=== PATIENT | male | born 1950 | race Caucasian/White ===

== ENCOUNTER 2017-04-29 16:48 | Emergency (ER) | payer MEDICARE, SELFPAY ==
[2017-04-29 16:50] VITALS: BP 163/64; PULSE 64; RESP 18; TEMP 37.1; O2SAT 99; BMI 44.4
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
[2017-04-29 19:34] VITALS: BP 153/81; PULSE 68; RESP 18; O2SAT 94
--- NOTE | 2017-04-29 19:37 | ED.RN ---
NOTED SWELLING AND WARMTH TO R LOWER EXT UPON DISCHARGE. ADDRESSED CONCERN WITH DR RODRIGES. DR STATED IT WAS INFLAMMATION RESPONSE. ENCOURAGED PT TO FOLLOW UP WITH PCP IF NEEDED AND TO RETURN IF THINGS CHANGED OR PAIN BEGAN.
== END 2017-04-29 19:38 | disposition home or self-care (01) ==
PROVIDERS: Emergency Provider Emergency Medicine
DX: S80.11XA Contusion of right lower leg, initial encounter (principal); S16.1XXA Strain of muscle, fascia and tendon at neck level, initial encounter; E11.9 Type 2 diabetes mellitus without complications; I10 Essential (primary) hypertension; E66.9 Obesity, unspecified; Z79.82 Long term (current) use of aspirin; Z79.84 Long term (current) use of oral hypoglycemic drugs; Z79.899 Other long term (current) drug therapy; W55.19XA Other contact with horse, initial encounter; Y93.I9 Activity, other involving external motion; Y92.89 Other specified places as the place of occurrence of the external cause; Y99.8 Other external cause status
CPT/HCPCS: 73590; 99282

== ENCOUNTER → 2017-05-23 10:51 | Outpatient (CLI) | payer MEDICARE, SELFPAY ==
[2017-05-23 11:55] LABS: Anion Gap 7 (5-15); BUN 17 mg/dL (7-18); BUN/Creat Ratio 19.8 RATIO (10-20); Calcium,Total 8.9 mg/dL (8.5-10.1); Chloride 107 mmol/L (98-107); Creatinine, Serum 0.86 mg/dL (0.70-1.30); EST Glomerular Filtration Rate 95 mL/min (>60); Est Glom Filt Rate - Afr Amer 115 mL/min (>60); Glucose 127 mg/dL (74-106); Magnesium 2.1 mg/dL (1.6-2.6); Potassium 3.7 mmol/L (3.5-5.1); Sodium Level 143 mmol/L (136-145); Thyroid Stim Hormone (TSH) 2.41 uIU/mL (0.358-3.74)
== END ==
PROVIDERS: Visit Provider Internal Medicine Cardiovascular Disease
DX: I10 Essential (primary) hypertension (principal)
CPT/HCPCS: 36415; 80048; 83735; 84443

== ENCOUNTER → 2017-06-27 16:12 | Outpatient (CLI) | payer MEDICARE, SELFPAY ==
[2017-06-27 18:30] LABS: Cholesterol 149 mg/dL (200); High Density Lipoprotein 38 mg/dL; PSA,Total - Annual Screen 3.73 ng/mL (0.00-4.00); Triglycerides 92 mg/dL; Very Low Density Lipoprotein 18 mg/dL (5-40)
[2017-06-28 06:57] LABS: Hemoglobin A1c 6.7 % (4.2-6.3)
== END ==
PROVIDERS: Family Provider Family Medicine; PCP Family Medicine; Visit Provider Family Medicine
DX: I10 Essential (primary) hypertension (principal); N40.0 Benign prostatic hyperplasia without lower urinary tract symptoms; E11.9 Type 2 diabetes mellitus without complications; Z12.5 Encounter for screening for malignant neoplasm of prostate
CPT/HCPCS: 36415; 80061; 83036; 84153; G0103

== ENCOUNTER → 2017-06-28 10:35 | Outpatient (CLI) | payer MEDICARE, SELFPAY | PROVIDERS: Family Provider Family Medicine; PCP Family Medicine; Visit Provider Family Medicine | DX: L03.011 Cellulitis of right finger (principal) | CPT/HCPCS: 87070; 87075; 87077; 87186; 87205 ==

== ENCOUNTER → 2017-10-02 09:29 | Outpatient (CLI) | payer MEDICARE, SELFPAY ==
[2017-10-02 10:55] LABS: Hemoglobin A1c 7.2 % (4.2-6.3)
[2017-10-02 11:11] LABS: Anion Gap 8 (5-15); BUN 14 mg/dL (7-18); BUN/Creat Ratio 17.3 RATIO (10-20); Calcium,Total 8.7 mg/dL (8.5-10.1); Chloride 104 mmol/L (98-107); Creatinine, Serum 0.81 mg/dL (0.70-1.30); EST Glomerular Filtration Rate 102 mL/min (>60); Est Glom Filt Rate - Afr Amer 123 mL/min (>60); Glucose 179 mg/dL (74-106); Potassium 3.5 mmol/L (3.5-5.1); Sodium Level 140 mmol/L (136-145)
== END ==
PROVIDERS: Family Provider Family Medicine; PCP Family Medicine; Visit Provider Family Medicine
DX: E11.9 Type 2 diabetes mellitus without complications (principal); I10 Essential (primary) hypertension
CPT/HCPCS: 36415; 80048; 83036

== ENCOUNTER → 2018-07-21 | Outpatient (CLI) | payer MEDICARE, SELFPAY ==
[2018-05-27 09:47] VITALS: BMI 45.6
[2018-07-21 12:42] LABS: Anion Gap 6 (5-15); BUN 13 mg/dL (7-18); Calcium,Total 8.9 mg/dL (8.5-10.1); Chloride 107 mmol/L (98-107); Cholesterol 148 mg/dL (200); Creatinine, Serum 0.76 mg/dL (0.70-1.30); EST Glomerular Filtration Rate 108 mL/min (>60); Est Glom Filt Rate - Afr Amer 131 mL/min (>60); Glucose 140 mg/dL (74-106); High Density Lipoprotein 39 mg/dL; Potassium 3.7 mmol/L (3.5-5.1); Sodium Level 144 mmol/L (136-145); Triglycerides 123 mg/dL; Very Low Density Lipoprotein 25 mg/dL (5-40)
== END | disposition home or self-care (01) ==
PROVIDERS: Family Provider Family Medicine; Visit Provider Family Medicine
DX: E11.9 Type 2 diabetes mellitus without complications (principal); N40.0 Benign prostatic hyperplasia without lower urinary tract symptoms; Z12.5 Encounter for screening for malignant neoplasm of prostate
CPT/HCPCS: 36415; 80048; 80061; 84153; G0103

== ENCOUNTER → 2019-07-15 | Outpatient (CLI) | payer MEDICARE, SELFPAY ==
[2019-07-15 10:22] VITALS: BMI 45.6
[2019-07-15 13:08] LABS: Anion Gap 5 (5-15); BUN 15 mg/dL (7-18); BUN/Creat Ratio 18.5 RATIO (10-20); Calcium,Total 9.1 mg/dL (8.5-10.1); Chloride 107 mmol/L (98-107); Cholesterol 186 mg/dL (200); Creatinine, Serum 0.81 mg/dL (0.70-1.30); EST Glomerular Filtration Rate 101 mL/min (>60); Est Glom Filt Rate - Afr Amer 122 mL/min (>60); Glucose 148 mg/dL (74-106); High Density Lipoprotein 45 mg/dL; Potassium 3.8 mmol/L (3.5-5.1); Sodium Level 143 mmol/L (136-145); Thyroid Stim Hormone (TSH) 2.02 uIU/mL (0.358-3.74); Triglycerides 139 mg/dL; Very Low Density Lipoprotein 28 mg/dL (5-40)
== END | disposition home or self-care (01) ==
LOC: MFPLAB 10:23
PROVIDERS: Visit Provider Family Medicine
DX: Z00.00 Encounter for general adult medical examination without abnormal findings (principal); E11.9 Type 2 diabetes mellitus without complications
CPT/HCPCS: 36415; 80048; 80061; 84443

== ENCOUNTER → 2019-07-21 15:01 | Outpatient (CLI) | payer MEDICARE, SELFPAY ==
[2019-07-15 10:22] VITALS: BMI 45.6
== END ==
PROVIDERS: Referring Provider Nurse Practitioner Adult Health; Visit Provider Nurse Practitioner Adult Health
DX: N40.1 Benign prostatic hyperplasia with lower urinary tract symptoms (principal)
CPT/HCPCS: 36415; 84153; G0103

== ENCOUNTER → 2019-08-21 | Outpatient (CLI) | payer MEDICARE, SELFPAY ==
[2019-07-15 10:22] VITALS: BMI 45.6
[2019-08-21 13:03] LABS: PSA,Total- Diagnostic 4.31 ng/mL (0.0-4.0)
== END | disposition home or self-care (01) ==
LOC: MFPLAB 10:53
PROVIDERS: Nurse Practitioner Adult Health; PCP Family Medicine; Referring Provider Family Medicine; Visit Provider Internal Medicine Gastroenterology
DX: R97.20 Elevated prostate specific antigen [PSA] (principal)
CPT/HCPCS: 36415; 84153

== ENCOUNTER 2019-12-07 07:52 | Inpatient (IN) | payer MEDICARE, SELFPAY ==
[2019-07-15 10:22] VITALS: BMI 45.6
[2019-12-07] VITALS (38 sets, daily range): BP systolic 93–182; BP diastolic 57–157; PULSE 69–96; RESP 14–40; TEMP 35.9–39.2; O2SAT 71–100; BMI 35.1; BMI 35.4
[2019-12-07] MEDS: Succinylcholine Chloride 200 MG/10 ML Vial 100 MG IV (08:00)
[2019-12-07] MEDS: Etomidate 20 MG/10 ML Vial IV (08:00)
--- NOTE | 2019-12-07 08:01 | ED.RN ---
0800-- etomidate 20 mg iv with flush 0801 succyncholine 100 mg iv with flush 0803- size 8.[address] burr. color change-- 24 at lip-- bilateral lung sounds 162/78 99 18 90 sat o2sat increasing--94 95 at 0807
--- NOTE | 2019-12-07 08:08 | EKG12_ITS ---
Test Reason : Blood Pressure : / mmHG Vent. Rate : 083 BPM Atrial Rate : 083 BPM P-R Int : 180 ms QRS Dur : 090 ms QT Int : 370 ms P-R-T Axes : 012 -01 071 degrees QTc Int : 434 ms Normal sinus rhythm Nonspecific ST abnormality Abnormal ECG Confirmed by CHAVO POLLOCK, DINH ([id number]), offline editor MARCO MONTGOMERY ([id number]) on 12/08/2019 10:39:14 AM Referred By: Enrique Youssef Confirmed By:DINH TONY MD
--- NOTE | 2019-12-07 08:08 | RAD_ITS ---
STUDY: X-RAY CHEST REASON FOR EXAM: Male, 69 years old. UNRESPONSIVE AND INTUBATION TODAY. COUGH YESTERDAY TECHNIQUE: Single AP portable view of the chest. COMPARISON: Comparison is made with prior study dated 09/02/2016. FINDINGS: An endotracheal tube is in situ. The tip is at 3.9 cm proximal to the dilma. An oral gastric tube is seen with the tip below the left hemidiaphragm. EKG electrodes are seen. There is evidence of bilateral diffuse airspace disease worse in the left lung. The differential diagnosis should include either pulmonary edema or diffuse bilateral pneumonia. There is no demonstrated pleural abnormality. Normal size heart. Normal mediastinum and marquise. Normal visualized pulmonary arteries. There is atherosclerotic tortuosity of the aortic arch and descending thoracic aorta. There are diffuse degenerative changes of the visualized thoracic spine. Normal visualized ribs, clavicles, and shoulders. There is no demonstrated abnormality of the visualized soft tissue structures of the upper abdomen. RAD/Chest 1 View (Portable) IMPRESSION: Diffuse bilateral alveolar infiltrates more prominent in the left hemithorax. Differential diagnosis should include either pulmonary edema or diffuse bilateral pneumonia. Electronically Signed: Damion Choi, at 8:46 EDT , Service support ,
[2019-12-07] MEDS: fentaNYL 100 MCG/2 ML Ampul IV ×2 (08:10→09:56)
[2019-12-07] MEDS: Propofol 10MG/Ml 1,000 MG/100 ML Bottle 6.9 MG CONT INF (08:14)
--- NOTE | 2019-12-07 08:22 | ED.RN ---
bilater wrist restraints propofol at 10 mck initiated
--- NOTE | 2019-12-07 08:35 | ED.VISSUMM ---
- ER Visit Summary Date of Service: 12/07/19 Chief Complaint: Unresponsive History of Present Illness: The patient is a 69 M who comes in with EMS due to being unresponsive. states that she tried to wake up the patient this morning but he did not. He started being sick yesterday with cough and shortness of breath. She started giving him some all-natural cough supplements. She tried to wake up this morning and he would not. EMS was called and transported him here. His blood glucose was in the 200s. He does have a history of hypertension and diabetes. He has been exposed with coronavirus at [facility] last week. He is a non-smoker. Physical Examination: Vital signs are reviewed. The patient is hypoxic in the 60s on a nonrebreather. HEENT exam reveals dilated but equal pupils. He has moist mucous membranes. Neck is supple without JVD. His heart is regular rate and rhythm. Lungs have diffuse rhonchorous breath sounds bilaterally. His breath sounds are diminished in the bases. His abdomen is soft and nondistended. Back is nontender. His extremities have no significant peripheral edema. Patient is lethargic and does not answer any questions. He moves all 4 extremities equally. Test Results: EKG was sinus rhythm with a rate of 83. No ischemic changes. Labs show glucose of 184, BUN of 23. AST is 44, lactate 2.7. Chest x-ray shows diffuse infiltrates. Emergency Department Course and Treatment: Due to the patient's persistent hypoxia and tachypnea the patient was intubated. He was given 20 mg of etomidate and 100 mg of succinylcholine. Preoxygenation was used with [id number]. He was intubated on the first pass using the glide scope. An 8?0 endotracheal tube was placed at 24 cm at the lip. There was bilateral breath sounds and good color change on capnography. A PEEP valve was placed on the bag to assist with oxygenation and he came up into the 90s after intubation. Patient had to be placed on propofol and fentanyl for sedation. I gave him Rocephin and azithromycin after reviewing his chest x-ray. His Covid test is positive. The patient was maintained on 100% FiO2 PEEP of 15 to maintain oxygenation. A Duarte catheter was placed and it revealed a lot of blood. His platelet count was 38 but his hemoglobin and INR are normal. He did have some blood clots so it was replaced with a three-way and it was flushed until it cleared. Patient was discussed with Dr. Sheppard and he will see the patient in the ICU. Patient will be admitted to the hospitalist. Treatment Plan: [] Disposition: Admit Impression: Cute respiratory failure with hypoxia Severe sepsis COVID-19 Hematuria This note was generated with [employer] dictation software. It may contain incorrect words, spelling, and punctuation that were not noted in review of the chart prior to signing ED Disposition - Plan for ED Patient: Referrals: Yunior Chaudhry MD [Primary Care Provider] -
[2019-12-07 08:38] LABS: Absolute Lymphocyte Count 1.05 X10^3/uL (0.83-4.51); Absolute Neutrophil Count 2.4 X10^3/uL (2.0-7.7); Basophil# 0.02 X10^3/uL; Basophil% 0.3 % (0-1); Hematocrit 46.9 % (40-54); Hemoglobin 15.9 g/dL (13.0-16.5); Lymphocyte # 1.05 X10^3/ul (4.0); Lymphocyte % 17.3 % (19-41); Mean Corp Hgb Conc 33.9 g/dL (32-36); Mean Corpuscular Hgb 31.5 pg (27.0-32.0); Mean Corpuscular Volume 93.1 fL (80-94); Mean Platelet Vol. 12.5 fl (6.2-12.0); Monocyte% 41.2 % (0-10); NRBC Flagged by Analyzer 0 % (0-5); Neutrophil # 2.41 X10^3/uL (2.7-7.7); Neutrophil % 39.7 % (47-70); POSITIVE COUNT YES; POSITIVE DIFFERENTIAL YES; POSITIVE MORPHOLOGY YES; Platelet Count 89 K/mm3 (150-450); RBC Distribution Width CV 13.4 % (11.6-14.6); RBC Distribution Width SD 45.7 fl (35.1-43.9); Red Blood Count 5.04 M/mm3 (4.6-6.2); White Blood Count 6.1 K/mm3 (4.4-11.0)
[2019-12-07 08:39] LABS: Differential Indicated SCAN CRITERIA MET
[2019-12-07] MEDS: Propofol 200 MG/20 ML Vial 40 MG IV BOLUS (08:40)
[2019-12-07 08:51] LABS: ALB/GLOB Ratio 0.8 RATIO (0.9-2.4); AST(SGOT) 44 U/L (15-37); Alanine Aminotransfer ALT/SGPT 17 U/L (16-61); Albumin, Serum 3.4 g/dL (3.2-5.0); Alkaline Phosphatase 60 U/L (45-117); Anion Gap 11 (5-15); BUN 23 mg/dL (7-18); BUN/Creat Ratio 19.3 RATIO (10-20); Calcium,Total 8.5 mg/dL (8.5-10.1); Chloride 104 mmol/L (98-107); Creatinine, Serum 1.19 mg/dL (0.70-1.30); EST Glomerular Filtration Rate 65 mL/min (>60); Est Glom Filt Rate - Afr Amer 78 mL/min (>60); Estimated Creatinine Clearance 63.28 ml/min; Globulin 4.3 g/dL (2.2-4.2); Glucose 184 mg/dL (74-106); Potassium 3.6 mmol/L (3.5-5.1); Protein, Total 7.7 g/dL (6.4-8.2); Sodium Level 139 mmol/L (136-145)
[2019-12-07 08:55] LABS: International Normalized Ratio 1.1; Prothrombin Time (Protime)PT. 13.9 SECONDS (11.7-14.9)
[2019-12-07 08:56] LABS: Partial Thromboplast Time 35.7 Seconds (24.1-36.2)
[2019-12-07 09:01] LABS: Reactive Lymphocyte RARE
[2019-12-07 09:07] LABS: Lactic Acid 2.7 mmol/L (0.4-1.9)
[2019-12-07 09:43] LABS: Mucous, Urine 0 SEEN /hpf (<or=2+)
--- NOTE | 2019-12-07 09:49 | ED.RN ---
COVID SWAB SWITCHED TO ANTIGEN OK PER DR ARANDA
[2019-12-07 09:53] LABS: Color, Urine Red (Yellow); Glucose, Dipstick Normal (Normal); Ketone-Dipstick 15 mg/dl (Negative); Leukocyte Esterase-Dipstick 25 /ul (Negative); Nitrite-Dipstick Negative (Negative); Occult Blood-Urine 250 /ul (Negative); Protein-Dipstick 500 mg/dl (Negative); Specific Gravity, Urine 1.015 (1.002-1.030); Urine Bilirubin Dipstick Negative (Negative); Urine Clarity Turbid (Clear); Urine Urobilinogen Normal (Normal); Urine pH 6.5 (5.0 - 8.0)
[2019-12-07 09:56] LABS: Base Excess -2 mmol/L (-2 to +2); Bicarbonate 22.7 mmol/L (22-26); Blood Gas Specimen Type ART; FI02 100; Mode AC; O2 Delivery Device Adult Vent; PEEP 15; PO2 112 mmHG (75-100); RR 20; SITE R Brach; SO2 99 % (95-99); Total Carbon Dioxide 24 mmol/L; Vt 500; pCO2 34.8 mmHg (35-45); pH 7.42 (7.35-7.45)
[2019-12-07 10:06] LABS: Bacteria 1+ /hpf (None Seen); Red Blood Cells-Urine > 100 SEEN /hpf (0-5); Renal Epithelial Cells 0-5 SEEN /hpf (0-5); Squamous Epithelial Cells - UA 0-5 SEEN /hpf (0-5); White Blood Cells 0-5 SEEN /hpf (0-5)
[2019-12-07 10:21] LABS: Bedside Glucose 219 mg/dL (70-110)
--- NOTE | 2019-12-07 11:10 | NURSING ---
ICU PAINTSIL ACUTE RESP FAILURE, COPVID, SEVERE SEPSIS
--- NOTE | 2019-12-07 11:19 | PCM.HP.STD ---
Problem List (1) COVID-19 with multiple comorbidities Status: Acute (2) COVID-19 with pulmonary comorbidity Status: Acute (3) Acute respiratory failure with hypoxia Status: Acute (4) Hypertension Status: Chronic Qualifiers: Hypertension type: essential hypertension Qualified Code(s): I10 - Essential (primary) hypertension (5) DM2 (diabetes mellitus, type 2) Status: Chronic Qualifiers: Diabetes mellitus [facility] insulin use: without [facility] use Diabetes mellitus complication status: with kidney complications Diabetes mellitus complication detail: with chronic kidney disease Chronic kidney disease stage: stage 2 (mild) Qualified Code(s): E11.22 - Type 2 diabetes mellitus with diabetic chronic kidney disease; N18.2 - Chronic kidney disease, stage 2 (mild) (6) Encephalopathy Status: Acute History of Present Illness Date of Admission: 12/07/19 Chief Complaint: Altered mental status?1 day The patient is a 69 year old M with past medical history of type II DM, hypertension who was admitted to the hospital with altered mental status. Patient was intubated and on sedation at time of being seen. Family not available at bedside. History was obtained from review of chart. Patient was reported to have been sick with cough and shortness of breath. His whole family reportedly has COVID-19. He was started on some natural cough supplement. This morning his try to wake him up but she was unable to. The EMS were called. His blood sugar was 200. Patient is Anibal. On arrival in the emergency department, patient was hypoxic with his oxygen saturation in the 60s on a nonrebreather. He was breathing more than 40 cycles per minute. He was intubated emergently. A Duarte catheter was placed in the ED and revealed gross hematuria with blood clots. Three-way catheter was then placed and flushed until it clears. Vitals in the ED showed BP of 101.2F, heart rate 79, blood pressure 1 two 2/157, respiratory 14, SPO2 is 91% on nonrebreather. WBC count 6.1, hemoglobin 15.9, platelet count 89. D-dimer is 3.37, fibrinogen 685, INR 1.1. ABG showed pH of 7.42, oxygen was 112, PCO2 was 34.8. BMP was unremarkable. Lactic acid was 2.7, CK was 92, procalcitonin and BMP were pending. UA showed turbid urine, occult blood 250, nitrite negative, WBC count 0-5. Chest x-ray showed diffuse bilateral alveolar infiltrates more prominent in the left hemithorax. Past Medical History Past Medical History (Chronic Problems): Chronic Problems (Last Reviewed 05/27/18 @ 10:[address] Hardeep Jackson MD) Hypertension (Chronic) DM2 (diabetes mellitus, type 2) (Chronic) Medical History: Medical History (Last Reviewed 05/27/18 @ 10:[address] Hardeep Jackson MD) Hypertension (Chronic) I10 DM2 (diabetes mellitus, type 2) (Chronic) E11.9 Hypertensive urgency (Acute) I16.0 Encephalopathy (Acute) G93.40 Allergies No Known Allergies Allergy (Verified 12/07/19 07:59) Home Medications: Ambulatory Orders Medication Instructions Recorded Metoprolol Tartrate [Lopressor 50 mg PO BID 09/02/16 (beta del)] Aspirin [Aspirin, Baby] 81 mg PO DAILY@0800 tab.chew 09/03/16 glimepiride 2 mg tablet 2 mg PO .COMPLEX 05/21/17 lisinopril 40 mg tablet 40 mg PO BID tab 05/21/17 doxazosin 2 mg tablet 2 mg PO QDAY #90 tab 12/10/17 amlodipine 10 mg tablet 10 mg PO QDAY #90 tab 12/11/17 potassium chloride 20 mEq 20 meq PO DAILY #90 tab 07/08/19 tablet,extended release(part/cryst) Surgical History: no surgical history Psychiatric History: No pertinent psych hx Lives: Spouse/ Significant Other, With Family Smoking Status: Unknown if ever smoked Tobacco Use: Non-smoker Alcohol: None Drugs: None - *Family History Maternal Family History: Family History (Last Reviewed 05/27/18 @ 10:[address] Hardeep Jackson MD) Father CAD (coronary artery disease) History Items: Stroke Paternal Family History: Family History (Last Reviewed 05/27/18 @ 10:[address] Hardeep Jackson MD) Father CAD (coronary artery disease) History Items: Heart Disease Review of Systems Unable to obtain accurate/complete ROS d/t: unable to answer due to being intubated. VTE Information - Inpt Only VTE Present on Admission: No VTE Pharm Prophylaxis ordered?: Yes Patient Problems: Active and Suspected Problems (Last Reviewed 05/27/18 @ 10:[address] Hardeep Jackson MD) COVID-19 with multiple comorbidities (Acute) COVID-19 with pulmonary comorbidity (Acute) Acute respiratory failure with hypoxia (Acute) Hypertensive urgency (Acute) Encephalopathy (Acute) - Physical Exam Vitals/I&O's: Vital Signs Temp Pulse Resp BP Pulse Ox 100.5 F H 75 20 H 108/62 97 12/07/19 11:04 12/07/19 11:04 12/07/19 11:04 12/07/19 11:04 12/07/19 11:04 Oxygen Delivery Method Mechanical Ventilator Weight: 114.3 kg Body Mass Index (BMI) 35.1 Finger Stick Blood Glucose 195 Intake and Output for Last 24 Hours 12/05/19 12/06/19 12/07/19 23:59 23:59 23:59 Intake Total 70.34 / 70.34 Balance 70.34 / 70.34 General: - - Intubated, on mechanical intubation, sedated, not pale HEENT: Atraumatic, PERRLA, EOMI, Normocephalic Oral: Moist Mucosa Neck: Supple Lungs: Diminished Cardiovascular: Regular rate, Regular Rhythm, Normal S1, Normal S2, No murmurs Abdomen: Bowel Sounds Present, Soft, Non Tender, Non-Distended, No Hepato-splenomegaly Extremities: Edema - bilateral trace edema Skin: No rashes Musculoskeletal: No Tenderness to Palpation of Joints or Extremities Lymphatic: No Cervical, Supraclavicular, or Inguinal Adenopathy Neurological: Cranial nerves II-XII grossly intact, Neuro grossly intact Psych/Mental Status: Normal Affect, Appropriate Microbiology Past 72 Hours 12/07/19 08:09 Mucosa - Nasopharyngeal - Final SARS-CoV-2 (COVID 19) Laboratory Results 12/07/19 07:55: WBC 6.1, RBC 5.04, Hgb 15.9, Hct 46.9, MCV 93.1, MCH 31.5, MCHC 33.9, RDW Std Deviation 45.7 H, RDW Coeff of Preston 13.4, Plt Count 89 L, MPV 12.5 H, Immature Gran % (Auto) 1.500 H, Neut % (Auto) 39.7 L, Lymph % (Auto) 17.3 L, Starr % (Auto) 41.2 H, Eos % (Auto) 0.0, Baso % (Auto) 0.3, Absolute Neuts (auto) 2.4, Absolute Lymphs (auto) 1.05, Nucleated RBC % 0, Reactive Lymphocytes RARE 12/07/19 07:55: PT 13.9, INR 1.1, APTT 35.7 12/07/19 07:55: Sodium 139, Potassium 3.6, Chloride 104, Carbon Dioxide 24.0, Anion Gap 11, BUN 23 H, Creatinine 1.19, Estim Creat Clear Calc 63.28, Est GFR (MDRD) Af Amer 78, Est GFR (MDRD) Non-Af 65, BUN/Creatinine Ratio 19.3, Glucose 184 H, Calcium 8.5, Total Bilirubin 0.90, AST 44 H, ALT 17, Alkaline Phosphatase 60, Troponin I 0.025, Total Protein 7.7, Albumin 3.4, Globulin 4.3 H, Albumin/Globulin Ratio 0.8 L 12/07/19 07:55: Lactic Acid 2.7 H* 12/07/19 08:25: COVID-19 (MARITZA) Cancelled 12/07/19 09:20: Urine Color Red, Urine Clarity Turbid, Urine pH 6.5, Ur Specific Harwood 1.015, Urine Protein 500 H, Urine Glucose (UA) Normal, Urine Ketones 15 H, Urine Occult Blood 250 H, Urine Nitrite Negative, Urine Bilirubin Negative, Urine Urobilinogen Normal, Ur Leukocyte Esterase 25 H, Urine RBC > 100 SEEN, Urine WBC 0-5 SEEN, Ur Squamous Epith Cells 0-5 SEEN, Ur Renal Epithelial Cell 0-5 SEEN, Urine Bacteria 1+, Urine Mucus 0 SEEN 12/07/19 09:46: Specimen Type ART, Sample Site R Brach, pH 7.42, Bicarbonate Actual 22.7, Total CO2 24, Base Excess -2, O2 Saturation 99, O2 % 100, ABG pCO2 34.8 L, ABG pO2 112 H, Respiration Rate 20, O2 Delivery Device Adult Vent, Vent Mode AC, Tidal Volume 500, POC PEEP 15 12/07/19 10:14: POC Glucose 219 H Current Medications Propofol (Diprivan) 1,000 mg in 100 mls @ 6.858 mls/hr CONT INF .Q12H MARCI; Protocol Last Titration: 12/07/19 10:14 Dose: 25 mcg/kg/min, 17.1 mls/hr Documented by: Fentanyl Citrate 1,000 mcg/ (Sodium Chloride) 100 mls @ 2.5 mls/hr CONT INF .Q40H MARCI; Protocol Last Titration: 12/07/19 09:26 Dose: 50 mcg/hr, 5 mls/hr Documented by: Assessment/Plan All Active Problems (Last Reviewed 05/27/18 @ 10:[address] Hardeep Jackson MD) COVID-19 with multiple comorbidities (Acute) COVID-19 with pulmonary comorbidity (Acute) Acute respiratory failure with hypoxia (Acute) Hypertensive urgency (Acute) Encephalopathy (Acute) 1. Acute hypoxic respiratory failure secondary to acute COVID-19 pneumonia Patient has been intubated, on mechanical ventilator Glazier Artist consulted, will continue on sedatives 2. Acute COVID-19 pneumonia, severe with hypoxia Admitting chest x-ray shows diffuse bilateral alveolar infiltrates more prominent in the left hemithorax Elevated D-dimer 3.37, LDH is 644, fibrinogen is 685 We will start patient on IV dexamethasone, ID and pulmonary consulted 3. Acute metabolic encephalopathy likely secondary to #2, currently intubated 4. Gross hematuria, noted after Duarte catheter was inserted in the ED Review of chart do not show history of BPH. We will hold off on anticoagulation as well as aspirin Urology consulted, would trend H&H, type and screen 5. Lactic acid Brian related to #1, lactic acid is 2.7, repeat is 1.5 6. Hypertensive urgency, blood pressure slightly improved with the start of propofol Will continue on home metoprolol 50 mg p.o. twice daily with holding parameters Lisinopril dose Zosyn on hold 6. Type II DM, on glimepiride, would hold glimepiride and continue on blood glucose check with insulin sliding scale 7. DVT PPx- SCDs on account of hematuria. Inpatient E&M: 89995 Init Hosp L3
--- NOTE | 2019-12-07 11:25 | NURSING ---
ICU 8
[2019-12-07 12:31] LABS: Reflex Lactate? Y
[2019-12-07 13:15] LABS: Fibrinogen 685 mg/dl (203-444)
[2019-12-07] MEDS: Propofol 10MG/Ml 1,000 MG/100 ML Bottle 20.6 MG CONT INF (13:20)
[2019-12-07 13:24] LABS: CPK Total, Creatine Kinase 92 U/L (39-308); LDH 644 U/L (87-241)
[2019-12-07 13:36] LABS: D-Dimer Quantitative (DVT/PE) 3.37 FEU/ug/m (0.27-0.49)
[2019-12-07] MEDS: Insulin Lispro 100 UNIT/ML INSULN.PEN SC ×2 (13:47→18:10)
--- NOTE | 2019-12-07 13:47 | NT.THERAPY_ITS ---
Nutrition Therapy Report - History Nutrition Services has been consulted to:: Manage enteral nutrition Current diet / nutrition support order:: NPO - Anthropometric Measurements Height:: 5 ft 11 in Weight:: 114.3 kg Body Mass Index (BMI):: 35.1 - Relevant Labs Relevant Labs:: RDW Std Deviation 45.7 fl (35.1-43.9) H 12/07/19 07:55 Plt Count 89 K/mm3 (150-450) L 12/07/19 07:55 MPV 12.5 fl (6.2-12.0) H 12/07/19 07:55 Immature Gran % (Auto) 1.500 % (0.0-0.9) H 12/07/19 07:55 Neut % (Auto) 39.7 % (47-70) L 12/07/19 07:55 Lymph % (Auto) 17.3 % (19-41) L 12/07/19 07:55 Childress % (Auto) 41.2 % (0-10) H 12/07/19 07:55 Fibrinogen 685 mg/dl (203-444) H 12/07/19 07:55 D-Dimer Quant (PE/DVT) 3.37 FEU/ug/m (0.27-0.49) H* 12/07/19 07:55 BUN 23 mg/dL (7-18) H 12/07/19 07:55 Glucose 184 mg/dL (74-106) H 12/07/19 07:55 Lactic Acid 2.7 mmol/L (0.4-1.9) H* 12/07/19 07:55 AST 44 U/L (15-37) H 12/07/19 07:55 Lactate Dehydrogenase 644 U/L (87-241) H 12/07/19 07:55 Globulin 4.3 g/dL (2.2-4.2) H 12/07/19 07:55 Albumin/Globulin Ratio 0.8 RATIO (0.9-2.4) L 12/07/19 07:55 - Assessment Food / Nutrition-Related History:: Unable to talk to pt d/t sedated and on vent - in isolation d/t COVID. Pt currently NPO and consulted for tf rec. UBW: 114.305 kg per EMR (09/02/16). Gluc elevated - on steroid - also w/ hx of DM. Nsg adm still being completed. Per Dr. Wayne, not to start tf today, but to make rec for later as needed. [ End ] - Nutrition Diagnosis Problem / Etiology / Signs & Symptoms (PES):: Pt with poor po intake r/t COVID virus AEB NPO status. [ End ] Evidence of Malnutrition Exists:: No - Nutrition Intervention Nutrition Prescription:: 1257 -1600 janene / 114-137 gm pro / day - Food / Nutrient Delivery Interventions Summary of nutrition intervention:: If pt to remain on vent, rec Vital High Protein at goal rate 65 cc/hr with 65 cc free water every 6 hours to provide ~ 1560 janene / 136 gm pro / 1564 cc free water w/ flush. Enteral nutrition support will be administered via gravity feed bag. Total formula to be administered in 24 hrs: 1560 mL. Rec 120 mL for first 4 hours (approx. 10 drops / min, 3 drops per 15 sec); increase to 180 mL for next 4 hours as tolerated (approx 15 drops/min, 4 drops per 15 sec). Goal rate is 260 mL per 4 hours (approx 20 drops/min, 5 drops per 15 sec). When able to resume po diet, rec CHO Control VERNON - consistency per [employer] and ONS as diet ordered and po intake is established. Nutrition education provided?: No - MNT Monitoring Further MNT monitoring and evaluation required?: Yes MNT Follow-up in:: 1-2 days - if questions, please call RD/LD at [phone]
[2019-12-07 14:27] LABS: Lactic Acid 1.5 mmol/L (0.4-1.9)
--- NOTE | 2019-12-07 15:07 | CON.PCM_ITS ---
Problem List (1) COVID-19 with multiple comorbidities Status: Acute (2) COVID-19 with pulmonary comorbidity Status: Acute (3) Acute respiratory failure with hypoxia Status: Acute (4) Hypertension Status: Chronic Qualifiers: Hypertension type: essential hypertension Qualified Code(s): I10 - Essential (primary) hypertension (5) DM2 (diabetes mellitus, type 2) Status: Chronic Qualifiers: Diabetes mellitus detention insulin use: without detention use Diabetes mellitus complication status: with kidney complications Diabetes mellitus complication detail: with chronic kidney disease Chronic kidney disease stage: stage 2 (mild) Qualified Code(s): E11.22 - Type 2 diabetes mellitus with diabetic chronic kidney disease; N18.2 - Chronic kidney disease, stage 2 (mild) (6) Hypertensive urgency Status: Acute (7) Encephalopathy Status: Acute Reason for Consult Date of Consultation: 12/07/19 Reason for Consultation: Respiratory failure History of Present Illness: The patient is a 69 year old M, with past medical history listed below, who presented [facility] on 12/07/2019 after being found unresponsive. Patient reportedly was found by his this morning and was unresponsive. Patient had started to complain of being sick yesterday with cough and shortness of breath. Patient does take herbal supplements at baseline, but this morning was unable to wait. EMS had noted his blood glucose in the 200s, but patient was significantly hypoxic on presentation. Patient reportedly had been exposed to coronavirus at some nondenominational functions last week. Patient reportedly is a non-smoker. In the ER, patient was noted to be hypoxic in the 60s on a nonrebreather. Patient was lethargic and there was some concern for him controlling his airway. Patient was emergently intubated using rapid sequence. No complications were noted. Patient was placed on increased FiO2 and a PEEP of 15 to maintain oxygenation. A Duarte catheter was placed and patient reportedly had a lot of blood clots. Laboratory work-up showed no leukocytosis, but thrombocytopenia at 89, elevated blood sugar at 184 and an elevated creatinine at 1.19 with a baseline of 0.7. ABG following intubation showed adequate oxygenation on ventilation, but is significantly depressed P to F ratio. Initial lactate was elevated and UA was consistent with hematuria. Patient did come back positive with COVID-19. Patient was admitted to the intensive care unit. Patient was difficult to sedate and did have significant vent dyssynchrony with these events. Multiple attempts at obtaining IV access were unsuccessful. Patient was able to be weaned on FiO2. Patient was not unable to provide a review of systems. Past Medical History Past Medical History (Chronic Problems): Chronic Problems (Last Reviewed 05/27/18 @ 10:[address] Hardeep Jackson MD) Hypertension (Chronic) DM2 (diabetes mellitus, type 2) (Chronic) Medical History: Medical History (Last Reviewed 05/27/18 @ 10:[address] Hardeep Jackson MD) Hypertension (Chronic) I10 DM2 (diabetes mellitus, type 2) (Chronic) E11.9 Hypertensive urgency (Acute) I16.0 Encephalopathy (Acute) G93.40 Allergies No Known Allergies Allergy (Verified 12/07/19 07:59) Home Medications: Ambulatory Orders Medication Instructions Recorded Metoprolol Tartrate [Lopressor 50 mg PO BID 09/02/16 (beta del)] Aspirin [Aspirin, Baby] 81 mg PO DAILY@0800 tab.chew 09/03/16 glimepiride 2 mg tablet 2 mg PO .COMPLEX 05/21/17 lisinopril 40 mg tablet 40 mg PO BID tab 05/21/17 doxazosin 2 mg tablet 2 mg PO QDAY #90 tab 12/10/17 amlodipine 10 mg tablet 10 mg PO QDAY #90 tab 12/11/17 potassium chloride 20 mEq 20 meq PO DAILY #90 tab 07/08/19 tablet,extended release(part/cryst) Smoking Status: Unknown if ever smoked - *Family History Maternal Family History: Family History (Last Reviewed 05/27/18 @ 10:[address] Hardeep Jackson MD) Father CAD (coronary artery disease) History Items: Stroke Review of Systems Unable to obtain accurate/complete ROS d/t: Intubated and sedated Patient Problems: Active and Suspected Problems (Last Reviewed 05/27/18 @ 10:[address] Hardeep Jackson MD) COVID-19 with multiple comorbidities (Acute) COVID-19 with pulmonary comorbidity (Acute) Acute respiratory failure with hypoxia (Acute) Encephalopathy (Acute) Objective: Chest x-ray shows bilateral infiltrates. Patient does not have any echocardiogram or pulmonary function test available for review in our system. Patient has been seen by cardiology for hypertension. - Physical Exam Vitals/I&O's: Vital Signs Temp Pulse Resp BP Pulse Ox 38.8 C H 77 24 H 109/62 100 12/07/19 11:35 12/07/19 13:02 12/07/19 13:02 12/07/19 11:35 12/07/19 13:02 Oxygen Delivery Method Mechanical Ventilator Weight: 114.3 kg Body Mass Index (BMI) 35.1 Finger Stick Blood Glucose 195 Intake and Output for Last 24 Hours 12/05/19 12/06/19 12/07/19 23:59 23:59 23:59 Intake Total 420.36 / 420.36 Balance 420.36 / 420.36 General: - - Intubated and sedated. Obese. Fair vent synchrony. HEENT: Atraumatic, PERRLA, EOMI, Normocephalic, - - Scleral injection without icterus Oral: Moist Mucosa, No Gingival or Mucosal Lesions/ Ulcerations Neck: Supple, No JVD, No Nodes, Trachea Midline Lungs: No rhonchi, No wheeze, Diminished, Rales - Right greater than left, - - Symmetric expansion. Cardiovascular: Regular rate, Regular Rhythm, Normal S1, Normal S2, No murmurs, No rub noted, No Gallop Abdomen: Bowel Sounds Present, Soft, Non Tender, Non-Distended, Obese Extremities: No clubbing, No cyanosis, Edema - 1-2+ lower extremity edema Skin: No rashes, No breakdown Musculoskeletal: No Tenderness to Palpation of Joints or Extremities Lymphatic: No Cervical, Supraclavicular, or Inguinal Adenopathy Neurological: Cranial nerves II-XII grossly intact, Neuro grossly intact, Motor Exam 5/5 strength throughout Psych/Mental Status: Flat Affect Microbiology Past 72 Hours 12/07/19 08:09 Mucosa - Nasopharyngeal - Final SARS-CoV-2 (COVID 19) Laboratory Results 12/07/19 07:55: WBC 6.1, RBC 5.04, Hgb 15.9, Hct 46.9, MCV 93.1, MCH 31.5, MCHC 33.9, RDW Std Deviation 45.7 H, RDW Coeff of [place] 13.4, Plt Count 89 L, MPV 12.5 H, Immature Gran % (Auto) 1.500 H, Neut % (Auto) 39.7 L, Lymph % (Auto) 17.3 L, [place] % (Auto) 41.2 H, Eos % (Auto) 0.0, Baso % (Auto) 0.3, Absolute Neuts (auto) 2.4, Absolute Lymphs (auto) 1.05, Nucleated RBC % 0, Reactive Lymphocytes RARE 12/07/19 07:55: PT 13.9, INR 1.1, APTT 35.7 12/07/19 07:55: Sodium 139, Potassium 3.6, Chloride 104, Carbon Dioxide 24.0, Anion Gap 11, BUN 23 H, Creatinine 1.19, Estim Creat Clear Calc 63.28, Est GFR (MDRD) Af Amer 78, Est GFR (MDRD) Non-Af 65, BUN/Creatinine Ratio 19.3, Glucose 184 H, Calcium 8.5, Total Bilirubin 0.90, AST 44 H, ALT 17, Alkaline Phosphatase 60, Troponin I 0.025, Total Protein 7.7, Albumin 3.4, Globulin 4.3 H, Albumin/Globulin Ratio 0.8 L 12/07/19 07:55: Lactic Acid 2.7 H* 12/07/19 07:55: B-Natriuretic Peptide Pending 12/07/19 07:55: Fibrinogen 685 H 12/07/19 07:55: Lactate Dehydrogenase 644 H, Total Creatine Kinase 92 12/07/19 07:55: D-Dimer Quant (PE/DVT) 3.37 H* 12/07/19 08:25: COVID-19 (MARITZA) Cancelled 12/07/19 09:20: Urine Color Red, Urine Clarity Turbid, Urine pH 6.5, Ur Specific [place] 1.015, Urine Protein 500 H, Urine Glucose (UA) Normal, Urine Ketones 15 H, Urine Occult Blood 250 H, Urine Nitrite Negative, Urine Bilirubin Negative, Urine Urobilinogen Normal, Ur Leukocyte Esterase 25 H, Urine RBC > 100 SEEN, Urine WBC 0-5 SEEN, Ur Squamous Epith Cells 0-5 SEEN, Ur Renal Epithelial Cell 0-5 SEEN, Urine Bacteria 1+, Urine Mucus 0 SEEN 12/07/19 09:46: Specimen Type ART, Sample Site R Brach, pH 7.42, Bicarbonate Actual 22.7, Total CO2 24, Base Excess -2, O2 Saturation 99, O2 % 100, ABG pCO2 34.8 L, ABG pO2 112 H, Respiration Rate 20, O2 Delivery Device Adult Vent, Vent Mode AC, Tidal Volume 500, POC PEEP 15 12/07/19 10:14: POC Glucose 219 H 12/07/19 13:40: Procalcitonin Pending 12/07/19 13:41: Lactic Acid 1.5 Current Medications Dexamethasone Sodium Phosphate (Dexamethasone 10 Mg/Ml Vial) 6 mg IV DAILY MARCI Propofol (Diprivan) 1,000 mg in 100 mls @ 6.858 mls/hr CONT INF .Q12H MARCI; Protocol Last Titration: 12/07/19 14:00 Dose: 35 mcg/kg/min, 24 mls/hr Documented by: Fentanyl Citrate 1,000 mcg/ (Sodium Chloride) 100 mls @ 2.5 mls/hr CONT INF .Q40H MARCI; Protocol Last Titration: 12/07/19 14:00 Dose: 75 mcg/hr, 7.5 mls/hr Documented by: Insulin Human Lispro (Insulin Lispro 100 Unit/Ml Insuln.Pen) 0 unit SC Q6 MARCI; Protocol Last Admin: 12/07/19 13:47 Dose: 2 u Documented by: Clinical Impression(s) from Imaging Studies Chest X-Ray 12/07/19 08:08 IMPRESSION: Diffuse bilateral alveolar infiltrates more prominent in the left hemithorax. Differential diagnosis should include either pulmonary edema or diffuse bilateral pneumonia. Electronically Signed: Damion Choi, at 8:46 EDT , Service support , Assessment/Plan Active and Suspected Problems (Last Reviewed 05/27/18 @ 10:[address] Hardeep Jackson MD) COVID-19 with multiple comorbidities (Acute) COVID-19 with pulmonary comorbidity (Acute) Acute respiratory failure with hypoxia (Acute) Encephalopathy (Acute) RECOMMENDATIONS: 1. Wean PEEP and FiO2 as tolerated 2. Consistent bladder irrigation as necessary to avoid obstruction 3. Repeat H&H this evening. Possible platelet transfusion if continues to have hematuria 4. Recheck fibrinogen in a.m. 5. Await BNP, pro calcitonin and CRP 6. Possible convalescent serum and remdesivir per ID 7. Place PICC line for IV access 8. Okay to initiate tube feeds from my perspective 9. PPI for GI prophylaxis IMPRESSIONS: 1. Acute hypoxic respiratory failure secondary to COVID-19 Patient with significant infiltrates bilaterally on chest x-ray. These findings could be suggestive of COVID-19 pneumonitis versus congestive heart failure. Patient does have a history of hypertension, so diastolic dysfunction would be a consideration. Patient does have a BNP currently pending. Patient should be placed on Decadron. Likely hold anticoagulation given thrombocytopenia with active bleeding. Wean oxygen and PEEP as tolerated. Spontaneous breathing and awakening trials per protocol. 2. Possible congestive heart failure Patient does have a long history of hypertension. Unclear if patient has diastolic dysfunction. BNP is currently pending. If elevated, echocardiogram would be appropriate for quantification and clarification of heart function. 3. Thrombocytopenia with hematuria Patient does have a history of BPH and is on doxazosin as an outpatient. Patient does have thrombocytopenia of unclear etiology. Patient would be at risk for DIC, but fibrinogen is currently elevated. Would recheck fibrinogen tomorrow. Recheck H&H this evening with transfusion if necessary. Would hold off on anticoagulation for now. Irrigate bladder as necessary. 4. Acute kidney injury Clinical suspicion for an element of ATN secondary to protracted hypoxia. Patient does have reasonable urine output at this time. This will be difficult to monitor given his need for bladder irrigation. Continue to monitor chemistries on a daily basis. 5. Diabetes mellitus/advanced age/obesity Complicates care, management, recovery and prognosis. Likely okay to initiate tube feeds, but high clinical suspicion.basal insulin will be required. TIME: 35 minutes critical care time spent addressing patient's acute hypoxic respiratory failure, possible CHF, thrombocytopenia, acute kidney injury, diabetes mellitus, review of all data and collaboration with care team (2 PM to 3 PM) [phone]: [id number] Critical care first hour
[2019-12-07 15:16] LABS: Bedside Glucose 233 mg/dL (70-110)
[2019-12-07 15:44] LABS: Hematocrit 41.3 % (40-54); Hemoglobin 13.6 g/dL (13.0-16.5)
[2019-12-07 15:49] LABS: POSITIVE COUNT NO
--- NOTE | 2019-12-07 16:23 | PCM.HP.ID ---
Reason for Consult: covid Consulted by: Dr. Wayne History of Present Illness: The patient is a 69 year old M found unresponsive by this AM in bed, started to get sick 12/05. May have been exposed to covid last week at [employer]. Taken to ED, intubated, admitted to icu on dex after dose of azithro/ceftriaxone. ROS unobtainable due to intubation/sedation - Medical History Past Medical History (Chronic Problems): Chronic Problems (Last Reviewed 05/27/18 @ 10:[address] Hardeep Jackson MD) Hypertension (Chronic) DM2 (diabetes mellitus, type 2) (Chronic) Allergies/Adverse Reactions: Allergies No Known Allergies Allergy (Verified 12/07/19 07:59) Home Medications: Ambulatory Orders Medication Instructions Recorded Metoprolol Tartrate [Lopressor 50 mg PO BID 09/02/16 (beta del)] Aspirin [Aspirin, Baby] 81 mg PO DAILY@0800 tab.chew 09/03/16 glimepiride 2 mg tablet 2 mg PO .COMPLEX 05/21/17 lisinopril 40 mg tablet 40 mg PO BID tab 05/21/17 doxazosin 2 mg tablet 2 mg PO QDAY #90 tab 12/10/17 amlodipine 10 mg tablet 10 mg PO QDAY #90 tab 12/11/17 potassium chloride 20 mEq 20 meq PO DAILY #90 tab 07/08/19 tablet,extended release(part/cryst) - Social History Tobacco Use: cigarettes SMOKING STATUS:: Current every day smoker Vital Signs Temp Pulse Resp BP Pulse Ox 102 F H 77 24 H 109/62 100 12/07/19 11:35 12/07/19 13:02 12/07/19 13:02 12/07/19 11:35 12/07/19 13:02 Oxygen Delivery Method Mechanical Ventilator Weight: 114.3 kg Body Mass Index (BMI) 35.1 Finger Stick Blood Glucose 195 Microbiology Past 72 Hours 12/07/19 08:09 - Final Mucosa - Nasopharyngeal SARS-CoV-2 (COVID 19) Laboratory Tests Past 24 Hrs 12/07/19 12/07/19 12/07/19 07:55 07:55 07:55 WBC 6.1 RBC 5.04 Hgb 15.9 Hct 46.9 MCV 93.1 MCH 31.5 MCHC 33.9 RDW Std Deviation 45.7 H RDW Coeff of [place] 13.4 Plt Count 89 L MPV 12.5 H Immature Gran % (Auto) 1.500 H Neut % (Auto) 39.7 L Lymph % (Auto) 17.3 L [place] % (Auto) 41.2 H Eos % (Auto) 0.0 Baso % (Auto) 0.3 Absolute Neuts (auto) 2.4 Absolute Lymphs (auto) 1.05 Nucleated RBC % 0 Reactive Lymphocytes RARE PT 13.9 INR 1.1 APTT 35.7 Fibrinogen D-Dimer Quant (PE/DVT) Specimen Type Sample Site pH Bicarbonate Actual Total CO2 Base Excess O2 Saturation O2 % ABG pCO2 ABG pO2 Respiration Rate O2 Delivery Device Vent Mode Tidal Volume POC PEEP Sodium 139 Potassium 3.6 Chloride 104 Carbon Dioxide 24.0 Anion Gap 11 BUN 23 H Creatinine 1.19 Estim Creat Clear Calc 63.28 Est GFR (MDRD) Af Amer 78 Est GFR (MDRD) Non-Af 65 BUN/Creatinine Ratio 19.3 Glucose 184 H Lactic Acid Calcium 8.5 Total Bilirubin 0.90 AST 44 H ALT 17 Alkaline Phosphatase 60 Lactate Dehydrogenase Total Creatine Kinase Troponin I 0.025 B-Natriuretic Peptide Total Protein 7.7 Albumin 3.4 Globulin 4.3 H Albumin/Globulin Ratio 0.8 L Procalcitonin Urine Color Urine Clarity Urine pH Ur Specific [place] Urine Protein Urine Glucose (UA) Urine Ketones Urine Occult Blood Urine Nitrite Urine Bilirubin Urine Urobilinogen Ur Leukocyte Esterase Urine RBC Urine WBC Ur Squamous Epith Cells Ur Renal Epithelial Cell Urine Bacteria Urine Mucus COVID-19 (MARITZA) Blood Type Antibody Screen 12/07/19 12/07/19 12/07/19 07:55 07:55 07:55 WBC RBC Hgb Hct MCV MCH MCHC RDW Std Deviation RDW Coeff of [place] Plt Count MPV Immature Gran % (Auto) Neut % (Auto) Lymph % (Auto) [place] % (Auto) Eos % (Auto) Baso % (Auto) Absolute Neuts (auto) Absolute Lymphs (auto) Nucleated RBC % Reactive Lymphocytes PT INR APTT Fibrinogen 685 H D-Dimer Quant (PE/DVT) Specimen Type Sample Site pH Bicarbonate Actual Total CO2 Base Excess O2 Saturation O2 % ABG pCO2 ABG pO2 Respiration Rate O2 Delivery Device Vent Mode Tidal Volume POC PEEP Sodium Potassium Chloride Carbon Dioxide Anion Gap BUN Creatinine Estim Creat Clear Calc Est GFR (MDRD) Af Amer Est GFR (MDRD) Non-Af BUN/Creatinine Ratio Glucose Lactic Acid 2.7 H* Calcium Total Bilirubin AST ALT Alkaline Phosphatase Lactate Dehydrogenase Total Creatine Kinase Troponin I B-Natriuretic Peptide Pending Total Protein Albumin Globulin Albumin/Globulin Ratio Procalcitonin Urine Color Urine Clarity Urine pH Ur Specific [place] Urine Protein Urine Glucose (UA) Urine Ketones Urine Occult Blood Urine Nitrite Urine Bilirubin Urine Urobilinogen Ur Leukocyte Esterase Urine RBC Urine WBC Ur Squamous Epith Cells Ur Renal Epithelial Cell Urine Bacteria Urine Mucus COVID-19 (MARITZA) Blood Type Antibody Screen 12/07/19 12/07/19 12/07/19 07:55 07:55 08:25 WBC RBC Hgb Hct MCV MCH MCHC RDW Std Deviation RDW Coeff of [place] Plt Count MPV Immature Gran % (Auto) Neut % (Auto) Lymph % (Auto) [place] % (Auto) Eos % (Auto) Baso % (Auto) Absolute Neuts (auto) Absolute Lymphs (auto) Nucleated RBC % Reactive Lymphocytes PT INR APTT Fibrinogen D-Dimer Quant (PE/DVT) 3.37 H* Specimen Type Sample Site pH Bicarbonate Actual Total CO2 Base Excess O2 Saturation O2 % ABG pCO2 ABG pO2 Respiration Rate O2 Delivery Device Vent Mode Tidal Volume POC PEEP Sodium Potassium Chloride Carbon Dioxide Anion Gap BUN Creatinine Estim Creat Clear Calc Est GFR (MDRD) Af Amer Est GFR (MDRD) Non-Af BUN/Creatinine Ratio Glucose Lactic Acid Calcium Total Bilirubin AST ALT Alkaline Phosphatase Lactate Dehydrogenase 644 H Total Creatine Kinase 92 Troponin I B-Natriuretic Peptide Total Protein Albumin Globulin Albumin/Globulin Ratio Procalcitonin Urine Color Urine Clarity Urine pH Ur Specific [place] Urine Protein Urine Glucose (UA) Urine Ketones Urine Occult Blood Urine Nitrite Urine Bilirubin Urine Urobilinogen Ur Leukocyte Esterase Urine RBC Urine WBC Ur Squamous Epith Cells Ur Renal Epithelial Cell Urine Bacteria Urine Mucus COVID-19 (MARITZA) Cancelled Blood Type Antibody Screen 12/07/19 12/07/19 12/07/19 09:20 09:46 13:40 WBC RBC Hgb Hct MCV MCH MCHC RDW Std Deviation RDW Coeff of [place] Plt Count MPV Immature Gran % (Auto) Neut % (Auto) Lymph % (Auto) [place] % (Auto) Eos % (Auto) Baso % (Auto) Absolute Neuts (auto) Absolute Lymphs (auto) Nucleated RBC % Reactive Lymphocytes PT INR APTT Fibrinogen D-Dimer Quant (PE/DVT) Specimen Type ART Sample Site R Brach pH 7.42 Bicarbonate Actual 22.7 Total CO2 24 Base Excess -2 O2 Saturation 99 O2 % 100 ABG pCO2 34.8 L ABG pO2 112 H Respiration Rate 20 O2 Delivery Device Adult Vent Vent Mode AC Tidal Volume 500 POC PEEP 15 Sodium Potassium Chloride Carbon Dioxide Anion Gap BUN Creatinine Estim Creat Clear Calc Est GFR (MDRD) Af Amer Est GFR (MDRD) Non-Af BUN/Creatinine Ratio Glucose Lactic Acid Calcium Total Bilirubin AST ALT Alkaline Phosphatase Lactate Dehydrogenase Total Creatine Kinase Troponin I B-Natriuretic Peptide Total Protein Albumin Globulin Albumin/Globulin Ratio Procalcitonin Pending Urine Color Red Urine Clarity Turbid Urine pH 6.5 Ur Specific [place] 1.015 Urine Protein 500 H Urine Glucose (UA) Normal Urine Ketones 15 H Urine Occult Blood 250 H Urine Nitrite Negative Urine Bilirubin Negative Urine Urobilinogen Normal Ur Leukocyte Esterase 25 H Urine RBC > 100 SEEN Urine WBC 0-5 SEEN Ur Squamous Epith Cells 0-5 SEEN Ur Renal Epithelial Cell 0-5 SEEN Urine Bacteria 1+ Urine Mucus 0 SEEN COVID-19 (MARITZA) Blood Type Antibody Screen 12/07/19 12/07/19 12/07/19 13:41 14:55 14:55 WBC RBC Hgb Hct MCV MCH MCHC RDW Std Deviation RDW Coeff of [place] Plt Count MPV Immature Gran % (Auto) Neut % (Auto) Lymph % (Auto) [place] % (Auto) Eos % (Auto) Baso % (Auto) Absolute Neuts (auto) Absolute Lymphs (auto) Nucleated RBC % Reactive Lymphocytes PT INR APTT Fibrinogen D-Dimer Quant (PE/DVT) Specimen Type Sample Site pH Bicarbonate Actual Total CO2 Base Excess O2 Saturation O2 % ABG pCO2 ABG pO2 Respiration Rate O2 Delivery Device Vent Mode Tidal Volume POC PEEP Sodium Potassium Chloride Carbon Dioxide Anion Gap BUN Creatinine Estim Creat Clear Calc Est GFR (MDRD) Af Amer Est GFR (MDRD) Non-Af BUN/Creatinine Ratio Glucose Lactic Acid 1.5 Calcium Total Bilirubin AST ALT Alkaline Phosphatase Lactate Dehydrogenase Total Creatine Kinase Troponin I B-Natriuretic Peptide Total Protein Albumin Globulin Albumin/Globulin Ratio Procalcitonin Urine Color Urine Clarity Urine pH Ur Specific [place] Urine Protein Urine Glucose (UA) Urine Ketones Urine Occult Blood Urine Nitrite Urine Bilirubin Urine Urobilinogen Ur Leukocyte Esterase Urine RBC Urine WBC Ur Squamous Epith Cells Ur Renal Epithelial Cell Urine Bacteria Urine Mucus COVID-19 (MARITZA) Blood Type Cancelled Pending Antibody Screen Pending 12/07/19 14:55 WBC RBC Hgb 13.6 Hct 41.3 MCV MCH MCHC RDW Std Deviation RDW Coeff of [place] Plt Count MPV Immature Gran % (Auto) Neut % (Auto) Lymph % (Auto) [place] % (Auto) Eos % (Auto) Baso % (Auto) Absolute Neuts (auto) Absolute Lymphs (auto) Nucleated RBC % Reactive Lymphocytes PT INR APTT Fibrinogen D-Dimer Quant (PE/DVT) Specimen Type Sample Site pH Bicarbonate Actual Total CO2 Base Excess O2 Saturation O2 % ABG pCO2 ABG pO2 Respiration Rate O2 Delivery Device Vent Mode Tidal Volume POC PEEP Sodium Potassium Chloride Carbon Dioxide Anion Gap BUN Creatinine Estim Creat Clear Calc Est GFR (MDRD) Af Amer Est GFR (MDRD) Non-Af BUN/Creatinine Ratio Glucose Lactic Acid Calcium Total Bilirubin AST ALT Alkaline Phosphatase Lactate Dehydrogenase Total Creatine Kinase Troponin I B-Natriuretic Peptide Total Protein Albumin Globulin Albumin/Globulin Ratio Procalcitonin Urine Color Urine Clarity Urine pH Ur Specific [place] Urine Protein Urine Glucose (UA) Urine Ketones Urine Occult Blood Urine Nitrite Urine Bilirubin Urine Urobilinogen Ur Leukocyte Esterase Urine RBC Urine WBC Ur Squamous Epith Cells Ur Renal Epithelial Cell Urine Bacteria Urine Mucus COVID-19 (MARITZA) Blood Type Antibody Screen - Other Studies Radiology: [] reviewed Other Studies: [] Route of nutrition/ use of supplements: [] Nutritional Intake: [] IV Site: [] Duarte Catheter: [] - Physical Exam General: Non-Cooperative HEENT: Atraumatic, PERRLA, EOMI Neck: Supple, No Nodes Lungs: Diminished Cardiovascular: Regular rate, Regular Rhythm Abdomen: Soft, Non Tender, Non-Distended Extremities: Edema Skin: No rashes IV Site: Peripheral, without redness Musculoskeletal: No Tenderness to Palpation of Joints or Extremities - Assessment/Plan Antibiotics: [] Assessment/Plan: [] Active and Suspected Problems (Last Reviewed 05/27/18 @ 10:[address] Hardeep Jackson MD) COVID-19 with multiple comorbidities (Acute) COVID-19 with pulmonary comorbidity (Acute) Acute respiratory failure with hypoxia (Acute) Hypertensive urgency (Acute) Encephalopathy (Acute) Covid with mech ventilation - on dex. Abx stopped. Fever to 102.2. Will check d-dimer, ABO, sputum cx, and PCT. Lactate high. On therapeutic lovenox. Wbc normal. Fever here up to 102.2. Will start 5 day course of remdesivir, likely would benefit from plasma as well if family is able to consent. Will follow, thank you
[2019-12-07] MEDS: Propofol 10MG/Ml 1,000 MG/100 ML Bottle 24 MG CONT INF ×2 (16:32→19:35)
--- NOTE | 2019-12-07 16:36 | CON.PCM_ITS ---
Problem List (1) Gross hematuria Status: Acute Reason for Consult Date of Consultation: 12/07/19 Reason for Consultation: Gross hematuria History of Present Illness: The patient is a 69 year old male who came into the hospital with shortness of breath and respiratory distress due to COVID-19 infection he had a catheter placed and it was a difficult Duarte catheter and they irrigated it and now they change a different catheter and now the urine is draining it is a darker color drainage has signs of old blood. The catheter appears to be in good position. Past Medical History Past Medical History (Chronic Problems): Chronic Problems (Last Reviewed 05/27/18 @ 10:[address] Hardeep Jackson MD) Hypertension (Chronic) DM2 (diabetes mellitus, type 2) (Chronic) Medical History: Medical History (Last Reviewed 05/27/18 @ 10:[address] Hardeep Jackson MD) Hypertension (Chronic) I10 DM2 (diabetes mellitus, type 2) (Chronic) E11.9 Hypertensive urgency (Acute) I16.0 Encephalopathy (Acute) G93.40 Allergies No Known Allergies Allergy (Verified 12/07/19 07:59) Home Medications: Ambulatory Orders Medication Instructions Recorded Metoprolol Tartrate [Lopressor 50 mg PO BID 09/02/16 (beta del)] Aspirin [Aspirin, Baby] 81 mg PO DAILY@0800 tab.chew 09/03/16 glimepiride 2 mg tablet 2 mg PO .COMPLEX 05/21/17 lisinopril 40 mg tablet 40 mg PO BID tab 05/21/17 doxazosin 2 mg tablet 2 mg PO QDAY #90 tab 12/10/17 amlodipine 10 mg tablet 10 mg PO QDAY #90 tab 12/11/17 potassium chloride 20 mEq 20 meq PO DAILY #90 tab 07/08/19 tablet,extended release(part/cryst) Surgical History: no surgical history Psychiatric History: No pertinent psych hx Lives: Spouse/ Significant Other, With Family Smoking Status: Unknown if ever smoked Tobacco Use: Non-smoker Alcohol: None Drugs: None - *Family History Maternal Family History: Family History (Last Reviewed 05/27/18 @ 10:[address] Hardeep Jackson MD) Father CAD (coronary artery disease) History Items: Stroke Paternal Family History: Family History (Last Reviewed 05/27/18 @ 10:[address] Hardeep Jackson MD) Father CAD (coronary artery disease) History Items: Heart Disease Review of Systems Constitutional: Reports: Chills, Fever. Denies: Weight Change HEENT: Denies: Head Aches, Sinus Congestion, Sinus Drainage Cardiovascular: Denies: Chest Pain, Palpitations Respiratory: Denies: Cough, Shortness of breath at rest, Sputum production Gastrointestinal: Denies: Abdominal Pain, Nausea, Vomiting Genitourinary: Denies: Dysuria Musculoskeletal: Denies: Joint Pain, Joint Tenderness Skin: Denies: Rash, Wounds Neurological: Denies: Numbness, Tingling, Focal weakness Psychiatric: Denies: Anxiety, Depression, Homicidal Ideations, Suicidal Ideations Hematologic/ Lymphatic: Denies: Easy Bruising, Easy Bleeding Unable to obtain accurate/complete ROS d/t: Unable to do review of systems patient intubated Physical Exam - Physical Exam Vital Signs Temp 102 F H 12/07/19 11:35 Pulse 70 12/07/19 15:30 Resp 18 12/07/19 15:30 BP 109/62 12/07/19 11:35 Pulse Ox 99 12/07/19 15:30 Intake & Output 12/05/19 12/06/19 12/07/19 23:59 23:59 23:59 Intake Total 420.36 / 420.36 Balance 420.36 / 420.36 Weight: 114.3 kg Intake: Intake, IV Amount 420.36 / 420.36 Ceftriaxone 2 GM In 0.9% Normal 50 / 50 Saline 50 ML @ 100 mls/hr IV X1 ONE Rx#:[id number] Diprivan 1,000 mg In 100 ml @ 86.74 / 86.74 10 MCG/KG/MIN 6.858 mls/hr CONT INF .Q12H [facility] Rx#:[id number] Fentanyl Drip 1,000 MCG In 0.9% 28.62 / 28.62 Normal Saline 100 ML @ 25 MCG/ HR 2.5 mls/hr CONT INF .Q40H [facility] Rx#:[id number] Zithromax 500 MG In Dextrose 5% 255 / 255 250 ML @ 250 mls/hr IV X1 ONE Rx#:[id number] General: Alert HEENT: Atraumatic Oral: Moist Mucosa Neck: Supple Lungs: Normal air movement Cardiovascular: Regular rate Abdomen: Soft Microbiology Past 72 Hours 12/07/19 08:09 - Final Mucosa - Nasopharyngeal SARS-CoV-2 (COVID 19) Laboratory Tests Past 24 Hrs 12/07/19 12/07/19 12/07/19 07:55 07:55 07:55 WBC 6.1 RBC 5.04 Hgb 15.9 Hct 46.9 MCV 93.1 MCH 31.5 MCHC 33.9 RDW Std Deviation 45.7 H RDW Coeff of [place] 13.4 Plt Count 89 L MPV 12.5 H Immature Gran % (Auto) 1.500 H Neut % (Auto) 39.7 L Lymph % (Auto) 17.3 L [place] % (Auto) 41.2 H Eos % (Auto) 0.0 Baso % (Auto) 0.3 Absolute Neuts (auto) 2.4 Absolute Lymphs (auto) 1.05 Nucleated RBC % 0 Reactive Lymphocytes RARE PT 13.9 INR 1.1 APTT 35.7 Fibrinogen D-Dimer Quant (PE/DVT) Specimen Type Sample Site pH Bicarbonate Actual Total CO2 Base Excess O2 Saturation O2 % ABG pCO2 ABG pO2 Respiration Rate O2 Delivery Device Vent Mode Tidal Volume POC PEEP Sodium 139 Potassium 3.6 Chloride 104 Carbon Dioxide 24.0 Anion Gap 11 BUN 23 H Creatinine 1.19 Estim Creat Clear Calc 63.28 Est GFR (MDRD) Af Amer 78 Est GFR (MDRD) Non-Af 65 BUN/Creatinine Ratio 19.3 Glucose 184 H Lactic Acid Calcium 8.5 Total Bilirubin 0.90 AST 44 H ALT 17 Alkaline Phosphatase 60 Lactate Dehydrogenase Total Creatine Kinase Troponin I 0.025 B-Natriuretic Peptide Total Protein 7.7 Albumin 3.4 Globulin 4.3 H Albumin/Globulin Ratio 0.8 L Procalcitonin Urine Color Urine Clarity Urine pH Ur Specific [place] Urine Protein Urine Glucose (UA) Urine Ketones Urine Occult Blood Urine Nitrite Urine Bilirubin Urine Urobilinogen Ur Leukocyte Esterase Urine RBC Urine WBC Ur Squamous Epith Cells Ur Renal Epithelial Cell Urine Bacteria Urine Mucus COVID-19 (MARITZA) Blood Type Antibody Screen 12/07/19 12/07/19 12/07/19 07:55 07:55 07:55 WBC RBC Hgb Hct MCV MCH MCHC RDW Std Deviation RDW Coeff of [place] Plt Count MPV Immature Gran % (Auto) Neut % (Auto) Lymph % (Auto) [place] % (Auto) Eos % (Auto) Baso % (Auto) Absolute Neuts (auto) Absolute Lymphs (auto) Nucleated RBC % Reactive Lymphocytes PT INR APTT Fibrinogen 685 H D-Dimer Quant (PE/DVT) Specimen Type Sample Site pH Bicarbonate Actual Total CO2 Base Excess O2 Saturation O2 % ABG pCO2 ABG pO2 Respiration Rate O2 Delivery Device Vent Mode Tidal Volume POC PEEP Sodium Potassium Chloride Carbon Dioxide Anion Gap BUN Creatinine Estim Creat Clear Calc Est GFR (MDRD) Af Amer Est GFR (MDRD) Non-Af BUN/Creatinine Ratio Glucose Lactic Acid 2.7 H* Calcium Total Bilirubin AST ALT Alkaline Phosphatase Lactate Dehydrogenase Total Creatine Kinase Troponin I B-Natriuretic Peptide Pending Total Protein Albumin Globulin Albumin/Globulin Ratio Procalcitonin Urine Color Urine Clarity Urine pH Ur Specific [place] Urine Protein Urine Glucose (UA) Urine Ketones Urine Occult Blood Urine Nitrite Urine Bilirubin Urine Urobilinogen Ur Leukocyte Esterase Urine RBC Urine WBC Ur Squamous Epith Cells Ur Renal Epithelial Cell Urine Bacteria Urine Mucus COVID-19 (MARITZA) Blood Type Antibody Screen 12/07/19 12/07/19 12/07/19 07:55 07:55 08:25 WBC RBC Hgb Hct MCV MCH MCHC RDW Std Deviation RDW Coeff of [place] Plt Count MPV Immature Gran % (Auto) Neut % (Auto) Lymph % (Auto) [place] % (Auto) Eos % (Auto) Baso % (Auto) Absolute Neuts (auto) Absolute Lymphs (auto) Nucleated RBC % Reactive Lymphocytes PT INR APTT Fibrinogen D-Dimer Quant (PE/DVT) 3.37 H* Specimen Type Sample Site pH Bicarbonate Actual Total CO2 Base Excess O2 Saturation O2 % ABG pCO2 ABG pO2 Respiration Rate O2 Delivery Device Vent Mode Tidal Volume POC PEEP Sodium Potassium Chloride Carbon Dioxide Anion Gap BUN Creatinine Estim Creat Clear Calc Est GFR (MDRD) Af Amer Est GFR (MDRD) Non-Af BUN/Creatinine Ratio Glucose Lactic Acid Calcium Total Bilirubin AST ALT Alkaline Phosphatase Lactate Dehydrogenase 644 H Total Creatine Kinase 92 Troponin I B-Natriuretic Peptide Total Protein Albumin Globulin Albumin/Globulin Ratio Procalcitonin Urine Color Urine Clarity Urine pH Ur Specific [place] Urine Protein Urine Glucose (UA) Urine Ketones Urine Occult Blood Urine Nitrite Urine Bilirubin Urine Urobilinogen Ur Leukocyte Esterase Urine RBC Urine WBC Ur Squamous Epith Cells Ur Renal Epithelial Cell Urine Bacteria Urine Mucus COVID-19 (MARITZA) Cancelled Blood Type Antibody Screen 12/07/19 12/07/19 12/07/19 09:20 09:46 13:40 WBC RBC Hgb Hct MCV MCH MCHC RDW Std Deviation RDW Coeff of [place] Plt Count MPV Immature Gran % (Auto) Neut % (Auto) Lymph % (Auto) [place] % (Auto) Eos % (Auto) Baso % (Auto) Absolute Neuts (auto) Absolute Lymphs (auto) Nucleated RBC % Reactive Lymphocytes PT INR APTT Fibrinogen D-Dimer Quant (PE/DVT) Specimen Type ART Sample Site R Brach pH 7.42 Bicarbonate Actual 22.7 Total CO2 24 Base Excess -2 O2 Saturation 99 O2 % 100 ABG pCO2 34.8 L ABG pO2 112 H Respiration Rate 20 O2 Delivery Device Adult Vent Vent Mode AC Tidal Volume 500 POC PEEP 15 Sodium Potassium Chloride Carbon Dioxide Anion Gap BUN Creatinine Estim Creat Clear Calc Est GFR (MDRD) Af Amer Est GFR (MDRD) Non-Af BUN/Creatinine Ratio Glucose Lactic Acid Calcium Total Bilirubin AST ALT Alkaline Phosphatase Lactate Dehydrogenase Total Creatine Kinase Troponin I B-Natriuretic Peptide Total Protein Albumin Globulin Albumin/Globulin Ratio Procalcitonin Pending Urine Color Red Urine Clarity Turbid Urine pH 6.5 Ur Specific [place] 1.015 Urine Protein 500 H Urine Glucose (UA) Normal Urine Ketones 15 H Urine Occult Blood 250 H Urine Nitrite Negative Urine Bilirubin Negative Urine Urobilinogen Normal Ur Leukocyte Esterase 25 H Urine RBC > 100 SEEN Urine WBC 0-5 SEEN Ur Squamous Epith Cells 0-5 SEEN Ur Renal Epithelial Cell 0-5 SEEN Urine Bacteria 1+ Urine Mucus 0 SEEN COVID-19 (MARITZA) Blood Type Antibody Screen 12/07/19 12/07/19 12/07/19 13:41 14:55 14:55 WBC RBC Hgb Hct MCV MCH MCHC RDW Std Deviation RDW Coeff of [place] Plt Count MPV Immature Gran % (Auto) Neut % (Auto) Lymph % (Auto) [place] % (Auto) Eos % (Auto) Baso % (Auto) Absolute Neuts (auto) Absolute Lymphs (auto) Nucleated RBC % Reactive Lymphocytes PT INR APTT Fibrinogen D-Dimer Quant (PE/DVT) Specimen Type Sample Site pH Bicarbonate Actual Total CO2 Base Excess O2 Saturation O2 % ABG pCO2 ABG pO2 Respiration Rate O2 Delivery Device Vent Mode Tidal Volume POC PEEP Sodium Potassium Chloride Carbon Dioxide Anion Gap BUN Creatinine Estim Creat Clear Calc Est GFR (MDRD) Af Amer Est GFR (MDRD) Non-Af BUN/Creatinine Ratio Glucose Lactic Acid 1.5 Calcium Total Bilirubin AST ALT Alkaline Phosphatase Lactate Dehydrogenase Total Creatine Kinase Troponin I B-Natriuretic Peptide Total Protein Albumin Globulin Albumin/Globulin Ratio Procalcitonin Urine Color Urine Clarity Urine pH Ur Specific [place] Urine Protein Urine Glucose (UA) Urine Ketones Urine Occult Blood Urine Nitrite Urine Bilirubin Urine Urobilinogen Ur Leukocyte Esterase Urine RBC Urine WBC Ur Squamous Epith Cells Ur Renal Epithelial Cell Urine Bacteria Urine Mucus COVID-19 (MARITZA) Blood Type Cancelled Pending Antibody Screen Pending 12/07/19 14:55 WBC RBC Hgb 13.6 Hct 41.3 MCV MCH MCHC RDW Std Deviation RDW Coeff of [place] Plt Count MPV Immature Gran % (Auto) Neut % (Auto) Lymph % (Auto) [place] % (Auto) Eos % (Auto) Baso % (Auto) Absolute Neuts (auto) Absolute Lymphs (auto) Nucleated RBC % Reactive Lymphocytes PT INR APTT Fibrinogen D-Dimer Quant (PE/DVT) Specimen Type Sample Site pH Bicarbonate Actual Total CO2 Base Excess O2 Saturation O2 % ABG pCO2 ABG pO2 Respiration Rate O2 Delivery Device Vent Mode Tidal Volume POC PEEP Sodium Potassium Chloride Carbon Dioxide Anion Gap BUN Creatinine Estim Creat Clear Calc Est GFR (MDRD) Af Amer Est GFR (MDRD) Non-Af BUN/Creatinine Ratio Glucose Lactic Acid Calcium Total Bilirubin AST ALT Alkaline Phosphatase Lactate Dehydrogenase Total Creatine Kinase Troponin I B-Natriuretic Peptide Total Protein Albumin Globulin Albumin/Globulin Ratio Procalcitonin Urine Color Urine Clarity Urine pH Ur Specific [place] Urine Protein Urine Glucose (UA) Urine Ketones Urine Occult Blood Urine Nitrite Urine Bilirubin Urine Urobilinogen Ur Leukocyte Esterase Urine RBC Urine WBC Ur Squamous Epith Cells Ur Renal Epithelial Cell Urine Bacteria Urine Mucus COVID-19 (MARITZA) Blood Type Antibody Screen Assessment/Plan All Active Problems (Last Reviewed 05/27/18 @ 10:[address] Hardeep Jackson MD) COVID-19 with multiple comorbidities (Acute) COVID-19 with pulmonary comorbidity (Acute) Acute respiratory failure with hypoxia (Acute) Gross hematuria (Acute) Hypertensive urgency (Acute) Encephalopathy (Acute) 69-year-old male presented to the hospital with COVID-19 pneumonia respiratory distress Duarte catheter is in place it is draining urine at this point I would not change the catheter I do not think I would anticoagulate the patient just yet because that could trigger more bleeding from the bladder prostate area bec ause of the hematuria is unknown but probably related to the Duarte catheter may be a large prostate unable to examine the patient completely. He nurses can flush it as necessary. Given his Covid respiratory distress right now would not taken to the operating room for diagnostic cystoscopy then just continue with irrigation as necessary should clear up once it cleared up and he does need to catheter more we can remove the catheter for voiding trial once he hopefully recovers from his infection.
[2019-12-07] MEDS: 0.9% Normal Saline 1,000 ML 50 ML IV (17:03)
[2019-12-07 20:07] LABS: Procalcitonin 0.37 ng/mL (0.00-0.09)
[2019-12-07] MEDS: Metoprolol Tartrate 50 MG Tablet GT (20:30)
[2019-12-07] MEDS: 0.9% Saline Lock 10 ML Syringe IV (20:39)
[2019-12-07 21:14] LABS: BNP,B-Type NATRIURETIC PEPTIDE 130.1 pg/mL (0-100)
[2019-12-07 23:15] LABS: Bedside Glucose 167 mg/dL (70-110)
[2019-12-08] VITALS (37 sets, daily range): BP systolic 94–146; BP diastolic 54–73; PULSE 56–95; RESP 14–23; TEMP 35.8–37.2; O2SAT 86–98; BMI 34.9
[2019-12-08] MEDS: 0.9% Saline Lock 10 ML Syringe IV ×3 (00:20→08:40)
[2019-12-08] MEDS: Insulin Lispro 100 UNIT/ML INSULN.PEN SC ×4 (00:21→17:39)
[2019-12-08 00:36] LABS: Hematocrit 41.1 % (40-54); Hemoglobin 13.4 g/dL (13.0-16.5); POSITIVE COUNT YES
[2019-12-08 00:50] LABS: Bedside Glucose 183 mg/dL (70-110)
[2019-12-08] MEDS: Propofol 10MG/Ml 1,000 MG/100 ML Bottle 20.6 MG CONT INF (02:30)
[2019-12-08 05:11] LABS: Absolute Lymphocyte Count 0.99 X10^3/uL (0.83-4.51); Absolute Neutrophil Count 4.7 X10^3/uL (2.0-7.7); Basophil# 0.02 X10^3/uL; Basophil% 0.2 % (0-1); Hematocrit 41.1 % (40-54); Hemoglobin 13.5 g/dL (13.0-16.5); Lymphocyte # 0.99 X10^3/ul (4.0); Lymphocyte % 11.9 % (19-41); Mean Corp Hgb Conc 32.8 g/dL (32-36); Mean Corpuscular Volume 94.5 fL (80-94); Monocyte# 2.56 X10^3/uL; Monocyte% 30.7 % (0-10); NRBC Flagged by Analyzer 0 % (0-5); Neutrophil # 4.72 X10^3/uL (2.7-7.7); Neutrophil % 56.6 % (47-70); POSITIVE COUNT YES; POSITIVE DIFFERENTIAL YES; POSITIVE MORPHOLOGY YES; Platelet Count 85 K/mm3 (150-450); RBC Distribution Width SD 48.7 fl (35.1-43.9); Red Blood Count 4.35 M/mm3 (4.6-6.2); White Blood Count 8.3 K/mm3 (4.4-11.0)
[2019-12-08 05:29] LABS: Differential Indicated SCAN CRITERIA MET
[2019-12-08] MEDS: Propofol 10MG/Ml 1,000 MG/100 ML Bottle 24 MG CONT INF ×6 (05:44→20:50)
[2019-12-08 05:56] LABS: Differential Comment SCANNED
[2019-12-08 05:57] LABS: Platelet Estimate MOD DEC (ADEQ)
--- NOTE | 2019-12-08 06:25 | NURSING ---
education re chronic illness deferred til acute illness resolving
--- NOTE | 2019-12-08 07:26 | PCM.PN.HOSP ---
Patient Problems: Active and Suspected Problems (Last Reviewed 05/27/18 @ 10:[address] Hardeep Jackson MD) COVID-19 with multiple comorbidities (Acute) COVID-19 with pulmonary comorbidity (Acute) Acute respiratory failure with hypoxia (Acute) Gross hematuria (Acute) Hypertensive urgency (Acute) Encephalopathy (Acute) Reason for Visit: Follow-up on respiratory failure/Acute COVID-19 infection Subjective: Patient was seen and examined. He remains intubated. No gross hematuria in Duarte catheter. He has dark aspirate in OG tube. No acute events overnight. Objective: Physical exam: General: - - Intubated, on mechanical intubation, sedated, not pale HEENT: Atraumatic, PERRLA, EOMI, Normocephalic Oral: Moist Mucosa Neck: Supple Lungs: Diminished Cardiovascular: Regular rate, Regular Rhythm, Normal S1, Normal S2, No murmurs Abdomen: Bowel Sounds Present, Soft, Non Tender, Non-Distended, No Hepato-splenomegaly Extremities: Edema - bilateral trace edema Skin: No rashes Musculoskeletal: No Tenderness to Palpation of Joints or Extremities Lymphatic: No Cervical, Supraclavicular, or Inguinal Adenopathy Neurological: Cranial nerves II-XII grossly intact, Neuro grossly intact Psych/Mental Status: Normal Affect, Appropriate Vitals/I&O's: Vital Signs Temp Pulse Resp BP Pulse Ox 99.1 F 75 19 H 120/65 94 12/08/19 04:00 12/08/19 06:00 12/08/19 06:00 12/08/19 06:00 12/08/19 06:00 Oxygen Delivery Method Mechanical Ventilator Weight: 113.58 kg Body Mass Index (BMI) 35.1 Finger Stick Blood Glucose 195 Intake and Output for Last 24 Hours 12/06/19 12/07/19 12/08/19 23:59 23:59 23:59 Intake Total 1005.77 / 1063.27 603.11 / 603.11 Output Total 495 / 605 485 / 485 Balance 510.77 / 458.27 118.11 / 118.11 Microbiology Past 72 Hours 12/07/19 15:00 Urine Catheter - Duarte Legionella Antigen - Final 12/07/19 15:00 Urine Catheter - Duarte Streptococcus pneumoniae Antigen (M - Final 12/07/19 08:09 Mucosa - Nasopharyngeal - Final SARS-CoV-2 (COVID 19) Laboratory Results 12/07/19 07:55: WBC 6.1, RBC 5.04, Hgb 15.9, Hct 46.9, MCV 93.1, MCH 31.5, MCHC 33.9, RDW Std Deviation 45.7 H, RDW Coeff of Preston 13.4, Plt Count 89 L, MPV 12.5 H, Immature Gran % (Auto) 1.500 H, Neut % (Auto) 39.7 L, Lymph % (Auto) 17.3 L, [place] % (Auto) 41.2 H, Eos % (Auto) 0.0, Baso % (Auto) 0.3, Absolute Neuts (auto) 2.4, Absolute Lymphs (auto) 1.05, Nucleated RBC % 0, Reactive Lymphocytes RARE 12/07/19 07:55: PT 13.9, INR 1.1, APTT 35.7 12/07/19 07:55: Sodium 139, Potassium 3.6, Chloride 104, Carbon Dioxide 24.0, Anion Gap 11, BUN 23 H, Creatinine 1.19, Estim Creat Clear Calc 63.28, Est GFR (MDRD) Af Amer 78, Est GFR (MDRD) Non-Af 65, BUN/Creatinine Ratio 19.3, Glucose 184 H, Calcium 8.5, Total Bilirubin 0.90, AST 44 H, ALT 17, Alkaline Phosphatase 60, Troponin I 0.025, Total Protein 7.7, Albumin 3.4, Globulin 4.3 H, Albumin/Globulin Ratio 0.8 L 12/07/19 07:55: Lactic Acid 2.7 H* 12/07/19 07:55: B-Natriuretic Peptide 130.1 H 12/07/19 07:55: Fibrinogen 685 H 12/07/19 07:55: Lactate Dehydrogenase 644 H, Total Creatine Kinase 92 12/07/19 07:55: D-Dimer Quant (PE/DVT) 3.37 H* 12/07/19 08:25: COVID-19 (MARITZA) Cancelled 12/07/19 09:20: Urine Color Red, Urine Clarity Turbid, Urine pH 6.5, Ur Specific [place] 1.015, Urine Protein 500 H, Urine Glucose (UA) Normal, Urine Ketones 15 H, Urine Occult Blood 250 H, Urine Nitrite Negative, Urine Bilirubin Negative, Urine Urobilinogen Normal, Ur Leukocyte Esterase 25 H, Urine RBC > 100 SEEN, Urine WBC 0-5 SEEN, Ur Squamous Epith Cells 0-5 SEEN, Ur Renal Epithelial Cell 0-5 SEEN, Urine Bacteria 1+, Urine Mucus 0 SEEN 12/07/19 09:46: Specimen Type ART, Sample Site R Brach, pH 7.42, Bicarbonate Actual 22.7, Total CO2 24, Base Excess -2, O2 Saturation 99, O2 % 100, ABG pCO2 34.8 L, ABG pO2 112 H, Respiration Rate 20, O2 Delivery Device Adult Vent, Vent Mode AC, Tidal Volume 500, POC PEEP 15 12/07/19 10:14: POC Glucose 219 H 12/07/19 13:09: POC Glucose 233 H 12/07/19 13:40: Procalcitonin 0.37 H 12/07/19 13:41: Lactic Acid 1.5 12/07/19 14:55: Blood Type Cancelled 12/07/19 14:55: Blood Type B POSITIVE, Antibody Screen NEGATIVE 12/07/19 14:55: Hgb 13.6, Hct 41.3 12/07/19 18:06: POC Glucose 167 H 12/07/19 23:50: Hgb 13.4, Hct 41.1 12/08/19 00:18: POC Glucose 183 H 12/08/19 04:00: WBC 8.3, RBC 4.35 L, Hgb 13.5, Hct 41.1, MCV 94.5 H, MCH 31.0, MCHC 32.8, RDW Std Deviation 48.7 H, RDW Coeff of Preston 14.0, Plt Count 85 L, MPV 12.0, Immature Gran % (Auto) 0.600, Neut % (Auto) 56.6, Lymph % (Auto) 11.9 L, [place] % (Auto) 30.7 H, Eos % (Auto) 0.0, Baso % (Auto) 0.2, Absolute Neuts (auto) 4.7, Absolute Lymphs (auto) 0.99, Nucleated RBC % 0, Differential Comment SCANNED, Platelet Estimate MOD DEC 12/08/19 04:00: Sodium Pending, Potassium Pending, Chloride Pending, Carbon Dioxide Pending, Anion Gap Pending, BUN Pending, Creatinine Pending, Est GFR (MDRD) Af Amer Pending, Est GFR (MDRD) Non-Af Pending, BUN/Creatinine Ratio Pending, Glucose Pending, Calcium Pending, Magnesium Pending, Total Bilirubin Pending, AST Pending, ALT Pending, Alkaline Phosphatase Pending, Total Protein Pending, Albumin Pending Current Medications Dexamethasone Sodium Phosphate (Dexamethasone 10 Mg/Ml Vial) 6 mg IV DAILY [facility] Propofol (Diprivan) 1,000 mg in 100 mls @ 6.858 mls/hr CONT INF .Q12H [facility]; Protocol Last Titration: 12/08/19 06:00 Dose: 35 mcg/kg/min, 24 mls/hr Documented by: Fentanyl Citrate 1,000 mcg/ (Sodium Chloride) 100 mls @ 2.5 mls/hr CONT INF .Q40H [facility]; Protocol Last Titration: 12/08/19 06:00 Dose: 75 mcg/hr, 7.5 mls/hr Documented by: Sodium Chloride () 1,000 mls @ 50 mls/hr IV .Q20H [facility] Last Infusion: 12/08/19 06:00 Dose: 50 mls/hr Documented by: Remdesivir (Investigational) (100 mg/ Sodium Chloride) 250 mls @ 125 mls/hr IV DAILY [facility]; Protocol Stop: 12/11/19 11:59 Sodium Chloride () 250 mls @ 15 mls/hr IV .[id number] PRN PRN Reason: Saline Flush Sodium Chloride () 250 mls @ 15 mls/hr IV .[id number] PRN PRN Reason: Additional IVPB Infusion Insulin Human Lispro (Insulin Lispro 100 Unit/Ml Insuln.Pen) 0 unit SC Q6 [facility]; Protocol Last Admin: 12/08/19 00:21 Dose: 1 u Documented by: Metoprolol Tartrate (Metoprolol Tartrate 50 Mg Tablet) 50 mg GT BID [facility] Last Admin: 12/07/19 20:30 Dose: 50 mg Documented by: Sodium Chloride (0.9% Saline Lock 10 Ml Syringe) 10 - 40 ml IV UD PRN PRN Reason: SALINE FLUSH Last Admin: 12/08/19 04:01 Dose: 20 ml Documented by: STROKE Vital Signs/Narrative: Vital Signs Temp Pulse Resp BP Pulse Ox 12/08/19 06:00 75 19 H 120/65 94 12/08/19 05:00 77 23 H 101/89 H 92 12/08/19 04:47 74 23 H 94 12/08/19 04:30 28 H 85 12/08/19 04:00 99.1 F 72 21 H 99/69 94 Medical Necessity - Tobacco Use Smoking Status: Unknown if ever smoked Tobacco Use: Non-smoker Assessment/Plan All Active Problems (Last Reviewed 05/27/18 @ 10:[address] Hardeep Jackson MD) COVID-19 with multiple comorbidities (Acute) COVID-19 with pulmonary comorbidity (Acute) Acute respiratory failure with hypoxia (Acute) Gross hematuria (Acute) Hypertensive urgency (Acute) Encephalopathy (Acute) 1. 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 Acute COVID-19 pneumonia, severe with hypoxia Admitting chest x-ray shows diffuse bilateral alveolar infiltrates more prominent in the left hemithorax Admitting elevated D-dimer 3.37, LDH is 644, fibrinogen is 616 from 685 On IV dexamethasone and Remdesivir. ID and pulmonary consulted 3. Acute metabolic encephalopathy likely secondary to #2, currently intubated 4. Gross hematuria, unclear etiology for now, noted after Duarte catheter was inserted in the ED No history of BPH, off aspirin an anticoagulation Urology consulted, urine is clearing, Will continue to monitor 5. Suspected acute GI bleed, likely secondary to acute gastritis, pro thrombocytopenia, acute on chronic, last platelet count in 2017 was 138 bably stress-induced Will switch from famotidine to PPI IV BID Will continue to monitor 6. Thrombocytopenia, acute on chronic, unclear etiology Last platelet count in 2017 was 138. Admitted with platelet count of 87, platelet is now 85 INR is normal. Fibrinogen is elevated, D-dimer is elevated Likely cause is COVID-19 related We will continue to monitor 7. Lactic acid likely related to #1, lactic acid is 2.7, repeat is 1.5 8. Hypertensive urgency, blood pressure slightly improved with the start of propofol Will continue on home metoprolol 50 mg p.o. twice daily with holding parameters Lisinopril dose on hold 9. Type II DM, on glimepiride, would hold glimepiride and continue on blood glucose check with insulin sliding scale 10. DVT PPx- SCDs on account of hematuria. Inpatient E&M: 67342 Subs Hosp L3
[2019-12-08 09:23] LABS: Fibrinogen 616 mg/dl (203-444)
--- NOTE | 2019-12-08 10:26 | PCM.PN.INT ---
Subjective: Patient did okay overnight. Hematuria has been improving with irrigation. No obstruction has been noted. Patient was significant fever overnight and continues to have periods of intermittent agitation leading to vent dyssynchrony with hypoxia. General: - - Intubated and sedated. HEENT: Atraumatic, PERRLA, EOMI, Normocephalic, - - No scleral icterus or injection noted Oral: Moist Mucosa, No Gingival or Mucosal Lesions/ Ulcerations Neck: Supple, No JVD, No Nodes, Trachea Midline Lungs: No rhonchi, No wheeze, No rales, Diminished, - - Symmetric expansion. Cardiovascular: Regular rate, Regular Rhythm, Normal S1, Normal S2, No murmurs, No rub noted, No Gallop Abdomen: Bowel Sounds Present, Soft, Non Tender, Non-Distended, Obese Extremities: No clubbing, No cyanosis, No edema, Capillary Refill Less than 3 Seconds Skin: No rashes, No breakdown Musculoskeletal: No Tenderness to Palpation of Joints or Extremities Lymphatic: No Cervical, Supraclavicular, or Inguinal Adenopathy Neurological: Cranial nerves II-XII grossly intact, Neuro grossly intact - Localizes to stimulus. Psych/Mental Status: Flat Affect Vital Signs Temp Pulse Resp BP Pulse Ox 36.6 C 68 22 H 108/72 91 12/08/19 08:00 12/08/19 08:00 12/08/19 08:00 12/08/19 08:00 12/08/19 08:00 Oxygen Delivery Method Mechanical Ventilator Weight: 113.58 kg Body Mass Index (BMI) 35.1 Finger Stick Blood Glucose 195 Intake and Output for Last 24 Hours 12/06/19 12/07/19 12/08/19 23:59 23:59 23:59 Intake Total 1005.77 / 1063.27 696.11 / 696.11 Output Total 495 / 605 820 / 820 Balance 510.77 / 458.27 -123.89 / -123.89 Labs (Last 48 Hours) 12/07/19 12/07/19 12/07/19 07:55 07:55 07:55 WBC 6.1 RBC 5.04 Hgb 15.9 Hct 46.9 MCV 93.1 MCH 31.5 MCHC 33.9 RDW Std Deviation 45.7 H RDW Coeff of Preston 13.4 Plt Count 89 L MPV 12.5 H Immature Gran % (Auto) 1.500 H Neut % (Auto) 39.7 L Lymph % (Auto) 17.3 L Schleicher % (Auto) 41.2 H Eos % (Auto) 0.0 Baso % (Auto) 0.3 Absolute Neuts (auto) 2.4 Absolute Lymphs (auto) 1.05 Nucleated RBC % 0 Differential Comment Reactive Lymphocytes RARE Platelet Estimate PT 13.9 INR 1.1 APTT 35.7 Fibrinogen D-Dimer Quant (PE/DVT) Specimen Type Sample Site pH Bicarbonate Actual Total CO2 Base Excess O2 Saturation O2 % ABG pCO2 ABG pO2 Respiration Rate O2 Delivery Device Vent Mode Tidal Volume POC PEEP Sodium 139 Potassium 3.6 Chloride 104 Carbon Dioxide 24.0 Anion Gap 11 BUN 23 H Creatinine 1.19 Estim Creat Clear Calc 63.28 Est GFR (MDRD) Af Amer 78 Est GFR (MDRD) Non-Af 65 BUN/Creatinine Ratio 19.3 Glucose 184 H Lactic Acid Calcium 8.5 Magnesium Total Bilirubin 0.90 AST 44 H ALT 17 Alkaline Phosphatase 60 Lactate Dehydrogenase Total Creatine Kinase Troponin I 0.025 B-Natriuretic Peptide Total Protein 7.7 Albumin 3.4 Globulin 4.3 H Albumin/Globulin Ratio 0.8 L Procalcitonin Urine Color Urine Clarity Urine pH Ur Specific [place] Urine Protein Urine Glucose (UA) Urine Ketones Urine Occult Blood Urine Nitrite Urine Bilirubin Urine Urobilinogen Ur Leukocyte Esterase Urine RBC Urine WBC Ur Squamous Epith Cells Ur Renal Epithelial Cell Urine Bacteria Urine Mucus COVID-19 (MARITZA) POC Glucose Blood Type Antibody Screen 12/07/19 12/07/19 12/07/19 07:55 07:55 07:55 WBC RBC Hgb Hct MCV MCH MCHC RDW Std Deviation RDW Coeff of [place] Plt Count MPV Immature Gran % (Auto) Neut % (Auto) Lymph % (Auto) Schleicher % (Auto) Eos % (Auto) Baso % (Auto) Absolute Neuts (auto) Absolute Lymphs (auto) Nucleated RBC % Differential Comment Reactive Lymphocytes Platelet Estimate PT INR APTT Fibrinogen 685 H D-Dimer Quant (PE/DVT) Specimen Type Sample Site pH Bicarbonate Actual Total CO2 Base Excess O2 Saturation O2 % ABG pCO2 ABG pO2 Respiration Rate O2 Delivery Device Vent Mode Tidal Volume POC PEEP Sodium Potassium Chloride Carbon Dioxide Anion Gap BUN Creatinine Estim Creat Clear Calc Est GFR (MDRD) Af Amer Est GFR (MDRD) Non-Af BUN/Creatinine Ratio Glucose Lactic Acid 2.7 H* Calcium Magnesium Total Bilirubin AST ALT Alkaline Phosphatase Lactate Dehydrogenase Total Creatine Kinase Troponin I B-Natriuretic Peptide 130.1 H Total Protein Albumin Globulin Albumin/Globulin Ratio Procalcitonin Urine Color Urine Clarity Urine pH Ur Specific [place] Urine Protein Urine Glucose (UA) Urine Ketones Urine Occult Blood Urine Nitrite Urine Bilirubin Urine Urobilinogen Ur Leukocyte Esterase Urine RBC Urine WBC Ur Squamous Epith Cells Ur Renal Epithelial Cell Urine Bacteria Urine Mucus COVID-19 (MARITZA) POC Glucose Blood Type Antibody Screen 12/07/19 12/07/19 12/07/19 07:55 07:55 08:25 WBC RBC Hgb Hct MCV MCH MCHC RDW Std Deviation RDW Coeff of Preston Plt Count MPV Immature Gran % (Auto) Neut % (Auto) Lymph % (Auto) Schleicher % (Auto) Eos % (Auto) Baso % (Auto) Absolute Neuts (auto) Absolute Lymphs (auto) Nucleated RBC % Differential Comment Reactive Lymphocytes Platelet Estimate PT INR APTT Fibrinogen D-Dimer Quant (PE/DVT) 3.37 H* Specimen Type Sample Site pH Bicarbonate Actual Total CO2 Base Excess O2 Saturation O2 % ABG pCO2 ABG pO2 Respiration Rate O2 Delivery Device Vent Mode Tidal Volume POC PEEP Sodium Potassium Chloride Carbon Dioxide Anion Gap BUN Creatinine Estim Creat Clear Calc Est GFR (MDRD) Af Amer Est GFR (MDRD) Non-Af BUN/Creatinine Ratio Glucose Lactic Acid Calcium Magnesium Total Bilirubin AST ALT Alkaline Phosphatase Lactate Dehydrogenase 644 H Total Creatine Kinase 92 Troponin I B-Natriuretic Peptide Total Protein Albumin Globulin Albumin/Globulin Ratio Procalcitonin Urine Color Urine Clarity Urine pH Ur Specific [place] Urine Protein Urine Glucose (UA) Urine Ketones Urine Occult Blood Urine Nitrite Urine Bilirubin Urine Urobilinogen Ur Leukocyte Esterase Urine RBC Urine WBC Ur Squamous Epith Cells Ur Renal Epithelial Cell Urine Bacteria Urine Mucus COVID-19 (MARITZA) Cancelled POC Glucose Blood Type Antibody Screen 12/07/19 12/07/19 12/07/19 09:20 09:46 10:14 WBC RBC Hgb Hct MCV MCH MCHC RDW Std Deviation RDW Coeff of [place] Plt Count MPV Immature Gran % (Auto) Neut % (Auto) Lymph % (Auto) Schleicher % (Auto) Eos % (Auto) Baso % (Auto) Absolute Neuts (auto) Absolute Lymphs (auto) Nucleated RBC % Differential Comment Reactive Lymphocytes Platelet Estimate PT INR APTT Fibrinogen D-Dimer Quant (PE/DVT) Specimen Type ART Sample Site R Brach pH 7.42 Bicarbonate Actual 22.7 Total CO2 24 Base Excess -2 O2 Saturation 99 O2 % 100 ABG pCO2 34.8 L ABG pO2 112 H Respiration Rate 20 O2 Delivery Device Adult Vent Vent Mode AC Tidal Volume 500 POC PEEP 15 Sodium Potassium Chloride Carbon Dioxide Anion Gap BUN Creatinine Estim Creat Clear Calc Est GFR (MDRD) Af Amer Est GFR (MDRD) Non-Af BUN/Creatinine Ratio Glucose Lactic Acid Calcium Magnesium Total Bilirubin AST ALT Alkaline Phosphatase Lactate Dehydrogenase Total Creatine Kinase Troponin I B-Natriuretic Peptide Total Protein Albumin Globulin Albumin/Globulin Ratio Procalcitonin Urine Color Red Urine Clarity Turbid Urine pH 6.5 Ur Specific [place] 1.015 Urine Protein 500 H Urine Glucose (UA) Normal Urine Ketones 15 H Urine Occult Blood 250 H Urine Nitrite Negative Urine Bilirubin Negative Urine Urobilinogen Normal Ur Leukocyte Esterase 25 H Urine RBC > 100 SEEN Urine WBC 0-5 SEEN Ur Squamous Epith Cells 0-5 SEEN Ur Renal Epithelial Cell 0-5 SEEN Urine Bacteria 1+ Urine Mucus 0 SEEN COVID-19 (MARITZA) POC Glucose 219 H Blood Type Antibody Screen 12/07/19 12/07/19 12/07/19 13:09 13:40 13:41 WBC RBC Hgb Hct MCV MCH MCHC RDW Std Deviation RDW Coeff of [place] Plt Count MPV Immature Gran % (Auto) Neut % (Auto) Lymph % (Auto) Schleicher % (Auto) Eos % (Auto) Baso % (Auto) Absolute Neuts (auto) Absolute Lymphs (auto) Nucleated RBC % Differential Comment Reactive Lymphocytes Platelet Estimate PT INR APTT Fibrinogen D-Dimer Quant (PE/DVT) Specimen Type Sample Site pH Bicarbonate Actual Total CO2 Base Excess O2 Saturation O2 % ABG pCO2 ABG pO2 Respiration Rate O2 Delivery Device Vent Mode Tidal Volume POC PEEP Sodium Potassium Chloride Carbon Dioxide Anion Gap BUN Creatinine Estim Creat Clear Calc Est GFR (MDRD) Af Amer Est GFR (MDRD) Non-Af BUN/Creatinine Ratio Glucose Lactic Acid 1.5 Calcium Magnesium Total Bilirubin AST ALT Alkaline Phosphatase Lactate Dehydrogenase Total Creatine Kinase Troponin I B-Natriuretic Peptide Total Protein Albumin Globulin Albumin/Globulin Ratio Procalcitonin 0.37 H Urine Color Urine Clarity Urine pH Ur Specific [place] Urine Protein Urine Glucose (UA) Urine Ketones Urine Occult Blood Urine Nitrite Urine Bilirubin Urine Urobilinogen Ur Leukocyte Esterase Urine RBC Urine WBC Ur Squamous Epith Cells Ur Renal Epithelial Cell Urine Bacteria Urine Mucus COVID-19 (MARITZA) POC Glucose 233 H Blood Type Antibody Screen 12/07/19 12/07/19 12/07/19 14:55 14:55 14:55 WBC RBC Hgb 13.6 Hct 41.3 MCV MCH MCHC RDW Std Deviation RDW Coeff of [place] Plt Count MPV Immature Gran % (Auto) Neut % (Auto) Lymph % (Auto) Schleicher % (Auto) Eos % (Auto) Baso % (Auto) Absolute Neuts (auto) Absolute Lymphs (auto) Nucleated RBC % Differential Comment Reactive Lymphocytes Platelet Estimate PT INR APTT Fibrinogen D-Dimer Quant (PE/DVT) Specimen Type Sample Site pH Bicarbonate Actual Total CO2 Base Excess O2 Saturation O2 % ABG pCO2 ABG pO2 Respiration Rate O2 Delivery Device Vent Mode Tidal Volume POC PEEP Sodium Potassium Chloride Carbon Dioxide Anion Gap BUN Creatinine Estim Creat Clear Calc Est GFR (MDRD) Af Amer Est GFR (MDRD) Non-Af BUN/Creatinine Ratio Glucose Lactic Acid Calcium Magnesium Total Bilirubin AST ALT Alkaline Phosphatase Lactate Dehydrogenase Total Creatine Kinase Troponin I B-Natriuretic Peptide Total Protein Albumin Globulin Albumin/Globulin Ratio Procalcitonin Urine Color Urine Clarity Urine pH Ur Specific [place] Urine Protein Urine Glucose (UA) Urine Ketones Urine Occult Blood Urine Nitrite Urine Bilirubin Urine Urobilinogen Ur Leukocyte Esterase Urine RBC Urine WBC Ur Squamous Epith Cells Ur Renal Epithelial Cell Urine Bacteria Urine Mucus COVID-19 (MARITZA) POC Glucose Blood Type Cancelled B POSITIVE Antibody Screen NEGATIVE 12/07/19 12/07/19 12/08/19 18:06 23:50 00:18 WBC RBC Hgb 13.4 Hct 41.1 MCV MCH MCHC RDW Std Deviation RDW Coeff of [place] Plt Count MPV Immature Gran % (Auto) Neut % (Auto) Lymph % (Auto) Schleicher % (Auto) Eos % (Auto) Baso % (Auto) Absolute Neuts (auto) Absolute Lymphs (auto) Nucleated RBC % Differential Comment Reactive Lymphocytes Platelet Estimate PT INR APTT Fibrinogen D-Dimer Quant (PE/DVT) Specimen Type Sample Site pH Bicarbonate Actual Total CO2 Base Excess O2 Saturation O2 % ABG pCO2 ABG pO2 Respiration Rate O2 Delivery Device Vent Mode Tidal Volume POC PEEP Sodium Potassium Chloride Carbon Dioxide Anion Gap BUN Creatinine Estim Creat Clear Calc Est GFR (MDRD) Af Amer Est GFR (MDRD) Non-Af BUN/Creatinine Ratio Glucose Lactic Acid Calcium Magnesium Total Bilirubin AST ALT Alkaline Phosphatase Lactate Dehydrogenase Total Creatine Kinase Troponin I B-Natriuretic Peptide Total Protein Albumin Globulin Albumin/Globulin Ratio Procalcitonin Urine Color Urine Clarity Urine pH Ur Specific [place] Urine Protein Urine Glucose (UA) Urine Ketones Urine Occult Blood Urine Nitrite Urine Bilirubin Urine Urobilinogen Ur Leukocyte Esterase Urine RBC Urine WBC Ur Squamous Epith Cells Ur Renal Epithelial Cell Urine Bacteria Urine Mucus COVID-19 (MARITZA) POC Glucose 167 H 183 H Blood Type Antibody Screen 12/08/19 12/08/19 12/08/19 04:00 04:00 08:30 WBC 8.3 RBC 4.35 L Hgb 13.5 Hct 41.1 MCV 94.5 H MCH 31.0 MCHC 32.8 RDW Std Deviation 48.7 H RDW Coeff of Preston 14.0 Plt Count 85 L MPV 12.0 Immature Gran % (Auto) 0.600 Neut % (Auto) 56.6 Lymph % (Auto) 11.9 L Schleicher % (Auto) 30.7 H Eos % (Auto) 0.0 Baso % (Auto) 0.2 Absolute Neuts (auto) 4.7 Absolute Lymphs (auto) 0.99 Nucleated RBC % 0 Differential Comment SCANNED Reactive Lymphocytes Platelet Estimate MOD DEC PT INR APTT Fibrinogen 616 H D-Dimer Quant (PE/DVT) Specimen Type Sample Site pH Bicarbonate Actual Total CO2 Base Excess O2 Saturation O2 % ABG pCO2 ABG pO2 Respiration Rate O2 Delivery Device Vent Mode Tidal Volume POC PEEP Sodium Pending Potassium Pending Chloride Pending Carbon Dioxide Pending Anion Gap Pending BUN Pending Creatinine Pending Estim Creat Clear Calc Est GFR (MDRD) Af Amer Pending Est GFR (MDRD) Non-Af Pending BUN/Creatinine Ratio Pending Glucose Pending Lactic Acid Calcium Pending Magnesium Pending Total Bilirubin Pending AST Pending ALT Pending Alkaline Phosphatase Pending Lactate Dehydrogenase Total Creatine Kinase Troponin I B-Natriuretic Peptide Total Protein Pending Albumin Pending Globulin Albumin/Globulin Ratio Procalcitonin Urine Color Urine Clarity Urine pH Ur Specific [place] Urine Protein Urine Glucose (UA) Urine Ketones Urine Occult Blood Urine Nitrite Urine Bilirubin Urine Urobilinogen Ur Leukocyte Esterase Urine RBC Urine WBC Ur Squamous Epith Cells Ur Renal Epithelial Cell Urine Bacteria Urine Mucus COVID-19 (MARITZA) POC Glucose Blood Type Antibody Screen Microbiology 12/07/19 20:45 Sputum, Tracheal Aspirate Gram Stain - Final 12/07/19 15:00 Urine Catheter - [place] Legionella Antigen - Final 12/07/19 15:00 Urine Catheter - [place] Streptococcus pneumoniae Antigen (M - Final 12/07/19 08:09 Mucosa - Nasopharyngeal - Final SARS-CoV-2 (COVID 19) Medical Necessity - Tobacco Use Smoking Status: Unknown if ever smoked Tobacco Use: Non-smoker Assessment/Plan All Active Problems (Last Reviewed 05/27/18 @ 10:[address] Hardeep Jackson MD) COVID-19 with multiple comorbidities (Acute) COVID-19 with pulmonary comorbidity (Acute) Acute respiratory failure with hypoxia (Acute) Gross hematuria (Acute) Hypertensive urgency (Acute) Encephalopathy (Acute) RECOMMENDATIONS: 1. Wean PEEP and FiO2 as tolerated 2. Appreciate urology input 3. Hold on platelet transfusion at this time 4. No need to recheck fibrinogen 5. Okay to hold on empiric antibiotics from my perspective 6. Continue remdesivir per infectious disease 7. Okay to initiate tube feeds IMPRESSIONS: 1. Acute hypoxic respiratory failure secondary to COVID-19 Patient with significant infiltrates bilaterally on chest x-ray. These findings could be suggestive of COVID-19 pneumonitis versus congestive heart failure. BNP was slightly elevated. Patient does have a history of hypertension, so diastolic dysfunction would be a consideration. Patient should be placed on Decadron. Likely hold anticoagulation given thrombocytopenia with active bleeding. Wean oxygen and PEEP as tolerated. Spontaneous breathing and awakening trials per protocol. Patient is requiring significant sedation to facilitate vent synchrony. 2. Possible congestive heart failure Patient does have a long history of hypertension. Echo suspicion for an element of diastolic CHF. We will hold on an echocardiogram for now, but this may be necessary if patient's oxygenation does not improve 3. Thrombocytopenia with hematuria Patient does have a history of BPH and is on doxazosin as an outpatient. Patient does have thrombocytopenia of unclear etiology. Patient would be at risk for DIC, but fibrinogen is currently elevated. Repeat fibrinogen was also elevated, so likely not DIC. Would likely continue to hold on anticoagulation as bleeding complications are significant. 4. Acute kidney injury Morning labs are currently pending. Clinical suspicion for an element of ATN secondary to protracted hypoxia. Patient does have reasonable urine output at this time. This will be difficult to monitor given his need for bladder irrigation. Continue to monitor chemistries on a daily basis. 5. Diabetes mellitus/advanced age/obesity Complicates care, management, recovery and prognosis. Likely okay to initiate tube feeds, but high clinical suspicion.basal insulin will be required. TIME: 32 minutes critical care time spent addressing patient's acute hypoxic respiratory failure, possible CHF, thrombocytopenia, acute kidney injury, diabetes mellitus, review of all data and collaboration with care team (9:15 AM to 10:15 AM) [phone]: [id number] Critical care first hour
[2019-12-08] MEDS: Chlorhexidine 15 ML PO ×2 (11:00→22:28)
[2019-12-08] MEDS: dexAMETHasone 10 MG/ML Vial 6 MG IV (11:00)
[2019-12-08] MEDS: Metoprolol Tartrate 50 MG Tablet GT ×2 (11:01→22:29)
[2019-12-08 11:15] LABS: Bedside Glucose 164 mg/dL (70-110)
[2019-12-08 11:44] LABS: ALB/GLOB Ratio 0.7 RATIO (0.9-2.4); AST(SGOT) 50 U/L (15-37); Alanine Aminotransfer ALT/SGPT 16 U/L (16-61); Albumin, Serum 2.7 g/dL (3.2-5.0); Alkaline Phosphatase 58 U/L (45-117); Anion Gap 8 (5-15); BUN 34 mg/dL (7-18); BUN/Creat Ratio 28.8 RATIO (10-20); Chloride 109 mmol/L (98-107); Creatinine, Serum 1.18 mg/dL (0.70-1.30); EST Glomerular Filtration Rate 65 mL/min (>60); Est Glom Filt Rate - Afr Amer 79 mL/min (>60); Estimated Creatinine Clearance 63.81 ml/min; Globulin 3.8 g/dL (2.2-4.2); Glucose 169 mg/dL (74-106); Magnesium 2.4 mg/dL (1.6-2.6); Potassium 3.3 mmol/L (3.5-5.1); Protein, Total 6.5 g/dL (6.4-8.2); Sodium Level 143 mmol/L (136-145)
--- NOTE | 2019-12-08 11:53 | PCM.NTREPORT ---
Nutrition Therapy Report - History Nutrition Services has been consulted to:: Manage enteral nutrition Current diet / nutrition support order:: NPO - Anthropometric Measurements Height:: 5 ft 11 in Weight:: 113.58 kg Body Mass Index (BMI):: 34.9 - Relevant Labs Relevant Labs:: RBC 4.35 M/mm3 (4.6-6.2) L 12/08/19 04:00 MCV 94.5 fL (80-94) H 12/08/19 04:00 RDW Std Deviation 48.7 fl (35.1-43.9) H 12/08/19 04:00 Plt Count 85 K/mm3 (150-450) L 12/08/19 04:00 MPV 12.5 fl (6.2-12.0) H 12/07/19 07:55 Immature Gran % (Auto) 1.500 % (0.0-0.9) H 12/07/19 07:55 Neut % (Auto) 39.7 % (47-70) L 12/07/19 07:55 Lymph % (Auto) 11.9 % (19-41) L 12/08/19 04:00 [place] % (Auto) 30.7 % (0-10) H 12/08/19 04:00 Fibrinogen 616 mg/dl (203-444) H 12/08/19 08:30 D-Dimer Quant (PE/DVT) 3.37 FEU/ug/m (0.27-0.49) H* 12/07/19 07:55 Potassium 3.3 mmol/L (3.5-5.1) L 12/08/19 04:00 Chloride 109 mmol/L (98-107) H 12/08/19 04:00 BUN 34 mg/dL (7-18) H 12/08/19 04:00 BUN/Creatinine Ratio 28.8 RATIO (10-20) H 12/08/19 04:00 Glucose 169 mg/dL (74-106) H 12/08/19 04:00 Lactic Acid 2.7 mmol/L (0.4-1.9) H* 12/07/19 07:55 Calcium 8.0 mg/dL (8.5-10.1) L 12/08/19 04:00 AST 50 U/L (15-37) H 12/08/19 04:00 Lactate Dehydrogenase 644 U/L (87-241) H 12/07/19 07:55 B-Natriuretic Peptide 130.1 pg/mL (0-100) H 12/07/19 07:55 Albumin 2.7 g/dL (3.2-5.0) L 12/08/19 04:00 Globulin 4.3 g/dL (2.2-4.2) H 12/07/19 07:55 Albumin/Globulin Ratio 0.7 RATIO (0.9-2.4) L 12/08/19 04:00 Procalcitonin 0.37 ng/mL (0.00-0.09) H 12/07/19 13:40 - Assessment Food / Nutrition-Related History:: Discussed in ICU rounds. Pt remain intubated w/ OG in place. TF to start this day. Wt decrease 0.7 kg since previous reveiw. - Nutrition Diagnosis Problem / Etiology / Signs & Symptoms (PES):: Inadequate oral intake r/t respiratory distress resulting in intubation aeb NPO status w/ OG in place. Evidence of Malnutrition Exists:: No - Nutrition Intervention Nutrition Prescription:: Estimated nutrition needs: 7423-2617 calories, 114-137 grams protein. - Food / Nutrient Delivery Interventions Nutrition support ordered as / adjusted to:: If pt to remain on vent, rec Vital High Protein at goal rate 65 ml/hr with 65 ml free water every 6 hours to provide ~ 1560 janene / 136 gm pro / 1564 ml free water w/ flush. Enteral nutrition support will be administered via gravity feed bag. Total formula to be administered in 24 hrs: 1560 mL. Rec 120 mL for first 4 hours (approx. 10 drops / min, 3 drops per 15 sec); increase to 180 mL for next 4 hours as tolerated (approx 15 drops/min, 4 drops per 15 sec). Goal rate is 260 mL per 4 hours (approx 22 drops/min, 5 drops per 15 sec). Nutrition education provided?: No - MNT Monitoring Further MNT monitoring and evaluation required?: Yes MNT Follow-up in:: 3-5 days
[2019-12-08 13:30] LABS: Bedside Glucose 170 mg/dL (70-110)
--- NOTE | 2019-12-08 15:18 | PN.ID_ITS ---
Patient Problems: Active and Suspected Problems (Last Reviewed 05/27/18 @ 10:[address] Hardeep Jackson MD) COVID-19 with multiple comorbidities (Acute) COVID-19 with pulmonary comorbidity (Acute) Acute respiratory failure with hypoxia (Acute) Gross hematuria (Acute) Hypertensive urgency (Acute) Encephalopathy (Acute) Subjective: On vent, no fever overnight, o2 improved. - Physical Exam Vitals/I&O's: Vital Signs Temp Pulse Resp BP Pulse Ox 97.0 F L 70 18 114/64 95 12/08/19 12:00 12/08/19 15:00 12/08/19 15:00 12/08/19 15:00 12/08/19 15:00 Oxygen Delivery Method Mechanical Ventilator Weight: 113.58 kg Body Mass Index (BMI) 34.9 Finger Stick Blood Glucose 195 Intake and Output for Last 24 Hours 12/06/19 12/07/19 12/08/19 23:59 23:59 23:59 Intake Total 1255.77 / 1313.27 1669.12 / 1669.12 Output Total 495 / 605 1245 / 1245 Balance 760.77 / 708.27 424.12 / 424.12 General: No apparent distress Lungs: Diminished Cardiovascular: Regular rate, Regular Rhythm Abdomen: Soft, Non Tender, Non-Distended Skin: No rashes Microbiology Past 72 Hours 12/07/19 20:45 Sputum, Tracheal Aspirate Gram Stain - Final 12/07/19 20:45 Sputum, Tracheal Aspirate Respiratory Culture - Preliminary 12/07/19 09:20 Urine Catheter - Duarte Urine Culture - Preliminary Culture exhibits no growth. 12/07/19 15:00 Urine Catheter - Duarte Legionella Antigen - Final 12/07/19 15:00 Urine Catheter - Duarte Streptococcus pneumoniae Antigen (M - Final 12/07/19 08:09 Mucosa - Nasopharyngeal - Final SARS-CoV-2 (COVID 19) Laboratory Results 12/07/19 07:55: B-Natriuretic Peptide 130.1 H 12/07/19 13:40: Procalcitonin 0.37 H 12/07/19 14:55: Blood Type Cancelled 12/07/19 14:55: Blood Type B POSITIVE, Antibody Screen NEGATIVE 12/07/19 14:55: Hgb 13.6, Hct 41.3 12/07/19 18:06: POC Glucose 167 H 12/07/19 23:50: Hgb 13.4, Hct 41.1 12/08/19 00:18: POC Glucose 183 H 12/08/19 04:00: WBC 8.3, RBC 4.35 L, Hgb 13.5, Hct 41.1, MCV 94.5 H, MCH 31.0, MCHC 32.8, RDW Std Deviation 48.7 H, RDW Coeff of Preston 14.0, Plt Count 85 L, MPV 12.0, Immature Gran % (Auto) 0.600, Neut % (Auto) 56.6, Lymph % (Auto) 11.9 L, Emery % (Auto) 30.7 H, Eos % (Auto) 0.0, Baso % (Auto) 0.2, Absolute Neuts (auto) 4.7, Absolute Lymphs (auto) 0.99, Nucleated RBC % 0, Differential Comment SCANNED, Platelet Estimate MOD 12/08/19 04:00: Sodium 143, Potassium 3.3 L, Chloride 109 H, Carbon Dioxide 26.0, Anion Gap 8, BUN 34 H, Creatinine 1.18, Estim Creat Clear Calc 63.81, Est GFR (MDRD) Af Amer 79, Est GFR (MDRD) Non-Af 65, BUN/Creatinine Ratio 28.8 H, Glucose 169 H, Calcium 8.0 L, Magnesium 2.4, Total Bilirubin 0.60, AST 50 H, ALT 16, Alkaline Phosphatase 58, Total Protein 6.5, Albumin 2.7 L, Globulin 3.8, Albumin/Globulin Ratio 0.7 L 12/08/19 08:22: POC Glucose 164 H 12/08/19 08:30: Fibrinogen 616 H 12/08/19 12:43: POC Glucose 170 H Current Medications Chlorhexidine Gluconate (Chlorhexidine 15 Ml) 15 ml PO BID MARCI Last Admin: 12/08/19 11:00 Dose: 15 ml Documented by: Dexamethasone Sodium Phosphate (Dexamethasone 10 Mg/Ml Vial) 6 mg IV DAILY MARCI Last Admin: 12/08/19 11:00 Dose: 6 mg Documented by: Propofol (Diprivan) 1,000 mg in 100 mls @ 6.858 mls/hr CONT INF .Q12H [facility]; Protocol Last Titration: 12/08/19 15:00 Dose: 35 mcg/kg/min, 24 mls/hr Documented by: Fentanyl Citrate 1,000 mcg/ (Sodium Chloride) 100 mls @ 2.5 mls/hr CONT INF .Q40H [facility]; Protocol Last Titration: 12/08/19 14:54 Dose: 75 mcg/hr, 7.5 mls/hr Documented by: Sodium Chloride () 1,000 mls @ 50 mls/hr IV .Q20H [facility] Last Infusion: 12/08/19 14:50 Dose: 50 mls/hr Documented by: Remdesivir (Investigational) (100 mg/ Sodium Chloride) 250 mls @ 125 mls/hr IV DAILY MARCI; Protocol Stop: 12/11/19 11:59 Last Infusion: 12/08/19 13:01 Dose: Infused Documented by: Sodium Chloride () 250 mls @ 15 mls/hr IV .[id number] PRN PRN Reason: Saline Flush Sodium Chloride () 250 mls @ 15 mls/hr IV .[id number] PRN PRN Reason: Additional IVPB Infusion Pantoprazole Sodium 40 mg/ (Sodium Chloride) 110 mls @ 330 mls/hr IV Q12 [facility] Last Infusion: 12/08/19 14:50 Dose: Infused Documented by: Enteral Nutritional Formula (Vital High Protein) 1,000 mls @ 65 mls/hr GT .[id number] [facility] Insulin Human Lispro (Insulin Lispro 100 Unit/Ml Insuln.Pen) 0 unit SC Q6 [facility]; Protocol Last Admin: 12/08/19 12:44 Dose: 1 u Documented by: Metoprolol Tartrate (Metoprolol Tartrate 50 Mg Tablet) 50 mg GT BID MARCI Last Admin: 12/08/19 11:01 Dose: 50 mg Documented by: Sodium Chloride (0.9% Saline Lock 10 Ml Syringe) 10 - 40 ml IV UD PRN PRN Reason: SALINE FLUSH Last Admin: 12/08/19 08:40 Dose: 40 ml Documented by: Medical Necessity - Tobacco Use Smoking Status: Unknown if ever smoked Tobacco Use: Non-smoker Route of nutrition/ use of supplements: [] Nutritional Intake: [] IV Site: [] Duarte Catheter: [] - Assessment/Plan Antibiotics: [] Assessment/Plan: [] Active and Suspected Problems (Last Reviewed 05/27/18 @ 10:[address] Hardeep Jackson MD) COVID-19 with multiple comorbidities (Acute) COVID-19 with pulmonary comorbidity (Acute) Acute respiratory failure with hypoxia (Acute) Hypertensive urgency (Acute) Encephalopathy (Acute) Covid with mech ventilation - on dex, remdesivir. O2 and fever improved. Not on anticoagulation due to hematuria. Would consider convalescent plasma for him if family is able to consent. Will follow
[2019-12-08] MEDS: Potassium Chloride 10mEq/100mL 10 MEQ/100 ML IV.SOLN. 100 MEQ IV BOLUS ×4 (16:09→19:56)
[2019-12-08 17:30] LABS: Bedside Glucose 224 mg/dL (70-110)
[2019-12-08] MEDS: Vital High Protein 1,000 ML 65 ML GT (17:38)
[2019-12-08] MEDS: 0.9% Normal Saline 1,000 ML 50 ML IV (21:17)
[2019-12-09] VITALS (35 sets, daily range): BP systolic 101–133; BP diastolic 50–65; PULSE 50–101; RESP 13–19; TEMP 36.1–36.6; O2SAT 88–98
[2019-12-09] MEDS: Insulin Lispro 100 UNIT/ML INSULN.PEN SC ×5 (00:07→22:43)
[2019-12-09] MEDS: Propofol 10MG/Ml 1,000 MG/100 ML Bottle 24 MG CONT INF ×2 (01:00→03:02)
[2019-12-09 01:15] LABS: Bedside Glucose 252 mg/dL (70-110)
[2019-12-09] MEDS: Vital High Protein 1,000 ML 65 ML GT ×4 (03:57→18:53)
[2019-12-09] MEDS: 0.9% Saline Lock 10 ML Syringe IV (03:58)
[2019-12-09 04:42] LABS: Hematocrit 41.8 % (40-54); Hemoglobin 13.6 g/dL (13.0-16.5); Mean Corp Hgb Conc 32.5 g/dL (32-36); Mean Corpuscular Volume 95.2 fL (80-94); POSITIVE COUNT YES; Platelet Count 92 K/mm3 (150-450); RBC Distribution Width CV 13.8 % (11.6-14.6); RBC Distribution Width SD 48.7 fl (35.1-43.9); Red Blood Count 4.39 M/mm3 (4.6-6.2); White Blood Count 10.5 K/mm3 (4.4-11.0)
[2019-12-09] MEDS: TITRATION PARAMETER CHANGE 1 EACH IV (04:49)
[2019-12-09 04:54] LABS: Fibrinogen 563 mg/dl (203-444)
[2019-12-09 05:20] LABS: ALB/GLOB Ratio 0.6 RATIO (0.9-2.4); AST(SGOT) 59 U/L (15-37); Alanine Aminotransfer ALT/SGPT 20 U/L (16-61); Albumin, Serum 2.3 g/dL (3.2-5.0); Alkaline Phosphatase 56 U/L (45-117); Anion Gap 7 (5-15); BUN 33 mg/dL (7-18); BUN/Creat Ratio 35.3 RATIO (10-20); Chloride 107 mmol/L (98-107); Creatinine, Serum 0.93 mg/dL (0.70-1.30); EST Glomerular Filtration Rate 85 mL/min (>60); Est Glom Filt Rate - Afr Amer 103 mL/min (>60); Estimated Creatinine Clearance 80.97 ml/min; Globulin 3.7 g/dL (2.2-4.2); Glucose 254 mg/dL (74-106); Potassium 3.9 mmol/L (3.5-5.1); Sodium Level 140 mmol/L (136-145)
[2019-12-09] MEDS: Propofol 10MG/Ml 1,000 MG/100 ML Bottle 27.4 MG CONT INF ×6 (06:25→22:57)
[2019-12-09 07:06] LABS: Bedside Glucose 251 mg/dL (70-110)
--- NOTE | 2019-12-09 07:29 | PN_ITS ---
Subjective: Patient did okay overnight. Patient was able to have PEEP weaned somewhat, but continues to have intermittent periods of dyssynchrony secondary to agitation. Patient has had a little bit of bleeding at the meatus of his penis, but hematuria has resolved. Patient has been tolerating tube feeds. General: - - Intubated and sedated. RASS -3. Obese. HEENT: Atraumatic, PERRLA, EOMI, Normocephalic, - - No scleral icterus or injection noted Oral: Moist Mucosa, No Gingival or Mucosal Lesions/ Ulcerations, - - Crowded posterior pharynx Neck: Supple, No JVD, No Nodes, Trachea Midline Lungs: No rhonchi, No wheeze, No rales, Diminished, - - Symmetric expansion. No dullness to percussion. Cardiovascular: Regular rate, Regular Rhythm, Normal S1, Normal S2, No murmurs, No rub noted, No Gallop Abdomen: Bowel Sounds Present, Soft, Non Tender, Non-Distended, Obese Extremities: No clubbing, No cyanosis, No edema Skin: No rashes, No breakdown Musculoskeletal: No Tenderness to Palpation of Joints or Extremities Lymphatic: No Cervical, Supraclavicular, or Inguinal Adenopathy Neurological: Cranial nerves II-XII grossly intact, Neuro grossly intact, Motor Exam 5/5 strength throughout Psych/Mental Status: Flat Affect Vital Signs Temp Pulse Resp BP Pulse Ox 36.1 C L 61 14 103/50 L 92 12/09/19 04:00 12/09/19 07:00 12/09/19 07:00 12/09/19 07:00 12/09/19 07:00 Oxygen Delivery Method Mechanical Ventilator Weight: 114.078 kg Body Mass Index (BMI) 34.9 Finger Stick Blood Glucose 195 Intake and Output for Last 24 Hours 12/07/19 12/08/19 12/09/19 23:59 23:59 23:59 Intake Total 1255.77 / 1313.27 2938.50 / 3203.33 1330.53 / 1330.53 Output Total 495 / 605 1705 / 1805 375 / 375 Balance 760.77 / 708.27 1233.50 / 1398.33 955.53 / 955.53 Labs (Last 48 Hours) 12/07/19 12/07/19 12/07/19 07:55 07:55 07:55 WBC 6.1 RBC 5.04 Hgb 15.9 Hct 46.9 MCV 93.1 MCH 31.5 MCHC 33.9 RDW Std Deviation 45.7 H RDW Coeff of [place] 13.4 Plt Count 89 L MPV 12.5 H Immature Gran % (Auto) 1.500 H Neut % (Auto) 39.7 L Lymph % (Auto) 17.3 L [place] % (Auto) 41.2 H Eos % (Auto) 0.0 Baso % (Auto) 0.3 Absolute Neuts (auto) 2.4 Absolute Lymphs (auto) 1.05 Nucleated RBC % 0 Differential Comment Reactive Lymphocytes RARE Platelet Estimate PT 13.9 INR 1.1 APTT 35.7 Fibrinogen D-Dimer Quant (PE/DVT) Specimen Type Sample Site pH Bicarbonate Actual Total CO2 Base Excess O2 Saturation O2 % ABG pCO2 ABG pO2 Respiration Rate O2 Delivery Device Vent Mode Tidal Volume POC PEEP Sodium 139 Potassium 3.6 Chloride 104 Carbon Dioxide 24.0 Anion Gap 11 BUN 23 H Creatinine 1.19 Estim Creat Clear Calc 63.28 Est GFR (MDRD) Af Amer 78 Est GFR (MDRD) Non-Af 65 BUN/Creatinine Ratio 19.3 Glucose 184 H Lactic Acid Calcium 8.5 Magnesium Total Bilirubin 0.90 AST 44 H ALT 17 Alkaline Phosphatase 60 Lactate Dehydrogenase Total Creatine Kinase Troponin I 0.025 B-Natriuretic Peptide Total Protein 7.7 Albumin 3.4 Globulin 4.3 H Albumin/Globulin Ratio 0.8 L Procalcitonin Urine Color Urine Clarity Urine pH Ur Specific [place] Urine Protein Urine Glucose (UA) Urine Ketones Urine Occult Blood Urine Nitrite Urine Bilirubin Urine Urobilinogen Ur Leukocyte Esterase Urine RBC Urine WBC Ur Squamous Epith Cells Ur Renal Epithelial Cell Urine Bacteria Urine Mucus COVID-19 (MARITZA) POC Glucose Blood Type Antibody Screen 12/07/19 12/07/19 12/07/19 07:55 07:55 07:55 WBC RBC Hgb Hct MCV MCH MCHC RDW Std Deviation RDW Coeff of [place] Plt Count MPV Immature Gran % (Auto) Neut % (Auto) Lymph % (Auto) [place] % (Auto) Eos % (Auto) Baso % (Auto) Absolute Neuts (auto) Absolute Lymphs (auto) Nucleated RBC % Differential Comment Reactive Lymphocytes Platelet Estimate PT INR APTT Fibrinogen 685 H D-Dimer Quant (PE/DVT) Specimen Type Sample Site pH Bicarbonate Actual Total CO2 Base Excess O2 Saturation O2 % ABG pCO2 ABG pO2 Respiration Rate O2 Delivery Device Vent Mode Tidal Volume POC PEEP Sodium Potassium Chloride Carbon Dioxide Anion Gap BUN Creatinine Estim Creat Clear Calc Est GFR (MDRD) Af Amer Est GFR (MDRD) Non-Af BUN/Creatinine Ratio Glucose Lactic Acid 2.7 H* Calcium Magnesium Total Bilirubin AST ALT Alkaline Phosphatase Lactate Dehydrogenase Total Creatine Kinase Troponin I B-Natriuretic Peptide 130.1 H Total Protein Albumin Globulin Albumin/Globulin Ratio Procalcitonin Urine Color Urine Clarity Urine pH Ur Specific [place] Urine Protein Urine Glucose (UA) Urine Ketones Urine Occult Blood Urine Nitrite Urine Bilirubin Urine Urobilinogen Ur Leukocyte Esterase Urine RBC Urine WBC Ur Squamous Epith Cells Ur Renal Epithelial Cell Urine Bacteria Urine Mucus COVID-19 (MARITZA) POC Glucose Blood Type Antibody Screen 12/07/19 12/07/19 12/07/19 07:55 07:55 08:25 WBC RBC Hgb Hct MCV MCH MCHC RDW Std Deviation RDW Coeff of [place] Plt Count MPV Immature Gran % (Auto) Neut % (Auto) Lymph % (Auto) [place] % (Auto) Eos % (Auto) Baso % (Auto) Absolute Neuts (auto) Absolute Lymphs (auto) Nucleated RBC % Differential Comment Reactive Lymphocytes Platelet Estimate PT INR APTT Fibrinogen D-Dimer Quant (PE/DVT) 3.37 H* Specimen Type Sample Site pH Bicarbonate Actual Total CO2 Base Excess O2 Saturation O2 % ABG pCO2 ABG pO2 Respiration Rate O2 Delivery Device Vent Mode Tidal Volume POC PEEP Sodium Potassium Chloride Carbon Dioxide Anion Gap BUN Creatinine Estim Creat Clear Calc Est GFR (MDRD) Af Amer Est GFR (MDRD) Non-Af BUN/Creatinine Ratio Glucose Lactic Acid Calcium Magnesium Total Bilirubin AST ALT Alkaline Phosphatase Lactate Dehydrogenase 644 H Total Creatine Kinase 92 Troponin I B-Natriuretic Peptide Total Protein Albumin Globulin Albumin/Globulin Ratio Procalcitonin Urine Color Urine Clarity Urine pH Ur Specific [place] Urine Protein Urine Glucose (UA) Urine Ketones Urine Occult Blood Urine Nitrite Urine Bilirubin Urine Urobilinogen Ur Leukocyte Esterase Urine RBC Urine WBC Ur Squamous Epith Cells Ur Renal Epithelial Cell Urine Bacteria Urine Mucus COVID-19 (MARITZA) Cancelled POC Glucose Blood Type Antibody Screen 12/07/19 12/07/19 12/07/19 09:20 09:46 10:14 WBC RBC Hgb Hct MCV MCH MCHC RDW Std Deviation RDW Coeff of [place] Plt Count MPV Immature Gran % (Auto) Neut % (Auto) Lymph % (Auto) [place] % (Auto) Eos % (Auto) Baso % (Auto) Absolute Neuts (auto) Absolute Lymphs (auto) Nucleated RBC % Differential Comment Reactive Lymphocytes Platelet Estimate PT INR APTT Fibrinogen D-Dimer Quant (PE/DVT) Specimen Type ART Sample Site R Brach pH 7.42 Bicarbonate Actual 22.7 Total CO2 24 Base Excess -2 O2 Saturation 99 O2 % 100 ABG pCO2 34.8 L ABG pO2 112 H Respiration Rate 20 O2 Delivery Device Adult Vent Vent Mode AC Tidal Volume 500 POC PEEP 15 Sodium Potassium Chloride Carbon Dioxide Anion Gap BUN Creatinine Estim Creat Clear Calc Est GFR (MDRD) Af Amer Est GFR (MDRD) Non-Af BUN/Creatinine Ratio Glucose Lactic Acid Calcium Magnesium Total Bilirubin AST ALT Alkaline Phosphatase Lactate Dehydrogenase Total Creatine Kinase Troponin I B-Natriuretic Peptide Total Protein Albumin Globulin Albumin/Globulin Ratio Procalcitonin Urine Color Red Urine Clarity Turbid Urine pH 6.5 Ur Specific [place] 1.015 Urine Protein 500 H Urine Glucose (UA) Normal Urine Ketones 15 H Urine Occult Blood 250 H Urine Nitrite Negative Urine Bilirubin Negative Urine Urobilinogen Normal Ur Leukocyte Esterase 25 H Urine RBC > 100 SEEN Urine WBC 0-5 SEEN Ur Squamous Epith Cells 0-5 SEEN Ur Renal Epithelial Cell 0-5 SEEN Urine Bacteria 1+ Urine Mucus 0 SEEN COVID-19 (MARITZA) POC Glucose 219 H Blood Type Antibody Screen 12/07/19 12/07/19 12/07/19 13:09 13:40 13:41 WBC RBC Hgb Hct MCV MCH MCHC RDW Std Deviation RDW Coeff of [place] Plt Count MPV Immature Gran % (Auto) Neut % (Auto) Lymph % (Auto) [place] % (Auto) Eos % (Auto) Baso % (Auto) Absolute Neuts (auto) Absolute Lymphs (auto) Nucleated RBC % Differential Comment Reactive Lymphocytes Platelet Estimate PT INR APTT Fibrinogen D-Dimer Quant (PE/DVT) Specimen Type Sample Site pH Bicarbonate Actual Total CO2 Base Excess O2 Saturation O2 % ABG pCO2 ABG pO2 Respiration Rate O2 Delivery Device Vent Mode Tidal Volume POC PEEP Sodium Potassium Chloride Carbon Dioxide Anion Gap BUN Creatinine Estim Creat Clear Calc Est GFR (MDRD) Af Amer Est GFR (MDRD) Non-Af BUN/Creatinine Ratio Glucose Lactic Acid 1.5 Calcium Magnesium Total Bilirubin AST ALT Alkaline Phosphatase Lactate Dehydrogenase Total Creatine Kinase Troponin I B-Natriuretic Peptide Total Protein Albumin Globulin Albumin/Globulin Ratio Procalcitonin 0.37 H Urine Color Urine Clarity Urine pH Ur Specific [place] Urine Protein Urine Glucose (UA) Urine Ketones Urine Occult Blood Urine Nitrite Urine Bilirubin Urine Urobilinogen Ur Leukocyte Esterase Urine RBC Urine WBC Ur Squamous Epith Cells Ur Renal Epithelial Cell Urine Bacteria Urine Mucus COVID-19 (MARITZA) POC Glucose 233 H Blood Type Antibody Screen 12/07/19 12/07/19 12/07/19 14:55 14:55 14:55 WBC RBC Hgb 13.6 Hct 41.3 MCV MCH MCHC RDW Std Deviation RDW Coeff of [place] Plt Count MPV Immature Gran % (Auto) Neut % (Auto) Lymph % (Auto) [place] % (Auto) Eos % (Auto) Baso % (Auto) Absolute Neuts (auto) Absolute Lymphs (auto) Nucleated RBC % Differential Comment Reactive Lymphocytes Platelet Estimate PT INR APTT Fibrinogen D-Dimer Quant (PE/DVT) Specimen Type Sample Site pH Bicarbonate Actual Total CO2 Base Excess O2 Saturation O2 % ABG pCO2 ABG pO2 Respiration Rate O2 Delivery Device Vent Mode Tidal Volume POC PEEP Sodium Potassium Chloride Carbon Dioxide Anion Gap BUN Creatinine Estim Creat Clear Calc Est GFR (MDRD) Af Amer Est GFR (MDRD) Non-Af BUN/Creatinine Ratio Glucose Lactic Acid Calcium Magnesium Total Bilirubin AST ALT Alkaline Phosphatase Lactate Dehydrogenase Total Creatine Kinase Troponin I B-Natriuretic Peptide Total Protein Albumin Globulin Albumin/Globulin Ratio Procalcitonin Urine Color Urine Clarity Urine pH Ur Specific [place] Urine Protein Urine Glucose (UA) Urine Ketones Urine Occult Blood Urine Nitrite Urine Bilirubin Urine Urobilinogen Ur Leukocyte Esterase Urine RBC Urine WBC Ur Squamous Epith Cells Ur Renal Epithelial Cell Urine Bacteria Urine Mucus COVID-19 (MARITZA) POC Glucose Blood Type Cancelled B POSITIVE Antibody Screen NEGATIVE 12/07/19 12/07/19 12/08/19 18:06 23:50 00:18 WBC RBC Hgb 13.4 Hct 41.1 MCV MCH MCHC RDW Std Deviation RDW Coeff of [place] Plt Count MPV Immature Gran % (Auto) Neut % (Auto) Lymph % (Auto) [place] % (Auto) Eos % (Auto) Baso % (Auto) Absolute Neuts (auto) Absolute Lymphs (auto) Nucleated RBC % Differential Comment Reactive Lymphocytes Platelet Estimate PT INR APTT Fibrinogen D-Dimer Quant (PE/DVT) Specimen Type Sample Site pH Bicarbonate Actual Total CO2 Base Excess O2 Saturation O2 % ABG pCO2 ABG pO2 Respiration Rate O2 Delivery Device Vent Mode Tidal Volume POC PEEP Sodium Potassium Chloride Carbon Dioxide Anion Gap BUN Creatinine Estim Creat Clear Calc Est GFR (MDRD) Af Amer Est GFR (MDRD) Non-Af BUN/Creatinine Ratio Glucose Lactic Acid Calcium Magnesium Total Bilirubin AST ALT Alkaline Phosphatase Lactate Dehydrogenase Total Creatine Kinase Troponin I B-Natriuretic Peptide Total Protein Albumin Globulin Albumin/Globulin Ratio Procalcitonin Urine Color Urine Clarity Urine pH Ur Specific [place] Urine Protein Urine Glucose (UA) Urine Ketones Urine Occult Blood Urine Nitrite Urine Bilirubin Urine Urobilinogen Ur Leukocyte Esterase Urine RBC Urine WBC Ur Squamous Epith Cells Ur Renal Epithelial Cell Urine Bacteria Urine Mucus COVID-19 (MARITZA) POC Glucose 167 H 183 H Blood Type Antibody Screen 12/08/19 12/08/19 12/08/19 04:00 04:00 08:22 WBC 8.3 RBC 4.35 L Hgb 13.5 Hct 41.1 MCV 94.5 H MCH 31.0 MCHC 32.8 RDW Std Deviation 48.7 H RDW Coeff of [place] 14.0 Plt Count 85 L MPV 12.0 Immature Gran % (Auto) 0.600 Neut % (Auto) 56.6 Lymph % (Auto) 11.9 L [place] % (Auto) 30.7 H Eos % (Auto) 0.0 Baso % (Auto) 0.2 Absolute Neuts (auto) 4.7 Absolute Lymphs (auto) 0.99 Nucleated RBC % 0 Differential Comment SCANNED Reactive Lymphocytes Platelet Estimate MOD DEC PT INR APTT Fibrinogen D-Dimer Quant (PE/DVT) Specimen Type Sample Site pH Bicarbonate Actual Total CO2 Base Excess O2 Saturation O2 % ABG pCO2 ABG pO2 Respiration Rate O2 Delivery Device Vent Mode Tidal Volume POC PEEP Sodium 143 Potassium 3.3 L Chloride 109 H Carbon Dioxide 26.0 Anion Gap 8 BUN 34 H Creatinine 1.18 Estim Creat Clear Calc 63.81 Est GFR (MDRD) Af Amer 79 Est GFR (MDRD) Non-Af 65 BUN/Creatinine Ratio 28.8 H Glucose 169 H Lactic Acid Calcium 8.0 L Magnesium 2.4 Total Bilirubin 0.60 AST 50 H ALT 16 Alkaline Phosphatase 58 Lactate Dehydrogenase Total Creatine Kinase Troponin I B-Natriuretic Peptide Total Protein 6.5 Albumin 2.7 L Globulin 3.8 Albumin/Globulin Ratio 0.7 L Procalcitonin Urine Color Urine Clarity Urine pH Ur Specific [place] Urine Protein Urine Glucose (UA) Urine Ketones Urine Occult Blood Urine Nitrite Urine Bilirubin Urine Urobilinogen Ur Leukocyte Esterase Urine RBC Urine WBC Ur Squamous Epith Cells Ur Renal Epithelial Cell Urine Bacteria Urine Mucus COVID-19 (MARITZA) POC Glucose 164 H Blood Type Antibody Screen 12/08/19 12/08/19 12/08/19 08:30 12:43 17:18 WBC RBC Hgb Hct MCV MCH MCHC RDW Std Deviation RDW Coeff of [place] Plt Count MPV Immature Gran % (Auto) Neut % (Auto) Lymph % (Auto) [place] % (Auto) Eos % (Auto) Baso % (Auto) Absolute Neuts (auto) Absolute Lymphs (auto) Nucleated RBC % Differential Comment Reactive Lymphocytes Platelet Estimate PT INR APTT Fibrinogen 616 H D-Dimer Quant (PE/DVT) Specimen Type Sample Site pH Bicarbonate Actual Total CO2 Base Excess O2 Saturation O2 % ABG pCO2 ABG pO2 Respiration Rate O2 Delivery Device Vent Mode Tidal Volume POC PEEP Sodium Potassium Chloride Carbon Dioxide Anion Gap BUN Creatinine Estim Creat Clear Calc Est GFR (MDRD) Af Amer Est GFR (MDRD) Non-Af BUN/Creatinine Ratio Glucose Lactic Acid Calcium Magnesium Total Bilirubin AST ALT Alkaline Phosphatase Lactate Dehydrogenase Total Creatine Kinase Troponin I B-Natriuretic Peptide Total Protein Albumin Globulin Albumin/Globulin Ratio Procalcitonin Urine Color Urine Clarity Urine pH Ur Specific [place] Urine Protein Urine Glucose (UA) Urine Ketones Urine Occult Blood Urine Nitrite Urine Bilirubin Urine Urobilinogen Ur Leukocyte Esterase Urine RBC Urine WBC Ur Squamous Epith Cells Ur Renal Epithelial Cell Urine Bacteria Urine Mucus COVID-19 (MARITZA) POC Glucose 170 H 224 H Blood Type Antibody Screen 12/09/19 12/09/19 12/09/19 00:06 04:00 04:00 WBC 10.5 RBC 4.39 L Hgb 13.6 Hct 41.8 MCV 95.2 H MCH 31.0 MCHC 32.5 RDW Std Deviation 48.7 H RDW Coeff of [place] 13.8 Plt Count 92 L MPV 12.0 Immature Gran % (Auto) Neut % (Auto) Lymph % (Auto) [place] % (Auto) Eos % (Auto) Baso % (Auto) Absolute Neuts (auto) Absolute Lymphs (auto) Nucleated RBC % Differential Comment Reactive Lymphocytes Platelet Estimate PT INR APTT Fibrinogen D-Dimer Quant (PE/DVT) Specimen Type Sample Site pH Bicarbonate Actual Total CO2 Base Excess O2 Saturation O2 % ABG pCO2 ABG pO2 Respiration Rate O2 Delivery Device Vent Mode Tidal Volume POC PEEP Sodium 140 Potassium 3.9 Chloride 107 Carbon Dioxide 26.0 Anion Gap 7 BUN 33 H Creatinine 0.93 Estim Creat Clear Calc 80.97 Est GFR (MDRD) Af Amer 103 Est GFR (MDRD) Non-Af 85 BUN/Creatinine Ratio 35.3 H Glucose 254 H Lactic Acid Calcium 7.0 L Magnesium Total Bilirubin 0.90 AST 59 H ALT 20 Alkaline Phosphatase 56 Lactate Dehydrogenase Total Creatine Kinase Troponin I B-Natriuretic Peptide Total Protein 6.0 L Albumin 2.3 L Globulin 3.7 Albumin/Globulin Ratio 0.6 L Procalcitonin Urine Color Urine Clarity Urine pH Ur Specific [place] Urine Protein Urine Glucose (UA) Urine Ketones Urine Occult Blood Urine Nitrite Urine Bilirubin Urine Urobilinogen Ur Leukocyte Esterase Urine RBC Urine WBC Ur Squamous Epith Cells Ur Renal Epithelial Cell Urine Bacteria Urine Mucus COVID-19 (MARITZA) POC Glucose 252 H Blood Type Antibody Screen 12/09/19 12/09/19 04:00 05:53 WBC RBC Hgb Hct MCV MCH MCHC RDW Std Deviation RDW Coeff of [place] Plt Count MPV Immature Gran % (Auto) Neut % (Auto) Lymph % (Auto) [place] % (Auto) Eos % (Auto) Baso % (Auto) Absolute Neuts (auto) Absolute Lymphs (auto) Nucleated RBC % Differential Comment Reactive Lymphocytes Platelet Estimate PT INR APTT Fibrinogen 563 H D-Dimer Quant (PE/DVT) Specimen Type Sample Site pH Bicarbonate Actual Total CO2 Base Excess O2 Saturation O2 % ABG pCO2 ABG pO2 Respiration Rate O2 Delivery Device Vent Mode Tidal Volume POC PEEP Sodium Potassium Chloride Carbon Dioxide Anion Gap BUN Creatinine Estim Creat Clear Calc Est GFR (MDRD) Af Amer Est GFR (MDRD) Non-Af BUN/Creatinine Ratio Glucose Lactic Acid Calcium Magnesium Total Bilirubin AST ALT Alkaline Phosphatase Lactate Dehydrogenase Total Creatine Kinase Troponin I B-Natriuretic Peptide Total Protein Albumin Globulin Albumin/Globulin Ratio Procalcitonin Urine Color Urine Clarity Urine pH Ur Specific [place] Urine Protein Urine Glucose (UA) Urine Ketones Urine Occult Blood Urine Nitrite Urine Bilirubin Urine Urobilinogen Ur Leukocyte Esterase Urine RBC Urine WBC Ur Squamous Epith Cells Ur Renal Epithelial Cell Urine Bacteria Urine Mucus COVID-19 (MARITZA) POC Glucose 251 H Blood Type Antibody Screen Microbiology 12/07/19 09:15 Blood Culture (Wb) - Right Hand Blood Culture - Preliminary No growth in 48 hours. 12/07/19 07:55 Blood Culture (Wb) - Anticubital Left Blood Culture - Preliminary No growth in 48 hours. 12/07/19 20:45 Sputum, Tracheal Aspirate Gram Stain - Final 12/07/19 20:45 Sputum, Tracheal Aspirate Respiratory Culture - Preliminary 12/07/19 09:20 Urine Catheter - [place] Urine Culture - Preliminary Culture exhibits no growth. 12/07/19 15:00 Urine Catheter - [place] Legionella Antigen - Final 12/07/19 15:00 Urine Catheter - [place] Streptococcus pneumoniae Antigen (M - Final 12/07/19 08:09 Mucosa - Nasopharyngeal - Final SARS-CoV-2 (COVID 19) Medical Necessity - Tobacco Use Smoking Status: Unknown if ever smoked Tobacco Use: Non-smoker Assessment/Plan All Active Problems (Last Reviewed 05/27/18 @ 10:[address] Hardeep Jackson MD) COVID-19 with multiple comorbidities (Acute) COVID-19 with pulmonary comorbidity (Acute) Acute respiratory failure with hypoxia (Acute) Gross hematuria (Acute) Hypertensive urgency (Acute) Encephalopathy (Acute) RECOMMENDATIONS: 1. Wean PEEP and FiO2 as tolerated 2. Continue supportive care for hematuria 3. Hold on platelet transfusion at this time 4. No need to recheck fibrinogen 5. Continue to hold empiric antibiotics 6. Continue remdesivir per infectious disease 7. Continue tube feeds IMPRESSIONS: 1. Acute hypoxic respiratory failure secondary to COVID-19 Patient with significant infiltrates bilaterally on chest x-ray. These findings could be suggestive of COVID-19 pneumonitis versus congestive heart failure. BNP was slightly elevated. Patient does have a history of hypertension, so diastolic dysfunction would be a consideration. Patient is on Decadron and remdesivir. Likely hold anticoagulation given thrombocytopenia with active bleeding. Wean oxygen and PEEP as tolerated. Spontaneous breathing and awakening trials per protocol. Patient is requiring significant sedation to facilitate vent synchrony. 2. Possible congestive heart failure Patient does have a long history of hypertension. Echo suspicion for an element of diastolic CHF. We will hold on an echocardiogram for now, but this may be necessary if patient's oxygenation does not improve 3. Thrombocytopenia with hematuria Patient does have a history of BPH and is on doxazosin as an outpatient. Patient does have thrombocytopenia of unclear etiology. Patient would be at risk for DIC, but fibrinogen is currently elevated. Platelets appear to be stable at this time. Would likely continue to hold on anticoagulation as bleeding complications could be significant. 4. Acute kidney injury Renal function is improving. Clinical suspicion for an element of ATN secondary to protracted hypoxia. Patient does have reasonable urine output at this time. This will be difficult to monitor given his need for bladder irrigation. Continue to monitor chemistries on a daily basis. 5. Diabetes mellitus/advanced age/obesity Complicates care, management, recovery and prognosis. Likely okay to initiate tube feeds, but high clinical suspicion.basal insulin will be required. TIME: 33 minutes critical care time spent addressing patient's acute hypoxic respiratory failure, possible CHF, thrombocytopenia, acute kidney injury, diabetes mellitus, review of all data and collaboration with care team (5:15 AM to 6:15 AM) [id number] Critical care first hour
--- NOTE | 2019-12-09 07:56 | PN_ITS ---
Patient Problems: Active and Suspected Problems (Last Reviewed 05/27/18 @ 10:[address] Hardeep Jackson MD) COVID-19 with multiple comorbidities (Acute) COVID-19 with pulmonary comorbidity (Acute) Acute respiratory failure with hypoxia (Acute) Gross hematuria (Acute) Hypertensive urgency (Acute) Encephalopathy (Acute) Reason for Visit: Follow-up on respiratory failure/Acute COVID-19 infection Subjective: Patient was seen and examined. No acute events overnight. Urine remains clear. Started on tube feeds. Unsure if patient continues to have dark gastric aspirate. No drop in his hemoglobin. On IV PPI. Overnight his oxygen requirement appeared to have improved with patient currently on PEEP of 10 compared to PEEP of 15 on admission. Discussed with patient's , Emi, she consents to convalescent plasma if needed. Objective: Physical exam: General: - - Intubated, on mechanical intubation, sedated, not pale HEENT: Atraumatic, PERRLA, EOMI, Normocephalic Oral: Moist Mucosa Neck: Supple Lungs: Diminished Cardiovascular: Regular rate, Regular Rhythm, Normal S1, Normal S2, No murmurs Abdomen: Bowel Sounds Present, Soft, Non Tender, Non-Distended, No Hepato- splenomegaly Extremities: Edema - bilateral trace edema Skin: No rashes Musculoskeletal: No Tenderness to Palpation of Joints or Extremities Lymphatic: No Cervical, Supraclavicular, or Inguinal Adenopathy Neurological: Cranial nerves II-XII grossly intact, Neuro grossly intact Psych/Mental Status: Normal Affect, Appropriate Vitals/I&O's: Vital Signs Temp Pulse Resp BP Pulse Ox 96.9 F L 61 14 103/50 L 92 12/09/19 04:00 12/09/19 07:00 12/09/19 07:00 12/09/19 07:00 12/09/19 07:00 Oxygen Delivery Method Mechanical Ventilator Weight: 114.078 kg Body Mass Index (BMI) 34.9 Finger Stick Blood Glucose 195 Intake and Output for Last 24 Hours 12/07/19 12/08/19 12/09/19 23:59 23:59 23:59 Intake Total 1255.77 / 1313.27 2938.50 / 3203.33 1330.53 / 1330.53 Output Total 495 / 605 1705 / 1805 375 / 375 Balance 760.77 / 708.27 1233.50 / 1398.33 955.53 / 955.53 Microbiology Past 72 Hours 12/07/19 09:15 Blood Culture (Wb) - Right Hand Blood Culture - Preliminary No growth in 48 hours. 12/07/19 07:55 Blood Culture (Wb) - Anticubital Left Blood Culture - Preliminary No growth in 48 hours. 12/07/19 20:45 Sputum, Tracheal Aspirate Gram Stain - Final 12/07/19 20:45 Sputum, Tracheal Aspirate Respiratory Culture - Preliminary 12/07/19 09:20 Urine Catheter - Duarte Urine Culture - Preliminary Culture exhibits no growth. 12/07/19 15:00 Urine Catheter - Duarte Legionella Antigen - Final 12/07/19 15:00 Urine Catheter - Duarte Streptococcus pneumoniae Antigen (M - Final 12/07/19 08:09 Mucosa - Nasopharyngeal - Final SARS-CoV-2 (COVID 19) Laboratory Results 12/08/19 04:00: Sodium 143, Potassium 3.3 L, Chloride 109 H, Carbon Dioxide 26.0, Anion Gap 8, BUN 34 H, Creatinine 1.18, Estim Creat Clear Calc 63.81, Est GFR (MDRD) Af Amer 79, Est GFR (MDRD) Non-Af 65, BUN/Creatinine Ratio 28.8 H, Glucose 169 H, Calcium 8.0 L, Magnesium 2.4, Total Bilirubin 0.60, AST 50 H, ALT 16, Alkaline Phosphatase 58, Total Protein 6.5, Albumin 2.7 L, Globulin 3.8, Albumin/Globulin Ratio 0.7 L 12/08/19 08:22: POC Glucose 164 H 12/08/19 08:30: Fibrinogen 616 H 12/08/19 12:43: POC Glucose 170 H 12/08/19 17:18: POC Glucose 224 H 12/09/19 00:06: POC Glucose 252 H 12/09/19 04:00: WBC 10.5, RBC 4.39 L, Hgb 13.6, Hct 41.8, MCV 95.2 H, MCH 31.0, MCHC 32.5, RDW Std Deviation 48.7 H, RDW Coeff of Preston 13.8, Plt Count 92 L, MPV 12.0 12/09/19 04:00: Sodium 140, Potassium 3.9, Chloride 107, Carbon Dioxide 26.0, Anion Gap 7, BUN 33 H, Creatinine 0.93, Estim Creat Clear Calc 80.97, Est GFR (MDRD) Af Amer 103, Est GFR (MDRD) Non-Af 85, BUN/Creatinine Ratio 35.3 H, Glucose 254 H, Calcium 7.0 L, Total Bilirubin 0.90, AST 59 H, ALT 20, Alkaline Phosphatase 56, Total Protein 6.0 L, Albumin 2.3 L, Globulin 3.7, Albumin/Globulin Ratio 0.6 L 12/09/19 04:00: Fibrinogen 563 H 12/09/19 05:53: POC Glucose 251 H Current Medications Chlorhexidine Gluconate (Chlorhexidine 15 Ml) 15 ml PO BID [facility] Last Admin: 12/08/19 22:28 Dose: 15 ml Documented by: Dexamethasone Sodium Phosphate (Dexamethasone 10 Mg/Ml Vial) 6 mg IV DAILY [facility] Last Admin: 12/08/19 11:00 Dose: 6 mg Documented by: Propofol (Diprivan) 1,000 mg in 100 mls @ 6.84 mls/hr CONT INF .Q12H [facility]; Protocol Last Titration: 12/09/19 07:00 Dose: 40 mcg/kg/min, 27.4 mls/hr Documented by: Fentanyl Citrate 1,000 mcg/ (Sodium Chloride) 100 mls @ 2.5 mls/hr CONT INF .Q40H [facility]; Protocol Last Titration: 12/09/19 07:00 Dose: 75 mcg/hr, 7.5 mls/hr Documented by: Sodium Chloride () 1,000 mls @ 50 mls/hr IV .Q20H [facility] Last Infusion: 12/09/19 05:56 Dose: 50 mls/hr Documented by: Remdesivir (Investigational) (100 mg/ Sodium Chloride) 250 mls @ 125 mls/hr IV DAILY [facility]; Protocol Stop: 12/11/19 11:59 Last Infusion: 12/08/19 13:01 Dose: Infused Documented by: Sodium Chloride () 250 mls @ 15 mls/hr IV .[id number] PRN PRN Reason: Saline Flush Sodium Chloride () 250 mls @ 15 mls/hr IV .[id number] PRN PRN Reason: Additional IVPB Infusion Pantoprazole Sodium 40 mg/ (Sodium Chloride) 110 mls @ 330 mls/hr IV Q12 [facility] Last Infusion: 12/08/19 22:56 Dose: Infused Documented by: Enteral Nutritional Formula (Vital High Protein) 1,000 mls @ 65 mls/hr GT .[id number] [facility] Last Admin: 12/09/19 03:57 Dose: 65 mls/hr Documented by: Insulin Human Lispro (Insulin Lispro 100 Unit/Ml Insuln.Pen) 0 unit SC Q6 [facility]; Protocol Last Admin: 12/09/19 05:54 Dose: 2 u Documented by: Metoprolol Tartrate (Metoprolol Tartrate 50 Mg Tablet) 50 mg GT BID [facility] Last Admin: 12/08/19 22:29 Dose: 50 mg Documented by: Sodium Chloride (0.9% Saline Lock 10 Ml Syringe) 10 - 40 ml IV UD PRN PRN Reason: SALINE FLUSH Last Admin: 12/09/19 03:58 Dose: 40 ml Documented by: STROKE Vital Signs/Narrative: Vital Signs Temp Pulse Resp BP Pulse Ox 12/09/19 07:00 61 14 103/50 L 92 12/09/19 06:49 60 16 92 12/09/19 06:00 60 14 105/51 L 95 12/09/19 05:00 60 15 103/52 L 94 12/09/19 04:19 64 16 94 12/09/19 04:00 96.9 F L 62 17 109/59 L 92 Medical Necessity - Tobacco Use Smoking Status: Unknown if ever smoked Tobacco Use: Non-smoker Assessment/Plan All Active Problems (Last Reviewed 05/27/18 @ 10:[address] Hardeep Jackson MD) COVID-19 with multiple comorbidities (Acute) COVID-19 with pulmonary comorbidity (Acute) Acute respiratory failure with hypoxia (Acute) Gross hematuria (Acute) Hypertensive urgency (Acute) Encephalopathy (Acute) 1. Acute hypoxic respiratory failure secondary to acute COVID-19 pneumonia Remains intubated, on mechanical ventilator, PEEP improved [employer] Supervisor following 2. Acute COVID-19 pneumonia, severe with hypoxia, appears to be somehow improved Admitting chest x-ray shows diffuse bilateral alveolar infiltrates more prominent in the left hemithorax Admitting elevated D-dimer 3.37, LDH is 644, fibrinogen is improved to 563 On IV dexamethasone and Remdesivir. ID and pulmonary consulted 3. Acute metabolic encephalopathy likely secondary to #2, currently intubated 4. Gross hematuria, unclear etiology for now, noted after Duarte catheter was inserted in the ED No history of BPH, off aspirin an anticoagulation. Urology consulted, urine is clear. Will continue to monitor 5. Suspected acute GI bleed, likely secondary to acute gastritis, stress- induced, On PPI IV BID. Will continue to monitor 6. Thrombocytopenia, acute on chronic, unclear etiology Last platelet count in 2017 was 138. Admitted with platelet count of 87, platelet is now 85 INR is normal. Fibrinogen is elevated, D-dimer is elevated Likely cause is COVID-19 related. Will continue to monitor 7. Hypokalemia, resolved, recheck in am 8. Lactic acid likely related to #1, lactic acid is 2.7, repeat is 1.5 9. Hypertensive urgency, improved, continue on home metoprolol 50 mg p.o. twice daily with holding parameters Lisinopril dose on hold 10. Type II DM, on glimepiride, would hold glimepiride and continue on blood glucose check with insulin sliding scale 11. DVT PPx- SCDs on account of hematuria. 12. GI PPx- PPI IV Inpatient E&M: [id number] [facility] Hosp L3
--- NOTE | 2019-12-09 09:25 | NURSING ---
ASSESSMENT DONE NOW.
--- NOTE | 2019-12-09 10:58 | CASEMGMT ---
JESSE STEEN assessment: Phone interview with patient's , Emi Alberts, for initial transition planning/care coordination assessment as pt is still intubated at this time and is also in COVID precautions. RN ENIO introduced self and role at [facility], voices understanding and consents to assessment at this time. answers all questions appropriately at this time. states she had COVID sx's about 2 weeks ago and since recovered. also states multiple family members have symptomatic as well. Care providers, pharmacy, and demographics verified/updated at this time. Presentation: Pt found unresponsive by this am. states did not feel good yesterday. cough, fever-initial pulse ox via squad 40% Admitting dx: Resp failure, acute COVID infection PCP: [facility] Specialists: Per , pt has seen Manuel in the past but it has been awhile. Preferred Pharmacy: [facility] but states would like to use [facility] for ease at discharge d/t COVID. Pt also uses [employer] mail order and is aware that mail order cannot be used for 30 day scripts from hospitalist at discharge, voices understanding. [facility] Living Will/HPOA: Per , pt has a LW but not HPOA and is aware that it is not on file at [facility] at this time. LNOK: Emi Alberts, ; Della Oliveira, daughter; Kinsey Alberts, daughter Living Arrangements: Pt lives with in 1 story home and states no concerns at home at this time. Per , pt is normally independent with ADL's. Transportation: Pt normally does not have transportation concerns but per , they are unsure whether they can find transportation if pt is still COVID positive at discharge. CM to follow. DME/HHC: Pt has a cane and states no need for any further DME at this time. states they do have a generator at home if pt requires home oxygen at discharge. also states they would like [employer] for DME company, if home oxygen needed. states pt has no hx of HHC or SNF in the past. 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 Pt does not smoke cigarettes or drink ETOH. voices no further concerns/needs at this time. CM to follow for PT/OT evals, home oxygen need, and any further discharge planning/needs. Advised to ask for CM if any further questions/concerns/needs arise, voices understanding. Plan: TBD, pending clinical course, PT/OT evals, oxygen testing. SSttara RN CM
[2019-12-09 11:10] LABS: Allen Test Positive; Base Excess 1 mmol/L (-2 to +2); Blood Gas Specimen Type ART; FI02 45; O2 Delivery Device Adult Vent; PEEP 10; PO2 60 mmHG (75-100); RR 14; SITE R Radial; SO2 90 % (95-99); Total Carbon Dioxide 27 mmol/L; Vt 500; pCO2 43.8 mmHg (35-45); pH 7.38 (7.35-7.45)
[2019-12-09] MEDS: dexAMETHasone 10 MG/ML Vial 6 MG IV (12:11)
[2019-12-09] MEDS: Chlorhexidine 15 ML PO ×2 (12:11→22:51)
[2019-12-09] MEDS: Senna/Docusate Sodium 1 Tablet GT ×2 (12:13→22:43)
[2019-12-09 13:05] LABS: Bedside Glucose 223 mg/dL (70-110)
--- NOTE | 2019-12-09 15:36 | PCM.PN.ID ---
Patient Problems: Active and Suspected Problems (Last Reviewed 05/27/18 @ 10:[address] Hardeep Jackson MD) COVID-19 with multiple comorbidities (Acute) COVID-19 with pulmonary comorbidity (Acute) Acute respiratory failure with hypoxia (Acute) Gross hematuria (Acute) Hypertensive urgency (Acute) Encephalopathy (Acute) Subjective: On vent, O2 stable, no fever - Physical Exam Vitals/I&O's: Vital Signs Temp Pulse Resp BP Pulse Ox 97.3 F L 53 L 14 111/64 98 12/09/19 12:00 12/09/19 15:00 12/09/19 15:00 12/09/19 15:00 12/09/19 15:00 Oxygen Delivery Method Mechanical Ventilator Weight: 114.078 kg Body Mass Index (BMI) 34.9 Finger Stick Blood Glucose 195 Intake and Output for Last 24 Hours 12/07/19 12/08/19 12/09/19 23:59 23:59 23:59 Intake Total 1255.77 / 1313.27 2938.50 / 3203.33 2263.35 / 2263.35 Output Total 495 / 605 1705 / 1805 615 / 615 Balance 760.77 / 708.27 1233.50 / 1398.33 1648.35 / 1648.35 General: No apparent distress Lungs: Diminished Cardiovascular: Regular rate, Regular Rhythm Abdomen: Soft, Non Tender, Non-Distended Skin: No rashes Microbiology Past 72 Hours 12/07/19 20:45 Sputum, Tracheal Aspirate Gram Stain - Final 12/07/19 20:45 Sputum, Tracheal Aspirate Respiratory Culture - Preliminary 12/07/19 09:20 Urine Catheter - Duarte Urine Culture - Final Culture exhibits no growth. 12/07/19 09:15 Blood Culture (Wb) - Right Hand Blood Culture - Preliminary No growth in 48 hours. 12/07/19 07:55 Blood Culture (Wb) - Anticubital Left Blood Culture - Preliminary No growth in 48 hours. 12/07/19 15:00 Urine Catheter - Duarte Legionella Antigen - Final 12/07/19 15:00 Urine Catheter - Duarte Streptococcus pneumoniae Antigen (M - Final 12/07/19 08:09 Mucosa - Nasopharyngeal - Final SARS-CoV-2 (COVID 19) Laboratory Results 12/08/19 17:18: POC Glucose 224 H 12/09/19 00:06: POC Glucose 252 H 12/09/19 04:00: WBC 10.5, RBC 4.39 L, Hgb 13.6, Hct 41.8, MCV 95.2 H, MCH 31.0, MCHC 32.5, RDW Std Deviation 48.7 H, RDW Coeff of Preston 13.8, Plt Count 92 L, MPV 12.0 12/09/19 04:00: Sodium 140, Potassium 3.9, Chloride 107, Carbon Dioxide 26.0, Anion Gap 7, BUN 33 H, Creatinine 0.93, Estim Creat Clear Calc 80.97, Est GFR (MDRD) Af Amer 103, Est GFR (MDRD) Non-Af 85, BUN/Creatinine Ratio 35.3 H, Glucose 254 H, Calcium 7.0 L, Total Bilirubin 0.90, AST 59 H, ALT 20, Alkaline Phosphatase 56, Total Protein 6.0 L, Albumin 2.3 L, Globulin 3.7, Albumin/Globulin Ratio 0.6 L 12/09/19 04:00: Fibrinogen 563 H 12/09/19 05:53: POC Glucose 251 H 12/09/19 11:05: Specimen Type ART, Sample Site R Radial, pH 7.38, Bicarbonate Actual 26.0, Total CO2 27, Base Excess 1, O2 Saturation 90 L, O2 % 45, ABG pCO2 43.8, ABG pO2 60 L, [place] Test Positive, Respiration Rate 14, O2 Delivery Device Adult Vent, Tidal Volume 500, POC PEEP 10 12/09/19 12:10: POC Glucose 223 H Current Medications Chlorhexidine Gluconate (Chlorhexidine 15 Ml) 15 ml PO BID [facility] Last Admin: 12/09/19 12:11 Dose: 15 ml Documented by: Dexamethasone Sodium Phosphate (Dexamethasone 10 Mg/Ml Vial) 6 mg IV DAILY [facility] Last Admin: 12/09/19 12:11 Dose: 6 mg Documented by: Propofol (Diprivan) 1,000 mg in 100 mls @ 6.84 mls/hr CONT INF .Q12H [facility]; Protocol Last Titration: 12/09/19 14:00 Dose: 40 mcg/kg/min, 27.4 mls/hr Documented by: Fentanyl Citrate 1,000 mcg/ (Sodium Chloride) 100 mls @ 2.5 mls/hr CONT INF .Q40H [facility]; Protocol Last Titration: 12/09/19 14:00 Dose: 100 mcg/hr, 10 mls/hr Documented by: Sodium Chloride () 1,000 mls @ 50 mls/hr IV .Q20H [facility] Last Admin: 12/09/19 11:34 Dose: Not Given Documented by: Remdesivir (Investigational) (100 mg/ Sodium Chloride) 250 mls @ 125 mls/hr IV DAILY [facility]; Protocol Stop: 12/11/19 11:59 Last Infusion: 12/09/19 15:05 Dose: Infused Documented by: Sodium Chloride () 250 mls @ 15 mls/hr IV .[id number] PRN PRN Reason: Saline Flush Sodium Chloride () 250 mls @ 15 mls/hr IV .[id number] PRN PRN Reason: Additional IVPB Infusion Pantoprazole Sodium 40 mg/ (Sodium Chloride) 110 mls @ 330 mls/hr IV Q12 [facility] Last Infusion: 12/09/19 12:17 Dose: Infused Documented by: Enteral Nutritional Formula (Vital High Protein) 1,000 mls @ 65 mls/hr GT .[id number] [facility] Last Admin: 12/09/19 03:57 Dose: 65 mls/hr Documented by: Insulin Glargine (Insulin Glargine 100 Units/Ml Pen) 10 units SC DAILY [facility] Last Admin: 12/09/19 13:02 Dose: 10 u Documented by: Insulin Human Lispro (Insulin Lispro 100 Unit/Ml Insuln.Pen) 0 unit SC Q6 [facility]; Protocol Last Admin: 12/09/19 12:14 Dose: 2 u Documented by: Metoprolol Tartrate (Metoprolol Tartrate 50 Mg Tablet) 50 mg GT BID [facility] Last Admin: 12/09/19 12:13 Dose: Not Given Documented by: Senna/Docusate Sodium (Senna/Docusate Sodium 1 Tablet) 1 tablet GT BID [facility] Last Admin: 12/09/19 12:13 Dose: 1 tablet Documented by: Sodium Chloride (0.9% Saline Lock 10 Ml Syringe) 10 - 40 ml IV UD PRN PRN Reason: SALINE FLUSH Last Admin: 12/09/19 03:58 Dose: 40 ml Documented by: Medical Necessity - Tobacco Use Smoking Status: Unknown if ever smoked Tobacco Use: Non-smoker Route of nutrition/ use of supplements: [] Nutritional Intake: [] IV Site: [] Duarte Catheter: [] - Assessment/Plan Antibiotics: [] Assessment/Plan: [] Active and Suspected Problems (Last Reviewed 05/27/18 @ 10:[address] Hardeep Jackson MD) COVID-19 with multiple comorbidities (Acute) COVID-19 with pulmonary comorbidity (Acute) Acute respiratory failure with hypoxia (Acute) Hypertensive urgency (Acute) Encephalopathy (Acute) Covid with mech ventilation - on dex, remdesivir. O2 and fever improved, afebrile overnight. Not on anticoagulation due to hematuria. D/w hospitalist, plasma being ordered. Will follow
[2019-12-09 17:06] LABS: Bedside Glucose 231 mg/dL (70-110)
[2019-12-09] MEDS: 0.9% Normal Saline 1,000 ML 50 ML IV (19:20)
--- NOTE | 2019-12-09 22:59 | NURSING ---
tiera bottle verified with sarita pollock
[2019-12-10] VITALS (38 sets, daily range): BP systolic 114–194; BP diastolic 55–94; PULSE 54–67; RESP 11–20; TEMP 36.2–36.8; O2SAT 87–96
[2019-12-10 00:21] LABS: Bedside Glucose 343 mg/dL (70-110)
[2019-12-10] MEDS: Propofol 10MG/Ml 1,000 MG/100 ML Bottle 20.5 MG CONT INF (02:00)
[2019-12-10] MEDS: Propofol 10MG/Ml 1,000 MG/100 ML Bottle 24.3 MG CONT INF (04:45)
[2019-12-10] MEDS: TITRATION PARAMETER CHANGE 1 EACH IV (04:51)
[2019-12-10 05:18] LABS: Hematocrit 39.3 % (40-54); Hemoglobin 12.9 g/dL (13.0-16.5); Mean Corp Hgb Conc 32.8 g/dL (32-36); Mean Corpuscular Hgb 31.4 pg (27.0-32.0); Mean Corpuscular Volume 95.6 fL (80-94); Mean Platelet Vol. 11.8 fl (6.2-12.0); POSITIVE COUNT YES; Platelet Count 96 K/mm3 (150-450); RBC Distribution Width CV 13.8 % (11.6-14.6); RBC Distribution Width SD 49.1 fl (35.1-43.9); Red Blood Count 4.11 M/mm3 (4.6-6.2); White Blood Count 10.7 K/mm3 (4.4-11.0)
[2019-12-10 05:37] LABS: ALB/GLOB Ratio 0.6 RATIO (0.9-2.4); AST(SGOT) 40 U/L (15-37); Albumin, Serum 2.3 g/dL (3.2-5.0); Alkaline Phosphatase 54 U/L (45-117); Anion Gap 5 (5-15); BUN 36 mg/dL (7-18); BUN/Creat Ratio 43.4 RATIO (10-20); Calcium,Total 6.9 mg/dL (8.5-10.1); Chloride 109 mmol/L (98-107); Creatinine, Serum 0.83 mg/dL (0.70-1.30); EST Glomerular Filtration Rate 98 mL/min (>60); Est Glom Filt Rate - Afr Amer 119 mL/min (>60); Estimated Creatinine Clearance 90.72 ml/min; Globulin 3.7 g/dL (2.2-4.2); Glucose 327 mg/dL (74-106); Potassium 3.8 mmol/L (3.5-5.1); Sodium Level 141 mmol/L (136-145)
[2019-12-10 05:38] LABS: Ferritin 605 ng/mL (26-388); Procalcitonin 0.23 ng/mL (0.00-0.09)
[2019-12-10] MEDS: Insulin Lispro 100 UNIT/ML INSULN.PEN SC ×3 (05:39→17:41)
[2019-12-10 05:48] LABS: D-Dimer Quantitative (DVT/PE) > 20.00 FEU/ug/m (0.27-0.49)
[2019-12-10 05:50] LABS: Alanine Aminotransfer ALT/SGPT 11 U/L (16-61)
[2019-12-10 06:11] LABS: Bedside Glucose 272 mg/dL (70-110)
--- NOTE | 2019-12-10 07:28 | PN_ITS ---
Patient Problems: Active and Suspected Problems (Last Reviewed 05/27/18 @ 10:[address] Hardeep Jackson MD) COVID-19 with multiple comorbidities (Acute) COVID-19 with pulmonary comorbidity (Acute) Acute respiratory failure with hypoxia (Acute) Gross hematuria (Acute) Hypertensive urgency (Acute) Encephalopathy (Acute) Reason for Visit: Follow-up on respiratory failure/Acute COVID-19 infection Subjective: Patient seen and examined. Patient received convalescent plasma last night. He is on decreased oxygen requirement. Denies fever or chills. Objective: Physical exam: General: - - Intubated, on mechanical intubation, sedated, not pale HEENT: Atraumatic, PERRLA, EOMI, Normocephalic Oral: Moist Mucosa Neck: Supple Lungs: Diminished Cardiovascular: Regular rate, Regular Rhythm, Normal S1, Normal S2, No murmurs Abdomen: Bowel Sounds Present, Soft, Non Tender, Non-Distended, No Hepato- splenomegaly Extremities: Edema - bilateral trace edema Skin: No rashes Musculoskeletal: No Tenderness to Palpation of Joints or Extremities Lymphatic: No Cervical, Supraclavicular, or Inguinal Adenopathy Neurological: Cranial nerves II-XII grossly intact, Neuro grossly intact Psych/Mental Status: Normal Affect, Appropriate Vitals/I&O's: Vital Signs Temp Pulse Resp BP Pulse Ox 97.5 F L 56 L 12 140/64 H 93 12/10/19 05:00 12/10/19 07:00 12/10/19 07:00 12/10/19 07:00 12/10/19 07:00 Oxygen Delivery Method Mechanical Ventilator Weight: 115.621 kg Body Mass Index (BMI) 34.9 Finger Stick Blood Glucose 195 Intake and Output for Last 24 Hours 12/08/19 12/09/19 12/10/19 23:59 23:59 23:59 Intake Total 2938.50 / 3203.33 3075.04 / 3345.77 983.00 / 983.00 Output Total 1705 / 1805 1135 / 1260 600 / 600 Balance 1233.50 / 1398.33 1940.04 / 2085.77 383.00 / 383.00 Microbiology Past 72 Hours 12/07/19 20:45 Sputum, Tracheal Aspirate Gram Stain - Final 12/07/19 20:45 Sputum, Tracheal Aspirate Respiratory Culture - Preliminary 12/07/19 09:20 Urine Catheter - Duarte Urine Culture - Final Culture exhibits no growth. 12/07/19 09:15 Blood Culture (Wb) - Right Hand Blood Culture - Preliminary No growth in 48 hours. 12/07/19 07:55 Blood Culture (Wb) - Anticubital Left Blood Culture - Preliminary No growth in 48 hours. 12/07/19 15:00 Urine Catheter - Duarte Legionella Antigen - Final 12/07/19 15:00 Urine Catheter - Duarte Streptococcus pneumoniae Antigen (M - Final 12/07/19 08:09 Mucosa - Nasopharyngeal - Final SARS-CoV-2 (COVID 19) Laboratory Results 12/09/19 11:05: Specimen Type ART, Sample Site R Radial, pH 7.38, Bicarbonate Actual 26.0, Total CO2 27, Base Excess 1, O2 Saturation 90 L, O2 % 45, ABG pCO2 43.8, ABG pO2 60 L, [place] Test Positive, Respiration Rate 14, O2 Delivery Device Adult Vent, Tidal Volume 500, POC PEEP 10 12/09/19 12:10: POC Glucose 223 H 12/09/19 16:58: POC Glucose 231 H 12/09/19 22:42: POC Glucose 343 H 12/10/19 05:00: WBC 10.7, RBC 4.11 L, Hgb 12.9 L, Hct 39.3 L, MCV 95.6 H, MCH 31.4, MCHC 32.8, RDW Std Deviation 49.1 H, RDW Coeff of Preston 13.8, Plt Count 96 L , MPV 11.8 12/10/19 05:00: Sodium 141, Potassium 3.8, Chloride 109 H, Carbon Dioxide 27.0, Anion Gap 5, BUN 36 H, Creatinine 0.83, Estim Creat Clear Calc 90.72, Est GFR (MDRD) Af Amer 119, Est GFR (MDRD) Non-Af 98, BUN/Creatinine Ratio 43.4 H, Glucose 327 H, Calcium 6.9 L, Ferritin 605 H, Total Bilirubin 0.90, AST 40 H, ALT 11 L, Alkaline Phosphatase 54, C-React Prot Ext Range 98.00 H, Total Protein 6.0 L, Albumin 2.3 L, Globulin 3.7, Albumin/Globulin Ratio 0.6 L 12/10/19 05:00: D-Dimer Quant (PE/DVT) > 20.00 H* 12/10/19 05:00: Procalcitonin 0.23 H 12/10/19 05:36: POC Glucose 272 H Current Medications Chlorhexidine Gluconate (Chlorhexidine 15 Ml) 15 ml PO BID [facility] Last Admin: 12/09/19 22:51 Dose: 15 ml Documented by: Dexamethasone Sodium Phosphate (Dexamethasone 10 Mg/Ml Vial) 6 mg IV DAILY [facility] Last Admin: 12/09/19 12:11 Dose: 6 mg Documented by: Propofol (Diprivan) 1,000 mg in 100 mls @ 6.937 mls/hr CONT INF .Q12H [facility]; Protocol Last Titration: 12/10/19 07:00 Dose: 40 mcg/kg/min, 27.7 mls/hr Documented by: Fentanyl Citrate 1,000 mcg/ (Sodium Chloride) 100 mls @ 2.5 mls/hr CONT INF .Q40H [facility]; Protocol Last Titration: 12/10/19 07:00 Dose: 100 mcg/hr, 10 mls/hr Documented by: Sodium Chloride () 1,000 mls @ 50 mls/hr IV .Q20H [facility] Last Admin: 12/10/19 05:39 Dose: Not Given Documented by: Remdesivir (Investigational) (100 mg/ Sodium Chloride) 250 mls @ 125 mls/hr IV DAILY [facility]; Protocol Stop: 12/11/19 11:59 Last Infusion: 12/09/19 15:05 Dose: Infused Documented by: Sodium Chloride () 250 mls @ 15 mls/hr IV .[id number] PRN PRN Reason: Saline Flush Sodium Chloride () 250 mls @ 15 mls/hr IV .[id number] PRN PRN Reason: Additional IVPB Infusion Pantoprazole Sodium 40 mg/ (Sodium Chloride) 110 mls @ 330 mls/hr IV Q12 [facility] Last Infusion: 12/09/19 23:11 Dose: Infused Documented by: Enteral Nutritional Formula (Vital High Protein) 1,000 mls @ 65 mls/hr GT .[id number] [facility] Last Admin: 12/09/19 18:53 Dose: 65 mls/hr Documented by: Insulin Glargine (Insulin Glargine 100 Units/Ml Pen) 20 units SC BID [facility] Insulin Human Lispro (Insulin Lispro 100 Unit/Ml Insuln.Pen) 0 unit SC Q6 [facility]; Protocol Last Admin: 12/10/19 05:39 Dose: 3 u Documented by: Metoprolol Tartrate (Metoprolol Tartrate 50 Mg Tablet) 50 mg GT BID [facility] Last Admin: 12/09/19 22:44 Dose: Not Given Documented by: Senna/Docusate Sodium (Senna/Docusate Sodium 1 Tablet) 1 tablet GT BID [facility] Last Admin: 12/09/19 22:43 Dose: 1 tablet Documented by: Sodium Chloride (0.9% Saline Lock 10 Ml Syringe) 10 - 40 ml IV UD PRN PRN Reason: SALINE FLUSH Last Admin: 12/09/19 03:58 Dose: 40 ml Documented by: STROKE Vital Signs/Narrative: Vital Signs Temp Pulse Resp BP BP Pulse Ox 12/10/19 07:00 56 L 12 140/64 H 93 12/10/19 06:00 59 L 13 155/69 H 92 12/10/19 05:00 97.5 F L 56 L 13 153/71 H 153/71 H 91 12/10/19 04:55 60 16 91 12/10/19 04:45 97.5 F L 56 L 11 L 157/72 H 93 12/10/19 04:00 97.9 F 61 12 153/73 H 92 12/10/19 03:45 97.9 F 64 13 151/71 H 90 Medical Necessity - Tobacco Use Smoking Status: Unknown if ever smoked Tobacco Use: Non-smoker Assessment/Plan All Active Problems (Last Reviewed 05/27/18 @ 10:[address] Hardeep Jackson MD) COVID-19 with multiple comorbidities (Acute) COVID-19 with pulmonary comorbidity (Acute) Acute respiratory failure with hypoxia (Acute) Gross hematuria (Acute) Hypertensive urgency (Acute) Encephalopathy (Acute) 1. Acute hypoxic respiratory failure secondary to acute COVID-19 pneumonia Remains intubated, on mechanical ventilator, PEEP improved Oxyacetylene Torch Operator following 2. Acute COVID-19 pneumonia, severe with hypoxia, appears to be somehow improved Admitting chest x-ray shows diffuse bilateral alveolar infiltrates more prominent in the left hemithorax Admitting elevated D-dimer, LDH, fibrinogen On IV dexamethasone and Remdesivir. ID and pulmonary consulted 3. Acute metabolic encephalopathy likely secondary to #2, currently intubated 4. Gross hematuria, unclear etiology for now, noted after Duarte catheter was inserted in the ED No history of BPH, off aspirin an anticoagulation. Urology consulted, urine is clear. Will continue to monitor 5. Suspected acute GI bleed, likely secondary to acute gastritis, stress- induced, On PPI IV BID. Will continue to monitor 6. Thrombocytopenia, acute on chronic, unclear etiology Last platelet count in 2017 was 138. Admitted with platelet count of 87, platelet is now 96 INR is normal. Fibrinogen is elevated, D-dimer is elevated Likely cause is COVID-19 related. Will continue to monitor 7. Hypokalemia, resolved, recheck in am 8. Lactic acid likely related to #1, lactic acid is 2.7, repeat is 1.5 9. Hypertensive urgency, improved, continue on home metoprolol 50 mg p.o. twice daily with holding parameters Lisinopril dose on hold 10. Type II DM, blood sugars are uncontrolled, started on Lantus 20 units twice daily Continue on blood glucose check with insulin sliding scale 11. DVT PPx- Lovenox SC BID 12. GI PPx- PPI IV Inpatient E&M: [id number] [facility] Hosp L2
[2019-12-10] MEDS: Chlorhexidine 15 ML PO ×2 (08:08→21:24)
[2019-12-10] MEDS: 0.9% Saline Lock 10 ML Syringe IV ×2 (08:08→21:13)
[2019-12-10] MEDS: dexAMETHasone 10 MG/ML Vial 6 MG IV (08:08)
[2019-12-10] MEDS: Senna/Docusate Sodium 1 Tablet GT ×2 (08:16→21:29)
[2019-12-10] MEDS: Vital High Protein 1,000 ML 65 ML GT ×2 (08:19→12:27)
[2019-12-10] MEDS: Propofol 10MG/Ml 1,000 MG/100 ML Bottle 27.7 MG CONT INF ×2 (08:29→12:05)
--- NOTE | 2019-12-10 11:21 | PN.ID_ITS ---
Patient Problems: Active and Suspected Problems (Last Reviewed 05/27/18 @ 10:[address] Hardeep Jackson MD) COVID-19 with multiple comorbidities (Acute) COVID-19 with pulmonary comorbidity (Acute) Acute respiratory failure with hypoxia (Acute) Gross hematuria (Acute) Hypertensive urgency (Acute) Encephalopathy (Acute) Subjective: On vent, no fver - Physical Exam Vitals/I&O's: Vital Signs Temp Pulse Resp BP Pulse Ox 98.3 F 57 L 14 142/65 H 95 12/10/19 08:00 12/10/19 09:00 12/10/19 09:00 12/10/19 09:00 12/10/19 09:00 Oxygen Delivery Method Mechanical Ventilator Weight: 115.621 kg Body Mass Index (BMI) 34.9 Finger Stick Blood Glucose 195 Intake and Output for Last 24 Hours 12/08/19 12/09/19 12/10/19 23:59 23:59 23:59 Intake Total 2938.50 / 3203.33 3075.04 / 3345.77 1764.09 / 1764.09 Output Total 1705 / 1805 1135 / 1260 775 / 775 Balance 1233.50 / 1398.33 1940.04 / 2085.77 989.09 / 989.09 General: No apparent distress Lungs: Diminished Cardiovascular: Regular rate, Regular Rhythm Abdomen: Soft, Non Tender, Non-Distended Skin: No rashes Microbiology Past 72 Hours 12/07/19 20:45 Sputum, Tracheal Aspirate Gram Stain - Final 12/07/19 20:45 Sputum, Tracheal Aspirate Respiratory Culture - Final 12/07/19 09:20 Urine Catheter - Duarte Urine Culture - Final Culture exhibits no growth. 12/07/19 09:15 Blood Culture (Wb) - Right Hand Blood Culture - Preliminary No growth in 48 hours. 12/07/19 07:55 Blood Culture (Wb) - Anticubital Left Blood Culture - Preliminary No growth in 48 hours. 12/07/19 15:00 Urine Catheter - Duarte Legionella Antigen - Final 12/07/19 15:00 Urine Catheter - Duarte Streptococcus pneumoniae Antigen (M - Final 12/07/19 08:09 Mucosa - Nasopharyngeal - Final SARS-CoV-2 (COVID 19) Laboratory Results 12/09/19 12:10: POC Glucose 223 H 12/09/19 16:58: POC Glucose 231 H 12/09/19 22:42: POC Glucose 343 H 12/10/19 05:00: WBC 10.7, RBC 4.11 L, Hgb 12.9 L, Hct 39.3 L, MCV 95.6 H, MCH 31.4, MCHC 32.8, RDW Std Deviation 49.1 H, RDW Coeff of Preston 13.8, Plt Count 96 L , MPV 11.8 12/10/19 05:00: Sodium 141, Potassium 3.8, Chloride 109 H, Carbon Dioxide 27.0, Anion Gap 5, BUN 36 H, Creatinine 0.83, Estim Creat Clear Calc 90.72, Est GFR (MDRD) Af Amer 119, Est GFR (MDRD) Non-Af 98, BUN/Creatinine Ratio 43.4 H, Glucose 327 H, Calcium 6.9 L, Ferritin 605 H, Total Bilirubin 0.90, AST 40 H, ALT 11 L, Alkaline Phosphatase 54, C-React Prot Ext Range 98.00 H, Total Protein 6.0 L, Albumin 2.3 L, Globulin 3.7, Albumin/Globulin Ratio 0.6 L 12/10/19 05:00: D-Dimer Quant (PE/DVT) > 20.00 H* 12/10/19 05:00: Procalcitonin 0.23 H 12/10/19 05:36: POC Glucose 272 H Current Medications Chlorhexidine Gluconate (Chlorhexidine 15 Ml) 15 ml PO BID [facility] Last Admin: 12/10/19 08:08 Dose: 15 ml Documented by: Dexamethasone Sodium Phosphate (Dexamethasone 10 Mg/Ml Vial) 6 mg IV DAILY [facility] Stop: 12/17/19 10:01 Last Admin: 12/10/19 08:08 Dose: 6 mg Documented by: Propofol (Diprivan) 1,000 mg in 100 mls @ 6.937 mls/hr CONT INF .Q12H [facility]; Protocol Last Admin: 12/10/19 08:29 Dose: 40 mcg/kg/min, 27.7 mls/hr Documented by: Fentanyl Citrate 1,000 mcg/ (Sodium Chloride) 100 mls @ 2.5 mls/hr CONT INF .Q40H [facility]; Protocol Last Titration: 12/10/19 08:00 Dose: 100 mcg/hr, 10 mls/hr Documented by: Sodium Chloride () 1,000 mls @ 50 mls/hr IV .Q20H [facility] Last Infusion: 12/10/19 08:00 Dose: 50 mls/hr Documented by: Remdesivir (Investigational) (100 mg/ Sodium Chloride) 250 mls @ 125 mls/hr IV DAILY [facility]; Protocol Stop: 12/11/19 11:59 Last Infusion: 12/09/19 15:05 Dose: Infused Documented by: Sodium Chloride () 250 mls @ 15 mls/hr IV .[id number] PRN PRN Reason: Saline Flush Sodium Chloride () 250 mls @ 15 mls/hr IV .[id number] PRN PRN Reason: Additional IVPB Infusion Pantoprazole Sodium 40 mg/ (Sodium Chloride) 110 mls @ 330 mls/hr IV Q12 [facility] Last Infusion: 12/09/19 23:11 Dose: Infused Documented by: Enteral Nutritional Formula (Vital High Protein) 1,000 mls @ 65 mls/hr GT .[id number] [facility] Last Admin: 12/10/19 08:19 Dose: 65 mls/hr Documented by: Dexmedetomidine HCl 400 mcg/ (Sodium Chloride) 100 mls @ 14.453 mls/hr CONT INF .Q6H56M [facility]; Protocol Insulin Glargine (Insulin Glargine 100 Units/Ml Pen) 20 units SC BID [facility] Last Admin: 12/10/19 08:18 Dose: 20 u Documented by: Insulin Human Lispro (Insulin Lispro 100 Unit/Ml Insuln.Pen) 0 unit SC Q6 [facility]; Protocol Last Admin: 12/10/19 05:39 Dose: 3 u Documented by: Metoprolol Tartrate (Metoprolol Tartrate 50 Mg Tablet) 50 mg GT BID [facility] Last Admin: 12/10/19 08:09 Dose: Not Given Documented by: Senna/Docusate Sodium (Senna/Docusate Sodium 1 Tablet) 1 tablet GT BID [facility] Last Admin: 12/10/19 08:16 Dose: 1 tablet Documented by: Sodium Chloride (0.9% Saline Lock 10 Ml Syringe) 10 - 40 ml IV UD PRN PRN Reason: SALINE FLUSH Last Admin: 12/10/19 08:08 Dose: 20 ml Documented by: Medical Necessity - Tobacco Use Smoking Status: Unknown if ever smoked Tobacco Use: Non-smoker Route of nutrition/ use of supplements: [] Nutritional Intake: [] IV Site: [] Duarte Catheter: [] - Assessment/Plan Antibiotics: [] Assessment/Plan: [] Active and Suspected Problems (Last Reviewed 05/27/18 @ 10:[address] Hardeep Jackson MD) COVID-19 with multiple comorbidities (Acute) COVID-19 with pulmonary comorbidity (Acute) Acute respiratory failure with hypoxia (Acute) Hypertensive urgency (Acute) Encephalopathy (Acute) [facility], remdesivir. O2 and fever improved, afebrile overnight. Not on anticoagulation due to hematuria. Plasma ordered 1028. Will follow
--- NOTE | 2019-12-10 12:27 | PCM.PN.INT ---
Subjective: Patient did okay overnight. Patient did receive convalescent serum overnight (confirmed with nursing). Patient's oxygenation is slowly improving. Patient is not following commands and continues to have significant dyssynchrony when waking up. General: - - Intubated and sedated. RASS -3. Good vent synchrony. HEENT: Atraumatic, PERRLA, EOMI, Normocephalic, - - No scleral icterus or injection noted Oral: Moist Mucosa, No Gingival or Mucosal Lesions/ Ulcerations Neck: Supple, No JVD, No Nodes, Trachea Midline Lungs: No rhonchi, No wheeze, No rales, Diminished, - - Symmetric expansion. No dullness to percussion Cardiovascular: Normal S1, Normal S2, No murmurs, Bradycardic, No rub noted, No Gallop Abdomen: Bowel Sounds Present, Soft, Non Tender, Non-Distended, Obese Extremities: No clubbing, No cyanosis, No edema, Capillary Refill Less than 3 Seconds Skin: No rashes, No breakdown Musculoskeletal: No Tenderness to Palpation of Joints or Extremities Lymphatic: No Cervical, Supraclavicular, or Inguinal Adenopathy Neurological: Cranial nerves II-XII grossly intact, Neuro grossly intact, Motor Exam 5/5 strength throughout Psych/Mental Status: Flat Affect Vital Signs Temp Pulse Resp BP Pulse Ox 36.8 C 57 L 12 142/65 H 93 12/10/19 08:00 12/10/19 11:39 12/10/19 11:39 12/10/19 09:00 12/10/19 11:39 Oxygen Delivery Method Mechanical Ventilator Weight: 115.621 kg Body Mass Index (BMI) 34.9 Finger Stick Blood Glucose 195 Intake and Output for Last 24 Hours 12/08/19 12/09/19 12/10/19 23:59 23:59 23:59 Intake Total 2938.50 / 3203.33 3075.04 / 3345.77 1764.09 / 1764.09 Output Total 1705 / 1805 1135 / 1260 775 / 775 Balance 1233.50 / 1398.33 1940.04 / 2085.77 989.09 / 989.09 Labs (Last 48 Hours) 12/08/19 12/08/19 12/09/19 12:43 17:18 00:06 WBC RBC Hgb Hct MCV MCH MCHC RDW Std Deviation RDW Coeff of [place] Plt Count MPV Fibrinogen D-Dimer Quant (PE/DVT) Specimen Type Sample Site pH Bicarbonate Actual Total CO2 Base Excess O2 Saturation O2 % ABG pCO2 ABG pO2 [place] Test Respiration Rate O2 Delivery Device Tidal Volume POC PEEP Sodium Potassium Chloride Carbon Dioxide Anion Gap BUN Creatinine Estim Creat Clear Calc Est GFR (MDRD) Af Amer Est GFR (MDRD) Non-Af BUN/Creatinine Ratio Glucose Calcium Ferritin Total Bilirubin AST ALT Alkaline Phosphatase C-React Prot Ext Range Total Protein Albumin Globulin Albumin/Globulin Ratio Procalcitonin POC Glucose 170 H 224 H 252 H 12/09/19 12/09/19 12/09/19 04:00 04:00 04:00 WBC 10.5 RBC 4.39 L Hgb 13.6 Hct 41.8 MCV 95.2 H MCH 31.0 MCHC 32.5 RDW Std Deviation 48.7 H RDW Coeff of [place] 13.8 Plt Count 92 L MPV 12.0 Fibrinogen 563 H D-Dimer Quant (PE/DVT) Specimen Type Sample Site pH Bicarbonate Actual Total CO2 Base Excess O2 Saturation O2 % ABG pCO2 ABG pO2 [place] Test Respiration Rate O2 Delivery Device Tidal Volume POC PEEP Sodium 140 Potassium 3.9 Chloride 107 Carbon Dioxide 26.0 Anion Gap 7 BUN 33 H Creatinine 0.93 Estim Creat Clear Calc 80.97 Est GFR (MDRD) Af Amer 103 Est GFR (MDRD) Non-Af 85 BUN/Creatinine Ratio 35.3 H Glucose 254 H Calcium 7.0 L Ferritin Total Bilirubin 0.90 AST 59 H ALT 20 Alkaline Phosphatase 56 C-React Prot Ext Range Total Protein 6.0 L Albumin 2.3 L Globulin 3.7 Albumin/Globulin Ratio 0.6 L Procalcitonin POC Glucose 12/09/19 12/09/19 12/09/19 05:53 11:05 12:10 WBC RBC Hgb Hct MCV MCH MCHC RDW Std Deviation RDW Coeff of [place] Plt Count MPV Fibrinogen D-Dimer Quant (PE/DVT) Specimen Type ART Sample Site R Radial pH 7.38 Bicarbonate Actual 26.0 Total CO2 27 Base Excess 1 O2 Saturation 90 L O2 % 45 ABG pCO2 43.8 ABG pO2 60 L [place] Test Positive Respiration Rate 14 O2 Delivery Device Adult Vent Tidal Volume 500 POC PEEP 10 Sodium Potassium Chloride Carbon Dioxide Anion Gap BUN Creatinine Estim Creat Clear Calc Est GFR (MDRD) Af Amer Est GFR (MDRD) Non-Af BUN/Creatinine Ratio Glucose Calcium Ferritin Total Bilirubin AST ALT Alkaline Phosphatase C-React Prot Ext Range Total Protein Albumin Globulin Albumin/Globulin Ratio Procalcitonin POC Glucose 251 H 223 H 12/09/19 12/09/19 12/10/19 16:58 22:42 05:00 WBC 10.7 RBC 4.11 L Hgb 12.9 L Hct 39.3 L MCV 95.6 H MCH 31.4 MCHC 32.8 RDW Std Deviation 49.1 H RDW Coeff of Preston 13.8 Plt Count 96 L MPV 11.8 Fibrinogen D-Dimer Quant (PE/DVT) Specimen Type Sample Site pH Bicarbonate Actual Total CO2 Base Excess O2 Saturation O2 % ABG pCO2 ABG pO2 [place] Test Respiration Rate O2 Delivery Device Tidal Volume POC PEEP Sodium Potassium Chloride Carbon Dioxide Anion Gap BUN Creatinine Estim Creat Clear Calc Est GFR (MDRD) Af Amer Est GFR (MDRD) Non-Af BUN/Creatinine Ratio Glucose Calcium Ferritin Total Bilirubin AST ALT Alkaline Phosphatase C-React Prot Ext Range Total Protein Albumin Globulin Albumin/Globulin Ratio Procalcitonin POC Glucose 231 H 343 H 12/10/19 12/10/19 12/10/19 05:00 05:00 05:00 WBC RBC Hgb Hct MCV MCH MCHC RDW Std Deviation RDW Coeff of [place] Plt Count MPV Fibrinogen D-Dimer Quant (PE/DVT) > 20.00 H* Specimen Type Sample Site pH Bicarbonate Actual Total CO2 Base Excess O2 Saturation O2 % ABG pCO2 ABG pO2 [place] Test Respiration Rate O2 Delivery Device Tidal Volume POC PEEP Sodium 141 Potassium 3.8 Chloride 109 H Carbon Dioxide 27.0 Anion Gap 5 BUN 36 H Creatinine 0.83 Estim Creat Clear Calc 90.72 Est GFR (MDRD) Af Amer 119 Est GFR (MDRD) Non-Af 98 BUN/Creatinine Ratio 43.4 H Glucose 327 H Calcium 6.9 L Ferritin 605 H Total Bilirubin 0.90 AST 40 H ALT 11 L Alkaline Phosphatase 54 C-React Prot Ext Range 98.00 H Total Protein 6.0 L Albumin 2.3 L Globulin 3.7 Albumin/Globulin Ratio 0.6 L Procalcitonin 0.23 H POC Glucose 12/10/19 05:36 WBC RBC Hgb Hct MCV MCH MCHC RDW Std Deviation RDW Coeff of [place] Plt Count MPV Fibrinogen D-Dimer Quant (PE/DVT) Specimen Type Sample Site pH Bicarbonate Actual Total CO2 Base Excess O2 Saturation O2 % ABG pCO2 ABG pO2 [place] Test Respiration Rate O2 Delivery Device Tidal Volume POC PEEP Sodium Potassium Chloride Carbon Dioxide Anion Gap BUN Creatinine Estim Creat Clear Calc Est GFR (MDRD) Af Amer Est GFR (MDRD) Non-Af BUN/Creatinine Ratio Glucose Calcium Ferritin Total Bilirubin AST ALT Alkaline Phosphatase C-React Prot Ext Range Total Protein Albumin Globulin Albumin/Globulin Ratio Procalcitonin POC Glucose 272 H Microbiology 12/07/19 20:45 Sputum, Tracheal Aspirate Gram Stain - Final 12/07/19 20:45 Sputum, Tracheal Aspirate Respiratory Culture - Final 12/07/19 09:20 Urine Catheter - Duarte Urine Culture - Final Culture exhibits no growth. 12/07/19 09:15 Blood Culture (Wb) - Right Hand Blood Culture - Preliminary No growth in 48 hours. 12/07/19 07:55 Blood Culture (Wb) - Anticubital Left Blood Culture - Preliminary No growth in 48 hours. Medical Necessity - Tobacco Use Smoking Status: Unknown if ever smoked Tobacco Use: Non-smoker Assessment/Plan All Active Problems (Last Reviewed 05/27/18 @ 10:[address] Hardeep Jackson MD) COVID-19 with multiple comorbidities (Acute) COVID-19 with pulmonary comorbidity (Acute) Acute respiratory failure with hypoxia (Acute) Gross hematuria (Acute) Hypertensive urgency (Acute) Encephalopathy (Acute) RECOMMENDATIONS: 1. Wean PEEP and FiO2 as tolerated 2. Continue supportive care for hematuria 3. Challenge with DVT prophylaxis Lovenox 4. Possible diuretic challenge 5. Continue to hold empiric antibiotics 6. Transition to Precedex therapy 7. Continue tube feeds IMPRESSIONS: 1. Acute hypoxic respiratory failure secondary to COVID-19 Patient with significant infiltrates bilaterally on chest x-ray. These findings could be suggestive of COVID-19 pneumonitis versus congestive heart failure. BNP was slightly elevated. Patient does have a history of hypertension, so diastolic dysfunction would be a consideration. Patient is on Decadron and remdesivir. Patient has had a stable platelet count and hemoglobin for over 48 hours. Will challenge with slightly higher DVT prophylaxis dosing of Lovenox. Wean oxygen and PEEP as tolerated. Spontaneous breathing and awakening trials per protocol. Attempt to transition over to Precedex therapy to facilitate spontaneous breathing trials 2. Possible congestive heart failure Patient does have a long history of hypertension. Echo suspicion for an element of diastolic CHF. We will hold on an echocardiogram for now, but this may be necessary if patient's oxygenation does not improve. Patient's weight is up slightly compared to yesterday with documented positive fluid balance. Likely initiate Lasix therapy tomorrow 3. Thrombocytopenia with hematuria Patient does have a history of BPH and is on doxazosin as an outpatient. Patient does have thrombocytopenia of unclear etiology. Patient would be at risk for DIC, but fibrinogen was elevated on presentation. Platelets appear to be stable at this time. Will initiate Lovenox, but not at therapeutic dosing 4. Acute kidney injury Renal function is improving. Clinical suspicion for an element of ATN secondary to protracted hypoxia. Patient does have reasonable urine output at this time. This will be difficult to monitor given his need for bladder irrigation. Continue to monitor chemistries on a daily basis. 5. Diabetes mellitus/advanced age/obesity Complicates care, management, recovery and prognosis. Likely okay to initiate tube feeds, but high clinical suspicion.basal insulin will be required. TIME: 31 minutes critical care time spent addressing patient's acute hypoxic respiratory failure, possible CHF, thrombocytopenia, acute kidney injury, diabetes mellitus, review of all data and collaboration with care team (11:30 AM to 12:30 PM) [id number]: [id number] Critical care first hour
[2019-12-10 13:01] LABS: Bedside Glucose 387 mg/dL (70-110)
[2019-12-10] MEDS: Dexmedetomidine 400 mcg in 0.9% NS 96 mL 14.5 MCG CONT INF (15:15)
[2019-12-10 17:55] LABS: Bedside Glucose 360 mg/dL (70-110)
--- NOTE | 2019-12-10 18:32 | NURSING ---
education re chronic illness deferrred till acute illness resolving
[2019-12-10] MEDS: Dexmedetomidine 400 mcg in 0.9% NS 96 mL 37.6 MCG CONT INF (18:35)
[2019-12-10] MEDS: LORazepam 2 MG/ML Syringe IV ×2 (19:36→19:44)
--- NOTE | 2019-12-10 19:42 | CT_ITS ---
We are attempting to reach an attending provider to discuss findings. An addendum with communication details will be sent when the communication is complete. STUDY: CT BRAIN WITHOUT CONTRAST REASON FOR EXAM: Male, 69 years old. SEIZURE/ENCEPHALOPATHY/COVID/DIABETES AND HTN RADIATION DOSAGE (If Supplied By Facility): CTDIvol = ( 44.99 ) mGy, DLP = ( 829.85 ) mGycm TECHNIQUE: Transaxial CT imaging of the brain was performed without administration of intravenous contrast material. Individualized dose optimization techniques were used for this CT. COMPARISON: 09/02/2016 FINDINGS: Normal soft tissue structures. Normal calvarium. Stable asymmetric prominence of the ventricles similar to previous study. Normal extra-axial spaces for the patient''s age. Mild white matter microangiopathic ischemic changes of the cerebral hemispheres. Small old lacunar infarct in the left basal ganglia. Normal thalami. Normal brainstem. There is a new focal area of low-attenuation involving the superior edge of the left cerebellum. There is no intracranial hemorrhage. Normal visualized paranasal sinuses. CT/Brain/Head without Contrast IMPRESSION: There is a new focal area of low-attenuation involving the superior edge of the left cerebellum. A focal infarct cannot be excluded. Electronically Signed: Fred Perdomo DO at 20:37 EDT Tel [phone], Service support ,
--- NOTE | 2019-12-10 19:49 | NURSING ---
1933: patient noted to have full body jerking and seizure like activity. Eyes rolled back in head and non responsive, respiratory at bedside and increased fio2 to 100% 1935: ativan 2mg iv given and Yudy Mcelroy RN calling Dr. Sheppard to notify. New orders received per Yudy Mcelroy RN 1939: Seizure like activity ceased 1943: 2nd dose of ativan 2mg iv given per Dr. Sheppard order
[2019-12-10] MEDS: Dexmedetomidine 400 mcg in 0.9% NS 96 mL 43.4 MCG CONT INF ×2 (20:45→23:20)
--- NOTE | 2019-12-10 21:02 | ECHOCS_ITS ---
Reason For Study: TIA/CVA Procedure This was a limited 2D transthoracic echocardiogram. Contrast injection was performed. The study was technically difficult. Patient on Vent. Exam performed portable in ICU/CCU. The exam was abbreviated due to the COVID 19 protocol. Left Ventricle Normal LV size. Moderate concentric left ventricular hypertrophy. Left ventricular systolic function is normal. The estimated ejection fraction is 55 %. Atria Normal left atrium. Normal right atrium. Bubble contrast study negative for right to left interatrial shunt. Pericardium/Pleural No pericardial effusion. Medication Diluted definity 2ml given slow IV push to enhance endocardial definition. MMode/2D Measurements & Calculations LVIDd: 5.0 cm IVSd: 1.5 cm LAV(MOD-sp4): 35.0 ml LVIDs: 3.6 cm LVPWd: 1.4 cm FS: 28.1 % SV(MOD-sp4): 80.7 ml SV(sp4-el): 88.4 ml LVAd ap4: 42.0 cm2 EDV(MOD-sp4): 161.3 ml EDV(sp4-el): 166.1 ml LVAs ap4: 26.2 cm2 ESV(MOD-sp4): 80.6 ml ESV(sp4-el): 77.8 ml EF(MOD-sp4): 50.0 % EF(sp4-el): 53.2 % LA A4 area: 14.8 cm2 RA A4 area: 10.4 cm2 Interpretation Summary Normal LV size. Left ventricular systolic function is normal. The estimated ejection fraction is 55 %. Bubble contrast study negative for right to left interatrial shunt. Moderate concentric left ventricular hypertrophy. Contrast injection was performed. Ordering Physician: Yehuda Roy Referring Physician: EVARISTO VIRAMONTES Performed By: Rocky Thakur RCS
[2019-12-10] MEDS: levETIRAcetam IV 1,000 MG/100 ML BAG 400 MG IV (21:08)
[2019-12-10] MEDS: Aspirin 81 MG TAB.CHEW GT (21:23)
[2019-12-10] MEDS: Atorvastatin Calcium 40 MG Tablet PO (21:23)
[2019-12-10] MEDS: 0.9% Normal Saline 1,000 ML 50 ML IV (22:40)
--- NOTE | 2019-12-10 22:44 | PCM.PN.BLA ---
Progress Note Notified by nurse that patient has focal infarct on brain CT. Earlier on patient had seizure-like activity and was given Ativan 4 mg IV ordered by child care coordinator.. Per nurse; child care coordinator recommended Keppra and possible SOC neurology consult. Keppra 1000 mg IV every 12 hours ordered. Echocardiogram ordered. Aspirin 81 mg ordered; and Lipitor ordered. SOC consult placed. Discussed with child care coordinator. SOC neurology called and recommended that Keppra be dosed 500 mg IV twice daily. Per SOC neurologist aspirin and Lipitor might not make any difference since patient infarct is likely secondary to Covid not ischemia. However okay to continue aspirin if patient is not bleeding. And okay to continue Lipitor. Per SOC neurologist no further imaging is required at this time. Per SOC neurologist if patient improve other studies can be considered. The nurse reported patient has bleeding in ET tube and has fixed pupils. Fentanyl has been weaned down. Nurse to titrate Precedex down to what patient may actually need. Order to discontinue aspirin at this time secondary to bleeding in ET tube with hematuria. Prognosis appears grim. STROKE Vital Signs/Narrative: Vital Signs Pulse BP 12/10/19 21:30 66 168/82 H
[2019-12-11] VITALS (35 sets, daily range): BP systolic 140–204; BP diastolic 75–113; PULSE 60–104; RESP 18–35; TEMP 36.3–37.7; O2SAT 92–98
[2019-12-11] MEDS: Insulin Lispro 100 UNIT/ML INSULN.PEN SC ×3 (00:21→11:51)
[2019-12-11] MEDS: Dexmedetomidine 1,000 mcg in 0.9% NS 240 mL 40.5 MCG CONT INF (01:44)
[2019-12-11 02:46] LABS: Bedside Glucose 363 mg/dL (70-110)
--- NOTE | 2019-12-11 03:47 | NURSING ---
0330: Patient moving extremities x4, flailing arms in the air. Corneal reflex and gag reflex intact. Pupils 3mm and sluggish. Not following commands at this time. Precedex infusing at 0.7mcg/kg/hr. Dr. Roy notified.
[2019-12-11 04:55] LABS: Hematocrit 43.1 % (40-54); Hemoglobin 14.1 g/dL (13.0-16.5); Mean Corp Hgb Conc 32.7 g/dL (32-36); Mean Corpuscular Hgb 30.5 pg (27.0-32.0); Mean Corpuscular Volume 93.1 fL (80-94); Mean Platelet Vol. 11.2 fl (6.2-12.0); POSITIVE COUNT YES; Platelet Count 85 K/mm3 (150-450); RBC Distribution Width CV 13.6 % (11.6-14.6); RBC Distribution Width SD 46.8 fl (35.1-43.9); Red Blood Count 4.63 M/mm3 (4.6-6.2); White Blood Count 13.5 K/mm3 (4.4-11.0)
[2019-12-11 05:06] LABS: Scan Indicated on CBC? Y/N NO
[2019-12-11 05:18] LABS: ALB/GLOB Ratio 0.6 RATIO (0.9-2.4); AST(SGOT) 45 U/L (15-37); Alanine Aminotransfer ALT/SGPT 18 U/L (16-61); Albumin, Serum 2.1 g/dL (3.2-5.0); Alkaline Phosphatase 83 U/L (45-117); Anion Gap 6 (5-15); BUN 36 mg/dL (7-18); Calcium,Total 6.9 mg/dL (8.5-10.1); Chloride 118 mmol/L (98-107); Creatinine, Serum 1.06 mg/dL (0.70-1.30); EST Glomerular Filtration Rate 74 mL/min (>60); Est Glom Filt Rate - Afr Amer 89 mL/min (>60); Estimated Creatinine Clearance 71.04 ml/min; Globulin 3.5 g/dL (2.2-4.2); Glucose 394 mg/dL (74-106); Potassium 3.4 mmol/L (3.5-5.1); Protein, Total 5.6 g/dL (6.4-8.2); Sodium Level 149 mmol/L (136-145)
--- NOTE | 2019-12-11 06:45 | NURSING ---
updated , clint on events through the night, answered all questions
--- NOTE | 2019-12-11 07:27 | PN_ITS ---
Patient Problems: Active and Suspected Problems (Last Reviewed 05/27/18 @ 10:[address] Hardeep Jackson MD) COVID-19 with multiple comorbidities (Acute) COVID-19 with pulmonary comorbidity (Acute) Acute respiratory failure with hypoxia (Acute) Gross hematuria (Acute) Hypertensive urgency (Acute) Encephalopathy (Acute) Reason for Visit: Follow-up on respiratory failure/Acute COVID-19 infection Subjective: Patient was seen and examined. Patient is on Precedex. Intolerant of decreasing sedation, overnight, patient had a seizure-like activity. CT of the brain showed focal area of low-attenuation involving the left cerebellum. SOC was consulted. Recommended aspirin, Keppra and supportive care. Overnight also patient has had increased bleeding from the ETT tube as well as pinkish discoloration of urine. Aspirin and Lovenox were stopped. Objective: Physical exam: General: - - Intubated, on mechanical intubation, sedated, not pale, OG tube with tube feeds HEENT: Atraumatic, PERRLA, EOMI, Normocephalic Oral: Moist Mucosa Neck: Supple Lungs: Diminished Cardiovascular: Regular rate, Regular Rhythm, Normal S1, Normal S2, No murmurs Abdomen: Bowel Sounds Present, Soft, Non Tender, Non-Distended, No Hepato- splenomegaly Extremities: Edema - bilateral trace edema Skin: No rashes Musculoskeletal: No Tenderness to Palpation of Joints or Extremities Lymphatic: No Cervical, Supraclavicular, or Inguinal Adenopathy Neurological: Cranial nerves II-XII grossly intact, Neuro grossly intact Psych/Mental Status: Normal Affect, Appropriate Vitals/I&O's: Vital Signs Temp Pulse Resp BP Pulse Ox 98.2 F 76 31 H 186/104 H 97 12/11/19 04:00 12/11/19 07:00 12/11/19 07:00 12/11/19 07:00 12/11/19 07:00 Oxygen Delivery Method Mechanical Ventilator Weight: 115.485 kg Body Mass Index (BMI) 34.9 Finger Stick Blood Glucose 195 Intake and Output for Last 24 Hours 12/09/19 12/10/19 12/11/19 23:59 23:59 23:59 Intake Total 3075.04 / 3345.77 4348.57 / 4378.75 996.12 / 996.12 Output Total 1135 / 1260 2350 / 2700 970 / 970 Balance 194.04 / 2085.77 1998.57 / 1678.75 Microbiology Past 72 Hours 12/07/19 20:45 Sputum, Tracheal Aspirate Gram Stain - Final 12/07/19 20:45 Sputum, Tracheal Aspirate Respiratory Culture - Final 12/07/19 09:20 Urine Catheter - Duarte Urine Culture - Final Culture exhibits no growth. 12/07/19 09:15 Blood Culture (Wb) - Right Hand Blood Culture - Preliminary No growth in 48 hours. 12/07/19 07:55 Blood Culture (Wb) - Anticubital Left Blood Culture - Preliminary No growth in 48 hours. Laboratory Results 12/10/19 12:20: POC Glucose 387 H 12/10/19 17:38: POC Glucose 360 H 12/11/19 00:20: POC Glucose 363 H 12/11/19 04:30: WBC 13.5 H, RBC 4.63, Hgb 14.1, Hct 43.1, MCV 93.1, MCH 30.5, MCHC 32.7, RDW Std Deviation 46.8 H, RDW Coeff of Preston 13.6, Plt Count 85 L, MPV 11.2 12/11/19 04:30: Sodium 149 H, Potassium 3.4 L, Chloride 118 H, Carbon Dioxide 25.0, Anion Gap 6, BUN 36 H, Creatinine 1.06, Estim Creat Clear Calc 71.04, Est GFR (MDRD) Af Amer 89, Est GFR (MDRD) Non-Af 74, BUN/Creatinine Ratio 34.0 H, Glucose 394 H, Calcium 6.9 L, Total Bilirubin 1.00, AST 45 H, ALT 18, Alkaline Phosphatase 83, Total Protein 5.6 L, Albumin 2.1 L, Globulin 3.5, Albumin/Globulin Ratio 0.6 L Current Medications Atorvastatin Calcium (Atorvastatin Calcium 40 Mg Tablet) 40 mg PO QHS [facility] Last Admin: 12/10/19 21:23 Dose: 40 mg Documented by: Chlorhexidine Gluconate (Chlorhexidine 15 Ml) 15 ml PO BID [facility] Last Admin: 12/10/19 21:24 Dose: 15 ml Documented by: Dexamethasone Sodium Phosphate (Dexamethasone 10 Mg/Ml Vial) 6 mg IV DAILY [facility] Stop: 12/17/19 10:01 Last Admin: 12/10/19 08:08 Dose: 6 mg Documented by: Fentanyl Citrate 1,000 mcg/ (Sodium Chloride) 100 mls @ 2.5 mls/hr CONT INF .Q40H [facility]; Protocol Last Titration: 12/11/19 07:00 Dose: 100 mcg/hr, 10 mls/hr Documented by: Remdesivir (Investigational) (100 mg/ Sodium Chloride) 250 mls @ 125 mls/hr IV DAILY [facility]; Protocol Stop: 12/11/19 11:59 Last Infusion: 12/10/19 14:45 Dose: Infused Documented by: Sodium Chloride () 250 mls @ 15 mls/hr IV .[id number] PRN PRN Reason: Saline Flush Sodium Chloride () 250 mls @ 15 mls/hr IV .[id number] PRN PRN Reason: Additional IVPB Infusion Pantoprazole Sodium 40 mg/ (Sodium Chloride) 110 mls @ 330 mls/hr IV Q12 [facility] Last Infusion: 12/10/19 22:00 Dose: Infused Documented by: Enteral Nutritional Formula (Vital High Protein) 1,000 mls @ 65 mls/hr GT .[id number] [facility] Last Admin: 12/10/19 12:27 Dose: 65 mls/hr Documented by: Levetiracetam 500 mg/ Sodium (Chloride) 105 mls @ 400 mls/hr IV Q12 [facility] Dexmedetomidine HCl 1,000 mcg/ (Sodium Chloride) 250 mls @ 14.453 mls/hr CONT INF .[id number] [facility]; Protocol Last Titration: 12/11/19 07:00 Dose: 1.1 mcg/kg/hr, 31.8 mls/hr Documented by: Potassium Chloride () 10 meq in 100 mls @ 100 mls/hr IV BOLUS Q1H [facility] Stop: 12/11/19 11:44 Insulin Glargine (Insulin Glargine 100 Units/Ml Pen) 40 units SC BID [facility] Insulin Human Lispro (Insulin Lispro 100 Unit/Ml Insuln.Pen) 0 unit SC Q6 [facility]; Protocol Last Admin: 12/11/19 05:47 Dose: 5 u Documented by: Labetalol HCl (Labetalol (Prefilled) 20 Mg/4 Ml) 10 mg IV Q4H PRN PRN PRN Reason: SBP > 220 OR DBP > 120 Lorazepam (Lorazepam 2 Mg/Ml Syringe) 2 - 6 mg IV Q5M PRN PRN Reason: SEIZURES Last Admin: 12/10/19 19:44 Dose: 2 mg Documented by: Senna/Docusate Sodium (Senna/Docusate Sodium 1 Tablet) 1 tablet GT BID [facility] Last Admin: 12/10/19 21:29 Dose: 1 tablet Documented by: Sodium Chloride (0.9% Saline Lock 10 Ml Syringe) 10 - 40 ml IV UD PRN PRN Reason: SALINE FLUSH Last Admin: 12/10/19 21:13 Dose: 40 ml Documented by: STROKE Vital Signs/Narrative: Vital Signs Temp Pulse Resp BP Pulse Ox 12/11/19 07:00 76 31 H 186/104 H 97 12/11/19 06:00 80 28 H 196/96 H 98 12/11/19 05:00 92 28 H 195/88 H 96 12/11/19 04:00 98.2 F 79 33 H 178/97 H 98 12/11/19 03:56 87 33 H 98 12/11/19 03:30 68 28 H 188/113 H 95 Medical Necessity - Tobacco Use Smoking Status: Unknown if ever smoked Tobacco Use: Non-smoker Assessment/Plan All Active Problems (Last Reviewed 05/27/18 @ 10:[address] Hardeep Jackson MD) COVID-19 with multiple comorbidities (Acute) COVID-19 with pulmonary comorbidity (Acute) Acute respiratory failure with hypoxia (Acute) Gross hematuria (Acute) Hypertensive urgency (Acute) Encephalopathy (Acute) 1. Acute hypoxic respiratory failure secondary to acute COVID-19 pneumonia Remains intubated, on mechanical ventilator, PEEP improved Melting Operator following. 2. Acute COVID-19 pneumonia, severe with hypoxia, remains unchanged Admitting chest x-ray shows diffuse bilateral alveolar infiltrates more prominent in the left hemithorax Admitting elevated D-dimer, LDH, fibrinogen On IV dexamethasone and Remdesivir. ID and pulmonary consulted 3. Acute left cerebellar stroke, seen on CT of the head done on 12/11/19 SOC consulted. Patient cannot take aspirin on account of bleeding On atorvastatin, would resume blood pressure meds- metoprolol 4. Acute metabolic encephalopathy likely secondary to #2, currently intubated 5. Gross hematuria, unclear etiology for now, noted after Duarte catheter was inserted in the ED No history of BPH, off aspirin an anticoagulation. Urology consulted, urine is clear. Will continue to monitor 6. Suspected acute GI bleed, likely secondary to acute gastritis, stress- induced, On PPI IV BID. Will continue to monitor 7. Thrombocytopenia, acute on chronic, unclear etiology, likely cause is COVID- 19 related. Platelet count is fluctuating. Off Lovenox now INR is normal. Fibrinogen is elevated, D-dimer is elevated Will continue to monitor 8. Hypokalemia/hypomagnesemia, K 3.4, Mg 1.8 Replace, recheck in am 9. Lactic acid likely related to #1, lactic acid is 2.7, repeat is 1.5 10. Hypertensive urgency, improved, continue on home metoprolol 50 mg p.o. twice daily with holding parameters Lisinopril dose on hold 11. Type II DM, blood sugars are uncontrolled, started on Lantus 20 units twice daily Continue on blood glucose check with insulin sliding scale 12. DVT PPx- Lovenox SC BID 13. GI PPx- PPI IV Inpatient E&M: [id number] [facility] Hosp L3
[2019-12-11 07:40] LABS: Bedside Glucose 416 mg/dL (70-110)
[2019-12-11] MEDS: Senna/Docusate Sodium 1 Tablet GT ×2 (08:31→22:12)
[2019-12-11] MEDS: dexAMETHasone 10 MG/ML Vial 6 MG IV (08:31)
[2019-12-11] MEDS: Vital High Protein 1,000 ML 65 ML GT ×2 (08:34→19:07)
--- NOTE | 2019-12-11 08:48 | PCM.PN.INT ---
Subjective: Overnight events were reviewed. Patient found to have new onset seizure last evening. Subsequent CT of the head showed a cerebellar infarct. Patient was placed on Keppra and has not had any further seizure activity. Patient was taken off of aspirin and Lovenox secondary to hemoptysis and increased hematuria. Patient has had significant hypertension that has been tolerated secondary to the acute CVA. General: - - Intubated and sedated. Fair vent synchrony. Obese. HEENT: Atraumatic, PERRLA, EOMI, Normocephalic, - - No disconjugate gaze. Oral: Moist Mucosa, No Gingival or Mucosal Lesions/ Ulcerations, - - Crowded posterior pharynx Neck: Supple, No JVD, No Nodes, Trachea Midline Lungs: No wheeze, No rales, Diminished, Rhonchi, - - Symmetric expansion. Cardiovascular: Regular rate, Regular Rhythm, Normal S1, Normal S2, No murmurs, No rub noted, No Gallop Abdomen: Bowel Sounds Present, Soft, Non Tender, Non-Distended, Obese Extremities: Edema - Trace lower extremity Skin: No rashes, No breakdown Musculoskeletal: No Tenderness to Palpation of Joints or Extremities Lymphatic: No Cervical, Supraclavicular, or Inguinal Adenopathy Neurological: - - If occult to do a neurologic exam. Patient gets agitated with vent dyssynchrony and desaturation. Psych/Mental Status: Flat Affect Vital Signs Temp Pulse Resp BP Pulse Ox 36.8 C 84 35 H 186/104 H 97 12/11/19 04:00 12/11/19 07:21 12/11/19 07:21 12/11/19 07:00 12/11/19 07:21 Oxygen Delivery Method Mechanical Ventilator Weight: 115.485 kg Body Mass Index (BMI) 34.9 Finger Stick Blood Glucose 195 Intake and Output for Last 24 Hours 12/09/19 12/10/19 12/11/19 23:59 23:59 23:59 Intake Total 3075.04 / 3345.77 4348.57 / 4378.75 996.12 / 996.12 Output Total 1135 / 1260 2350 / 2700 970 / 970 Balance 1940.04 / 2085.77 1998.57 / 1678.75 26.12 / 26.12 Labs (Last 48 Hours) 12/09/19 12/09/19 12/09/19 11:05 12:10 16:58 WBC RBC Hgb Hct MCV MCH MCHC RDW Std Deviation RDW Coeff of Preston Plt Count MPV D-Dimer Quant (PE/DVT) Specimen Type ART Sample Site R Radial pH 7.38 Bicarbonate Actual 26.0 Total CO2 27 Base Excess 1 O2 Saturation 90 L O2 % 45 ABG pCO2 43.8 ABG pO2 60 L [place] Test Positive Respiration Rate 14 O2 Delivery Device Adult Vent Tidal Volume 500 POC PEEP 10 Sodium Potassium Chloride Carbon Dioxide Anion Gap BUN Creatinine Estim Creat Clear Calc Est GFR (MDRD) Af Amer Est GFR (MDRD) Non-Af BUN/Creatinine Ratio Glucose Calcium Ferritin Total Bilirubin AST ALT Alkaline Phosphatase C-React Prot Ext Range Total Protein Albumin Globulin Albumin/Globulin Ratio Procalcitonin POC Glucose 223 H 231 H 12/09/19 12/10/19 12/10/19 22:42 05:00 05:00 WBC 10.7 RBC 4.11 L Hgb 12.9 L Hct 39.3 L MCV 95.6 H MCH 31.4 MCHC 32.8 RDW Std Deviation 49.1 H RDW Coeff of Preston 13.8 Plt Count 96 L MPV 11.8 D-Dimer Quant (PE/DVT) Specimen Type Sample Site pH Bicarbonate Actual Total CO2 Base Excess O2 Saturation O2 % ABG pCO2 ABG pO2 [place] Test Respiration Rate O2 Delivery Device Tidal Volume POC PEEP Sodium 141 Potassium 3.8 Chloride 109 H Carbon Dioxide 27.0 Anion Gap 5 BUN 36 H Creatinine 0.83 Estim Creat Clear Calc 90.72 Est GFR (MDRD) Af Amer 119 Est GFR (MDRD) Non-Af 98 BUN/Creatinine Ratio 43.4 H Glucose 327 H Calcium 6.9 L Ferritin 605 H Total Bilirubin 0.90 AST 40 H ALT 11 L Alkaline Phosphatase 54 C-React Prot Ext Range 98.00 H Total Protein 6.0 L Albumin 2.3 L Globulin 3.7 Albumin/Globulin Ratio 0.6 L Procalcitonin POC Glucose 343 H 12/10/19 12/10/19 12/10/19 05:00 05:00 05:36 WBC RBC Hgb Hct MCV MCH MCHC RDW Std Deviation RDW Coeff of Preston Plt Count MPV D-Dimer Quant (PE/DVT) > 20.00 H* Specimen Type Sample Site pH Bicarbonate Actual Total CO2 Base Excess O2 Saturation O2 % ABG pCO2 ABG pO2 [place] Test Respiration Rate O2 Delivery Device Tidal Volume POC PEEP Sodium Potassium Chloride Carbon Dioxide Anion Gap BUN Creatinine Estim Creat Clear Calc Est GFR (MDRD) Af Amer Est GFR (MDRD) Non-Af BUN/Creatinine Ratio Glucose Calcium Ferritin Total Bilirubin AST ALT Alkaline Phosphatase C-React Prot Ext Range Total Protein Albumin Globulin Albumin/Globulin Ratio Procalcitonin 0.23 H POC Glucose 272 H 12/10/19 12/10/19 12/11/19 12:20 17:38 00:20 WBC RBC Hgb Hct MCV MCH MCHC RDW Std Deviation RDW Coeff of Preston Plt Count MPV D-Dimer Quant (PE/DVT) Specimen Type Sample Site pH Bicarbonate Actual Total CO2 Base Excess O2 Saturation O2 % ABG pCO2 ABG pO2 [place] Test Respiration Rate O2 Delivery Device Tidal Volume POC PEEP Sodium Potassium Chloride Carbon Dioxide Anion Gap BUN Creatinine Estim Creat Clear Calc Est GFR (MDRD) Af Amer Est GFR (MDRD) Non-Af BUN/Creatinine Ratio Glucose Calcium Ferritin Total Bilirubin AST ALT Alkaline Phosphatase C-React Prot Ext Range Total Protein Albumin Globulin Albumin/Globulin Ratio Procalcitonin POC Glucose 387 H 360 H 363 H 12/11/19 12/11/19 12/11/19 04:30 04:30 05:40 WBC 13.5 H RBC 4.63 Hgb 14.1 Hct 43.1 MCV 93.1 MCH 30.5 MCHC 32.7 RDW Std Deviation 46.8 H RDW Coeff of Preston 13.6 Plt Count 85 L MPV 11.2 D-Dimer Quant (PE/DVT) Specimen Type Sample Site pH Bicarbonate Actual Total CO2 Base Excess O2 Saturation O2 % ABG pCO2 ABG pO2 [place] Test Respiration Rate O2 Delivery Device Tidal Volume POC PEEP Sodium 149 H Potassium 3.4 L Chloride 118 H Carbon Dioxide 25.0 Anion Gap 6 BUN 36 H Creatinine 1.06 Estim Creat Clear Calc 71.04 Est GFR (MDRD) Af Amer 89 Est GFR (MDRD) Non-Af 74 BUN/Creatinine Ratio 34.0 H Glucose 394 H Calcium 6.9 L Ferritin Total Bilirubin 1.00 AST 45 H ALT 18 Alkaline Phosphatase 83 C-React Prot Ext Range Total Protein 5.6 L Albumin 2.1 L Globulin 3.5 Albumin/Globulin Ratio 0.6 L Procalcitonin POC Glucose 416 H Microbiology 12/07/19 20:45 Sputum, Tracheal Aspirate Gram Stain - Final 12/07/19 20:45 Sputum, Tracheal Aspirate Respiratory Culture - Final 12/07/19 09:20 Urine Catheter - Duarte Urine Culture - Final Culture exhibits no growth. 12/07/19 09:15 Blood Culture (Wb) - Right Hand Blood Culture - Preliminary No growth in 48 hours. 12/07/19 07:55 Blood Culture (Wb) - Anticubital Left Blood Culture - Preliminary No growth in 48 hours. Clinical Impression(s) from Imaging Studies Brain CT 12/10/19 19:42 IMPRESSION: There is a new focal area of low-attenuation involving the superior edge of the left cerebellum. A focal infarct cannot be excluded. Electronically Signed: Fred Perdomo DO at 20:37 EDT Tel [phone], Service support , ADDENDUM: 12/10/192051 IMPRESSION: There is a new focal area of low-attenuation involving the superior edge of the left cerebellum. A focal infarct cannot be excluded. N.B. : The above information has been verbally conveyed by Fred Perdomo DO to Leila Paredes RN, on 12/10/2019 20:45:49 (ET). Electronically Signed: Fred Perdomo DO at 20:37 EDT Tel [phone], Service support , Medical Necessity - Tobacco Use Smoking Status: Unknown if ever smoked Tobacco Use: Non-smoker Assessment/Plan All Active Problems (Last Reviewed 05/27/18 @ 10:[address] Hardeep Jackson MD) COVID-19 with multiple comorbidities (Acute) COVID-19 with pulmonary comorbidity (Acute) Acute respiratory failure with hypoxia (Acute) Gross hematuria (Acute) Hypertensive urgency (Acute) Encephalopathy (Acute) RECOMMENDATIONS: 1. Wean PEEP and FiO2 as tolerated 2. Continue supportive care for hematuria 3. Hold anticoagulation 4. Attempt diuresis 5. Continue to hold empiric antibiotics 6. Initiate stroke work-up 7. Continue Precedex therapy. 8. Wean PEEP and supplemental oxygen as tolerated with spontaneous breathing trial per protocol IMPRESSIONS: 1. Acute hypoxic respiratory failure secondary to COVID-19 Patient with significant infiltrates bilaterally on chest x-ray. These findings could be suggestive of COVID-19 pneumonitis versus congestive heart failure. BNP was slightly elevated. Patient does have a history of hypertension, so diastolic dysfunction would be a consideration. Patient is on Decadron and remdesivir. Patient has had a stable platelet count and hemoglobin for over 48 hours. Will challenge with slightly higher DVT prophylaxis dosing of Lovenox. Wean oxygen and PEEP as tolerated. Spontaneous breathing and awakening trials per protocol. Attempt to transition over to Precedex therapy to facilitate spontaneous breathing trials 2. Possible congestive heart failure Patient does have a long history of hypertension. Echo suspicion for an element of diastolic CHF. Echocardiogram has been ordered in relation to the stroke work-up. Patient's weight is up slightly compared to yesterday with documented positive fluid balance. Lasix challenge today. 3. Thrombocytopenia with hematuria Patient does have a history of BPH and is on doxazosin as an outpatient. Patient does have thrombocytopenia of unclear etiology. Patient would be at risk for DIC, but fibrinogen was elevated on presentation. Platelets appear to be stable at this time. Will initiate Lovenox, but not at therapeutic dosing 4. Acute kidney injury Renal function is improving. Clinical suspicion for an element of ATN secondary to protracted hypoxia. Patient does have reasonable urine output at this time. This will be difficult to monitor given his need for bladder irrigation. Continue to monitor chemistries on a daily basis. Patient is developing hypernatremia and hyperchloremia, but no signs of diabetes insipidus at this time 5. Diabetes mellitus/advanced age/obesity Complicates care, management, recovery and prognosis. Continue tube feeds. We will increase Lantus given hyperglycemia 6. New onset seizure secondary to new left cerebellar infarct Patient undergoing stroke work-up including echocardiogram. Patient was placed on Keppra therapy with improvement. Unable to assess some neurologic findings secondary to Precedex, vent synchrony and intubation. Allow for permissive hypertension at this time TIME: 34 minutes critical care time spent addressing patient's acute hypoxic respiratory failure, possible CHF, thrombocytopenia, acute kidney injury, diabetes mellitus, review of all data and collaboration with care team (6:45 AM to 7:45 AM) [id number]: [id number] Critical care first hour
[2019-12-11] MEDS: Dexmedetomidine 1,000 mcg in 0.9% NS 240 mL 31.8 MCG CONT INF ×2 (10:30→18:34)
[2019-12-11 11:32] LABS: Magnesium 1.8 mg/dL (1.6-2.6)
[2019-12-11] MEDS: Metoprolol Tartrate 5 MG/5 ML Vial 2.5 MG IV (11:49)
[2019-12-11] MEDS: Furosemide 40 MG/4 ML Vial IV (11:50)
[2019-12-11] MEDS: Chlorhexidine 15 ML PO ×2 (12:23→22:13)
[2019-12-11 12:36] LABS: Bedside Glucose 338 mg/dL (70-110)
--- NOTE | 2019-12-11 13:43 | CASEMGMT ---
RN CM Note: Call to son-in law Carmelo who asked questions regarding patient's medications and was very focused on whether the patient had pneumonia. RN ENIO explained ventilator support, oxygen levels and physician's daily review of any scans and treatment plan. Carmelo did state the would like to have phone put to patient's ear for her to speak with him. She understands pt is on ventilator and cannot communicate back. RN ENIO explained patient is on pain medication and sedation currently, but JESSE STEEN will let nursing know. Tri VANEGASN RN ACM
[2019-12-11] MEDS: Potassium Chloride 10mEq/100mL 10 MEQ/100 ML IV.SOLN. 100 MEQ IV BOLUS ×4 (13:50→17:00)
--- NOTE | 2019-12-11 15:30 | PCM.PN.ID ---
Patient Problems: Active and Suspected Problems (Last Reviewed 05/27/18 @ 10:[address] Hardeep Jackson MD) COVID-19 with multiple comorbidities (Acute) COVID-19 with pulmonary comorbidity (Acute) Acute respiratory failure with hypoxia (Acute) Gross hematuria (Acute) Hypertensive urgency (Acute) Encephalopathy (Acute) Subjective: New seizure, CT showed stroke. Remains on vent. - Physical Exam Vitals/I&O's: Vital Signs Temp Pulse Resp BP Pulse Ox 99.8 F H 76 27 H 148/76 H 94 12/11/19 12:00 12/11/19 14:35 12/11/19 14:35 12/11/19 13:00 12/11/19 14:35 Oxygen Delivery Method Mechanical Ventilator Weight: 115.485 kg Body Mass Index (BMI) 34.9 Finger Stick Blood Glucose 195 Intake and Output for Last 24 Hours 12/09/19 12/10/19 12/11/19 23:59 23:59 23:59 Intake Total 3075.04 / 3345.77 4348.57 / 4378.75 1211.12 / 1211.12 Output Total 1135 / 1260 2350 / 2700 1620 / 1620 Balance 1940.04 / 2085.77 1998.57 / 1678.75 -408.88 / -408.88 General: No apparent distress Lungs: Diminished Cardiovascular: Regular rate, Regular Rhythm Abdomen: Soft, Non Tender, Non-Distended Skin: No rashes Microbiology Past 72 Hours 12/07/19 20:45 Sputum, Tracheal Aspirate Gram Stain - Final 12/07/19 20:45 Sputum, Tracheal Aspirate Respiratory Culture - Final 12/07/19 09:20 Urine Catheter - Duarte Urine Culture - Final Culture exhibits no growth. 12/07/19 09:15 Blood Culture (Wb) - Right Hand Blood Culture - Preliminary No growth in 48 hours. 12/07/19 07:55 Blood Culture (Wb) - Anticubital Left Blood Culture - Preliminary No growth in 48 hours. Laboratory Results 12/10/19 17:38: POC Glucose 360 H 12/11/19 00:20: POC Glucose 363 H 12/11/19 04:30: WBC 13.5 H, RBC 4.63, Hgb 14.1, Hct 43.1, MCV 93.1, MCH 30.5, MCHC 32.7, RDW Std Deviation 46.8 H, RDW Coeff of Preston 13.6, Plt Count 85 L, MPV 11.2 12/11/19 04:30: Sodium 149 H, Potassium 3.4 L, Chloride 118 H, Carbon Dioxide 25.0, Anion Gap 6, BUN 36 H, Creatinine 1.06, Estim Creat Clear Calc 71.04, Est GFR (MDRD) Af Amer 89, Est GFR (MDRD) Non-Af 74, BUN/Creatinine Ratio 34.0 H, Glucose 394 H, Calcium 6.9 L, Total Bilirubin 1.00, AST 45 H, ALT 18, Alkaline Phosphatase 83, Total Protein 5.6 L, Albumin 2.1 L, Globulin 3.5, Albumin/Globulin Ratio 0.6 L 12/11/19 04:50: Magnesium 1.8 12/11/19 05:40: POC Glucose 416 H 12/11/19 11:46: POC Glucose 338 H Current Medications Atorvastatin Calcium (Atorvastatin Calcium 40 Mg Tablet) 40 mg PO QHS [facility] Last Admin: 12/10/19 21:23 Dose: 40 mg Documented by: Chlorhexidine Gluconate (Chlorhexidine 15 Ml) 15 ml PO BID [facility] Last Admin: 12/11/19 12:23 Dose: 15 ml Documented by: Dexamethasone Sodium Phosphate (Dexamethasone 10 Mg/Ml Vial) 6 mg IV DAILY [facility] Stop: 12/17/19 10:01 Last Admin: 12/11/19 08:31 Dose: 6 mg Documented by: Fentanyl Citrate 1,000 mcg/ (Sodium Chloride) 100 mls @ 2.5 mls/hr CONT INF .Q40H [facility]; Protocol Last Titration: 12/11/19 07:00 Dose: 100 mcg/hr, 10 mls/hr Documented by: Sodium Chloride () 250 mls @ 15 mls/hr IV .[id number] PRN PRN Reason: Saline Flush Sodium Chloride () 250 mls @ 15 mls/hr IV .[id number] PRN PRN Reason: Additional IVPB Infusion Pantoprazole Sodium 40 mg/ (Sodium Chloride) 110 mls @ 330 mls/hr IV Q12 [facility] Last Infusion: 12/11/19 10:50 Dose: Infused Documented by: Enteral Nutritional Formula (Vital High Protein) 1,000 mls @ 65 mls/hr GT .[id number] [facility] Last Admin: 12/11/19 08:34 Dose: 65 mls/hr Documented by: Levetiracetam 500 mg/ Sodium (Chloride) 105 mls @ 400 mls/hr IV Q12 [facility] Last Infusion: 12/11/19 13:16 Dose: Infused Documented by: Dexmedetomidine HCl 1,000 mcg/ (Sodium Chloride) 250 mls @ 14.453 mls/hr CONT INF .[id number] [facility]; Protocol Last Titration: 12/11/19 07:00 Dose: 1.1 mcg/kg/hr, 31.8 mls/hr Documented by: Magnesium Sulfate 2 gm/ Sodium (Chloride) 104 mls @ 52 mls/hr IV X1 ONE Stop: 12/11/19 16:59 Insulin Glargine (Insulin Glargine 100 Units/Ml Pen) 40 units SC BID [facility] Last Admin: 12/11/19 11:53 Dose: 40 u Documented by: Insulin Human Lispro (Insulin Lispro 100 Unit/Ml Insuln.Pen) 0 unit SC Q6 [facility]; Protocol Last Admin: 12/11/19 11:51 Dose: 4 u Documented by: Labetalol HCl (Labetalol (Prefilled) 20 Mg/4 Ml) 10 mg IV Q4H PRN PRN PRN Reason: SBP > 220 OR DBP > 120 Lorazepam (Lorazepam 2 Mg/Ml Syringe) 2 - 6 mg IV Q5M PRN PRN Reason: SEIZURES Last Admin: 12/10/19 19:44 Dose: 2 mg Documented by: Metoprolol Tartrate (Metoprolol Tartrate 50 Mg Tablet) 50 mg PO BID [facility] Senna/Docusate Sodium (Senna/Docusate Sodium 1 Tablet) 1 tablet GT BID [facility] Last Admin: 12/11/19 08:31 Dose: 1 tablet Documented by: Sodium Chloride (0.9% Saline Lock 10 Ml Syringe) 10 - 40 ml IV UD PRN PRN Reason: SALINE FLUSH Last Admin: 12/10/19 21:13 Dose: 40 ml Documented by: Medical Necessity - Tobacco Use Smoking Status: Unknown if ever smoked Tobacco Use: Non-smoker Route of nutrition/ use of supplements: [] Nutritional Intake: [] IV Site: [] Duarte Catheter: [] - Assessment/Plan Antibiotics: [] Assessment/Plan: [] Active and Suspected Problems (Last Reviewed 05/27/18 @ 10:[address] Hardeep Jackson MD) COVID-19 with multiple comorbidities (Acute) COVID-19 with pulmonary comorbidity (Acute) Acute respiratory failure with hypoxia (Acute) Hypertensive urgency (Acute) Encephalopathy (Acute) Covid with mech ventilation - on dex, given remdesivir. New stroke. Afebrile overnight. Plasma ordered 1028. Will follow
--- NOTE | 2019-12-11 15:35 | RAD_ITS ---
STUDY: X-RAY - ABDOMEN/PELVIS REASON FOR EXAM: Male, 69 years old. ADVANCED OG TECHNIQUE: Single AP view of the abdomen / pelvis. COMPARISON: None. FINDINGS: Normal visualized lung bases. OG tube tip in the body of the stomach. EKG leads overlie the chest There is an unremarkable bowel gas pattern. There is no demonstrated free abdominal air. The visualized liver, spleen and kidneys are grossly normal in size and morphology. Normal soft tissue structures. There are diffuse degenerative changes of the visualized lumbar spine. RAD/Abdomen Single View (Portable) IMPRESSION: OG/NG tube tip in the body of the stomach Electronically Signed: Chaitanya Fonseca MD at 17:18 EDT , Service support ,
[2019-12-11 17:55] LABS: Hematocrit 42.6 % (40-54); Hemoglobin 13.9 g/dL (13.0-16.5); POSITIVE COUNT YES
[2019-12-11] MEDS: Metoprolol Tartrate 50 MG Tablet PO (19:18)
[2019-12-11] MEDS: Insulin Lispro 100 UNIT/ML INSULN.PEN 15 UNIT SC (19:20)
[2019-12-11 21:11] LABS: Bedside Glucose 491 mg/dL (70-110)
[2019-12-11] MEDS: Atorvastatin Calcium 40 MG Tablet PO (22:12)
[2019-12-12] VITALS (37 sets, daily range): BP systolic 122–185; BP diastolic 60–99; PULSE 73–112; RESP 18–35; TEMP 36.6–37.6; O2SAT 89–98
[2019-12-12] MEDS: Insulin Lispro 100 UNIT/ML INSULN.PEN 15 UNIT SC (00:39)
[2019-12-12 01:05] LABS: Bedside Glucose 466 mg/dL (70-110)
[2019-12-12] MEDS: Dexmedetomidine 1,000 mcg in 0.9% NS 240 mL 43.4 MCG CONT INF ×4 (01:40→20:09)
[2019-12-12 03:15] LABS: Hematocrit 43.3 % (40-54); Hemoglobin 13.9 g/dL (13.0-16.5); Mean Corp Hgb Conc 32.1 g/dL (32-36); Mean Corpuscular Hgb 30.2 pg (27.0-32.0); Mean Corpuscular Volume 94.1 fL (80-94); Mean Platelet Vol. 11.3 fl (6.2-12.0); POSITIVE COUNT YES; Platelet Count 69 K/mm3 (150-450); RBC Distribution Width CV 13.6 % (11.6-14.6); RBC Distribution Width SD 46.9 fl (35.1-43.9); White Blood Count 11.3 K/mm3 (4.4-11.0)
[2019-12-12 03:32] LABS: ALB/GLOB Ratio 0.6 RATIO (0.9-2.4); AST(SGOT) 37 U/L (15-37); Alanine Aminotransfer ALT/SGPT 21 U/L (16-61); Alkaline Phosphatase 69 U/L (45-117); Anion Gap 7 (5-15); BUN 54 mg/dL (7-18); BUN/Creat Ratio 35.8 RATIO (10-20); Chloride 121 mmol/L (98-107); Creatinine, Serum 1.51 mg/dL (0.70-1.30); EST Glomerular Filtration Rate 49 mL/min (>60); Est Glom Filt Rate - Afr Amer 59 mL/min (>60); Estimated Creatinine Clearance 49.87 ml/min; Globulin 3.4 g/dL (2.2-4.2); Glucose 373 mg/dL (74-106); Magnesium 2.2 mg/dL (1.6-2.6); Protein, Total 5.4 g/dL (6.4-8.2); Sodium Level 154 mmol/L (136-145)
[2019-12-12] MEDS: Insulin Lispro 100 UNIT/ML INSULN.PEN SC ×6 (04:15→23:39)
[2019-12-12] MEDS: Vital High Protein 1,000 ML 65 ML GT (05:57)
[2019-12-12 06:45] LABS: Bedside Glucose 420 mg/dL (70-110)
[2019-12-12] MEDS: Insulin Lispro 100 UNIT/ML INSULN.PEN 30 UNIT SC (06:49)
--- NOTE | 2019-12-12 07:46 | PN_ITS ---
Patient Problems: Active and Suspected Problems (Last Reviewed 05/27/18 @ 10:[address] Hardeep Jackson MD) COVID-19 with multiple comorbidities (Acute) COVID-19 with pulmonary comorbidity (Acute) Acute respiratory failure with hypoxia (Acute) Gross hematuria (Acute) Hypertensive urgency (Acute) Encephalopathy (Acute) Reason for Visit: Follow-up on respiratory failure/Acute COVID-19 infection Subjective: Patient was seen and examined. No seizures overnight. Unable to tolerate spontaneous awakening trial. Continues to be on Precedex. Electrolyte imbalances noted this morning. Acute kidney injury noted this morning also. Oxygen requirement however has decreased. Objective: Physical exam: General: - - Intubated, on mechanical intubation, sedated, not pale, OG tube with tube feeds HEENT: Atraumatic, PERRLA, EOMI, Normocephalic Oral: Moist Mucosa Neck: Supple Lungs: Diminished Cardiovascular: Regular rate, Regular Rhythm, Normal S1, Normal S2, No murmurs Abdomen: Bowel Sounds Present, Soft, Non Tender, Non-Distended, No Hepato- splenomegaly Extremities: Edema - bilateral trace edema Skin: No rashes Musculoskeletal: No Tenderness to Palpation of Joints or Extremities Lymphatic: No Cervical, Supraclavicular, or Inguinal Adenopathy Neurological: Cranial nerves II-XII grossly intact, Neuro grossly intact Psych/Mental Status: Normal Affect, Appropriate Vitals/I&O's: Vital Signs Temp Pulse Resp BP Pulse Ox 98.2 F 79 27 H 140/78 H 94 12/12/19 00:00 12/12/19 06:00 12/12/19 06:00 12/12/19 06:00 12/12/19 06:00 Oxygen Delivery Method Mechanical Ventilator Weight: 115.303 kg Body Mass Index (BMI) 34.9 Finger Stick Blood Glucose 195 Intake and Output for Last 24 Hours 12/10/19 12/11/19 12/12/19 23:59 23:59 23:59 Intake Total 4348.57 / 4378.75 3446.28 / 3461.30 1291.07 / 1291.07 Output Total 2350 / 2700 4645 / 5045 1150 / 1150 Balance 1998.57 / 1678.75 -1198.72 / -1583.70 141.07 / 141.07 Microbiology Past 72 Hours 12/07/19 20:45 Sputum, Tracheal Aspirate Gram Stain - Final 12/07/19 20:45 Sputum, Tracheal Aspirate Respiratory Culture - Final 12/07/19 09:20 Urine Catheter - Duarte Urine Culture - Final Culture exhibits no growth. 12/07/19 09:15 Blood Culture (Wb) - Right Hand Blood Culture - Preliminary No growth in 48 hours. 12/07/19 07:55 Blood Culture (Wb) - Anticubital Left Blood Culture - Preliminary No growth in 48 hours. Laboratory Results 12/11/19 04:50: Magnesium 1.8 12/11/19 11:46: POC Glucose 338 H 12/11/19 17:40: Hgb 13.9, Hct 42.6 12/11/19 18:49: POC Glucose 491 H* 12/11/19 23:41: POC Glucose 466 H* 12/12/19 02:40: WBC 11.3 H, RBC 4.60, Hgb 13.9, Hct 43.3, MCV 94.1 H, MCH 30.2, MCHC 32.1, RDW Std Deviation 46.9 H, RDW Coeff of Preston 13.6, Plt Count 69 L, MPV 11.3 12/12/19 02:40: Sodium 154 H, Potassium 3.0 L, Chloride 121 H, Carbon Dioxide 26.0, Anion Gap 7, BUN 54 H, Creatinine 1.51 H, Estim Creat Clear Calc 49.87, Est GFR (MDRD) Af Amer 59 L, Est GFR (MDRD) Non-Af 49 L, BUN/Creatinine Ratio 35.8 H, Glucose 373 H, Calcium 7.0 L, Magnesium 2.2, Total Bilirubin 0.90, AST 37, ALT 21, Alkaline Phosphatase 69, Total Protein 5.4 L, Albumin 2.0 L, Globulin 3.4, Albumin/Globulin Ratio 0.6 L 12/12/19 04:12: POC Glucose 420 H Current Medications Atorvastatin Calcium (Atorvastatin Calcium 40 Mg Tablet) 40 mg PO QHS [facility] Last Admin: 12/11/19 22:12 Dose: 40 mg Documented by: Chlorhexidine Gluconate (Chlorhexidine 15 Ml) 15 ml PO BID [facility] Last Admin: 12/11/19 22:13 Dose: 15 ml Documented by: Dexamethasone Sodium Phosphate (Dexamethasone 10 Mg/Ml Vial) 6 mg IV DAILY [facility] Stop: 12/17/19 10:01 Last Admin: 12/11/19 08:31 Dose: 6 mg Documented by: Fentanyl Citrate 1,000 mcg/ (Sodium Chloride) 100 mls @ 2.5 mls/hr CONT INF .Q40H [facility]; Protocol Last Titration: 12/12/19 06:00 Dose: 175 mcg/hr, 17.5 mls/hr Documented by: Sodium Chloride () 250 mls @ 15 mls/hr IV .[id number] PRN PRN Reason: Saline Flush Sodium Chloride () 250 mls @ 15 mls/hr IV .[id number] PRN PRN Reason: Additional IVPB Infusion Pantoprazole Sodium 40 mg/ (Sodium Chloride) 110 mls @ 330 mls/hr IV Q12 [facility] Last Infusion: 12/11/19 22:50 Dose: Infused Documented by: Enteral Nutritional Formula (Vital High Protein) 1,000 mls @ 65 mls/hr GT .[id number] [facility] Last Admin: 12/12/19 05:57 Dose: 65 mls/hr Documented by: Levetiracetam 500 mg/ Sodium (Chloride) 105 mls @ 400 mls/hr IV Q12 [facility] Last Infusion: 12/11/19 22:29 Dose: Infused Documented by: Dexmedetomidine HCl 1,000 mcg/ (Sodium Chloride) 250 mls @ 14.453 mls/hr CONT INF .[id number] [facility]; Protocol Last Admin: 12/12/19 07:30 Dose: 1.5 mcg/kg/hr, 43.4 mls/hr Documented by: Potassium Chloride 40 meq/ (Sodium Chloride) 120 mls @ 100 mls/hr IV BOLUS X1 ONE Stop: 12/12/19 15:11 Dextrose () 1,000 mls @ 150 mls/hr IV .[id number] [facility] Insulin Glargine (Insulin Glargine 100 Units/Ml Pen) 60 units SC BID [facility] Insulin Human Lispro (Insulin Lispro 100 Unit/Ml Insuln.Pen) 0 unit SC Q4H [facility]; Protocol Last Admin: 12/12/19 04:15 Dose: 11 units Documented by: Labetalol HCl (Labetalol (Prefilled) 20 Mg/4 Ml) 10 mg IV Q4H PRN PRN PRN Reason: SBP > 220 OR DBP > 120 Lorazepam (Lorazepam 2 Mg/Ml Syringe) 2 - 6 mg IV Q5M PRN PRN Reason: SEIZURES Last Admin: 12/10/19 19:44 Dose: 2 mg Documented by: Metoprolol Tartrate (Metoprolol Tartrate 50 Mg Tablet) 50 mg PO BID [facility] Last Admin: 12/11/19 19:23 Dose: Not Given Documented by: Nystatin (Nystatin Powder 15gm Bottle) 1 applic TOPICAL TID [facility]; Protocol Senna/Docusate Sodium (Senna/Docusate Sodium 1 Tablet) 1 tablet GT BID [facility] Last Admin: 12/11/19 22:12 Dose: 1 tablet Documented by: Sodium Chloride (0.9% Saline Lock 10 Ml Syringe) 10 - 40 ml IV UD PRN PRN Reason: SALINE FLUSH Last Admin: 12/10/19 21:13 Dose: 40 ml Documented by: STROKE Vital Signs/Narrative: Vital Signs Pulse Resp BP Pulse Ox 12/12/19 06:00 79 27 H 140/78 H 94 12/12/19 05:00 102 H 30 H 176/85 H 95 12/12/19 04:30 35 H 12/12/19 04:00 108 H 33 H 155/75 H 94 Medical Necessity - Tobacco Use Smoking Status: Unknown if ever smoked Tobacco Use: Non-smoker Assessment/Plan All Active Problems (Last Reviewed 05/27/18 @ 10:[address] Hardeep Jackson MD) COVID-19 with multiple comorbidities (Acute) COVID-19 with pulmonary comorbidity (Acute) Acute respiratory failure with hypoxia (Acute) Gross hematuria (Acute) Hypertensive urgency (Acute) Encephalopathy (Acute) 1. Acute hypoxic respiratory failure secondary to acute COVID-19 pneumonia Remains intubated, on mechanical ventilator, PEEP improved to 5 Ear Pull Machine Operator following. 2. Acute COVID-19 pneumonia, severe with hypoxia, remains unchanged Admitting chest x-ray shows diffuse bilateral alveolar infiltrates more prominent in the left hemithorax Admitting labs showed elevated D-dimer, LDH, fibrinogen On IV dexamethasone (until 12/17/19). Completed remdesivir 12/11/19. ID and pulmonary following 3. Acute left cerebellar stroke, seen on CT of the head done on 12/11/19 SOC consulted. Patient cannot take aspirin on account of bleeding On atorvastatin, metoprolol Will aim for MRI brain later 5. Seizure, noted on 12/10/19 pm, started on Keppra IV SOC consulted, on Keppra IV EEG is pending 6. Acute metabolic encephalopathy likely secondary to #2, Patient was admitted with this Currently remains intubated 7. Gross hematuria, unclear etiology for now, noted after Duarte catheter was inserted in the ED No history of BPH, off aspirin an anticoagulation. Urology consulted, urine is clear. Will continue to monitor 8. Suspected acute GI bleed, likely secondary to acute gastritis, stress- induced, On PPI IV BID. Will continue to monitor 9. Thrombocytopenia, acute on chronic, unclear etiology, likely cause is COVID- 19 related. Platelet count is fluctuating. Off Lovenox now INR is normal. Fibrinogen is elevated, D-dimer is elevated Will continue to monitor 10. Hypokalemia/hypomagnesemia/Hypernatremia Potassium and magnesium is improved Na is 160, started on D5W, will trend BMP Replace, recheck in am 11. Lactic acid likely related to #1, lactic acid is 2.7, repeat is 1.5 12. Hypertensive urgency, improved, BP is better improved now Continue on home metoprolol 50 mg p.o. twice daily with holding parameters Lisinopril continues to be on hold 13. RYAN, pre-renal likely secondary to dehydration Cr is 1.52 now from 1.06 Will continue to trend labs 14. Type II DM, blood sugars are uncontrolled, started on Lantus 20 units twice daily Continue on blood glucose check with insulin sliding scale 12. DVT PPx- SCDs 13. GI PPx- PPI IV Inpatient E&M: [id number] [facility] L3
[2019-12-12] MEDS: dexAMETHasone 10 MG/ML Vial 6 MG IV (08:39)
[2019-12-12] MEDS: Metoprolol Tartrate 50 MG Tablet PO ×2 (08:40→20:51)
[2019-12-12] MEDS: Senna/Docusate Sodium 1 Tablet GT ×2 (08:40→20:51)
--- NOTE | 2019-12-12 09:21 | PN_ITS ---
Subjective: Patient did okay overnight. Patient continues to be significantly agitated from time to time. Patient was placed on a spontaneous breathing trial this morning and was able to tolerate 20 minutes prior to developing tachycardia and hypertension. General: - - Intubated and sedated. Fair vent synchrony. Ready appearance. HEENT: Atraumatic, PERRLA, EOMI, Normocephalic, - - Slight scleral injection Oral: Moist Mucosa, No Gingival or Mucosal Lesions/ Ulcerations Neck: Supple, No JVD, No Nodes, Trachea Midline Lungs: No rhonchi, No wheeze, No rales, Diminished, - - Symmetric expansion. Cardiovascular: Normal S1, Normal S2, No murmurs, No rub noted, No Gallop, Tachycardic Abdomen: Bowel Sounds Present, Soft, Non Tender, Non-Distended, Obese Extremities: No clubbing, No cyanosis, Edema Skin: - - No change from previous Musculoskeletal: No Tenderness to Palpation of Joints or Extremities Lymphatic: No Cervical, Supraclavicular, or Inguinal Adenopathy Neurological: Cranial nerves II-XII grossly intact, Neuro grossly intact - As patient would cooperate. Becomes significantly agitated with vent dyssynchrony with any examination Psych/Mental Status: Flat Affect, Impulsive Vital Signs Temp Pulse Resp BP Pulse Ox 36.8 C 85 27 H 140/78 H 94 12/12/19 00:00 12/12/19 08:40 12/12/19 08:00 12/12/19 06:00 12/12/19 08:00 Oxygen Delivery Method Mechanical Ventilator Weight: 115.303 kg Body Mass Index (BMI) 34.9 Finger Stick Blood Glucose 195 Intake and Output for Last 24 Hours 12/10/19 12/11/19 12/12/19 23:59 23:59 23:59 Intake Total 4348.57 / 4378.75 3446.28 / 3461.30 1291.07 / 1291.07 Output Total 2350 / 2700 4645 / 5045 1150 / 1150 Balance 1998.57 / 1678.75 -1198.72 / -1583.70 141.07 / 141.07 Labs (Last 48 Hours) 12/10/19 12/10/19 12/11/19 12:20 17:38 00:20 WBC RBC Hgb Hct MCV MCH MCHC RDW Std Deviation RDW Coeff of Preston Plt Count MPV Sodium Potassium Chloride Carbon Dioxide Anion Gap BUN Creatinine Estim Creat Clear Calc Est GFR (MDRD) Af Amer Est GFR (MDRD) Non-Af BUN/Creatinine Ratio Glucose Calcium Magnesium Total Bilirubin AST ALT Alkaline Phosphatase Total Protein Albumin Globulin Albumin/Globulin Ratio POC Glucose 387 H 360 H 363 H 12/11/19 12/11/19 12/11/19 04:30 04:30 04:50 WBC 13.5 H RBC 4.63 Hgb 14.1 Hct 43.1 MCV 93.1 MCH 30.5 MCHC 32.7 RDW Std Deviation 46.8 H RDW Coeff of Preston 13.6 Plt Count 85 L MPV 11.2 Sodium 149 H Potassium 3.4 L Chloride 118 H Carbon Dioxide 25.0 Anion Gap 6 BUN 36 H Creatinine 1.06 Estim Creat Clear Calc 71.04 Est GFR (MDRD) Af Amer 89 Est GFR (MDRD) Non-Af 74 BUN/Creatinine Ratio 34.0 H Glucose 394 H Calcium 6.9 L Magnesium 1.8 Total Bilirubin 1.00 AST 45 H ALT 18 Alkaline Phosphatase 83 Total Protein 5.6 L Albumin 2.1 L Globulin 3.5 Albumin/Globulin Ratio 0.6 L POC Glucose 12/11/19 12/11/19 12/11/19 05:40 11:46 17:40 WBC RBC Hgb 13.9 Hct 42.6 MCV MCH MCHC RDW Std Deviation RDW Coeff of Preston Plt Count MPV Sodium Potassium Chloride Carbon Dioxide Anion Gap BUN Creatinine Estim Creat Clear Calc Est GFR (MDRD) Af Amer Est GFR (MDRD) Non-Af BUN/Creatinine Ratio Glucose Calcium Magnesium Total Bilirubin AST ALT Alkaline Phosphatase Total Protein Albumin Globulin Albumin/Globulin Ratio POC Glucose 416 H 338 H 12/11/19 12/11/19 12/12/19 18:49 23:41 02:40 WBC 11.3 H RBC 4.60 Hgb 13.9 Hct 43.3 MCV 94.1 H MCH 30.2 MCHC 32.1 RDW Std Deviation 46.9 H RDW Coeff of Preston 13.6 Plt Count 69 L MPV 11.3 Sodium Potassium Chloride Carbon Dioxide Anion Gap BUN Creatinine Estim Creat Clear Calc Est GFR (MDRD) Af Amer Est GFR (MDRD) Non-Af BUN/Creatinine Ratio Glucose Calcium Magnesium Total Bilirubin AST ALT Alkaline Phosphatase Total Protein Albumin Globulin Albumin/Globulin Ratio POC Glucose 491 H* 466 H* 12/12/19 12/12/19 02:40 04:12 WBC RBC Hgb Hct MCV MCH MCHC RDW Std Deviation RDW Coeff of Preston Plt Count MPV Sodium 154 H Potassium 3.0 L Chloride 121 H Carbon Dioxide 26.0 Anion Gap 7 BUN 54 H Creatinine 1.51 H Estim Creat Clear Calc 49.87 Est GFR (MDRD) Af Amer 59 L Est GFR (MDRD) Non-Af 49 L BUN/Creatinine Ratio 35.8 H Glucose 373 H Calcium 7.0 L Magnesium 2.2 Total Bilirubin 0.90 AST 37 ALT 21 Alkaline Phosphatase 69 Total Protein 5.4 L Albumin 2.0 L Globulin 3.4 Albumin/Globulin Ratio 0.6 L POC Glucose 420 H Microbiology 12/07/19 07:55 Blood Culture (Wb) - Anticubital Left Blood Culture - Final No growth in 5 days. 12/07/19 20:45 Sputum, Tracheal Aspirate Gram Stain - Final 12/07/19 20:45 Sputum, Tracheal Aspirate Respiratory Culture - Final Clinical Impression(s) from Imaging Studies KUB X-Ray 12/11/19 15:35 IMPRESSION: OG/NG tube tip in the body of the stomach Electronically Signed: Chaitanya Fonseca MD at 17:18 EDT , Service support , Medical Necessity - Tobacco Use Smoking Status: Unknown if ever smoked Tobacco Use: Non-smoker Assessment/Plan All Active Problems (Last Reviewed 05/27/18 @ 10:[address] Hardeep Jackson MD) COVID-19 with multiple comorbidities (Acute) COVID-19 with pulmonary comorbidity (Acute) Acute respiratory failure with hypoxia (Acute) Gross hematuria (Acute) Hypertensive urgency (Acute) Encephalopathy (Acute) RECOMMENDATIONS: 1. Wean PEEP and FiO2 as tolerated 2. Continue supportive care for hematuria 3. Continue to hold anticoagulation 4. Increase free water 5. Aggressive escalation of insulin therapy 6. PT OT to evaluate as possible 7. Continue Precedex therapy to facilitate spontaneous breathing trials. 8. Wean PEEP and supplemental oxygen as tolerated with spontaneous breathing trial per protocol IMPRESSIONS: 1. Acute hypoxic respiratory failure secondary to COVID-19 Patient with significant infiltrates bilaterally on chest x-ray. These findings could be suggestive of COVID-19 pneumonitis versus congestive heart failure. BNP was slightly elevated. Patient does have a history of hypertension, so diastolic dysfunction would be a consideration. Patient is on Decadron and remdesivir. Patient has had a stable platelet count and hemoglobin for over 48 hours. Will challenge with slightly higher DVT prophylaxis dosing of Lovenox. Wean oxygen and PEEP as tolerated. Spontaneous breathing and awakening trials per protocol. Attempt to transition over to Precedex therapy to facilitate spontaneous breathing trials. Will attempt to give free water through GI system to avoid fluid retention. 2. Possible congestive heart failure Patient does have a long history of hypertension. Echo suspicion for an element of diastolic CHF. Echocardiogram has been ordered in relation to the stroke work-up. Patient's weight is up slightly compared to yesterday with documented positive fluid balance. Lasix challenge today. 3. Thrombocytopenia with hematuria Patient does have a history of BPH and is on doxazosin as an outpatient. Patient does have thrombocytopenia of unclear etiology. Patient would be at risk for DIC, but fibrinogen was elevated on presentation. Platelets appear to be stable at this time. Continue to hold aspirin and Lovenox 4. Acute kidney injury Renal function is worsening. Clinical suspicion for an element of ATN secondary to protracted hypoxia. Patient does have reasonable urine output at this time. Low clinical suspicion for postobstructive uropathy. Clinical suspicion for an element of osmotic diuresis secondary to hyperglycemia. 5. Diabetes mellitus/advanced age/obesity Complicates care, management, recovery and prognosis. Continue tube feeds. Ankle suspicion for an element of osmotic diuresis secondary to hyperglycemia. Coverage will be escalated significantly. 6. New onset seizure secondary to new left cerebellar infarct Patient undergoing stroke work-up including echocardiogram. Patient was placed on Keppra therapy with improvement. Unable to assess some neurologic findings secondary to Precedex, vent synchrony and intubation. Attempt to titrate down blood pressure medications TIME: 38 minutes critical care time spent addressing patient's acute hypoxic res piratory failure, possible CHF, thrombocytopenia, acute kidney injury, diabetes mellitus, review of all data and collaboration with care team (8:30 AM to 9:30 AM) [id number]: [id number] Critical care first hour
[2019-12-12] MEDS: Chlorhexidine 15 ML PO ×2 (09:23→20:14)
[2019-12-12 10:49] LABS: Urea Nitrogen, Urine 1084 mg/dL (NO RANGE EST.); Urine Sodium 44 mmol/L (Not Establ.)
--- NOTE | 2019-12-12 11:09 | TELEMED_ITS ---
SOC Telemed has confirmed receipt of a request for visit. This document confirms receipt of the order initiating the consult. To find the results of the consultation, please view the patient's reports for the scanned Telemed Consult.
[2019-12-12 11:15] LABS: Bedside Glucose 272 mg/dL (70-110)
[2019-12-12] MEDS: Nystatin Powder 15gm Bottle 1 APPLIC TOPICAL ×2 (11:45→23:39)
[2019-12-12 12:05] LABS: Bedside Glucose 182 mg/dL (70-110)
[2019-12-12 12:40] LABS: Anion Gap 5 (5-15); BUN 55 mg/dL (7-18); BUN/Creat Ratio 36.2 RATIO (10-20); Calcium,Total 7.7 mg/dL (8.5-10.1); Chloride 128 mmol/L (98-107); Creatinine, Serum 1.52 mg/dL (0.70-1.30); EST Glomerular Filtration Rate 49 mL/min (>60); Est Glom Filt Rate - Afr Amer 59 mL/min (>60); Estimated Creatinine Clearance 49.54 ml/min; Glucose 187 mg/dL (74-106); Potassium 4.1 mmol/L (3.5-5.1); Sodium Level 160 mmol/L (136-145)
[2019-12-12] MEDS: 0.9% Saline Lock 10 ML Syringe IV ×2 (15:32→20:54)
[2019-12-12 16:01] LABS: Anion Gap 3 (5-15); BUN 57 mg/dL (7-18); BUN/Creat Ratio 38.8 RATIO (10-20); Calcium,Total 7.8 mg/dL (8.5-10.1); Chloride 127 mmol/L (98-107); Creatinine, Serum 1.47 mg/dL (0.70-1.30); EST Glomerular Filtration Rate 51 mL/min (>60); Est Glom Filt Rate - Afr Amer 61 mL/min (>60); Estimated Creatinine Clearance 51.22 ml/min; Glucose 185 mg/dL (74-106); Potassium 4.3 mmol/L (3.5-5.1); Sodium Level 159 mmol/L (136-145)
[2019-12-12 19:10] LABS: Anion Gap 3 (5-15); BUN 56 mg/dL (7-18); BUN/Creat Ratio 35.9 RATIO (10-20); Calcium,Total 7.7 mg/dL (8.5-10.1); Chloride 127 mmol/L (98-107); Creatinine, Serum 1.56 mg/dL (0.70-1.30); EST Glomerular Filtration Rate 47 mL/min (>60); Est Glom Filt Rate - Afr Amer 57 mL/min (>60); Estimated Creatinine Clearance 48.27 ml/min; Glucose 199 mg/dL (74-106); Potassium 4.8 mmol/L (3.5-5.1); Sodium Level 158 mmol/L (136-145)
[2019-12-12] MEDS: Haloperidol Lactate 5 MG/ML Vial IV (20:51)
[2019-12-12] MEDS: QUEtiapine 100 MG Tablet PO (20:51)
[2019-12-12] MEDS: Atorvastatin Calcium 40 MG Tablet PO (20:51)
[2019-12-13] VITALS (34 sets, daily range): BP systolic 117–178; BP diastolic 11–105; PULSE 61–97; RESP 17–27; TEMP 37.1–37.8; O2SAT 86–97
[2019-12-13] MEDS: Vital High Protein 1,000 ML 65 ML GT ×2 (00:18→03:50)
[2019-12-13 00:31] LABS: Bedside Glucose 230 mg/dL (70-110)
[2019-12-13] MEDS: Dexmedetomidine 1,000 mcg in 0.9% NS 240 mL 43.4 MCG CONT INF (01:06)
[2019-12-13] MEDS: TITRATION PARAMETER CHANGE 1 EACH IV (03:49)
[2019-12-13] MEDS: Nystatin Powder 15gm Bottle 1 APPLIC TOPICAL ×3 (03:49→22:34)
[2019-12-13] MEDS: Insulin Lispro 100 UNIT/ML INSULN.PEN SC ×5 (03:49→20:12)
[2019-12-13] MEDS: 0.9% Saline Lock 10 ML Syringe IV ×2 (03:58→22:40)
[2019-12-13 04:16] LABS: Hemoglobin 12.6 g/dL (13.0-16.5); Mean Corp Hgb Conc 31.5 g/dL (32-36); Mean Corpuscular Hgb 30.4 pg (27.0-32.0); Mean Corpuscular Volume 96.4 fL (80-94); Mean Platelet Vol. 12.4 fl (6.2-12.0); POSITIVE COUNT YES; POSITIVE DIFFERENTIAL YES; POSITIVE MORPHOLOGY YES; Platelet Count 62 K/mm3 (150-450); RBC Distribution Width CV 13.7 % (11.6-14.6); RBC Distribution Width SD 49.4 fl (35.1-43.9); Red Blood Count 4.15 M/mm3 (4.6-6.2)
[2019-12-13 04:18] LABS: Differential Indicated MANUAL DIFF
[2019-12-13 04:27] LABS: ALB/GLOB Ratio 0.6 RATIO (0.9-2.4); AST(SGOT) 36 U/L (15-37); Alanine Aminotransfer ALT/SGPT 21 U/L (16-61); Albumin, Serum 1.9 g/dL (3.2-5.0); Alkaline Phosphatase 49 U/L (45-117); Anion Gap 5 (5-15); BUN 51 mg/dL (7-18); BUN/Creat Ratio 34.7 RATIO (10-20); Chloride 122 mmol/L (98-107); Creatinine, Serum 1.47 mg/dL (0.70-1.30); EST Glomerular Filtration Rate 51 mL/min (>60); Est Glom Filt Rate - Afr Amer 61 mL/min (>60); Estimated Creatinine Clearance 51.22 ml/min; Globulin 3.1 g/dL (2.2-4.2); Glucose 266 mg/dL (74-106); Sodium Level 154 mmol/L (136-145)
[2019-12-13 05:04] LABS: Lymphocyte 16 % (19-41); Metamyelocyte 7 % (0-1); Monocyte 21 % (0-10); Neutrophil-Band 13 % (0-5); Neutrophil-Segmented 43 % (47-70); Total Cells Counted 100 (MANUAL DIFF)
[2019-12-13 05:05] LABS: Neutrophil # 8.96 X10^3/uL (2.7-7.7)
[2019-12-13 05:06] LABS: Absolute Lymphocyte Count 2.56 X10^3/uL (0.83-4.51); Lymphocyte # 2.56 X10^3/ul (4.0); Platelet Estimate MOD DEC (ADEQ)
[2019-12-13 05:06] LABS: Bedside Glucose 264 mg/dL (70-110)
[2019-12-13 05:08] LABS: Reactive Lymphocyte 1+
[2019-12-13] MEDS: Dexmedetomidine 1,000 mcg in 0.9% NS 240 mL 42.9 MCG CONT INF ×4 (05:33→23:02)
[2019-12-13 06:06] LABS: Allen Test Positive; Base Excess 1 mmol/L (-2 to +2); Bicarbonate 25.2 mmol/L (22-26); Blood Gas Specimen Type ART; FI02 45; Mode CPAP/PS; O2 Delivery Device Adult Vent; PEEP 5; PO2 77 mmHG (75-100); PS 5; SITE L Radial; SO2 96 % (95-99); Total Carbon Dioxide 26 mmol/L; pCO2 35.5 mmHg (35-45); pH 7.46 (7.35-7.45)
--- NOTE | 2019-12-13 07:05 | PCM.PN.HOSP ---
Patient Problems: Active and Suspected Problems (Last Reviewed 05/27/18 @ 10:[address] Hardeep Jackson MD) COVID-19 with multiple comorbidities (Acute) COVID-19 with pulmonary comorbidity (Acute) Acute respiratory failure with hypoxia (Acute) Gross hematuria (Acute) Hypertensive urgency (Acute) Encephalopathy (Acute) Vitals/I&O's: Vital Signs Temp Pulse Resp BP Pulse Ox 99.8 F H 88 27 H 162/84 H 90 12/13/19 04:00 12/13/19 06:57 12/13/19 06:57 12/13/19 06:00 12/13/19 06:57 Oxygen Delivery Method Mechanical Ventilator Weight: 114.305 kg Body Mass Index (BMI) 34.9 Finger Stick Blood Glucose 195 Intake and Output for Last 24 Hours 12/11/19 12/12/19 12/13/19 23:59 23:59 22:59 Intake Total 3446.28 / 3461.30 4167.80 / 4228.70 2879.11 / 2879.11 Output Total 4645 / 5045 3750 / 3750 800 / 800 Balance -1198.72 / -1583.70 417.80 / 478.70 2079.11 / 2079.11 Microbiology Past 72 Hours 12/07/19 09:15 Blood Culture (Wb) - Right Hand Blood Culture - Final No growth in 5 days. 12/07/19 07:55 Blood Culture (Wb) - Anticubital Left Blood Culture - Final No growth in 5 days. 12/07/19 20:45 Sputum, Tracheal Aspirate Gram Stain - Final 12/07/19 20:45 Sputum, Tracheal Aspirate Respiratory Culture - Final Laboratory Results 12/12/19 08:38: POC Glucose 272 H 12/12/19 10:30: Ur Random Sodium 44, Urine Creatinine 52.20, Urine Urea Nitrogen 1084 12/12/19 11:37: POC Glucose 182 H 12/12/19 12:10: Sodium 160 H, Potassium 4.1, Chloride 128 H*, Carbon Dioxide 27.0, Anion Gap 5, BUN 55 H, Creatinine 1.52 H, Estim Creat Clear Calc 49.54, Est GFR (MDRD) Af Amer 59 L, Est GFR (MDRD) Non-Af 49 L, BUN/Creatinine Ratio 36.2 H, Glucose 187 H, Calcium 7.7 L 12/12/19 15:20: Sodium 159 H, Potassium 4.3, Chloride 127 H*, Carbon Dioxide 29.0, Anion Gap 3 L, BUN 57 H, Creatinine 1.47 H, Estim Creat Clear Calc 51.22, Est GFR (MDRD) Af Amer 61, Est GFR (MDRD) Non-Af 51 L, BUN/Creatinine Ratio 38.8 H, Glucose 185 H, Calcium 7.8 L 12/12/19 18:35: Sodium 158 H, Potassium 4.8, Chloride 127 H*, Carbon Dioxide 28.0, Anion Gap 3 L, BUN 56 H, Creatinine 1.56 H, Estim Creat Clear Calc 48.27, Est GFR (MDRD) Af Amer 57 L, Est GFR (MDRD) Non-Af 47 L, BUN/Creatinine Ratio 35.9 H, Glucose 199 H, Calcium 7.7 L 12/12/19 23:37: POC Glucose 230 H 12/13/19 03:47: POC Glucose 264 H 12/13/19 04:00: WBC 16.0 H, RBC 4.15 L, Hgb 12.6 L, Hct 40.0, MCV 96.4 H, MCH 30.4, MCHC 31.5 L, RDW Std Deviation 49.4 H, RDW Coeff of [place] 13.7, Plt Count 62 L, MPV 12.4 H, Neut % (Auto) Not Reportable, Absolute Neuts (auto) 9.0 H, Absolute Lymphs (auto) 2.56, Total Counted 100, Neutrophils % (Manual) 43 L, Band Neutrophils % 13 H, Lymphocytes % (Manual) 16 L, Monocytes % (Manual) 21 H, Metamyelocytes % 7 H, Diff Path Review May foll, Reactive Lymphocytes 1+, Platelet Estimate MOD DEC 12/13/19 04:00: Sodium 154 H, Potassium 4.0, Chloride 122 H, Carbon Dioxide 27.0, Anion Gap 5, BUN 51 H, Creatinine 1.47 H, Estim Creat Clear Calc 51.22, Est GFR (MDRD) Af Amer 61, Est GFR (MDRD) Non-Af 51 L, BUN/Creatinine Ratio 34.7 H, Glucose 266 H, Calcium 7.0 L, Total Bilirubin 0.60, AST 36, ALT 21, Alkaline Phosphatase 49, Total Protein 5.0 L, Albumin 1.9 L, Globulin 3.1, Albumin/Globulin Ratio 0.6 L 12/13/19 05:58: Specimen Type ART, Sample Site L Radial, pH 7.46 H, Bicarbonate Actual 25.2, Total CO2 26, Base Excess 1, O2 Saturation 96, O2 % 45, ABG pCO2 35.5, ABG pO2 77, Dairen Test Positive, O2 Delivery Device Adult Vent, Vent Mode CPAP/PS, POC PEEP 5, POC Pressure Suppt 5 Current Medications Atorvastatin Calcium (Atorvastatin Calcium 40 Mg Tablet) 40 mg PO QHS [facility] Last Admin: 12/12/19 20:51 Dose: 40 mg Documented by: Chlorhexidine Gluconate (Chlorhexidine 15 Ml) 15 ml PO BID [facility] Last Admin: 12/12/19 20:14 Dose: 15 ml Documented by: Dexamethasone Sodium Phosphate (Dexamethasone 10 Mg/Ml Vial) 6 mg IV DAILY [facility] Stop: 12/17/19 10:01 Last Admin: 12/12/19 08:39 Dose: 6 mg Documented by: Haloperidol Lactate (Haloperidol Lactate 5 Mg/Ml Vial) 5 mg IV Q6H PRN PRN PRN Reason: AGITATION Last Admin: 12/12/19 20:51 Dose: 5 mg Documented by: Fentanyl Citrate 1,000 mcg/ (Sodium Chloride) 100 mls @ 2.5 mls/hr CONT INF .Q40H [facility]; Protocol Last Titration: 12/13/19 06:31 Dose: 175 mcg/hr, 17.5 mls/hr Documented by: Sodium Chloride () 250 mls @ 15 mls/hr IV .[id number] PRN PRN Reason: Saline Flush Sodium Chloride () 250 mls @ 15 mls/hr IV .[id number] PRN PRN Reason: Additional IVPB Infusion Pantoprazole Sodium 40 mg/ (Sodium Chloride) 110 mls @ 330 mls/hr IV Q12 [facility] Last Infusion: 12/12/19 21:26 Dose: Infused Documented by: Enteral Nutritional Formula (Vital High Protein) 1,000 mls @ 65 mls/hr GT .[id number] [facility] Last Admin: 12/13/19 03:50 Dose: 65 mls/hr Documented by: Levetiracetam 500 mg/ Sodium (Chloride) 105 mls @ 400 mls/hr IV Q12 [facility] Last Infusion: 12/12/19 21:26 Dose: Infused Documented by: Dexmedetomidine HCl 1,000 mcg/ (Sodium Chloride) 250 mls @ 14.288 mls/hr CONT INF .[id number] [facility]; Protocol Last Titration: 12/13/19 06:00 Dose: 1.5 mcg/kg/hr, 42.9 mls/hr Documented by: Dextrose () 1,000 mls @ 150 mls/hr IV .[id number] [facility] Last Admin: 12/13/19 06:18 Dose: 150 mls/hr Documented by: Insulin Glargine (Insulin Glargine 100 Units/Ml Pen) 60 units SC BID [facility] Last Admin: 12/12/19 20:52 Dose: 60 u Documented by: Insulin Human Lispro (Insulin Lispro 100 Unit/Ml Insuln.Pen) 0 unit SC Q4H [facility]; Protocol Last Admin: 12/13/19 03:49 Dose: 6 units Documented by: Labetalol HCl (Labetalol (Prefilled) 20 Mg/4 Ml) 10 mg IV Q4H PRN PRN PRN Reason: SBP > 220 OR DBP > 120 Lorazepam (Lorazepam 2 Mg/Ml Syringe) 2 - 6 mg IV Q5M PRN PRN Reason: SEIZURES Last Admin: 12/10/19 19:44 Dose: 2 mg Documented by: Metoprolol Tartrate (Metoprolol Tartrate 50 Mg Tablet) 50 mg PO BID [facility] Last Admin: 12/12/19 20:51 Dose: 50 mg Documented by: Nystatin (Nystatin Powder 15gm Bottle) 1 applic TOPICAL TID [facility]; Protocol Last Admin: 12/13/19 03:49 Dose: 1 applicatio Documented by: Quetiapine Fumarate (Quetiapine 100 Mg Tablet) 100 mg PO QHS [facility] Senna/Docusate Sodium (Senna/Docusate Sodium 1 Tablet) 1 tablet GT BID [facility] Last Admin: 12/12/19 20:51 Dose: 1 tablet Documented by: Sodium Chloride (0.9% Saline Lock 10 Ml Syringe) 10 - 40 ml IV UD PRN PRN Reason: SALINE FLUSH Last Admin: 12/13/19 03:58 Dose: 30 ml Documented by: STROKE Vital Signs/Narrative: Vital Signs Temp Pulse Resp BP Pulse Ox 12/13/19 06:57 88 27 H 90 12/13/19 06:00 84 25 H 162/84 H 96 12/13/19 05:00 67 22 H 122/61 H 95 12/13/19 04:25 66 22 H 96 12/13/19 04:00 99.8 F H 66 21 H 161/69 H 96 Medical Necessity - Tobacco Use Smoking Status: Unknown if ever smoked Tobacco Use: Non-smoker Assessment/Plan All Active Problems (Last Reviewed 05/27/18 @ 10:[address] Hardeep Jackson MD) COVID-19 with multiple comorbidities (Acute) COVID-19 with pulmonary comorbidity (Acute) Acute respiratory failure with hypoxia (Acute) Gross hematuria (Acute) Hypertensive urgency (Acute) Encephalopathy (Acute) 69-year-old male admitted on 12/07/19 with altered mental status and respiratory failure; 1. Acute hypoxic respiratory failure secondary to acute COVID-19 pneumonia Remains intubated, on mechanical ventilator, PEEP remains at 5 [employer] following. 2. Acute COVID-19 pneumonia, severe with hypoxia, remains unchanged Admitting chest x-ray shows diffuse bilateral alveolar infiltrates more prominent in the left hemithorax Admitting labs showed elevated D-dimer, LDH, fibrinogen On IV dexamethasone (until 12/17/19). Completed remdesivir 12/11/19. ID and pulmonary following 3. Acute left cerebellar stroke, seen on CT of the head done on 12/11/19 SOC consulted. Patient cannot take aspirin on account of bleeding On atorvastatin, metoprolol Will aim for MRI brain later 4. Seizure, noted on 12/10/19 pm, started on Keppra IV SOC consulted, on Keppra IV. EEG is pending 5. Hypernatremia, started on free water, Na today is 154 Will continue on free water flushes, d5W Repeat BMP in am 6. Gross hematuria, unclear etiology for now, noted after Duarte catheter was inserted in the ED No history of BPH, off aspirin an anticoagulation. Urology consulted, urine is clear. Will continue to monitor 7. Suspected acute GI bleed, likely secondary to acute gastritis, stress-induced, On PPI IV BID. Will continue to monitor 8. Thrombocytopenia, acute on chronic, unclear etiology, likely cause is COVID-19 related. Platelet count is decreasing. Off Lovenox now INR is normal. Fibrinogen is elevated, D-dimer is elevated Will continue to monitor 9. Hypokalemia/hypomagnesemia Potassium and magnesium is improved Recheck in am 10. RYAN, pre-renal likely secondary to dehydration Cr is 1.47 now from 1.56 Will continue to trend labs 11. Hypertensive urgency, improved, BP is better improved now Continue on home metoprolol 50 mg p.o. twice daily with holding parameters Lisinopril continues to be on hold 12. RYAN, pre-renal likely secondary to dehydration Cr is 1.52 now from 1.06 Will continue to trend labs 13. Type II DM, blood sugars are uncontrolled, started on Lantus 20 units twice daily Continue on blood glucose check with insulin sliding scale 14. DVT PPx- SCDs 15. GI PPx- PPI IV Inpatient E&M: 61855 Subs Hosp L2
--- NOTE | 2019-12-13 08:11 | PCM.PN.INT ---
Subjective: Patient did okay overnight. Patient did have significant agitation with decreased vent synchrony. Patient was initiated on Seroquel in addition to the Precedex and fentanyl. No seizure activity has been reported. Patient has had some decreased urine output, but was able to pass a spontaneous breathing trial this morning. However, on my evaluation, patient would not open his eyes or follow commands. General: - - Intubated and sedated. Not following commands. HEENT: Atraumatic, PERRLA, EOMI, Normocephalic, - - Scleral injection without icterus Oral: Moist Mucosa, No Gingival or Mucosal Lesions/ Ulcerations Neck: Supple, No JVD, No Nodes, Trachea Midline Lungs: No rhonchi, No rales, Diminished, Wheezes - Sporadic, - - Symmetric expansion. No dullness to percussion. Cardiovascular: Regular rate, Regular Rhythm, Normal S1, Normal S2, No murmurs, No rub noted, No Gallop Abdomen: Bowel Sounds Present, Soft, Non Tender, Obese Extremities: No clubbing, No cyanosis, Edema - Trace Skin: - - No change compared to previous Musculoskeletal: No Tenderness to Palpation of Joints or Extremities Lymphatic: No Cervical, Supraclavicular, or Inguinal Adenopathy Neurological: Cranial nerves II-XII grossly intact, Neuro grossly intact - Spontaneous movement of all extremities. Strength appears to be intact. Not following commands. Positive gag and cough reflexes noted. Psych/Mental Status: Impulsive, Restless Vital Signs Temp Pulse Resp BP Pulse Ox 37.7 C H 90 24 H 161/69 H 91 12/13/19 04:00 12/13/19 07:00 12/13/19 07:00 12/13/19 07:00 12/13/19 07:00 Oxygen Delivery Method Mechanical Ventilator Weight: 114.305 kg Body Mass Index (BMI) 34.9 Finger Stick Blood Glucose 195 Intake and Output for Last 24 Hours 12/11/19 12/12/19 12/13/19 23:59 23:59 22:59 Intake Total 3446.28 / 3461.30 4167.80 / 4228.70 2879.11 / 2879.11 Output Total 4645 / 5045 3750 / 3750 800 / 800 Balance -1198.72 / -1583.70 417.80 / 478.70 2079.11 / 2079.11 Labs (Last 48 Hours) 12/11/19 12/11/19 12/11/19 04:50 11:46 17:40 WBC RBC Hgb 13.9 Hct 42.6 MCV MCH MCHC RDW Std Deviation RDW Coeff of [place] Plt Count MPV Neut % (Auto) Absolute Neuts (auto) Absolute Lymphs (auto) Total Counted Neutrophils % (Manual) Band Neutrophils % Lymphocytes % (Manual) Monocytes % (Manual) Metamyelocytes % Diff Path Review Reactive Lymphocytes Platelet Estimate Specimen Type Sample Site pH Bicarbonate Actual Total CO2 Base Excess O2 Saturation O2 % ABG pCO2 ABG pO2 [place] Test O2 Delivery Device Vent Mode POC PEEP POC Pressure Suppt Sodium Potassium Chloride Carbon Dioxide Anion Gap BUN Creatinine Estim Creat Clear Calc Est GFR (MDRD) Af Amer Est GFR (MDRD) Non-Af BUN/Creatinine Ratio Glucose Calcium Magnesium 1.8 Total Bilirubin AST ALT Alkaline Phosphatase Total Protein Albumin Globulin Albumin/Globulin Ratio Ur Random Sodium Urine Creatinine Urine Urea Nitrogen POC Glucose 338 H 12/11/19 12/11/19 12/12/19 18:49 23:41 02:40 WBC 11.3 H RBC 4.60 Hgb 13.9 Hct 43.3 MCV 94.1 H MCH 30.2 MCHC 32.1 RDW Std Deviation 46.9 H RDW Coeff of Preston 13.6 Plt Count 69 L MPV 11.3 Neut % (Auto) Absolute Neuts (auto) Absolute Lymphs (auto) Total Counted Neutrophils % (Manual) Band Neutrophils % Lymphocytes % (Manual) Monocytes % (Manual) Metamyelocytes % Diff Path Review Reactive Lymphocytes Platelet Estimate Specimen Type Sample Site pH Bicarbonate Actual Total CO2 Base Excess O2 Saturation O2 % ABG pCO2 ABG pO2 [place] Test O2 Delivery Device Vent Mode POC PEEP POC Pressure Suppt Sodium Potassium Chloride Carbon Dioxide Anion Gap BUN Creatinine Estim Creat Clear Calc Est GFR (MDRD) Af Amer Est GFR (MDRD) Non-Af BUN/Creatinine Ratio Glucose Calcium Magnesium Total Bilirubin AST ALT Alkaline Phosphatase Total Protein Albumin Globulin Albumin/Globulin Ratio Ur Random Sodium Urine Creatinine Urine Urea Nitrogen POC Glucose 491 H* 466 H* 12/12/19 12/12/19 12/12/19 02:40 04:12 08:38 WBC RBC Hgb Hct MCV MCH MCHC RDW Std Deviation RDW Coeff of [place] Plt Count MPV Neut % (Auto) Absolute Neuts (auto) Absolute Lymphs (auto) Total Counted Neutrophils % (Manual) Band Neutrophils % Lymphocytes % (Manual) Monocytes % (Manual) Metamyelocytes % Diff Path Review Reactive Lymphocytes Platelet Estimate Specimen Type Sample Site pH Bicarbonate Actual Total CO2 Base Excess O2 Saturation O2 % ABG pCO2 ABG pO2 [place] Test O2 Delivery Device Vent Mode POC PEEP POC Pressure Suppt Sodium 154 H Potassium 3.0 L Chloride 121 H Carbon Dioxide 26.0 Anion Gap 7 BUN 54 H Creatinine 1.51 H Estim Creat Clear Calc 49.87 Est GFR (MDRD) Af Amer 59 L Est GFR (MDRD) Non-Af 49 L BUN/Creatinine Ratio 35.8 H Glucose 373 H Calcium 7.0 L Magnesium 2.2 Total Bilirubin 0.90 AST 37 ALT 21 Alkaline Phosphatase 69 Total Protein 5.4 L Albumin 2.0 L Globulin 3.4 Albumin/Globulin Ratio 0.6 L Ur Random Sodium Urine Creatinine Urine Urea Nitrogen POC Glucose 420 H 272 H 12/12/19 12/12/19 12/12/19 10:30 11:37 12:10 WBC RBC Hgb Hct MCV MCH MCHC RDW Std Deviation RDW Coeff of [place] Plt Count MPV Neut % (Auto) Absolute Neuts (auto) Absolute Lymphs (auto) Total Counted Neutrophils % (Manual) Band Neutrophils % Lymphocytes % (Manual) Monocytes % (Manual) Metamyelocytes % Diff Path Review Reactive Lymphocytes Platelet Estimate Specimen Type Sample Site pH Bicarbonate Actual Total CO2 Base Excess O2 Saturation O2 % ABG pCO2 ABG pO2 [place] Test O2 Delivery Device Vent Mode POC PEEP POC Pressure Suppt Sodium 160 H Potassium 4.1 Chloride 128 H* Carbon Dioxide 27.0 Anion Gap 5 BUN 55 H Creatinine 1.52 H Estim Creat Clear Calc 49.54 Est GFR (MDRD) Af Amer 59 L Est GFR (MDRD) Non-Af 49 L BUN/Creatinine Ratio 36.2 H Glucose 187 H Calcium 7.7 L Magnesium Total Bilirubin AST ALT Alkaline Phosphatase Total Protein Albumin Globulin Albumin/Globulin Ratio Ur Random Sodium 44 Urine Creatinine 52.20 Urine Urea Nitrogen 1084 POC Glucose 182 H 12/12/19 12/12/19 12/12/19 15:20 18:35 23:37 WBC RBC Hgb Hct MCV MCH MCHC RDW Std Deviation RDW Coeff of [place] Plt Count MPV Neut % (Auto) Absolute Neuts (auto) Absolute Lymphs (auto) Total Counted Neutrophils % (Manual) Band Neutrophils % Lymphocytes % (Manual) Monocytes % (Manual) Metamyelocytes % Diff Path Review Reactive Lymphocytes Platelet Estimate Specimen Type Sample Site pH Bicarbonate Actual Total CO2 Base Excess O2 Saturation O2 % ABG pCO2 ABG pO2 [place] Test O2 Delivery Device Vent Mode POC PEEP POC Pressure Suppt Sodium 159 H 158 H Potassium 4.3 4.8 Chloride 127 H* 127 H* Carbon Dioxide 29.0 28.0 Anion Gap 3 L 3 L BUN 57 H 56 H Creatinine 1.47 H 1.56 H Estim Creat Clear Calc 51.22 48.27 Est GFR (MDRD) Af Amer 61 57 L Est GFR (MDRD) Non-Af 51 L 47 L BUN/Creatinine Ratio 38.8 H 35.9 H Glucose 185 H 199 H Calcium 7.8 L 7.7 L Magnesium Total Bilirubin AST ALT Alkaline Phosphatase Total Protein Albumin Globulin Albumin/Globulin Ratio Ur Random Sodium Urine Creatinine Urine Urea Nitrogen POC Glucose 230 H 12/13/19 12/13/19 12/13/19 03:47 04:00 04:00 WBC 16.0 H RBC 4.15 L Hgb 12.6 L Hct 40.0 MCV 96.4 H MCH 30.4 MCHC 31.5 L RDW Std Deviation 49.4 H RDW Coeff of [place] 13.7 Plt Count 62 L MPV 12.4 H Neut % (Auto) Not Reportable Absolute Neuts (auto) 9.0 H Absolute Lymphs (auto) 2.56 Total Counted 100 Neutrophils % (Manual) 43 L Band Neutrophils % 13 H Lymphocytes % (Manual) 16 L Monocytes % (Manual) 21 H Metamyelocytes % 7 H Diff Path Review May foll Reactive Lymphocytes 1+ Platelet Estimate MOD DEC Specimen Type Sample Site pH Bicarbonate Actual Total CO2 Base Excess O2 Saturation O2 % ABG pCO2 ABG pO2 [place] Test O2 Delivery Device Vent Mode POC PEEP POC Pressure Suppt Sodium 154 H Potassium 4.0 Chloride 122 H Carbon Dioxide 27.0 Anion Gap 5 BUN 51 H Creatinine 1.47 H Estim Creat Clear Calc 51.22 Est GFR (MDRD) Af Amer 61 Est GFR (MDRD) Non-Af 51 L BUN/Creatinine Ratio 34.7 H Glucose 266 H Calcium 7.0 L Magnesium Total Bilirubin 0.60 AST 36 ALT 21 Alkaline Phosphatase 49 Total Protein 5.0 L Albumin 1.9 L Globulin 3.1 Albumin/Globulin Ratio 0.6 L Ur Random Sodium Urine Creatinine Urine Urea Nitrogen POC Glucose 264 H 12/13/19 05:58 WBC RBC Hgb Hct MCV MCH MCHC RDW Std Deviation RDW Coeff of [place] Plt Count MPV Neut % (Auto) Absolute Neuts (auto) Absolute Lymphs (auto) Total Counted Neutrophils % (Manual) Band Neutrophils % Lymphocytes % (Manual) Monocytes % (Manual) Metamyelocytes % Diff Path Review Reactive Lymphocytes Platelet Estimate Specimen Type ART Sample Site L Radial pH 7.46 H Bicarbonate Actual 25.2 Total CO2 26 Base Excess 1 O2 Saturation 96 O2 % 45 ABG pCO2 35.5 ABG pO2 77 [place] Test Positive O2 Delivery Device Adult Vent Vent Mode CPAP/PS POC PEEP 5 POC Pressure Suppt 5 Sodium Potassium Chloride Carbon Dioxide Anion Gap BUN Creatinine Estim Creat Clear Calc Est GFR (MDRD) Af Amer Est GFR (MDRD) Non-Af BUN/Creatinine Ratio Glucose Calcium Magnesium Total Bilirubin AST ALT Alkaline Phosphatase Total Protein Albumin Globulin Albumin/Globulin Ratio Ur Random Sodium Urine Creatinine Urine Urea Nitrogen POC Glucose Microbiology 12/07/19 09:15 Blood Culture (Wb) - Right Hand Blood Culture - Final No growth in 5 days. 12/07/19 07:55 Blood Culture (Wb) - Anticubital Left Blood Culture - Final No growth in 5 days. Medical Necessity - Tobacco Use Smoking Status: Unknown if ever smoked Tobacco Use: Non-smoker Assessment/Plan All Active Problems (Last Reviewed 05/27/18 @ 10:[address] Hardeep Jackson MD) COVID-19 with multiple comorbidities (Acute) COVID-19 with pulmonary comorbidity (Acute) Acute respiratory failure with hypoxia (Acute) Gross hematuria (Acute) Hypertensive urgency (Acute) Encephalopathy (Acute) RECOMMENDATIONS: 1. Wean PEEP and FiO2 as tolerated 2. Continue supportive care for hematuria 3. Continue to hold anticoagulation 4. Increase free water. 5. Continue basal insulin 6. PT OT to evaluate as possible 7. Continue Precedex therapy to facilitate spontaneous breathing trials. 8. Possible extubation in the next 24 to 48 hours IMPRESSIONS: 1. Acute hypoxic respiratory failure secondary to COVID-19 Patient with significant infiltrates bilaterally on chest x-ray. These findings could be suggestive of COVID-19 pneumonitis versus congestive heart failure. BNP was slightly elevated. Patient does have a history of hypertension, so diastolic dysfunction would be a consideration. Patient is on Decadron and remdesivir. Patient has had a stable platelet count and hemoglobin for over 48 hours. Patient was able to pass a spontaneous breathing trial, but some concern for his mentation. No seizure activity has been reported, but will hold on extubation for now and attempt to address hypernatremia and hyperchloremia. 2. Possible congestive heart failure Patient does have a long history of hypertension. Echo suspicion for an element of diastolic CHF. Echocardiogram has been ordered in relation to the stroke work-up. Patient's weight is up slightly compared to yesterday with documented positive fluid balance. Patient has improved with free water flushes. 3. Thrombocytopenia with hematuria Patient does have a history of BPH and is on doxazosin as an outpatient. Patient does have thrombocytopenia of unclear etiology. Patient would be at risk for DIC, but fibrinogen was elevated on presentation. Platelets appear to be stable at this time. Continue to hold aspirin and Lovenox. It is unclear if thrombocytopenia is a known condition that was not reported. Work-up as an outpatient may be indicated. 4. Acute kidney injury Renal function is worsening. Clinical suspicion for an element of ATN secondary to protracted hypoxia. Patient does have reasonable urine output at this time. Low clinical suspicion for postobstructive uropathy. Clinical suspicion for an element of osmotic diuresis secondary to hyperglycemia. 5. Diabetes mellitus/advanced age/obesity Complicates care, management, recovery and prognosis. Continue tube feeds. Ankle suspicion for an element of osmotic diuresis secondary to hyperglycemia. Coverage will be escalated significantly. 6. New onset seizure secondary to new left cerebellar infarct Patient undergoing stroke work-up including echocardiogram. Patient was placed on Keppra therapy with improvement. Unable to assess some neurologic findings secondary to Precedex, vent synchrony and intubation. Blood pressures are well controlled on current regimen TIME: 35 minutes critical care time spent addressing patient's acute hypoxic respiratory failure, possible CHF, thrombocytopenia, acute kidney injury, diabetes mellitus, review of all data and collaboration with care team (7:15 AM to 8:15 AM) [id number]: [id number] Critical care first hour
[2019-12-13] MEDS: Chlorhexidine 15 ML PO ×2 (10:44→22:33)
[2019-12-13] MEDS: dexAMETHasone 10 MG/ML Vial 6 MG IV (10:44)
[2019-12-13] MEDS: Senna/Docusate Sodium 1 Tablet GT ×2 (10:45→22:35)
[2019-12-13] MEDS: Metoprolol Tartrate 50 MG Tablet PO ×2 (10:45→22:33)
[2019-12-13 10:56] LABS: Bedside Glucose 189 mg/dL (70-110)
[2019-12-13 13:06] LABS: Bedside Glucose 255 mg/dL (70-110)
[2019-12-13 16:51] LABS: Bedside Glucose 206 mg/dL (70-110)
[2019-12-13 16:51] LABS: Bedside Glucose 240 mg/dL (70-110)
[2019-12-13 20:36] LABS: Bedside Glucose 181 mg/dL (70-110)
--- NOTE | 2019-12-13 21:11 | NURSING ---
right upper arm picc pulled out approx 4 inches. peripheral ivs started x2.
[2019-12-13] MEDS: Atorvastatin Calcium 40 MG Tablet PO (22:33)
[2019-12-13] MEDS: QUEtiapine 100 MG Tablet PO (22:36)
--- NOTE | 2019-12-13 23:03 | NURSING ---
precedex verified with Jessica Alonzo
--- NOTE | 2019-12-13 23:04 | NURSING ---
protonix verified with yocasta Alonzo
--- NOTE | 2019-12-13 23:17 | NURSING ---
text sent to Dr Roy regarding clarifying insulin order.
[2019-12-13 23:26] LABS: Bedside Glucose 143 mg/dL (70-110)
[2019-12-14] VITALS (35 sets, daily range): BP systolic 104–199; BP diastolic 58–138; PULSE 63–112; RESP 15–26; TEMP 36.5–37.2; O2SAT 88–94
[2019-12-14 03:55] LABS: Bedside Glucose 136 mg/dL (70-110)
[2019-12-14 04:54] LABS: Absolute Lymphocyte Count 1.72 X10^3/uL (0.83-4.51); Absolute Neutrophil Count 12.3 X10^3/uL (2.0-7.7); Basophil# 0.07 X10^3/uL; Basophil% 0.4 % (0-1); Differential Indicated SCAN CRITERIA MET; Eosinophil# 0.01 X10^3/uL; Eosinophils% 0.1 % (0-5); Hematocrit 40.4 % (40-54); Hemoglobin 13.1 g/dL (13.0-16.5); Lymphocyte # 1.72 X10^3/ul (4.0); Lymphocyte % 8.6 % (19-41); Mean Corp Hgb Conc 32.4 g/dL (32-36); Mean Corpuscular Hgb 30.7 pg (27.0-32.0); Mean Corpuscular Volume 94.6 fL (80-94); Mean Platelet Vol. 12.6 fl (6.2-12.0); Monocyte# 4.96 X10^3/uL; Monocyte% 24.9 % (0-10); NRBC Flagged by Analyzer 0.6 % (0-5); Neutrophil # 12.25 X10^3/uL (2.7-7.7); Neutrophil % 61.4 % (47-70); POSITIVE COUNT YES; POSITIVE DIFFERENTIAL YES; Platelet Count 52 K/mm3 (150-450); RBC Distribution Width CV 13.3 % (11.6-14.6); Red Blood Count 4.27 M/mm3 (4.6-6.2); White Blood Count 19.9 K/mm3 (4.4-11.0)
[2019-12-14 05:01] LABS: International Normalized Ratio 1.5; Prothrombin Time (Protime)PT. 17.3 SECONDS (11.7-14.9)
[2019-12-14 05:15] LABS: Procalcitonin 0.19 ng/mL (0.00-0.09)
[2019-12-14 05:20] LABS: D-Dimer Quantitative (DVT/PE) > 20.00 FEU/ug/m (0.27-0.49)
[2019-12-14 05:23] LABS: Differential Comment SCANNED
[2019-12-14 05:32] LABS: ALB/GLOB Ratio 0.6 RATIO (0.9-2.4); AST(SGOT) 40 U/L (15-37); Alanine Aminotransfer ALT/SGPT 19 U/L (16-61); Alkaline Phosphatase 55 U/L (45-117); Anion Gap 4 (5-15); BUN 37 mg/dL (7-18); BUN/Creat Ratio 30.1 RATIO (10-20); Calcium,Total 7.5 mg/dL (8.5-10.1); Chloride 120 mmol/L (98-107); Creatinine, Serum 1.23 mg/dL (0.70-1.30); EST Glomerular Filtration Rate 62 mL/min (>60); Est Glom Filt Rate - Afr Amer 75 mL/min (>60); Estimated Creatinine Clearance 61.22 ml/min; Globulin 3.4 g/dL (2.2-4.2); Glucose 176 mg/dL (74-106); Potassium 4.1 mmol/L (3.5-5.1); Protein, Total 5.4 g/dL (6.4-8.2); Sodium Level 152 mmol/L (136-145)
[2019-12-14] MEDS: Nystatin Powder 15gm Bottle 1 APPLIC TOPICAL ×3 (05:50→21:54)
--- NOTE | 2019-12-14 06:07 | PN_ITS ---
Subjective: The patient was seen and examined at the bedside this morning. Events from the last 24 hours have been reviewed. The patient is currently afebrile, hemodynamically stable and maintaining appropriate oxygen saturations on BiPAP with an FiO2 requirement of 45% and PEEP of 5. Sodium is elevated to 152 with a chloride of 120. Although the patient did okay this morning on his spontaneous breathing trial, he was not alert or following commands. In addition, nursing staff did report significant endotracheal secretions. Therefore, the patient sp ontaneous breathing trial was discontinued and he was placed back on assist control mode of mechanical ventilation. The patient is currently documented to be overall net +11.7 L for the hospital admission. Objective: The patient's most recent lab work, culture data and imaging studies have all been personally reviewed. Surface echocardiogram revealed moderate concentric LVH with an ejection fraction of 55%. Coronavirus was positive on December 06. Infectious work-up has been otherwise negative to date. CT head from December 09 revealed a new focal area of low-attenuation involving the superior edge of the left cerebellum concerning for possible infarction. General: - - Remains intubated, sedated and mechanically ventilated. HEENT: Normocephalic Oral: Moist Mucosa, - - Endotracheal and OG tubes in place Neck: Supple, No Nodes, Trachea Midline Lungs: Diminished, Tachypneic Cardiovascular: Regular rate, Regular Rhythm Abdomen: Bowel Sounds Present, Soft, Non Tender, Obese Extremities: No clubbing, No cyanosis, Edema Skin: No breakdown Musculoskeletal: No Muscle Wasting Lymphatic: No Cervical, Supraclavicular, or Inguinal Adenopathy Neurological: - - The patient moves extremities spontaneously. However, he is nondirectable. Psych/Mental Status: Impulsive, Restless Vital Signs Temp Pulse Resp BP Pulse Ox 98.9 F 77 20 H 154/70 H 94 12/14/19 00:00 12/14/19 05:00 12/14/19 05:00 12/14/19 05:00 12/14/19 05:00 Oxygen Delivery Method Bi-pap Weight: 255 lb 11.2 oz Body Mass Index (BMI) 34.9 Finger Stick Blood Glucose 195 Intake and Output for Last 24 Hours 12/13/19 12/13/19 12/14/19 00:59 23:59 23:59 Intake Total 1564.50 / 1564.50 Output Total 750 / 750 Balance 814.50 / 814.50 Labs (Last 48 Hours) 12/12/19 12/12/19 12/12/19 08:38 10:30 11:37 WBC RBC Hgb Hct MCV MCH MCHC RDW Std Deviation RDW Coeff of [place] Plt Count MPV Immature Gran % (Auto) Neut % (Auto) Lymph % (Auto) [place] % (Auto) Eos % (Auto) Baso % (Auto) Absolute Neuts (auto) Absolute Lymphs (auto) Total Counted Neutrophils % (Manual) Band Neutrophils % Lymphocytes % (Manual) Monocytes % (Manual) Metamyelocytes % Nucleated RBC % Differential Comment Diff Path Review Reactive Lymphocytes Platelet Estimate PT INR D-Dimer Quant (PE/DVT) Specimen Type Sample Site pH Bicarbonate Actual Total CO2 Base Excess O2 Saturation O2 % ABG pCO2 ABG pO2 [place] Test O2 Delivery Device Vent Mode POC PEEP POC Pressure Suppt Sodium Potassium Chloride Carbon Dioxide Anion Gap BUN Creatinine Estim Creat Clear Calc Est GFR (MDRD) Af Amer Est GFR (MDRD) Non-Af BUN/Creatinine Ratio Glucose Calcium Total Bilirubin AST ALT Alkaline Phosphatase Total Protein Albumin Globulin Albumin/Globulin Ratio Procalcitonin Ur Random Sodium 44 Urine Creatinine 52.20 Urine Urea Nitrogen 1084 POC Glucose 272 H 182 H 12/12/19 12/12/19 12/12/19 12:10 15:20 18:35 WBC RBC Hgb Hct MCV MCH MCHC RDW Std Deviation RDW Coeff of [place] Plt Count MPV Immature Gran % (Auto) Neut % (Auto) Lymph % (Auto) [place] % (Auto) Eos % (Auto) Baso % (Auto) Absolute Neuts (auto) Absolute Lymphs (auto) Total Counted Neutrophils % (Manual) Band Neutrophils % Lymphocytes % (Manual) Monocytes % (Manual) Metamyelocytes % Nucleated RBC % Differential Comment Diff Path Review Reactive Lymphocytes Platelet Estimate PT INR D-Dimer Quant (PE/DVT) Specimen Type Sample Site pH Bicarbonate Actual Total CO2 Base Excess O2 Saturation O2 % ABG pCO2 ABG pO2 [place] Test O2 Delivery Device Vent Mode POC PEEP POC Pressure Suppt Sodium 160 H 159 H 158 H Potassium 4.1 4.3 4.8 Chloride 128 H* 127 H* 127 H* Carbon Dioxide 27.0 29.0 28.0 Anion Gap 5 3 L 3 L BUN 55 H 57 H 56 H Creatinine 1.52 H 1.47 H 1.56 H Estim Creat Clear Calc 49.54 51.22 48.27 Est GFR (MDRD) Af Amer 59 L 61 57 L Est GFR (MDRD) Non-Af 49 L 51 L 47 L BUN/Creatinine Ratio 36.2 H 38.8 H 35.9 H Glucose 187 H 185 H 199 H Calcium 7.7 L 7.8 L 7.7 L Total Bilirubin AST ALT Alkaline Phosphatase Total Protein Albumin Globulin Albumin/Globulin Ratio Procalcitonin Ur Random Sodium Urine Creatinine Urine Urea Nitrogen POC Glucose 12/12/19 12/12/19 12/13/19 20:05 23:37 03:47 WBC RBC Hgb Hct MCV MCH MCHC RDW Std Deviation RDW Coeff of [place] Plt Count MPV Immature Gran % (Auto) Neut % (Auto) Lymph % (Auto) [place] % (Auto) Eos % (Auto) Baso % (Auto) Absolute Neuts (auto) Absolute Lymphs (auto) Total Counted Neutrophils % (Manual) Band Neutrophils % Lymphocytes % (Manual) Monocytes % (Manual) Metamyelocytes % Nucleated RBC % Differential Comment Diff Path Review Reactive Lymphocytes Platelet Estimate PT INR D-Dimer Quant (PE/DVT) Specimen Type Sample Site pH Bicarbonate Actual Total CO2 Base Excess O2 Saturation O2 % ABG pCO2 ABG pO2 [place] Test O2 Delivery Device Vent Mode POC PEEP POC Pressure Suppt Sodium Potassium Chloride Carbon Dioxide Anion Gap BUN Creatinine Estim Creat Clear Calc Est GFR (MDRD) Af Amer Est GFR (MDRD) Non-Af BUN/Creatinine Ratio Glucose Calcium Total Bilirubin AST ALT Alkaline Phosphatase Total Protein Albumin Globulin Albumin/Globulin Ratio Procalcitonin Ur Random Sodium Urine Creatinine Urine Urea Nitrogen POC Glucose 189 H 230 H 264 H 12/13/19 12/13/19 12/13/19 04:00 04:00 05:58 WBC 16.0 H RBC 4.15 L Hgb 12.6 L Hct 40.0 MCV 96.4 H MCH 30.4 MCHC 31.5 L RDW Std Deviation 49.4 H RDW Coeff of [place] 13.7 Plt Count 62 L MPV 12.4 H Immature Gran % (Auto) Neut % (Auto) Not Reportable Lymph % (Auto) [place] % (Auto) Eos % (Auto) Baso % (Auto) Absolute Neuts (auto) 9.0 H Absolute Lymphs (auto) 2.56 Total Counted 100 Neutrophils % (Manual) 43 L Band Neutrophils % 13 H Lymphocytes % (Manual) 16 L Monocytes % (Manual) 21 H Metamyelocytes % 7 H Nucleated RBC % Differential Comment Diff Path Review May foll Reactive Lymphocytes 1+ Platelet Estimate MOD DEC PT INR D-Dimer Quant (PE/DVT) Specimen Type ART Sample Site L Radial pH 7.46 H Bicarbonate Actual 25.2 Total CO2 26 Base Excess 1 O2 Saturation 96 O2 % 45 ABG pCO2 35.5 ABG pO2 77 [place] Test Positive O2 Delivery Device Adult Vent Vent Mode CPAP/PS POC PEEP 5 POC Pressure Suppt 5 Sodium 154 H Potassium 4.0 Chloride 122 H Carbon Dioxide 27.0 Anion Gap 5 BUN 51 H Creatinine 1.47 H Estim Creat Clear Calc 51.22 Est GFR (MDRD) Af Amer 61 Est GFR (MDRD) Non-Af 51 L BUN/Creatinine Ratio 34.7 H Glucose 266 H Calcium 7.0 L Total Bilirubin 0.60 AST 36 ALT 21 Alkaline Phosphatase 49 Total Protein 5.0 L Albumin 1.9 L Globulin 3.1 Albumin/Globulin Ratio 0.6 L Procalcitonin Ur Random Sodium Urine Creatinine Urine Urea Nitrogen POC Glucose 12/13/19 12/13/19 12/13/19 07:57 11:43 16:42 WBC RBC Hgb Hct MCV MCH MCHC RDW Std Deviation RDW Coeff of [place] Plt Count MPV Immature Gran % (Auto) Neut % (Auto) Lymph % (Auto) [place] % (Auto) Eos % (Auto) Baso % (Auto) Absolute Neuts (auto) Absolute Lymphs (auto) Total Counted Neutrophils % (Manual) Band Neutrophils % Lymphocytes % (Manual) Monocytes % (Manual) Metamyelocytes % Nucleated RBC % Differential Comment Diff Path Review Reactive Lymphocytes Platelet Estimate PT INR D-Dimer Quant (PE/DVT) Specimen Type Sample Site pH Bicarbonate Actual Total CO2 Base Excess O2 Saturation O2 % ABG pCO2 ABG pO2 [place] Test O2 Delivery Device Vent Mode POC PEEP POC Pressure Suppt Sodium Potassium Chloride Carbon Dioxide Anion Gap BUN Creatinine Estim Creat Clear Calc Est GFR (MDRD) Af Amer Est GFR (MDRD) Non-Af BUN/Creatinine Ratio Glucose Calcium Total Bilirubin AST ALT Alkaline Phosphatase Total Protein Albumin Globulin Albumin/Globulin Ratio Procalcitonin Ur Random Sodium Urine Creatinine Urine Urea Nitrogen POC Glucose 255 H 240 H 206 H 12/13/19 12/13/19 12/14/19 20:09 22:30 03:44 WBC RBC Hgb Hct MCV MCH MCHC RDW Std Deviation RDW Coeff of [place] Plt Count MPV Immature Gran % (Auto) Neut % (Auto) Lymph % (Auto) [place] % (Auto) Eos % (Auto) Baso % (Auto) Absolute Neuts (auto) Absolute Lymphs (auto) Total Counted Neutrophils % (Manual) Band Neutrophils % Lymphocytes % (Manual) Monocytes % (Manual) Metamyelocytes % Nucleated RBC % Differential Comment Diff Path Review Reactive Lymphocytes Platelet Estimate PT INR D-Dimer Quant (PE/DVT) Specimen Type Sample Site pH Bicarbonate Actual Total CO2 Base Excess O2 Saturation O2 % ABG pCO2 ABG pO2 [place] Test O2 Delivery Device Vent Mode POC PEEP POC Pressure Suppt Sodium Potassium Chloride Carbon Dioxide Anion Gap BUN Creatinine Estim Creat Clear Calc Est GFR (MDRD) Af Amer Est GFR (MDRD) Non-Af BUN/Creatinine Ratio Glucose Calcium Total Bilirubin AST ALT Alkaline Phosphatase Total Protein Albumin Globulin Albumin/Globulin Ratio Procalcitonin Ur Random Sodium Urine Creatinine Urine Urea Nitrogen POC Glucose 181 H 143 H 136 H 12/14/19 12/14/19 12/14/19 04:35 04:35 04:35 WBC 19.9 H RBC 4.27 L Hgb 13.1 Hct 40.4 MCV 94.6 H MCH 30.7 MCHC 32.4 RDW Std Deviation 46.0 H RDW Coeff of [place] 13.3 Plt Count 52 L MPV 12.6 H Immature Gran % (Auto) 4.600 H Neut % (Auto) 61.4 Lymph % (Auto) 8.6 L [place] % (Auto) 24.9 H Eos % (Auto) 0.1 Baso % (Auto) 0.4 Absolute Neuts (auto) 12.3 H Absolute Lymphs (auto) 1.72 Total Counted Neutrophils % (Manual) Band Neutrophils % Lymphocytes % (Manual) Monocytes % (Manual) Metamyelocytes % Nucleated RBC % 0.6 Differential Comment SCANNED Diff Path Review May foll Reactive Lymphocytes Platelet Estimate PT 17.3 H INR 1.5 D-Dimer Quant (PE/DVT) > 20.00 H* Specimen Type Sample Site pH Bicarbonate Actual Total CO2 Base Excess O2 Saturation O2 % ABG pCO2 ABG pO2 [place] Test O2 Delivery Device Vent Mode POC PEEP POC Pressure Suppt Sodium 152 H Potassium 4.1 Chloride 120 H Carbon Dioxide 28.0 Anion Gap 4 L BUN 37 H Creatinine 1.23 Estim Creat Clear Calc 61.22 Est GFR (MDRD) Af Amer 75 Est GFR (MDRD) Non-Af 62 BUN/Creatinine Ratio 30.1 H Glucose 176 H Calcium 7.5 L Total Bilirubin 1.10 H AST 40 H ALT 19 Alkaline Phosphatase 55 Total Protein 5.4 L Albumin 2.0 L Globulin 3.4 Albumin/Globulin Ratio 0.6 L Procalcitonin Ur Random Sodium Urine Creatinine Urine Urea Nitrogen POC Glucose 12/14/19 04:35 WBC RBC Hgb Hct MCV MCH MCHC RDW Std Deviation RDW Coeff of [place] Plt Count MPV Immature Gran % (Auto) Neut % (Auto) Lymph % (Auto) [place] % (Auto) Eos % (Auto) Baso % (Auto) Absolute Neuts (auto) Absolute Lymphs (auto) Total Counted Neutrophils % (Manual) Band Neutrophils % Lymphocytes % (Manual) Monocytes % (Manual) Metamyelocytes % Nucleated RBC % Differential Comment Diff Path Review Reactive Lymphocytes Platelet Estimate PT INR D-Dimer Quant (PE/DVT) Specimen Type Sample Site pH Bicarbonate Actual Total CO2 Base Excess O2 Saturation O2 % ABG pCO2 ABG pO2 [place] Test O2 Delivery Device Vent Mode POC PEEP POC Pressure Suppt Sodium Potassium Chloride Carbon Dioxide Anion Gap BUN Creatinine Estim Creat Clear Calc Est GFR (MDRD) Af Amer Est GFR (MDRD) Non-Af BUN/Creatinine Ratio Glucose Calcium Total Bilirubin AST ALT Alkaline Phosphatase Total Protein Albumin Globulin Albumin/Globulin Ratio Procalcitonin 0.19 H Ur Random Sodium Urine Creatinine Urine Urea Nitrogen POC Glucose Microbiology 12/07/19 09:15 Blood Culture (Wb) - Right Hand Blood Culture - Final No growth in 5 days. 12/07/19 07:55 Blood Culture (Wb) - Anticubital Left Blood Culture - Final No growth in 5 days. Clinical Impression(s) from Imaging Studies Chest X-Ray 12/07/19 08:08 IMPRESSION: Diffuse bilateral alveolar infiltrates more prominent in the left hemithorax. Differential diagnosis should include either pulmonary edema or diffuse bilateral pneumonia. Electronically Signed: Damion Choi, at 8:46 EDT , Service support , Brain CT 12/10/19 19:42 IMPRESSION: There is a new focal area of low-attenuation involving the superior edge of the left cerebellum. A focal infarct cannot be excluded. Electronically Signed: Fred Perdomo DO at 20:37 EDT Tel [phone], Service support , ADDENDUM: 12/10/192051 IMPRESSION: There is a new focal area of low-attenuation involving the superior edge of the left cerebellum. A focal infarct cannot be excluded. N.B. : The above information has been verbally conveyed by Fred Perdomo DO to Leila Paredes RN, on 12/10/2019 20:45:49 (ET). Electronically Signed: Fred Perdomo DO at 20:37 EDT Tel [phone], Service support , KUB X-Ray 12/11/19 15:35 IMPRESSION: OG/NG tube tip in the body of the stomach Electronically Signed: Chaitanya Fonseca MD at 17:18 EDT , Service support , Medical Necessity - Tobacco Use Smoking Status: Unknown if ever smoked Tobacco Use: Non-smoker Assessment/Plan All Active Problems (Last Reviewed 05/27/18 @ 10:[address] Hardeep Jackson MD) COVID-19 with multiple comorbidities (Acute) COVID-19 with pulmonary comorbidity (Acute) Acute respiratory failure with hypoxia (Acute) Gross hematuria (Acute) RYAN (acute kidney injury) (Acute) Hypertensive urgency (Acute) Encephalopathy (Acute) RECOMMENDATIONS: 1. Continue invasive mechanical ventilatory support and wean FiO2 to maintain oxygen saturations at or above 90%. 2. Continue D5W as ordered. 3. Minimize sedation. Goal to maintain a RASS of -1 to 1. 4. Continue tube feeds as tolerated. 5. Continue Keppra as ordered. 6. Discontinue Seroquel. 7. Check TSH and ammonia levels. 8. Continue appropriate GI prophylaxis. 9. Consider additional head imaging studies if no improvement in mentation. IMPRESSIONS: 1. Acute hypoxemic respiratory failure secondary to COVID-19 pneumonia Continue current supportive measures with invasive mechanical ventilation and wean FiO2 to maintain oxygen saturations at or above 90%. The patient has already received convalescent plasma and has completed his course of remdesivir. He will be continued on Decadron to complete 10 days of treatment. Tube feeds will be continued as ordered. Recommend optimizing sedation to maintain a RASS of -1 to 1. At this time, the patient's mentation continues to be a barrier to attempts at extubation. Consider attempts at diuresis as tolerated by hemod ynamics and renal function. 2. Thrombocytopenia Likely related to underlying infectious etiologies. Continue to monitor for now. No indication for transfusion of blood products. 3. Hypernatremia/hyperchloremia Improving. Continue free water flushes for now. 4. Encephalopathy Likely metabolic in etiology. However, the patient was previously diagnosed with new seizure activity and a stroke. For now, we will plan to hold the patient sedation to better assess his underlying mentation. If he remains unresponsive and nondirectable, will consider additional head imaging studies. 5. Acute kidney injury Improving. Clinical suspicion for ATN. For now, we will continue current suppo rtive measures. Continue to monitor urine output. No indication for renal replacement therapy. 6. New onset seizures/left cerebellar infarct Plan to continue Keppra as ordered. Minimize sedation as tolerated. 7. Advanced age/diabetes mellitus/obesity/hypertension/hyperlipidemia Complicates care, management, recovery and prognosis. Continue home medications as indicated. TIME: 35 minutes of critical care time, independent of procedures, was spent addressing the patient's acute hypoxemic respiratory failure secondary to COVID- 19 pneumonia, thrombocytopenia, hypernatremia, encephalopathy, acute kidney injury, new onset seizure/CVA, review of all data and collaboration with the care team. ([id number]) [id number] Critical care first hour
[2019-12-14] MEDS: Chlorhexidine 15 ML PO ×2 (08:45→21:56)
[2019-12-14 09:52] LABS: Thyroid Stim Hormone (TSH) 1.13 uIU/mL (0.358-3.74)
[2019-12-14 10:25] LABS: Bedside Glucose 118 mg/dL (70-110)
[2019-12-14 10:35] LABS: Fibrinogen 227 mg/dl (203-444)
[2019-12-14 11:15] LABS: Allen Test Positive; Base Excess 3 mmol/L (-2 to +2); Bicarbonate 27.4 mmol/L (22-26); Blood Gas Specimen Type ART; FI02 50; O2 Delivery Device Adult Vent; PEEP 5; PO2 62 mmHG (75-100); RR 14; SITE L Radial; SO2 92 % (95-99); Total Carbon Dioxide 29 mmol/L; Vt 500; pCO2 40.6 mmHg (35-45); pH 7.44 (7.35-7.45)
--- NOTE | 2019-12-14 12:01 | PCM.PN.HOSP ---
Patient Problems: Active and Suspected Problems (Last Reviewed 05/27/18 @ 10:[address] Hardeep Jackson MD) COVID-19 with multiple comorbidities (Acute) COVID-19 with pulmonary comorbidity (Acute) Acute respiratory failure with hypoxia (Acute) Gross hematuria (Acute) Hypertensive urgency (Acute) Encephalopathy (Acute) Subjective: Patient seen and examined. He remains intubated. Patient looked uncomfortable was mildly agitated. Sodium is elevated at 152. Review of symptoms otherwise negative. Vitals/I&O's: Vital Signs Temp Pulse Resp BP Pulse Ox 98.4 F 72 23 H 158/70 H 94 12/14/19 08:00 12/14/19 11:21 12/14/19 11:21 12/14/19 11:00 12/14/19 11:21 Oxygen Delivery Method CPAP Weight: 255 lb 11.2 oz Body Mass Index (BMI) 34.9 Finger Stick Blood Glucose 195 Intake and Output for Last 24 Hours 12/13/19 12/13/19 12/14/19 00:59 23:59 23:59 Intake Total 2772.81 / 2772.81 Output Total 750 / 750 Balance 2022.81 / 2022.81 General: - - intubated, sedated, RASS score is +3 HEENT: Atraumatic, PERRLA, EOMI, Normocephalic Oral: Dry Mucosa Neck: Supple, No JVD, Negative Carotid Bruits Lungs: Tachypneic, - - decreased breath sounds bibasally, has bilateral coarse crackles. Intubated. Cardiovascular: Regular rate, Regular Rhythm, Normal S1, Normal S2, No murmurs Abdomen: Bowel Sounds Present, Soft, Non Tender, Non-Distended, No Hepato-splenomegaly Extremities: No clubbing, No cyanosis, No edema, Capillary Refill Less than 3 Seconds Skin: No rashes, No breakdown Musculoskeletal: No Tenderness to Palpation of Joints or Extremities Lymphatic: No Cervical, Supraclavicular, or Inguinal Adenopathy Neurological: Neuro grossly intact, - - Intubated, sedated. Moving all her extremities spontaneously. Psych/Mental Status: Agitated Microbiology Past 72 Hours 12/07/19 09:15 Blood Culture (Wb) - Right Hand Blood Culture - Final No growth in 5 days. 12/07/19 07:55 Blood Culture (Wb) - Anticubital Left Blood Culture - Final No growth in 5 days. Laboratory Results 12/13/19 07:57: POC Glucose 255 H 12/13/19 11:43: POC Glucose 240 H 12/13/19 16:42: POC Glucose 206 H 12/13/19 20:09: POC Glucose 181 H 12/13/19 22:30: POC Glucose 143 H 12/14/19 03:44: POC Glucose 136 H 12/14/19 04:35: WBC 19.9 H, RBC 4.27 L, Hgb 13.1, Hct 40.4, MCV 94.6 H, MCH 30.7, MCHC 32.4, RDW Std Deviation 46.0 H, RDW Coeff of [place] 13.3, Plt Count 52 L, MPV 12.6 H, Immature Gran % (Auto) 4.600 H, Neut % (Auto) 61.4, Lymph % (Auto) 8.6 L, [place] % (Auto) 24.9 H, Eos % (Auto) 0.1, Baso % (Auto) 0.4, Absolute Neuts (auto) 12.3 H, Absolute Lymphs (auto) 1.72, Nucleated RBC % 0.6, Differential Comment SCANNED, Diff Path Review June foll 12/14/19 04:35: Sodium 152 H, Potassium 4.1, Chloride 120 H, Carbon Dioxide 28.0, Anion Gap 4 L, BUN 37 H, Creatinine 1.23, Estim Creat Clear Calc 61.22, Est GFR (MDRD) Af Amer 75, Est GFR (MDRD) Non-Af 62, BUN/Creatinine Ratio 30.1 H, Glucose 176 H, Calcium 7.5 L, Total Bilirubin 1.10 H, AST 40 H, ALT 19, Alkaline Phosphatase 55, Total Protein 5.4 L, Albumin 2.0 L, Globulin 3.4, Albumin/Globulin Ratio 0.6 L 12/14/19 04:35: PT 17.3 H, INR 1.5, D-Dimer Quant (PE/DVT) > 20.00 H* 12/14/19 04:35: Procalcitonin 0.19 H 12/14/19 04:35: TSH 1.13 12/14/19 04:35: Fibrinogen 227 12/14/19 08:38: POC Glucose 118 H 12/14/19 10:55: Ammonia 43.0 H 12/14/19 11:09: Specimen Type ART, Sample Site L Radial, pH 7.44, Bicarbonate Actual 27.4 H, Total CO2 29, Base Excess 3 H, O2 Saturation 92 L, O2 % 50, ABG pCO2 40.6, ABG pO2 62 L, [place] Test Positive, Respiration Rate 14, O2 Delivery Device Adult Vent, Tidal Volume 500, POC PEEP 5 Diagnostic Data Chest X-Ray 12/07/19 08:08 IMPRESSION: Diffuse bilateral alveolar infiltrates more prominent in the left hemithorax. Differential diagnosis should include either pulmonary edema or diffuse bilateral pneumonia. Electronically Signed: Damion Choi, at 8:46 EDT , Service support , Brain CT 12/10/19 19:42 IMPRESSION: There is a new focal area of low-attenuation involving the superior edge of the left cerebellum. A focal infarct cannot be excluded. Electronically Signed: Fred Perdomo DO at 20:37 EDT Tel [phone], Service support , ADDENDUM: 12/10/192051 IMPRESSION: There is a new focal area of low-attenuation involving the superior edge of the left cerebellum. A focal infarct cannot be excluded. N.B. : The above information has been verbally conveyed by Fred Perdomo DO to Leila Paredes RN, on 12/10/2019 20:45:49 (ET). Electronically Signed: Fred Perdomo DO at 20:37 EDT Tel [phone], Service support , KUB X-Ray 12/11/19 15:35 IMPRESSION: OG/NG tube tip in the body of the stomach Electronically Signed: Chaitanya Fonseca MD at 17:18 EDT , Service support , Current Medications Atorvastatin Calcium (Atorvastatin Calcium 40 Mg Tablet) 40 mg PO QHS [facility] Last Admin: 12/13/19 22:33 Dose: 40 mg Documented by: Chlorhexidine Gluconate (Chlorhexidine 15 Ml) 15 ml PO BID [facility] Last Admin: 12/14/19 08:45 Dose: 15 ml Documented by: Dexamethasone Sodium Phosphate (Dexamethasone 10 Mg/Ml Vial) 6 mg IV DAILY [facility] Stop: 12/17/19 10:01 Last Admin: 12/13/19 10:44 Dose: 6 mg Documented by: Fentanyl Citrate 1,000 mcg/ (Sodium Chloride) 100 mls @ 2.5 mls/hr CONT INF .Q40H [facility]; Protocol Last Titration: 12/14/19 10:10 Dose: 0 mcg/hr, 0 mls/hr Documented by: Sodium Chloride () 250 mls @ 15 mls/hr IV .[id number] PRN PRN Reason: Saline Flush Sodium Chloride () 250 mls @ 15 mls/hr IV .[id number] PRN PRN Reason: Additional IVPB Infusion Last Admin: 12/14/19 03:25 Dose: 15 mls/hr Documented by: Pantoprazole Sodium 40 mg/ (Sodium Chloride) 110 mls @ 330 mls/hr IV Q12 [facility] Last Infusion: 12/13/19 23:04 Dose: Infused Documented by: Enteral Nutritional Formula (Vital High Protein) 1,000 mls @ 65 mls/hr GT .[id number] [facility] Last Admin: 12/13/19 15:21 Dose: Not Given Documented by: Levetiracetam 500 mg/ Sodium (Chloride) 105 mls @ 400 mls/hr IV Q12 [facility] Last Infusion: 12/13/19 23:28 Dose: Infused Documented by: Dexmedetomidine HCl 1,000 mcg/ (Sodium Chloride) 250 mls @ 14.288 mls/hr CONT INF .[id number] [facility]; Protocol Last Titration: 12/14/19 10:10 Dose: 0 mcg/kg/hr, 0 mls/hr Documented by: Dextrose () 1,000 mls @ 150 mls/hr IV .[id number] [facility] Last Admin: 12/14/19 10:16 Dose: Not Given Documented by: Insulin Glargine (Insulin Glargine 100 Units/Ml Pen) 60 units SC BID [facility] Last Admin: 12/13/19 23:36 Dose: 60 u Documented by: Insulin Human Lispro (Insulin Lispro 100 Unit/Ml Insuln.Pen) 0 unit SC Q4H [facility]; Protocol Last Admin: 12/14/19 08:40 Dose: Not Given Documented by: Labetalol HCl (Labetalol (Prefilled) 20 Mg/4 Ml) 10 mg IV Q4H PRN PRN PRN Reason: SBP > 220 OR DBP > 120 Lorazepam (Lorazepam 2 Mg/Ml Syringe) 2 - 6 mg IV Q5M PRN PRN Reason: SEIZURES Last Admin: 12/10/19 19:44 Dose: 2 mg Documented by: Metoprolol Tartrate (Metoprolol Tartrate 50 Mg Tablet) 50 mg PO BID [facility] Last Admin: 12/13/19 22:33 Dose: 50 mg Documented by: Nystatin (Nystatin Powder 15gm Bottle) 1 applic TOPICAL TID [facility]; Protocol Last Admin: 12/14/19 05:50 Dose: 1 applicatio Documented by: Senna/Docusate Sodium (Senna/Docusate Sodium 1 Tablet) 1 tablet GT BID [facility] Last Admin: 12/13/19 22:35 Dose: 1 tablet Documented by: Sodium Chloride (0.9% Saline Lock 10 Ml Syringe) 10 - 40 ml IV UD PRN PRN Reason: SALINE FLUSH Last Admin: 12/13/19 22:40 Dose: 40 ml Documented by: STROKE Vital Signs/Narrative: Vital Signs Pulse Resp BP Pulse Ox 12/14/19 11:21 72 23 H 94 12/14/19 11:00 88 22 H 158/70 H 93 12/14/19 10:00 78 20 H 136/81 H 92 12/14/19 09:00 83 22 H 141/81 H 93 Medical Necessity - Tobacco Use Smoking Status: Unknown if ever smoked Tobacco Use: Non-smoker Assessment/Plan All Active Problems (Last Reviewed 05/27/18 @ 10:[address] Hardeep Jackson MD) COVID-19 with multiple comorbidities (Acute) COVID-19 with pulmonary comorbidity (Acute) Acute respiratory failure with hypoxia (Acute) Gross hematuria (Acute) Hypertensive urgency (Acute) Encephalopathy (Acute) # Acute hypoxic respiratory failure due to COVID-19 pneumonia. Remains intubated and sedated. Patient currently on Precedex. Patient restless and agitated this morning. Could not be extubated on account of electrolyte abnormalities. Was on BiPAP this morning with FiO2 45% and PEEP of 5. Having increased endotracheal secretions so spontaneous breathing trial was stopped and placed back on assist control. Breathing treatments with bronchodilators. Titrate oxygen to maintain saturation above 90%. Critical care on board. Has completed a course of remdesivir and on IV dexamethasone till 12/17/2019. ID on board. on precedex for sedation. Aim for RAAS sore of 0-1 #Acute COVID 19 pneumonia Critical care and ID on board. As under respiratory failure management. # Acute left cerebellar stroke CT of the brain done showed acute left cerebellar stroke. Neurology consulted. Not on aspirin on account of bleeding. On high intensity statin as well as metoprolol. To get MRI. # Seizure: On IV Keppra. EEG is pending. Neurology consulted. # Hypernatremia is down to 152 today. On free water flushes and D5 water. # Hematuria Was having gross hematuria. Urology consulted. Not on aspirin or any anticoagulation and had no history of BPH. Await urology recommendations. # Acute Gastritis # Thromocytopenia R 52 today. May be Covid related. Not on any anticoagulation. Received Lovenox initially but this has been discontinued Hypokalemia and hypomagnesemia: resolved #RYAN: resolved. #hypertension: on metoprolol #Type 2 diabetes mellitus: on lantus 60units bid. ISS. Accuchecks ACHS DVT prophylaxis: SCDs. GI prophylaxis: PPI
[2019-12-14] MEDS: 0.9% Saline Lock 10 ML Syringe IV ×2 (12:15→12:28)
[2019-12-14] MEDS: dexAMETHasone 10 MG/ML Vial 6 MG IV (12:16)
[2019-12-14] MEDS: Vital High Protein 1,000 ML 65 ML GT ×3 (12:16→23:44)
[2019-12-14] MEDS: Senna/Docusate Sodium 1 Tablet GT ×2 (12:16→21:55)
[2019-12-14] MEDS: Metoprolol Tartrate 50 MG Tablet PO ×2 (12:16→21:54)
[2019-12-14 12:17] LABS: Pathologist Review Reviewed
[2019-12-14 12:20] LABS: Pathologist Review Reviewed
--- NOTE | 2019-12-14 12:48 | PCM.CONS.R ---
Problem List (1) RYAN (acute kidney injury) Status: Acute Consultation - Renal 12/14/19 PCP/ Referring MD: Requesting physician: [] Primary care physician: Dr. Yunior Chaudhry MD Reason for Consultation:: RYAN - History of Present Illness History of Present Illness: The patient is a 69 year old M was admitted to hospital with respiratory failure, currently diagnosed with COVID pneumonia. renal consulted for RYAN and hypernatremia. patient is currently intubated and is in COVID precautions. most of history is from charts. urine output has been ok. baseline creatinine is normal. - Allergies Allergies: Allergies No Known Allergies Allergy (Verified 12/07/19 07:59) - Current Medications Current Medications: Current Medications Atorvastatin Calcium (Atorvastatin Calcium 40 Mg Tablet) 40 mg PO QHS [facility] Last Admin: 12/13/19 22:33 Dose: 40 mg Documented by: Chlorhexidine Gluconate (Chlorhexidine 15 Ml) 15 ml PO BID [facility] Last Admin: 12/14/19 08:45 Dose: 15 ml Documented by: Dexamethasone Sodium Phosphate (Dexamethasone 10 Mg/Ml Vial) 6 mg IV DAILY [facility] Stop: 12/17/19 10:01 Last Admin: 12/14/19 12:16 Dose: 6 mg Documented by: Fentanyl Citrate 1,000 mcg/ (Sodium Chloride) 100 mls @ 2.5 mls/hr CONT INF .Q40H [facility]; Protocol Last Titration: 12/14/19 12:00 Dose: 0 mcg/hr, 0 mls/hr Documented by: Sodium Chloride () 250 mls @ 15 mls/hr IV .[id number] PRN PRN Reason: Saline Flush Sodium Chloride () 250 mls @ 15 mls/hr IV .[id number] PRN PRN Reason: Additional IVPB Infusion Last Admin: 12/14/19 03:25 Dose: 15 mls/hr Documented by: Pantoprazole Sodium 40 mg/ (Sodium Chloride) 110 mls @ 330 mls/hr IV Q12 [facility] Last Infusion: 12/13/19 23:04 Dose: Infused Documented by: Enteral Nutritional Formula (Vital High Protein) 1,000 mls @ 65 mls/hr GT .[id number] [facility] Last Admin: 12/14/19 12:16 Dose: 65 mls/hr Documented by: Levetiracetam 500 mg/ Sodium (Chloride) 105 mls @ 400 mls/hr IV Q12 [facility] Last Admin: 12/14/19 12:35 Dose: 400 mls/hr Documented by: Dexmedetomidine HCl 1,000 mcg/ (Sodium Chloride) 250 mls @ 14.288 mls/hr CONT INF .[id number] [facility]; Protocol Last Titration: 12/14/19 12:00 Dose: 0 mcg/kg/hr, 0 mls/hr Documented by: Dextrose () 1,000 mls @ 150 mls/hr IV .Q6H40M [facility] Last Admin: 12/14/19 10:16 Dose: Not Given Documented by: Insulin Glargine (Insulin Glargine 100 Units/Ml Pen) 60 units SC BID [facility] Last Admin: 12/14/19 12:27 Dose: 60 u Documented by: Insulin Human Lispro (Insulin Lispro 100 Unit/Ml Insuln.Pen) 0 unit SC Q4H [facility]; Protocol Last Admin: 12/14/19 12:14 Dose: Not Given Documented by: Labetalol HCl (Labetalol (Prefilled) 20 Mg/4 Ml) 10 mg IV Q4H PRN PRN PRN Reason: SBP > 220 OR DBP > 120 Lorazepam (Lorazepam 2 Mg/Ml Syringe) 2 - 6 mg IV Q5M PRN PRN Reason: SEIZURES Last Admin: 12/10/19 19:44 Dose: 2 mg Documented by: Metoprolol Tartrate (Metoprolol Tartrate 50 Mg Tablet) 50 mg PO BID [facility] Last Admin: 12/14/19 12:16 Dose: 50 mg Documented by: Nystatin (Nystatin Powder 15gm Bottle) 1 applic TOPICAL TID [facility]; Protocol Last Admin: 12/14/19 12:27 Dose: 1 applicatio Documented by: Senna/Docusate Sodium (Senna/Docusate Sodium 1 Tablet) 1 tablet GT BID [facility] Last Admin: 12/14/19 12:16 Dose: 1 tablet Documented by: Sodium Chloride (0.9% Saline Lock 10 Ml Syringe) 10 - 40 ml IV UD PRN PRN Reason: SALINE FLUSH Last Admin: 12/14/19 12:28 Dose: 10 ml Documented by: - Past Medical History Past Medical History (Chronic Problems): Chronic Problems (Last Reviewed 05/27/18 @ 10:[address] Hardeep Jackson MD) Hypertension (Chronic) DM2 (diabetes mellitus, type 2) (Chronic) - Past Surgical History Surgical History: no surgical history - Social History Smoking Status: Unknown if ever smoked Alcohol: None Drugs: None - Family History Maternal Family History: Family History (Last Reviewed 05/27/18 @ 10:[address] Hardeep Jackson MD) Father CAD (coronary artery disease) History Items: Stroke Paternal Family History: Family History (Last Reviewed 05/27/18 @ 10:[address] Hardeep Jackson MD) Father CAD (coronary artery disease) History Items: Heart Disease Review of Systems Unable to obtain accurate/complete ROS d/t: intubated status Patient Problems: Active and Suspected Problems (Last Reviewed 05/27/18 @ 10:[address] Hardeep Jackson MD) COVID-19 with multiple comorbidities (Acute) COVID-19 with pulmonary comorbidity (Acute) Acute respiratory failure with hypoxia (Acute) Gross hematuria (Acute) Hypertensive urgency (Acute) Encephalopathy (Acute) - Physical Exam Vitals/I&O's: Vital Signs Temp Pulse Resp BP Pulse Ox 98.8 F 87 21 H 151/71 H 91 12/14/19 12:00 12/14/19 12:16 12/14/19 12:00 12/14/19 12:00 12/14/19 12:00 Oxygen Delivery Method CPAP Weight: 115.984 kg Body Mass Index (BMI) 34.9 Finger Stick Blood Glucose 195 Intake and Output for Last 24 Hours 12/13/19 12/13/19 12/14/19 00:59 23:59 23:59 Intake Total 2772.81 / 2772.81 Output Total 750 / 750 Balance 2021.81 / 2021.81 HEENT: Atraumatic, PERRLA, EOMI, Normocephalic Neck: Supple, No JVD, Negative Carotid Bruits Lungs: Normal air movement Cardiovascular: Regular rate, No murmurs Abdomen: Bowel Sounds Present, Soft, Non Tender Extremities: No edema, Capillary Refill Less than 3 Seconds Skin: No rashes, No breakdown Musculoskeletal: No Tenderness to Palpation of Joints or Extremities Microbiology Past 72 Hours 12/07/19 09:15 Blood Culture (Wb) - Right Hand Blood Culture - Final No growth in 5 days. 12/07/19 07:55 Blood Culture (Wb) - Anticubital Left Blood Culture - Final No growth in 5 days. Laboratory Results 12/13/19 04:00: Diff Path Review Reviewed 12/13/19 07:57: POC Glucose 255 H 12/13/19 11:43: POC Glucose 240 H 12/13/19 16:42: POC Glucose 206 H 12/13/19 20:09: POC Glucose 181 H 12/13/19 22:30: POC Glucose 143 H 12/14/19 03:44: POC Glucose 136 H 12/14/19 04:35: WBC 19.9 H, RBC 4.27 L, Hgb 13.1, Hct 40.4, MCV 94.6 H, MCH 30.7, MCHC 32.4, RDW Std Deviation 46.0 H, RDW Coeff of [place] 13.3, Plt Count 52 L, MPV 12.6 H, Immature Gran % (Auto) 4.600 H, Neut % (Auto) 61.4, Lymph % (Auto) 8.6 L, [place] % (Auto) 24.9 H, Eos % (Auto) 0.1, Baso % (Auto) 0.4, Absolute Neuts (auto) 12.3 H, Absolute Lymphs (auto) 1.72, Nucleated RBC % 0.6, Differential Comment SCANNED, Diff Path Review Reviewed 12/14/19 04:35: Sodium 152 H, Potassium 4.1, Chloride 120 H, Carbon Dioxide 28.0, Anion Gap 4 L, BUN 37 H, Creatinine 1.23, Estim Creat Clear Calc 61.22, Est GFR (MDRD) Af Amer 75, Est GFR (MDRD) Non-Af 62, BUN/Creatinine Ratio 30.1 H, Glucose 176 H, Calcium 7.5 L, Total Bilirubin 1.10 H, AST 40 H, ALT 19, Alkaline Phosphatase 55, Total Protein 5.4 L, Albumin 2.0 L, Globulin 3.4, Albumin/Globulin Ratio 0.6 L 12/14/19 04:35: PT 17.3 H, INR 1.5, D-Dimer Quant (PE/DVT) > 20.00 H* 12/14/19 04:35: Procalcitonin 0.19 H 12/14/19 04:35: TSH 1.13 12/14/19 04:35: Fibrinogen 227 12/14/19 08:38: POC Glucose 118 H 12/14/19 10:55: Ammonia 43.0 H 12/14/19 11:09: Specimen Type ART, Sample Site L Radial, pH 7.44, Bicarbonate Actual 27.4 H, Total CO2 29, Base Excess 3 H, O2 Saturation 92 L, O2 % 50, ABG pCO2 40.6, ABG pO2 62 L, [place] Test Positive, Respiration Rate 14, O2 Delivery Device Adult Vent, Tidal Volume 500, POC PEEP 5 Current Medications Atorvastatin Calcium (Atorvastatin Calcium 40 Mg Tablet) 40 mg PO QHS [facility] Last Admin: 12/13/19 22:33 Dose: 40 mg Documented by: Chlorhexidine Gluconate (Chlorhexidine 15 Ml) 15 ml PO BID [facility] Last Admin: 12/14/19 08:45 Dose: 15 ml Documented by: Dexamethasone Sodium Phosphate (Dexamethasone 10 Mg/Ml Vial) 6 mg IV DAILY [facility] Stop: 12/17/19 10:01 Last Admin: 12/14/19 12:16 Dose: 6 mg Documented by: Fentanyl Citrate 1,000 mcg/ (Sodium Chloride) 100 mls @ 2.5 mls/hr CONT INF .Q40H [facility]; Protocol Last Titration: 12/14/19 12:00 Dose: 0 mcg/hr, 0 mls/hr Documented by: Sodium Chloride () 250 mls @ 15 mls/hr IV .[id number] PRN PRN Reason: Saline Flush Sodium Chloride () 250 mls @ 15 mls/hr IV .[id number] PRN PRN Reason: Additional IVPB Infusion Last Admin: 12/14/19 03:25 Dose: 15 mls/hr Documented by: Pantoprazole Sodium 40 mg/ (Sodium Chloride) 110 mls @ 330 mls/hr IV Q12 [facility] Last Infusion: 12/13/19 23:04 Dose: Infused Documented by: Enteral Nutritional Formula (Vital High Protein) 1,000 mls @ 65 mls/hr GT .[id number] [facility] Last Admin: 12/14/19 12:16 Dose: 65 mls/hr Documented by: Levetiracetam 500 mg/ Sodium (Chloride) 105 mls @ 400 mls/hr IV Q12 [facility] Last Admin: 12/14/19 12:35 Dose: 400 mls/hr Documented by: Dexmedetomidine HCl 1,000 mcg/ (Sodium Chloride) 250 mls @ 14.288 mls/hr CONT INF .[id number] [facility]; Protocol Last Titration: 12/14/19 12:00 Dose: 0 mcg/kg/hr, 0 mls/hr Documented by: Dextrose () 1,000 mls @ 150 mls/hr IV .[id number] [facility] Last Admin: 12/14/19 10:16 Dose: Not Given Documented by: Insulin Glargine (Insulin Glargine 100 Units/Ml Pen) 60 units SC BID [facility] Last Admin: 12/14/19 12:27 Dose: 60 u Documented by: Insulin Human Lispro (Insulin Lispro 100 Unit/Ml Insuln.Pen) 0 unit SC Q4H [facility]; Protocol Last Admin: 12/14/19 12:14 Dose: Not Given Documented by: Labetalol HCl (Labetalol (Prefilled) 20 Mg/4 Ml) 10 mg IV Q4H PRN PRN PRN Reason: SBP > 220 OR DBP > 120 Lorazepam (Lorazepam 2 Mg/Ml Syringe) 2 - 6 mg IV Q5M PRN PRN Reason: SEIZURES Last Admin: 12/10/19 19:44 Dose: 2 mg Documented by: Metoprolol Tartrate (Metoprolol Tartrate 50 Mg Tablet) 50 mg PO BID [facility] Last Admin: 12/14/19 12:16 Dose: 50 mg Documented by: Nystatin (Nystatin Powder 15gm Bottle) 1 applic TOPICAL TID [facility]; Protocol Last Admin: 12/14/19 12:27 Dose: 1 applicatio Documented by: Senna/Docusate Sodium (Senna/Docusate Sodium 1 Tablet) 1 tablet GT BID [facility] Last Admin: 12/14/19 12:16 Dose: 1 tablet Documented by: Sodium Chloride (0.9% Saline Lock 10 Ml Syringe) 10 - 40 ml IV UD PRN PRN Reason: SALINE FLUSH Last Admin: 12/14/19 12:28 Dose: 10 ml Documented by: Assessment/Plan All Active Problems (Last Reviewed 05/27/18 @ 10:[address] Hardeep Jackson MD) COVID-19 with multiple comorbidities (Acute) COVID-19 with pulmonary comorbidity (Acute) Acute respiratory failure with hypoxia (Acute) Gross hematuria (Acute) RYAN (acute kidney injury) (Acute) Hypertensive urgency (Acute) Encephalopathy (Acute) RYAN COVID pneumonia Hypernatremia baseline cr is normal [place] with good urine output cr is trending down sodium values are better with D5W dw Dr Dhillon
[2019-12-14 14:20] LABS: Bedside Glucose 125 mg/dL (70-110)
[2019-12-14 17:16] LABS: Bedside Glucose 162 mg/dL (70-110)
[2019-12-14] MEDS: Insulin Lispro 100 UNIT/ML INSULN.PEN SC ×3 (17:18→23:44)
[2019-12-14] MEDS: Dexmedetomidine 1,000 mcg in 0.9% NS 240 mL 14.3 MCG CONT INF (19:00)
--- NOTE | 2019-12-14 19:17 | PCM.PN.ID ---
Patient Problems: Active and Suspected Problems (Last Reviewed 05/27/18 @ 10:[address] Hardeep Jackson MD) COVID-19 with multiple comorbidities (Acute) COVID-19 with pulmonary comorbidity (Acute) Acute respiratory failure with hypoxia (Acute) Gross hematuria (Acute) RYAN (acute kidney injury) (Acute) Hypertensive urgency (Acute) Encephalopathy (Acute) Subjective: No fever, on vent, sedation stopped - Physical Exam Vitals/I&O's: Vital Signs Temp Pulse Resp BP Pulse Ox 98.8 F 85 23 H 166/67 H 93 12/14/19 12:00 12/14/19 19:08 12/14/19 19:08 12/14/19 18:00 12/14/19 19:08 Oxygen Delivery Method CPAP Weight: 115.984 kg Body Mass Index (BMI) 34.9 Finger Stick Blood Glucose 195 Intake and Output for Last 24 Hours 12/13/19 12/13/19 12/14/19 00:59 23:59 23:59 Intake Total 4270.99 / 4270.99 Output Total 2650 / 2650 Balance 1620.99 / 1620.99 General: No apparent distress Lungs: Diminished Cardiovascular: Regular rate, Regular Rhythm Abdomen: Soft, Non Tender, Non-Distended Skin: No rashes Microbiology Past 72 Hours 12/07/19 09:15 Blood Culture (Wb) - Right Hand Blood Culture - Final No growth in 5 days. 12/07/19 07:55 Blood Culture (Wb) - Anticubital Left Blood Culture - Final No growth in 5 days. Laboratory Results 12/13/19 04:00: Diff Path Review Reviewed 12/13/19 20:09: POC Glucose 181 H 12/13/19 22:30: POC Glucose 143 H 12/14/19 03:44: POC Glucose 136 H 12/14/19 04:35: WBC 19.9 H, RBC 4.27 L, Hgb 13.1, Hct 40.4, MCV 94.6 H, MCH 30.7, MCHC 32.4, RDW Std Deviation 46.0 H, RDW Coeff of Preston 13.3, Plt Count 52 L, MPV 12.6 H, Immature Gran % (Auto) 4.600 H, Neut % (Auto) 61.4, Lymph % (Auto) 8.6 L, [place] % (Auto) 24.9 H, Eos % (Auto) 0.1, Baso % (Auto) 0.4, Absolute Neuts (auto) 12.3 H, Absolute Lymphs (auto) 1.72, Nucleated RBC % 0.6, Differential Comment SCANNED, Diff Path Review Reviewed 12/14/19 04:35: Sodium 152 H, Potassium 4.1, Chloride 120 H, Carbon Dioxide 28.0, Anion Gap 4 L, BUN 37 H, Creatinine 1.23, Estim Creat Clear Calc 61.22, Est GFR (MDRD) Af Amer 75, Est GFR (MDRD) Non-Af 62, BUN/Creatinine Ratio 30.1 H, Glucose 176 H, Calcium 7.5 L, Total Bilirubin 1.10 H, AST 40 H, ALT 19, Alkaline Phosphatase 55, Total Protein 5.4 L, Albumin 2.0 L, Globulin 3.4, Albumin/Globulin Ratio 0.6 L 12/14/19 04:35: PT 17.3 H, INR 1.5, D-Dimer Quant (PE/DVT) > 20.00 H* 12/14/19 04:35: Procalcitonin 0.19 H 12/14/19 04:35: TSH 1.13 12/14/19 04:35: Fibrinogen 227 12/14/19 08:38: POC Glucose 118 H 12/14/19 10:55: Ammonia 43.0 H 12/14/19 11:09: Specimen Type ART, Sample Site L Radial, pH 7.44, Bicarbonate Actual 27.4 H, Total CO2 29, Base Excess 3 H, O2 Saturation 92 L, O2 % 50, ABG pCO2 40.6, ABG pO2 62 L, [place] Test Positive, Respiration Rate 14, O2 Delivery Device Adult Vent, Tidal Volume 500, POC PEEP 5 12/14/19 12:12: POC Glucose 125 H 12/14/19 16:48: POC Glucose 162 H Current Medications Atorvastatin Calcium (Atorvastatin Calcium 40 Mg Tablet) 40 mg PO QHS [facility] Last Admin: 12/13/19 22:33 Dose: 40 mg Documented by: Chlorhexidine Gluconate (Chlorhexidine 15 Ml) 15 ml PO BID [facility] Last Admin: 12/14/19 08:45 Dose: 15 ml Documented by: Dexamethasone Sodium Phosphate (Dexamethasone 10 Mg/Ml Vial) 6 mg IV DAILY [facility] Stop: 12/17/19 10:01 Last Admin: 12/14/19 12:16 Dose: 6 mg Documented by: Fentanyl Citrate 1,000 mcg/ (Sodium Chloride) 100 mls @ 2.5 mls/hr CONT INF .Q40H [facility]; Protocol Last Titration: 12/14/19 19:01 Dose: 25 mcg/hr, 2.5 mls/hr Documented by: Sodium Chloride () 250 mls @ 15 mls/hr IV .[id number] PRN PRN Reason: Saline Flush Sodium Chloride () 250 mls @ 15 mls/hr IV .[id number] PRN PRN Reason: Additional IVPB Infusion Last Admin: 12/14/19 03:25 Dose: 15 mls/hr Documented by: Pantoprazole Sodium 40 mg/ (Sodium Chloride) 110 mls @ 330 mls/hr IV Q12 [facility] Last Infusion: 12/14/19 14:52 Dose: Infused Documented by: Enteral Nutritional Formula (Vital High Protein) 1,000 mls @ 65 mls/hr GT .[id number] [facility] Last Admin: 12/14/19 12:16 Dose: 65 mls/hr Documented by: Levetiracetam 500 mg/ Sodium (Chloride) 105 mls @ 400 mls/hr IV Q12 [facility] Last Infusion: 12/14/19 12:51 Dose: Infused Documented by: Dexmedetomidine HCl 1,000 mcg/ (Sodium Chloride) 250 mls @ 14.288 mls/hr CONT INF .[id number] [facility]; Protocol Last Admin: 12/14/19 19:00 Dose: 0.5 mcg/kg/hr, 14.3 mls/hr Documented by: Dextrose () 1,000 mls @ 150 mls/hr IV .[id number] [facility] Last Admin: 12/14/19 17:27 Dose: 150 mls/hr Documented by: Insulin Glargine (Insulin Glargine 100 Units/Ml Pen) 60 units SC BID [facility] Last Admin: 12/14/19 12:27 Dose: 60 u Documented by: Insulin Human Lispro (Insulin Lispro 100 Unit/Ml Insuln.Pen) 0 unit SC Q4H [facility]; Protocol Last Admin: 12/14/19 17:18 Dose: 2 units Documented by: Labetalol HCl (Labetalol (Prefilled) 20 Mg/4 Ml) 10 mg IV Q4H PRN PRN PRN Reason: SBP > 220 OR DBP > 120 Lorazepam (Lorazepam 2 Mg/Ml Syringe) 2 - 6 mg IV Q5M PRN PRN Reason: SEIZURES Last Admin: 12/10/19 19:44 Dose: 2 mg Documented by: Metoprolol Tartrate (Metoprolol Tartrate 50 Mg Tablet) 50 mg PO BID [facility] Last Admin: 12/14/19 12:16 Dose: 50 mg Documented by: Nystatin (Nystatin Powder 15gm Bottle) 1 applic TOPICAL TID [facility]; Protocol Last Admin: 12/14/19 12:27 Dose: 1 applicatio Documented by: Senna/Docusate Sodium (Senna/Docusate Sodium 1 Tablet) 1 tablet GT BID [facility] Last Admin: 12/14/19 12:16 Dose: 1 tablet Documented by: Sodium Chloride (0.9% Saline Lock 10 Ml Syringe) 10 - 40 ml IV UD PRN PRN Reason: SALINE FLUSH Last Admin: 12/14/19 12:28 Dose: 10 ml Documented by: Medical Necessity - Tobacco Use Smoking Status: Unknown if ever smoked Tobacco Use: Non-smoker Route of nutrition/ use of supplements: [] Nutritional Intake: [] IV Site: [] Duarte Catheter: [] - Assessment/Plan Antibiotics: [] Assessment/Plan: [] Active and Suspected Problems (Last Reviewed 05/27/18 @ 10:[address] Hardeep Jackson MD) COVID-19 with multiple comorbidities (Acute) COVID-19 with pulmonary comorbidity (Acute) Acute respiratory failure with hypoxia (Acute) Hypertensive urgency (Acute) Encephalopathy (Acute) Covid with mech ventilation - on dex, given remdesivir. New stroke. Afebrile overnight. Plasma ordered 12/08. FiO2 now 50%. Will follow
[2019-12-14 20:41] LABS: Bedside Glucose 210 mg/dL (70-110)
[2019-12-14] MEDS: Atorvastatin Calcium 40 MG Tablet PO (21:55)
[2019-12-14 22:35] LABS: Bedside Glucose 219 mg/dL (70-110)
[2019-12-15] VITALS (34 sets, daily range): BP systolic 96–195; BP diastolic 57–104; PULSE 51–85; RESP 13–30; TEMP 36.5–37.2; O2SAT 89–97
[2019-12-15 00:41] LABS: Bedside Glucose 203 mg/dL (70-110)
--- NOTE | 2019-12-15 02:45 | RAD_ITS ---
STUDY: X-RAY - ABDOMEN/PELVIS REASON FOR EXAM: Male, 69 years old. RN STATES PATIENT GRIMACES WHEN PALPATING UPPER ABD TECHNIQUE: Frontal view COMPARISON: None. FINDINGS: Normal visualized lung bases. There is an unremarkable bowel gas pattern. There is no demonstrated free abdominal air. The visualized liver, spleen and kidneys are grossly normal in size and morphology. Normal soft tissue structures. Normal visualized osseous structures. The NG tube is in the stomach. RAD/Abdomen Single View (Portable) IMPRESSION: Normal x-ray examination of the abdomen and pelvis. Electronically Signed: Ever Guzman MD at 3:15 EST , Service support ,
[2019-12-15 04:56] LABS: Bedside Glucose 139 mg/dL (70-110)
[2019-12-15 05:00] LABS: Absolute Lymphocyte Count 1.61 X10^3/uL (0.83-4.51); Absolute Neutrophil Count 14.7 X10^3/uL (2.0-7.7); Basophil# 0.12 X10^3/uL; Basophil% 0.5 % (0-1); Eosinophil# 0.03 X10^3/uL; Eosinophils% 0.1 % (0-5); Hemoglobin 13.1 g/dL (13.0-16.5); Lymphocyte # 1.61 X10^3/ul (4.0); Mean Corpuscular Hgb 30.5 pg (27.0-32.0); Mean Corpuscular Volume 95.3 fL (80-94); Mean Platelet Vol. 11.7 fl (6.2-12.0); Monocyte# 5.62 X10^3/uL; Monocyte% 24.3 % (0-10); NRBC Flagged by Analyzer 0.2 % (0-5); Neutrophil # 14.66 X10^3/uL (2.7-7.7); Neutrophil % 63.3 % (47-70); POSITIVE COUNT YES; POSITIVE DIFFERENTIAL YES; Platelet Count 58 K/mm3 (150-450); RBC Distribution Width CV 13.3 % (11.6-14.6); RBC Distribution Width SD 46.6 fl (35.1-43.9); White Blood Count 23.2 K/mm3 (4.4-11.0)
[2019-12-15 05:07] LABS: Differential Indicated SCAN CRITERIA MET
[2019-12-15 05:17] LABS: ALB/GLOB Ratio 0.6 RATIO (0.9-2.4); AST(SGOT) 58 U/L (15-37); Alanine Aminotransfer ALT/SGPT 23 U/L (16-61); Alkaline Phosphatase 69 U/L (45-117); Anion Gap 7 (5-15); BUN 28 mg/dL (7-18); BUN/Creat Ratio 31.4 RATIO (10-20); Calcium,Total 7.7 mg/dL (8.5-10.1); Chloride 114 mmol/L (98-107); Creatinine, Serum 0.89 mg/dL (0.70-1.30); EST Glomerular Filtration Rate 90 mL/min (>60); Est Glom Filt Rate - Afr Amer 109 mL/min (>60); Estimated Creatinine Clearance 84.61 ml/min; Globulin 3.5 g/dL (2.2-4.2); Glucose 141 mg/dL (74-106); Potassium 3.2 mmol/L (3.5-5.1); Protein, Total 5.5 g/dL (6.4-8.2); Sodium Level 149 mmol/L (136-145)
[2019-12-15 05:23] LABS: Differential Comment SCANNED
--- NOTE | 2019-12-15 05:45 | NURSING ---
Pt placed on breathing trial
--- NOTE | 2019-12-15 06:06 | PN_ITS ---
Subjective: The patient was seen and examined at the bedside this morning. Events from the last 24 hours have been reviewed. The patient is currently afebrile, hemodynamically stable and maintaining appropriate oxygen saturations on assist control mode of mechanical ventilation with an FiO2 requirement of 60%. The patient has been hypertensive overnight. He did apparently demonstrate facial grimacing with abdominal palpation, per nursing report. KUB was unremarkable. The patient is currently documented to be overall net +13.2 L for the hospital admission. Sodium has improved this morning to 149. Potassium is low at 3.2. The patient continues to have thick, creamy secretions from his endotracheal tube. Objective: The patient's most recent lab work, culture data and imaging studies have all been personally reviewed. Surface echocardiogram revealed moderate concentric LVH with an ejection fraction of 55%. Coronavirus was positive on December 06. Infectious work-up has been otherwise negative to date. CT head from December 09 revealed a new focal area of low-attenuation involving the superior edge of the left cerebellum concerning for possible infarction. General: - - Remains intubated, sedated and mechanically ventilated. HEENT: Atraumatic, Normocephalic Oral: No Gingival or Mucosal Lesions/ Ulcerations, - - Stable endotracheal and OG tubes. Neck: Supple, No Nodes, Trachea Midline Lungs: Diminished, Tachypneic, - - Scant rhonchi Cardiovascular: Regular rate, Regular Rhythm Abdomen: Bowel Sounds Present, Soft, Non Tender, Obese Extremities: No clubbing, No cyanosis, Edema Skin: - - No significant change from previous Musculoskeletal: No Muscle Wasting Lymphatic: No Cervical, Supraclavicular, or Inguinal Adenopathy Neurological: - - The patient moves extremities spontaneously. He will attempt to follow some simple commands. Psych/Mental Status: Impulsive, Restless Vital Signs Temp Pulse Resp BP Pulse Ox 97.9 F 78 21 H 177/72 H 92 12/15/19 03:00 12/15/19 05:35 12/15/19 05:35 12/15/19 05:00 12/15/19 05:35 Oxygen Delivery Method Mechanical Ventilator Weight: 255 lb 11.2 oz Body Mass Index (BMI) 34.9 Finger Stick Blood Glucose 195 Intake and Output for Last 24 Hours 12/13/19 12/14/19 12/15/19 23:59 23:59 23:59 Intake Total 6186.92 / 6203.72 475.47 / 475.47 Output Total 3300 / 3300 950 / 950 Balance 2886.92 / 2903.72 -474.53 / -474.53 Labs (Last 48 Hours) 12/12/19 12/13/19 12/13/19 20:05 04:00 05:58 WBC RBC Hgb Hct MCV MCH MCHC RDW Std Deviation RDW Coeff of [place] Plt Count MPV Immature Gran % (Auto) Neut % (Auto) Lymph % (Auto) [place] % (Auto) Eos % (Auto) Baso % (Auto) Absolute Neuts (auto) Absolute Lymphs (auto) Nucleated RBC % Differential Comment Diff Path Review Reviewed PT INR Fibrinogen D-Dimer Quant (PE/DVT) Specimen Type ART Sample Site L Radial pH 7.46 H Bicarbonate Actual 25.2 Total CO2 26 Base Excess 1 O2 Saturation 96 O2 % 45 ABG pCO2 35.5 ABG pO2 77 [place] Test Positive Respiration Rate O2 Delivery Device Adult Vent Vent Mode CPAP/PS Tidal Volume POC PEEP 5 POC Pressure Suppt 5 Sodium Potassium Chloride Carbon Dioxide Anion Gap BUN Creatinine Estim Creat Clear Calc Est GFR (MDRD) Af Amer Est GFR (MDRD) Non-Af BUN/Creatinine Ratio Glucose Calcium Total Bilirubin AST ALT Alkaline Phosphatase Ammonia Total Protein Albumin Globulin Albumin/Globulin Ratio Procalcitonin TSH POC Glucose 189 H 12/13/19 12/13/19 12/13/19 07:57 11:43 16:42 WBC RBC Hgb Hct MCV MCH MCHC RDW Std Deviation RDW Coeff of [place] Plt Count MPV Immature Gran % (Auto) Neut % (Auto) Lymph % (Auto) [place] % (Auto) Eos % (Auto) Baso % (Auto) Absolute Neuts (auto) Absolute Lymphs (auto) Nucleated RBC % Differential Comment Diff Path Review PT INR Fibrinogen D-Dimer Quant (PE/DVT) Specimen Type Sample Site pH Bicarbonate Actual Total CO2 Base Excess O2 Saturation O2 % ABG pCO2 ABG pO2 [place] Test Respiration Rate O2 Delivery Device Vent Mode Tidal Volume POC PEEP POC Pressure Suppt Sodium Potassium Chloride Carbon Dioxide Anion Gap BUN Creatinine Estim Creat Clear Calc Est GFR (MDRD) Af Amer Est GFR (MDRD) Non-Af BUN/Creatinine Ratio Glucose Calcium Total Bilirubin AST ALT Alkaline Phosphatase Ammonia Total Protein Albumin Globulin Albumin/Globulin Ratio Procalcitonin TSH POC Glucose 255 H 240 H 206 H 12/13/19 12/13/19 12/14/19 20:09 22:30 03:44 WBC RBC Hgb Hct MCV MCH MCHC RDW Std Deviation RDW Coeff of [place] Plt Count MPV Immature Gran % (Auto) Neut % (Auto) Lymph % (Auto) [place] % (Auto) Eos % (Auto) Baso % (Auto) Absolute Neuts (auto) Absolute Lymphs (auto) Nucleated RBC % Differential Comment Diff Path Review PT INR Fibrinogen D-Dimer Quant (PE/DVT) Specimen Type Sample Site pH Bicarbonate Actual Total CO2 Base Excess O2 Saturation O2 % ABG pCO2 ABG pO2 [place] Test Respiration Rate O2 Delivery Device Vent Mode Tidal Volume POC PEEP POC Pressure Suppt Sodium Potassium Chloride Carbon Dioxide Anion Gap BUN Creatinine Estim Creat Clear Calc Est GFR (MDRD) Af Amer Est GFR (MDRD) Non-Af BUN/Creatinine Ratio Glucose Calcium Total Bilirubin AST ALT Alkaline Phosphatase Ammonia Total Protein Albumin Globulin Albumin/Globulin Ratio Procalcitonin TSH POC Glucose 181 H 143 H 136 H 12/14/19 12/14/19 12/14/19 04:35 04:35 04:35 WBC 19.9 H RBC 4.27 L Hgb 13.1 Hct 40.4 MCV 94.6 H MCH 30.7 MCHC 32.4 RDW Std Deviation 46.0 H RDW Coeff of [place] 13.3 Plt Count 52 L MPV 12.6 H Immature Gran % (Auto) 4.600 H Neut % (Auto) 61.4 Lymph % (Auto) 8.6 L [place] % (Auto) 24.9 H Eos % (Auto) 0.1 Baso % (Auto) 0.4 Absolute Neuts (auto) 12.3 H Absolute Lymphs (auto) 1.72 Nucleated RBC % 0.6 Differential Comment SCANNED Diff Path Review Reviewed PT 17.3 H INR 1.5 Fibrinogen D-Dimer Quant (PE/DVT) > 20.00 H* Specimen Type Sample Site pH Bicarbonate Actual Total CO2 Base Excess O2 Saturation O2 % ABG pCO2 ABG pO2 [place] Test Respiration Rate O2 Delivery Device Vent Mode Tidal Volume POC PEEP POC Pressure Suppt Sodium 152 H Potassium 4.1 Chloride 120 H Carbon Dioxide 28.0 Anion Gap 4 L BUN 37 H Creatinine 1.23 Estim Creat Clear Calc 61.22 Est GFR (MDRD) Af Amer 75 Est GFR (MDRD) Non-Af 62 BUN/Creatinine Ratio 30.1 H Glucose 176 H Calcium 7.5 L Total Bilirubin 1.10 H AST 40 H ALT 19 Alkaline Phosphatase 55 Ammonia Total Protein 5.4 L Albumin 2.0 L Globulin 3.4 Albumin/Globulin Ratio 0.6 L Procalcitonin TSH POC Glucose 12/14/19 12/14/19 12/14/19 04:35 04:35 04:35 WBC RBC Hgb Hct MCV MCH MCHC RDW Std Deviation RDW Coeff of [place] Plt Count MPV Immature Gran % (Auto) Neut % (Auto) Lymph % (Auto) [place] % (Auto) Eos % (Auto) Baso % (Auto) Absolute Neuts (auto) Absolute Lymphs (auto) Nucleated RBC % Differential Comment Diff Path Review PT INR Fibrinogen 227 D-Dimer Quant (PE/DVT) Specimen Type Sample Site pH Bicarbonate Actual Total CO2 Base Excess O2 Saturation O2 % ABG pCO2 ABG pO2 [place] Test Respiration Rate O2 Delivery Device Vent Mode Tidal Volume POC PEEP POC Pressure Suppt Sodium Potassium Chloride Carbon Dioxide Anion Gap BUN Creatinine Estim Creat Clear Calc Est GFR (MDRD) Af Amer Est GFR (MDRD) Non-Af BUN/Creatinine Ratio Glucose Calcium Total Bilirubin AST ALT Alkaline Phosphatase Ammonia Total Protein Albumin Globulin Albumin/Globulin Ratio Procalcitonin 0.19 H TSH 1.13 POC Glucose 12/14/19 12/14/19 12/14/19 08:38 10:55 11:09 WBC RBC Hgb Hct MCV MCH MCHC RDW Std Deviation RDW Coeff of [place] Plt Count MPV Immature Gran % (Auto) Neut % (Auto) Lymph % (Auto) [place] % (Auto) Eos % (Auto) Baso % (Auto) Absolute Neuts (auto) Absolute Lymphs (auto) Nucleated RBC % Differential Comment Diff Path Review PT INR Fibrinogen D-Dimer Quant (PE/DVT) Specimen Type ART Sample Site L Radial pH 7.44 Bicarbonate Actual 27.4 H Total CO2 29 Base Excess 3 H O2 Saturation 92 L O2 % 50 ABG pCO2 40.6 ABG pO2 62 L [place] Test Positive Respiration Rate 14 O2 Delivery Device Adult Vent Vent Mode Tidal Volume 500 POC PEEP 5 POC Pressure Suppt Sodium Potassium Chloride Carbon Dioxide Anion Gap BUN Creatinine Estim Creat Clear Calc Est GFR (MDRD) Af Amer Est GFR (MDRD) Non-Af BUN/Creatinine Ratio Glucose Calcium Total Bilirubin AST ALT Alkaline Phosphatase Ammonia 43.0 H Total Protein Albumin Globulin Albumin/Globulin Ratio Procalcitonin TSH POC Glucose 118 H 12/14/19 12/14/19 12/14/19 12:12 16:48 19:46 WBC RBC Hgb Hct MCV MCH MCHC RDW Std Deviation RDW Coeff of [place] Plt Count MPV Immature Gran % (Auto) Neut % (Auto) Lymph % (Auto) [place] % (Auto) Eos % (Auto) Baso % (Auto) Absolute Neuts (auto) Absolute Lymphs (auto) Nucleated RBC % Differential Comment Diff Path Review PT INR Fibrinogen D-Dimer Quant (PE/DVT) Specimen Type Sample Site pH Bicarbonate Actual Total CO2 Base Excess O2 Saturation O2 % ABG pCO2 ABG pO2 [place] Test Respiration Rate O2 Delivery Device Vent Mode Tidal Volume POC PEEP POC Pressure Suppt Sodium Potassium Chloride Carbon Dioxide Anion Gap BUN Creatinine Estim Creat Clear Calc Est GFR (MDRD) Af Amer Est GFR (MDRD) Non-Af BUN/Creatinine Ratio Glucose Calcium Total Bilirubin AST ALT Alkaline Phosphatase Ammonia Total Protein Albumin Globulin Albumin/Globulin Ratio Procalcitonin TSH POC Glucose 125 H 162 H 210 H 12/14/19 12/14/19 12/15/19 22:03 23:41 04:38 WBC RBC Hgb Hct MCV MCH MCHC RDW Std Deviation RDW Coeff of [place] Plt Count MPV Immature Gran % (Auto) Neut % (Auto) Lymph % (Auto) [place] % (Auto) Eos % (Auto) Baso % (Auto) Absolute Neuts (auto) Absolute Lymphs (auto) Nucleated RBC % Differential Comment Diff Path Review PT INR Fibrinogen D-Dimer Quant (PE/DVT) Specimen Type Sample Site pH Bicarbonate Actual Total CO2 Base Excess O2 Saturation O2 % ABG pCO2 ABG pO2 [place] Test Respiration Rate O2 Delivery Device Vent Mode Tidal Volume POC PEEP POC Pressure Suppt Sodium Potassium Chloride Carbon Dioxide Anion Gap BUN Creatinine Estim Creat Clear Calc Est GFR (MDRD) Af Amer Est GFR (MDRD) Non-Af BUN/Creatinine Ratio Glucose Calcium Total Bilirubin AST ALT Alkaline Phosphatase Ammonia Total Protein Albumin Globulin Albumin/Globulin Ratio Procalcitonin TSH POC Glucose 219 H 203 H 139 H 12/15/19 12/15/19 04:40 04:40 WBC 23.2 H RBC 4.30 L Hgb 13.1 Hct 41.0 MCV 95.3 H MCH 30.5 MCHC 32.0 RDW Std Deviation 46.6 H RDW Coeff of [place] 13.3 Plt Count 58 L MPV 11.7 Immature Gran % (Auto) 4.800 H Neut % (Auto) 63.3 Lymph % (Auto) 7.0 L [place] % (Auto) 24.3 H Eos % (Auto) 0.1 Baso % (Auto) 0.5 Absolute Neuts (auto) 14.7 H Absolute Lymphs (auto) 1.61 Nucleated RBC % 0.2 Differential Comment SCANNED Diff Path Review May foll PT INR Fibrinogen D-Dimer Quant (PE/DVT) Specimen Type Sample Site pH Bicarbonate Actual Total CO2 Base Excess O2 Saturation O2 % ABG pCO2 ABG pO2 [place] Test Respiration Rate O2 Delivery Device Vent Mode Tidal Volume POC PEEP POC Pressure Suppt Sodium 149 H Potassium 3.2 L Chloride 114 H Carbon Dioxide 28.0 Anion Gap 7 BUN 28 H Creatinine 0.89 Estim Creat Clear Calc 84.61 Est GFR (MDRD) Af Amer 109 Est GFR (MDRD) Non-Af 90 BUN/Creatinine Ratio 31.4 H Glucose 141 H Calcium 7.7 L Total Bilirubin 1.00 AST 58 H ALT 23 Alkaline Phosphatase 69 Ammonia Total Protein 5.5 L Albumin 2.0 L Globulin 3.5 Albumin/Globulin Ratio 0.6 L Procalcitonin TSH POC Glucose Clinical Impression(s) from Imaging Studies Chest X-Ray 12/07/19 08:08 IMPRESSION: Diffuse bilateral alveolar infiltrates more prominent in the left hemithorax. Differential diagnosis should include either pulmonary edema or diffuse bilateral pneumonia. Electronically Signed: Damion Choi, at 8:46 EDT , Service support , Brain CT 12/10/19 19:42 IMPRESSION: There is a new focal area of low-attenuation involving the superior edge of the left cerebellum. A focal infarct cannot be excluded. Electronically Signed: Fred Perdomo DO at 20:37 EDT Tel [phone], Service support , ADDENDUM: 12/10/192051 IMPRESSION: There is a new focal area of low-attenuation involving the superior edge of the left cerebellum. A focal infarct cannot be excluded. N.B. : The above information has been verbally conveyed by Fred Perdomo DO to Leila Paredes RN, on 12/10/2019 20:45:49 (ET). Electronically Signed: Fred Perdomo DO at 20:37 EDT Tel [phone], Service support , KUB X-Ray 12/11/19 15:35 IMPRESSION: OG/NG tube tip in the body of the stomach Electronically Signed: Chaitanya Fonseca MD at 17:18 EDT , Service support , KUB X-Ray 12/15/19 02:45 IMPRESSION: Normal x-ray examination of the abdomen and pelvis. Electronically Signed: Ever Guzman MD at 3:15 EST , Service support , Medical Necessity - Tobacco Use Smoking Status: Unknown if ever smoked Tobacco Use: Non-smoker Assessment/Plan All Active Problems (Last Reviewed 05/27/18 @ 10:[address] Hardeep Jackson MD) COVID-19 with multiple comorbidities (Acute) COVID-19 with pulmonary comorbidity (Acute) Acute respiratory failure with hypoxia (Acute) Gross hematuria (Acute) RYAN (acute kidney injury) (Acute) Hypertensive urgency (Acute) Encephalopathy (Acute) RECOMMENDATIONS: 1. Continue invasive mechanical ventilatory support and wean FiO2 to maintain oxygen saturations at or above 90%. 2. Stop continuous supplemental IV fluids. 3. Minimize sedation. Goal to maintain a RASS of -1 to 1. 4. Continue tube feeds as tolerated. 5. Continue Keppra as ordered. 6. Continue appropriate GI prophylaxis. 7. Start gentle diuresis today with IV Lasix. IMPRESSIONS: 1. Acute hypoxemic respiratory failure secondary to COVID-19 pneumonia Continue current supportive measures with invasive mechanical ventilation and wean FiO2 to maintain oxygen saturations at or above 90%. The patient has already received convalescent plasma and has completed his course of remdesivir. He will be continued on Decadron to complete 10 days of treatment. Tube feeds will be continued as ordered. Recommend optimizing sedation to maintain a RASS of -1 to 1. At this time, the patient's mentation and secretion production continues to be a barrier to attempts at extubation. We will attempt to diurese the patient today as tolerated by hemodynamics and renal function. 2. Thrombocytopenia Likely related to underlying infectious etiologies. Continue to monitor for now. No indication for transfusion of blood products. 3. Hypernatremia/hyperchloremia Improving. Continue free water flushes for now. 4. Encephalopathy Likely metabolic in etiology. However, the patient was previously diagnosed with new seizure activity and a stroke. For now, we will plan to minimize sedation as tolerated. 5. Acute kidney injury Improving. Clinical suspicion for ATN. For now, we will continue current supportive measures. Continue to monitor urine output. No indication for renal replacement therapy. 6. New onset seizures/left cerebellar infarct Plan to continue Keppra as ordered. Minimize sedation as tolerated. 7. Advanced age/diabetes mellitus/obesity/hypertension/hyperlipidemia Complicates care, management, recovery and prognosis. Continue home medications as indicated. TIME: 34 minutes of critical care time, independent of procedures, was spent addressing the patient's acute hypoxemic respiratory failure secondary to COVID- 19 pneumonia, thrombocytopenia, hypernatremia, encephalopathy, acute kidney injury, new onset seizure/CVA, review of all data and collaboration with the care team. [id number]) [id number] Critical care first hour
[2019-12-15] MEDS: 0.9% Saline Lock 10 ML Syringe IV ×2 (06:50→10:27)
--- NOTE | 2019-12-15 07:31 | PCM.PN.HOSP ---
Patient Problems: Active and Suspected Problems (Last Reviewed 05/27/18 @ 10:[address] Hardeep Jackson MD) COVID-19 with multiple comorbidities (Acute) COVID-19 with pulmonary comorbidity (Acute) Acute respiratory failure with hypoxia (Acute) Gross hematuria (Acute) RYAN (acute kidney injury) (Acute) Hypertensive urgency (Acute) Encephalopathy (Acute) Subjective: Patient seen and examined. He remains intubated and sedated and continues to have thick creamy secretions from endotracheal tube. FiO2 is 60% and he has been hypertensive overnight.Sodium is down to 149 today. Potassium is 3.2 today. Wbc is up to 23. Vitals/I&O's: Vital Signs Temp Pulse Resp BP Pulse Ox 97.9 F 75 21 H 173/104 H 91 12/15/19 03:00 12/15/19 07:00 12/15/19 07:00 12/15/19 07:00 12/15/19 07:00 Oxygen Delivery Method CPAP Weight: 259 lb 8 oz Body Mass Index (BMI) 34.9 Finger Stick Blood Glucose 195 Intake and Output for Last 24 Hours 12/13/19 12/14/19 12/15/19 23:59 23:59 23:59 Intake Total 6186.92 / 6203.72 1504.07 / 1504.07 Output Total 3300 / 3300 1200 / 1200 Balance 2886.92 / 2903.72 304.07 / 304.07 General: - - intubated, sedated, RASS score is +3 HEENT: Atraumatic, PERRLA, EOMI, Normocephalic Oral: Dry Mucosa Neck: Supple, No JVD, Negative Carotid Bruits Lungs: Tachypneic, - - decreased breath sounds bibasally, has bilateral coarse crackles. Intubated. Cardiovascular: Regular rate, Regular Rhythm, Normal S1, Normal S2, No murmurs Abdomen: Bowel Sounds Present, Soft, Non Tender, Non-Distended, No Hepato-splenomegaly Extremities: No clubbing, No cyanosis, No edema, Capillary Refill Less than 3 Seconds Skin: No rashes, No breakdown Musculoskeletal: No Tenderness to Palpation of Joints or Extremities Lymphatic: No Cervical, Supraclavicular, or Inguinal Adenopathy Neurological: Neuro grossly intact, - - Intubated, sedated. Moving all her extremities spontaneously. Psych/Mental Status: Agitated Microbiology Past 72 Hours 12/07/19 09:15 Blood Culture (Wb) - Right Hand Blood Culture - Final No growth in 5 days. 12/07/19 07:55 Blood Culture (Wb) - Anticubital Left Blood Culture - Final No growth in 5 days. Laboratory Results 12/13/19 04:00: Diff Path Review Reviewed 12/14/19 04:35: Diff Path Review Reviewed 12/14/19 04:35: TSH 1.13 12/14/19 04:35: Fibrinogen 227 12/14/19 08:38: POC Glucose 118 H 12/14/19 10:55: Ammonia 43.0 H 12/14/19 11:09: Specimen Type ART, Sample Site L Radial, pH 7.44, Bicarbonate Actual 27.4 H, Total CO2 29, Base Excess 3 H, O2 Saturation 92 L, O2 % 50, ABG pCO2 40.6, ABG pO2 62 L, [place] Test Positive, Respiration Rate 14, O2 Delivery Device Adult Vent, Tidal Volume 500, POC PEEP 5 12/14/19 12:12: POC Glucose 125 H 12/14/19 16:48: POC Glucose 162 H 12/14/19 19:46: POC Glucose 210 H 12/14/19 22:03: POC Glucose 219 H 12/14/19 23:41: POC Glucose 203 H 12/15/19 04:38: POC Glucose 139 H 12/15/19 04:40: WBC 23.2 H, RBC 4.30 L, Hgb 13.1, Hct 41.0, MCV 95.3 H, MCH 30.5, MCHC 32.0, RDW Std Deviation 46.6 H, RDW Coeff of [place] 13.3, Plt Count 58 L, MPV 11.7, Immature Gran % (Auto) 4.800 H, Neut % (Auto) 63.3, Lymph % (Auto) 7.0 L, [place] % (Auto) 24.3 H, Eos % (Auto) 0.1, Baso % (Auto) 0.5, Absolute Neuts (auto) 14.7 H, Absolute Lymphs (auto) 1.61, Nucleated RBC % 0.2, Differential Comment SCANNED, Diff Path Review May foll 12/15/19 04:40: Sodium 149 H, Potassium 3.2 L, Chloride 114 H, Carbon Dioxide 28.0, Anion Gap 7, BUN 28 H, Creatinine 0.89, Estim Creat Clear Calc 84.61, Est GFR (MDRD) Af Amer 109, Est GFR (MDRD) Non-Af 90, BUN/Creatinine Ratio 31.4 H, Glucose 141 H, Calcium 7.7 L, Total Bilirubin 1.00, AST 58 H, ALT 23, Alkaline Phosphatase 69, Total Protein 5.5 L, Albumin 2.0 L, Globulin 3.5, Albumin/Globulin Ratio 0.6 L Diagnostic Data Chest X-Ray 12/07/19 08:08 IMPRESSION: Diffuse bilateral alveolar infiltrates more prominent in the left hemithorax. Differential diagnosis should include either pulmonary edema or diffuse bilateral pneumonia. Electronically Signed: Damion Choi, at 8:46 EDT , Service support , Brain CT 12/10/19 19:42 IMPRESSION: There is a new focal area of low-attenuation involving the superior edge of the left cerebellum. A focal infarct cannot be excluded. Electronically Signed: Fred Perdomo DO at 20:37 EDT Tel [phone], Service support , ADDENDUM: 12/10/192051 IMPRESSION: There is a new focal area of low-attenuation involving the superior edge of the left cerebellum. A focal infarct cannot be excluded. N.B. : The above information has been verbally conveyed by Fred Perdomo DO to Leila Paredes RN, on 12/10/2019 20:45:49 (ET). Electronically Signed: Fred Perdomo DO at 20:37 EDT Tel [phone], Service support , KUB X-Ray 12/15/19 02:45 IMPRESSION: Normal x-ray examination of the abdomen and pelvis. Electronically Signed: Ever Guzman MD at 3:15 EST , Service support , Current Medications Atorvastatin Calcium (Atorvastatin Calcium 40 Mg Tablet) 40 mg PO QHS [facility] Last Admin: 12/14/19 21:55 Dose: 40 mg Documented by: Chlorhexidine Gluconate (Chlorhexidine 15 Ml) 15 ml PO BID [facility] Last Admin: 12/14/19 21:56 Dose: 15 ml Documented by: Dexamethasone Sodium Phosphate (Dexamethasone 10 Mg/Ml Vial) 6 mg IV DAILY [facility] Stop: 12/17/19 10:01 Last Admin: 12/14/19 12:16 Dose: 6 mg Documented by: Furosemide (Furosemide 40 Mg/4 Ml Vial) 40 mg IV BID@1000,1800 [facility] Fentanyl Citrate 1,000 mcg/ (Sodium Chloride) 100 mls @ 2.5 mls/hr CONT INF .Q40H [facility]; Protocol Last Titration: 12/15/19 07:00 Dose: 0 mcg/hr, 0 mls/hr Documented by: Sodium Chloride () 250 mls @ 15 mls/hr IV .[id number] PRN PRN Reason: Saline Flush Last Admin: 12/15/19 07:13 Dose: 15 mls/hr Documented by: Sodium Chloride () 250 mls @ 15 mls/hr IV .[id number] PRN PRN Reason: Additional IVPB Infusion Last Infusion: 12/14/19 20:00 Dose: 0 mls/hr Documented by: Pantoprazole Sodium 40 mg/ (Sodium Chloride) 110 mls @ 330 mls/hr IV Q12 [facility] Last Infusion: 12/14/19 22:35 Dose: Infused Documented by: Enteral Nutritional Formula (Vital High Protein) 1,000 mls @ 65 mls/hr GT .[id number] [facility] Last Admin: 12/14/19 23:44 Dose: 65 mls/hr Documented by: Levetiracetam 500 mg/ Sodium (Chloride) 105 mls @ 400 mls/hr IV Q12 [facility] Last Infusion: 12/14/19 22:57 Dose: Infused Documented by: Dexmedetomidine HCl 1,000 mcg/ (Sodium Chloride) 250 mls @ 14.288 mls/hr CONT INF .[id number] [facility]; Protocol Last Titration: 12/15/19 07:00 Dose: 0.5 mcg/kg/hr, 14.3 mls/hr Documented by: Potassium Chloride 40 meq/ (Sodium Chloride) 520 mls @ 125 mls/hr IV .[id number] [facility] Stop: 12/15/19 11:24 Insulin Glargine (Insulin Glargine 100 Units/Ml Pen) 60 units SC BID [facility] Last Admin: 12/14/19 22:04 Dose: 60 u Documented by: Insulin Human Lispro (Insulin Lispro 100 Unit/Ml Insuln.Pen) 0 unit SC Q4H [facility]; Protocol Last Admin: 12/15/19 05:07 Dose: Not Given Documented by: Labetalol HCl (Labetalol (Prefilled) 20 Mg/4 Ml) 10 mg IV Q4H PRN PRN PRN Reason: SBP > 220 OR DBP > 120 Metoprolol Tartrate (Metoprolol Tartrate 50 Mg Tablet) 50 mg PO BID [facility] Last Admin: 12/14/19 21:54 Dose: 50 mg Documented by: Nystatin (Nystatin Powder 15gm Bottle) 1 applic TOPICAL TID [facility]; Protocol Last Admin: 12/14/19 21:54 Dose: 1 applicatio Documented by: Senna/Docusate Sodium (Senna/Docusate Sodium 1 Tablet) 1 tablet GT BID [facility] Last Admin: 12/14/19 21:55 Dose: 1 tablet Documented by: Sodium Chloride (0.9% Saline Lock 10 Ml Syringe) 10 - 40 ml IV UD PRN PRN Reason: SALINE FLUSH Last Admin: 12/15/19 06:50 Dose: 10 ml Documented by: STROKE Vital Signs/Narrative: Vital Signs Pulse Resp BP Pulse Ox 12/15/19 07:00 75 21 H 173/104 H 91 12/15/19 06:00 71 18 181/77 H 90 12/15/19 05:35 78 21 H 92 12/15/19 05:00 80 22 H 177/72 H 90 12/15/19 04:00 74 18 195/76 H 93 Medical Necessity - Tobacco Use Smoking Status: Unknown if ever smoked Tobacco Use: Non-smoker Assessment/Plan All Active Problems (Last Reviewed 05/27/18 @ 10:[address] Hardeep Jackson MD) COVID-19 with multiple comorbidities (Acute) COVID-19 with pulmonary comorbidity (Acute) Acute respiratory failure with hypoxia (Acute) Gross hematuria (Acute) RYAN (acute kidney injury) (Acute) Hypertensive urgency (Acute) Encephalopathy (Acute) # Acute hypoxic respiratory failure due to COVID-19 pneumonia. Remains intubated and sedated. Patient currently on Precedex. still having increased endotracheal secretions Breathing treatments with bronchodilators. Titrate oxygen to maintain saturation above 90%. Critical care on board. Has completed a course of remdesivir and on IV dexamethasone till 12/17/2019. ID on board. on precedex for sedation. Aim for RAAS sore of 0-1 #Acute COVID 19 pneumonia Critical care and ID on board. As under respiratory failure management. # Acute left cerebellar stroke CT of the brain done showed acute left cerebellar stroke. Neurology consulted. Not on aspirin on account of bleeding. On high intensity statin as well as metoprolol. To get MRI. # Seizure: On IV Keppra. EEG showed severe diffuse encephalopathy with no epileptiform changes, seizure patterns or lateralizing signs. Neurology consulted # Hypernatremia is down to 149 today. On free water flushes and D5 water. #Hypokalemia: K is 3.2 today. being replaced. # Hematuria Was having gross hematuria. Urology consulted. Not on aspirin or any anticoagulation and had no history of BPH. Await urology recommendations. # Acute Gastritis: stable. On PPI # Thromocytopenia are up to 58 today. May be Covid related. Not on any anticoagulation. Received Lovenox initially but this has been discontinued Hypokalemia and hypomagnesemia: resolved #RYAN: resolved. #hypertension: on metoprolol #Type 2 diabetes mellitus: on lantus 60units bid. ISS. Accuchecks ACHS DVT prophylaxis: SCDs. GI prophylaxis: PPI Inpatient E&M: [id number] [facility] Hosp L3
[2019-12-15] MEDS: Chlorhexidine 15 ML PO ×2 (08:48→20:04)
[2019-12-15] MEDS: dexAMETHasone 10 MG/ML Vial 6 MG IV (08:48)
[2019-12-15] MEDS: Metoprolol Tartrate 50 MG Tablet PO ×2 (08:49→20:11)
[2019-12-15] MEDS: Furosemide 40 MG/4 ML Vial IV ×2 (08:49→19:00)
[2019-12-15] MEDS: Senna/Docusate Sodium 1 Tablet GT ×2 (08:50→20:11)
[2019-12-15 09:20] LABS: Bedside Glucose 70 mg/dL (70-110)
[2019-12-15] MEDS: Nystatin Powder 15gm Bottle 1 APPLIC TOPICAL ×3 (10:27→20:11)
[2019-12-15] MEDS: Vital High Protein 1,000 ML 65 ML GT ×4 (10:28→22:53)
[2019-12-15] MEDS: Dexmedetomidine 1,000 mcg in 0.9% NS 240 mL 14.3 MCG CONT INF (11:30)
[2019-12-15] MEDS: Polyethylene Glycol 3350 17 GM PACKET PO (12:21)
[2019-12-15] MEDS: Insulin Lispro 100 UNIT/ML INSULN.PEN SC (12:22)
[2019-12-15 13:16] LABS: Bedside Glucose 152 mg/dL (70-110)
--- NOTE | 2019-12-15 13:52 | PCM.PN.REN ---
Patient Problems: Active and Suspected Problems (Last Reviewed 05/27/18 @ 10:[address] Hardeep Jackson MD) COVID-19 with multiple comorbidities (Acute) COVID-19 with pulmonary comorbidity (Acute) Acute respiratory failure with hypoxia (Acute) Gross hematuria (Acute) RYAN (acute kidney injury) (Acute) Hypertensive urgency (Acute) Encephalopathy (Acute) Subjective: events noted - Physical Exam Vitals/I&O's: Vital Signs Temp Pulse Resp BP Pulse Ox 97.9 F 69 25 H 159/95 H 91 12/15/19 03:00 12/15/19 10:00 12/15/19 10:00 12/15/19 10:00 12/15/19 10:00 Oxygen Delivery Method Mechanical Ventilator Weight: 117.707 kg Body Mass Index (BMI) 34.9 Finger Stick Blood Glucose 195 Intake and Output for Last 24 Hours 12/13/19 12/14/19 12/15/19 23:59 23:59 23:59 Intake Total 6186.92 / 6203.72 1754.07 / 1754.07 Output Total 3300 / 3300 4375 / 4375 Balance 2886.92 / 2903.72 -2620.93 / -2620.93 Comment: exam minimized due to covid status. chart reviewed. Laboratory Results 12/14/19 12:12: POC Glucose 125 H 12/14/19 16:48: POC Glucose 162 H 12/14/19 19:46: POC Glucose 210 H 12/14/19 22:03: POC Glucose 219 H 12/14/19 23:41: POC Glucose 203 H 12/15/19 04:38: POC Glucose 139 H 12/15/19 04:40: WBC 23.2 H, RBC 4.30 L, Hgb 13.1, Hct 41.0, MCV 95.3 H, MCH 30.5, MCHC 32.0, RDW Std Deviation 46.6 H, RDW Coeff of [place] 13.3, Plt Count 58 L, MPV 11.7, Immature Gran % (Auto) 4.800 H, Neut % (Auto) 63.3, Lymph % (Auto) 7.0 L, [place] % (Auto) 24.3 H, Eos % (Auto) 0.1, Baso % (Auto) 0.5, Absolute Neuts (auto) 14.7 H, Absolute Lymphs (auto) 1.61, Nucleated RBC % 0.2, Differential Comment SCANNED, Diff Path Review May foll 12/15/19 04:40: Sodium 149 H, Potassium 3.2 L, Chloride 114 H, Carbon Dioxide 28.0, Anion Gap 7, BUN 28 H, Creatinine 0.89, Estim Creat Clear Calc 84.61, Est GFR (MDRD) Af Amer 109, Est GFR (MDRD) Non-Af 90, BUN/Creatinine Ratio 31.4 H, Glucose 141 H, Calcium 7.7 L, Total Bilirubin 1.00, AST 58 H, ALT 23, Alkaline Phosphatase 69, Total Protein 5.5 L, Albumin 2.0 L, Globulin 3.5, Albumin/Globulin Ratio 0.6 L 12/15/19 08:22: POC Glucose 70 12/15/19 12:20: POC Glucose 152 H Current Medications Atorvastatin Calcium (Atorvastatin Calcium 40 Mg Tablet) 40 mg PO QHS [facility] Last Admin: 12/14/19 21:55 Dose: 40 mg Documented by: Chlorhexidine Gluconate (Chlorhexidine 15 Ml) 15 ml PO BID [facility] Last Admin: 12/15/19 08:48 Dose: 15 ml Documented by: Dexamethasone Sodium Phosphate (Dexamethasone 10 Mg/Ml Vial) 6 mg IV DAILY [facility] Stop: 12/17/19 10:01 Last Admin: 12/15/19 08:48 Dose: 6 mg Documented by: Furosemide (Furosemide 40 Mg/4 Ml Vial) 40 mg IV BID@1000,1800 [facility] Last Admin: 12/15/19 08:49 Dose: 40 mg Documented by: Fentanyl Citrate 1,000 mcg/ (Sodium Chloride) 100 mls @ 2.5 mls/hr CONT INF .Q40H [facility]; Protocol Last Titration: 12/15/19 07:00 Dose: 0 mcg/hr, 0 mls/hr Documented by: Sodium Chloride () 250 mls @ 15 mls/hr IV .[id number] PRN PRN Reason: Saline Flush Last Admin: 12/15/19 07:13 Dose: 15 mls/hr Documented by: Sodium Chloride () 250 mls @ 15 mls/hr IV .[id number] PRN PRN Reason: Additional IVPB Infusion Last Infusion: 12/14/19 20:00 Dose: 0 mls/hr Documented by: Pantoprazole Sodium 40 mg/ (Sodium Chloride) 110 mls @ 330 mls/hr IV Q12 [facility] Last Infusion: 12/14/19 22:35 Dose: Infused Documented by: Enteral Nutritional Formula (Vital High Protein) 1,000 mls @ 65 mls/hr GT .[id number] [facility] Last Admin: 12/15/19 10:28 Dose: 65 mls/hr Documented by: Levetiracetam 500 mg/ Sodium (Chloride) 105 mls @ 400 mls/hr IV Q12 [facility] Last Infusion: 12/14/19 22:57 Dose: Infused Documented by: Dexmedetomidine HCl 1,000 mcg/ (Sodium Chloride) 250 mls @ 14.288 mls/hr CONT INF .[id number] [facility]; Protocol Last Titration: 12/15/19 07:00 Dose: 0.5 mcg/kg/hr, 14.3 mls/hr Documented by: Insulin Glargine (Insulin Glargine 100 Units/Ml Pen) 40 units SC BID [facility] Last Admin: 12/15/19 12:24 Dose: 40 u Documented by: Insulin Human Lispro (Insulin Lispro 100 Unit/Ml Insuln.Pen) 0 unit SC Q4H [facility]; Protocol Last Admin: 12/15/19 12:22 Dose: 2 units Documented by: Labetalol HCl (Labetalol (Prefilled) 20 Mg/4 Ml) 10 mg IV Q4H PRN PRN PRN Reason: SBP > 220 OR DBP > 120 Metoprolol Tartrate (Metoprolol Tartrate 50 Mg Tablet) 50 mg PO BID [facility] Last Admin: 12/15/19 08:49 Dose: 50 mg Documented by: Nystatin (Nystatin Powder 15gm Bottle) 1 applic TOPICAL TID [facility]; Protocol Last Admin: 12/15/19 12:45 Dose: 1 applicatio Documented by: Polyethylene Glycol (Polyethylene Glycol 3350 17 Gm Packet) 17 gm PO DAILY [facility] Last Admin: 12/15/19 12:21 Dose: 17 gm Documented by: Senna/Docusate Sodium (Senna/Docusate Sodium 1 Tablet) 1 tablet GT BID [facility] Last Admin: 12/15/19 08:50 Dose: 1 tablet Documented by: Sodium Chloride (0.9% Saline Lock 10 Ml Syringe) 10 - 40 ml IV UD PRN PRN Reason: SALINE FLUSH Last Admin: 12/15/19 10:27 Dose: 10 ml Documented by: Medical Necessity - Tobacco Use Smoking Status: Unknown if ever smoked Tobacco Use: Non-smoker Assessment/Plan All Active Problems (Last Reviewed 05/27/18 @ 10:[address] Hardeep Jackson MD) COVID-19 with multiple comorbidities (Acute) COVID-19 with pulmonary comorbidity (Acute) Acute respiratory failure with hypoxia (Acute) Gross hematuria (Acute) RYAN (acute kidney injury) (Acute) Hypertensive urgency (Acute) Encephalopathy (Acute) RYAN COVID pneumonia Hypernatremia baseline cr is normal [place] with good urine output cr is trending down sodium values are better with D5W
[2019-12-15 14:47] LABS: Pathologist Review Reviewed
[2019-12-15] MEDS: Atorvastatin Calcium 40 MG Tablet PO (20:11)
[2019-12-15] MEDS: Dexmedetomidine 1,000 mcg in 0.9% NS 240 mL 42.9 MCG CONT INF (20:25)
[2019-12-15 21:00] LABS: Bedside Glucose 105 mg/dL (70-110)
[2019-12-15 22:35] LABS: Bedside Glucose 77 mg/dL (70-110)
[2019-12-16] VITALS (29 sets, daily range): BP systolic 114–180; BP diastolic 53–147; PULSE 52–78; RESP 15–28; TEMP 36.5–36.9; O2SAT 88–96
[2019-12-16 01:26] LABS: Bedside Glucose 104 mg/dL (70-110)
[2019-12-16] MEDS: Dexmedetomidine 1,000 mcg in 0.9% NS 240 mL 34.3 MCG CONT INF (02:15)
[2019-12-16 03:31] LABS: Bedside Glucose 214 mg/dL (70-110)
[2019-12-16] MEDS: Insulin Lispro 100 UNIT/ML INSULN.PEN SC (03:34)
[2019-12-16] MEDS: Nystatin Powder 15gm Bottle 1 APPLIC TOPICAL ×2 (03:36→13:58)
[2019-12-16] MEDS: TITRATION PARAMETER CHANGE 1 EACH IV (05:08)
[2019-12-16 05:09] LABS: Absolute Lymphocyte Count 1.15 X10^3/uL (0.83-4.51); Absolute Neutrophil Count 10.3 X10^3/uL (2.0-7.7); Basophil# 0.04 X10^3/uL; Basophil% 0.3 % (0-1); Eosinophils% 0.6 % (0-5); Hematocrit 40.7 % (40-54); Hemoglobin 12.9 g/dL (13.0-16.5); Lymphocyte # 1.15 X10^3/ul (4.0); Lymphocyte % 7.4 % (19-41); Mean Corp Hgb Conc 31.7 g/dL (32-36); Mean Corpuscular Hgb 30.3 pg (27.0-32.0); Mean Corpuscular Volume 95.5 fL (80-94); Mean Platelet Vol. 13.3 fl (6.2-12.0); Monocyte# 3.34 X10^3/uL; Monocyte% 21.5 % (0-10); NRBC Flagged by Analyzer 0 % (0-5); Neutrophil # 10.27 X10^3/uL (2.7-7.7); Neutrophil % 66.1 % (47-70); POSITIVE COUNT YES; POSITIVE DIFFERENTIAL YES; RBC Distribution Width CV 13.5 % (11.6-14.6); RBC Distribution Width SD 47.2 fl (35.1-43.9); Red Blood Count 4.26 M/mm3 (4.6-6.2); White Blood Count 15.5 K/mm3 (4.4-11.0)
[2019-12-16 05:21] LABS: Differential Indicated SCAN CRITERIA MET; Platelet Count 50 K/mm3 (150-450)
[2019-12-16 05:25] LABS: Anion Gap 4 (5-15); BUN 35 mg/dL (7-18); BUN/Creat Ratio 34.3 RATIO (10-20); Calcium,Total 8.1 mg/dL (8.5-10.1); Chloride 112 mmol/L (98-107); Creatinine, Serum 1.02 mg/dL (0.70-1.30); EST Glomerular Filtration Rate 77 mL/min (>60); Est Glom Filt Rate - Afr Amer 93 mL/min (>60); Estimated Creatinine Clearance 73.82 ml/min; Glucose 136 mg/dL (74-106); Potassium 3.5 mmol/L (3.5-5.1); Sodium Level 150 mmol/L (136-145)
[2019-12-16 05:46] LABS: Differential Comment SCANNED
--- NOTE | 2019-12-16 06:16 | PN_ITS ---
Subjective: The patient was seen and examined at the bedside this morning. Events from the last 24 hours have been reviewed. The patient is currently afebrile, hemodynamically stable and maintaining appropriate oxygen saturations on assist control mode of mechanical ventilation with an FiO2 requirement of 55%. Platelet count once again fell this morning to 50,000. Sodium is high at 150. Creatinine is stable. The patient is currently documented to be overall net +11.4 L for the hospital admission. He is currently on IV Lasix twice daily. The patient did okay on his spontaneous breathing trial, but was nondirectable and continues to have significant endotracheal secretions. Objective: The patient's most recent lab work, culture data and imaging studies have all been personally reviewed. Surface echocardiogram revealed moderate concentric LVH with an ejection fraction of 55%. Coronavirus was positive on December 06. Infectious work-up has been otherwise negative to date. CT head from December 09 revealed a new focal area of low-attenuation involving the superior edge of the left cerebellum concerning for possible infarction. 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 General: - - Remains intubated, sedated and mechanically ventilated. HEENT: Atraumatic, Normocephalic Oral: No Gingival or Mucosal Lesions/ Ulcerations, - - Endotracheal and OG tubes remain in place. Neck: Supple, No Nodes, Trachea Midline Lungs: Diminished, Rhonchi, Tachypneic Cardiovascular: Normal S1, Normal S2, Bradycardic Abdomen: Bowel Sounds Present, Soft, Non Tender, Obese Extremities: No clubbing, No cyanosis, Edema Skin: - - No significant change from previous Musculoskeletal: No Muscle Wasting Lymphatic: No Cervical, Supraclavicular, or Inguinal Adenopathy Neurological: - - No focal deficits. Currently sedated. The patient was restless and nondirectable with weaning of sedation. Psych/Mental Status: Restless Vital Signs Temp Pulse Resp BP Pulse Ox 98.5 F 78 23 H 180/83 H 90 12/16/19 03:00 12/16/19 06:00 12/16/19 06:00 12/16/19 06:00 12/16/19 06:00 Oxygen Delivery Method Mechanical Ventilator Weight: 247 lb 12.8 oz Body Mass Index (BMI) 34.9 Finger Stick Blood Glucose 195 Intake and Output for Last 24 Hours 12/14/19 12/15/19 12/16/19 23:59 23:59 23:59 Intake Total 6186.92 / 6203.72 4544.41 / 4602.31 365.27 / 365.27 Output Total 3300 / 3300 6750 / 6750 500 / 500 Balance 2886.92 / 2903.72 -2205.59 / -2147.69 -134.73 / -134.73 Labs (Last 48 Hours) 12/13/19 12/14/19 12/14/19 04:00 04:35 04:35 WBC RBC Hgb Hct MCV MCH MCHC RDW Std Deviation RDW Coeff of Preston Plt Count MPV Immature Gran % (Auto) Neut % (Auto) Lymph % (Auto) Pinal % (Auto) Eos % (Auto) Baso % (Auto) Absolute Neuts (auto) Absolute Lymphs (auto) Nucleated RBC % Differential Comment Diff Path Review Reviewed Reviewed Fibrinogen Specimen Type Sample Site pH Bicarbonate Actual Total CO2 Base Excess O2 Saturation O2 % ABG pCO2 ABG pO2 [place] Test Respiration Rate O2 Delivery Device Tidal Volume POC PEEP Sodium Potassium Chloride Carbon Dioxide Anion Gap BUN Creatinine Estim Creat Clear Calc Est GFR (MDRD) Af Amer Est GFR (MDRD) Non-Af BUN/Creatinine Ratio Glucose Calcium Total Bilirubin AST ALT Alkaline Phosphatase Ammonia Total Protein Albumin Globulin Albumin/Globulin Ratio TSH 1.13 POC Glucose 12/14/19 12/14/19 12/14/19 04:35 08:38 10:55 WBC RBC Hgb Hct MCV MCH MCHC RDW Std Deviation RDW Coeff of Preston Plt Count MPV Immature Gran % (Auto) Neut % (Auto) Lymph % (Auto) Pinal % (Auto) Eos % (Auto) Baso % (Auto) Absolute Neuts (auto) Absolute Lymphs (auto) Nucleated RBC % Differential Comment Diff Path Review Fibrinogen 227 Specimen Type Sample Site pH Bicarbonate Actual Total CO2 Base Excess O2 Saturation O2 % ABG pCO2 ABG pO2 [place] Test Respiration Rate O2 Delivery Device Tidal Volume POC PEEP Sodium Potassium Chloride Carbon Dioxide Anion Gap BUN Creatinine Estim Creat Clear Calc Est GFR (MDRD) Af Amer Est GFR (MDRD) Non-Af BUN/Creatinine Ratio Glucose Calcium Total Bilirubin AST ALT Alkaline Phosphatase Ammonia 43.0 H Total Protein Albumin Globulin Albumin/Globulin Ratio TSH POC Glucose 118 H 12/14/19 12/14/19 12/14/19 11:09 12:12 16:48 WBC RBC Hgb Hct MCV MCH MCHC RDW Std Deviation RDW Coeff of [place] Plt Count MPV Immature Gran % (Auto) Neut % (Auto) Lymph % (Auto) Pinal % (Auto) Eos % (Auto) Baso % (Auto) Absolute Neuts (auto) Absolute Lymphs (auto) Nucleated RBC % Differential Comment Diff Path Review Fibrinogen Specimen Type ART Sample Site L Radial pH 7.44 Bicarbonate Actual 27.4 H Total CO2 29 Base Excess 3 H O2 Saturation 92 L O2 % 50 ABG pCO2 40.6 ABG pO2 62 L [place] Test Positive Respiration Rate 14 O2 Delivery Device Adult Vent Tidal Volume 500 POC PEEP 5 Sodium Potassium Chloride Carbon Dioxide Anion Gap BUN Creatinine Estim Creat Clear Calc Est GFR (MDRD) Af Amer Est GFR (MDRD) Non-Af BUN/Creatinine Ratio Glucose Calcium Total Bilirubin AST ALT Alkaline Phosphatase Ammonia Total Protein Albumin Globulin Albumin/Globulin Ratio TSH POC Glucose 125 H 162 H 12/14/19 12/14/19 12/14/19 19:46 22:03 23:41 WBC RBC Hgb Hct MCV MCH MCHC RDW Std Deviation RDW Coeff of [place] Plt Count MPV Immature Gran % (Auto) Neut % (Auto) Lymph % (Auto) Pinal % (Auto) Eos % (Auto) Baso % (Auto) Absolute Neuts (auto) Absolute Lymphs (auto) Nucleated RBC % Differential Comment Diff Path Review Fibrinogen Specimen Type Sample Site pH Bicarbonate Actual Total CO2 Base Excess O2 Saturation O2 % ABG pCO2 ABG pO2 [place] Test Respiration Rate O2 Delivery Device Tidal Volume POC PEEP Sodium Potassium Chloride Carbon Dioxide Anion Gap BUN Creatinine Estim Creat Clear Calc Est GFR (MDRD) Af Amer Est GFR (MDRD) Non-Af BUN/Creatinine Ratio Glucose Calcium Total Bilirubin AST ALT Alkaline Phosphatase Ammonia Total Protein Albumin Globulin Albumin/Globulin Ratio TSH POC Glucose 210 H 219 H 203 H 12/15/19 12/15/19 12/15/19 04:38 04:40 04:40 WBC 23.2 H RBC 4.30 L Hgb 13.1 Hct 41.0 MCV 95.3 H MCH 30.5 MCHC 32.0 RDW Std Deviation 46.6 H RDW Coeff of Preston 13.3 Plt Count 58 L MPV 11.7 Immature Gran % (Auto) 4.800 H Neut % (Auto) 63.3 Lymph % (Auto) 7.0 L Pinal % (Auto) 24.3 H Eos % (Auto) 0.1 Baso % (Auto) 0.5 Absolute Neuts (auto) 14.7 H Absolute Lymphs (auto) 1.61 Nucleated RBC % 0.2 Differential Comment SCANNED Diff Path Review Reviewed Fibrinogen Specimen Type Sample Site pH Bicarbonate Actual Total CO2 Base Excess O2 Saturation O2 % ABG pCO2 ABG pO2 [place] Test Respiration Rate O2 Delivery Device Tidal Volume POC PEEP Sodium 149 H Potassium 3.2 L Chloride 114 H Carbon Dioxide 28.0 Anion Gap 7 BUN 28 H Creatinine 0.89 Estim Creat Clear Calc 84.61 Est GFR (MDRD) Af Amer 109 Est GFR (MDRD) Non-Af 90 BUN/Creatinine Ratio 31.4 H Glucose 141 H Calcium 7.7 L Total Bilirubin 1.00 AST 58 H ALT 23 Alkaline Phosphatase 69 Ammonia Total Protein 5.5 L Albumin 2.0 L Globulin 3.5 Albumin/Globulin Ratio 0.6 L TSH POC Glucose 139 H 12/15/19 12/15/19 12/15/19 08:22 12:20 16:30 WBC RBC Hgb Hct MCV MCH MCHC RDW Std Deviation RDW Coeff of Preston Plt Count MPV Immature Gran % (Auto) Neut % (Auto) Lymph % (Auto) Pinal % (Auto) Eos % (Auto) Baso % (Auto) Absolute Neuts (auto) Absolute Lymphs (auto) Nucleated RBC % Differential Comment Diff Path Review Fibrinogen Specimen Type Sample Site pH Bicarbonate Actual Total CO2 Base Excess O2 Saturation O2 % ABG pCO2 ABG pO2 [place] Test Respiration Rate O2 Delivery Device Tidal Volume POC PEEP Sodium Potassium Chloride Carbon Dioxide Anion Gap BUN Creatinine Estim Creat Clear Calc Est GFR (MDRD) Af Amer Est GFR (MDRD) Non-Af BUN/Creatinine Ratio Glucose Calcium Total Bilirubin AST ALT Alkaline Phosphatase Ammonia Total Protein Albumin Globulin Albumin/Globulin Ratio TSH POC Glucose 70 152 H 105 12/15/19 12/15/19 12/16/19 19:56 22:48 03:02 WBC RBC Hgb Hct MCV MCH MCHC RDW Std Deviation RDW Coeff of Preston Plt Count MPV Immature Gran % (Auto) Neut % (Auto) Lymph % (Auto) Pinal % (Auto) Eos % (Auto) Baso % (Auto) Absolute Neuts (auto) Absolute Lymphs (auto) Nucleated RBC % Differential Comment Diff Path Review Fibrinogen Specimen Type Sample Site pH Bicarbonate Actual Total CO2 Base Excess O2 Saturation O2 % ABG pCO2 ABG pO2 [place] Test Respiration Rate O2 Delivery Device Tidal Volume POC PEEP Sodium Potassium Chloride Carbon Dioxide Anion Gap BUN Creatinine Estim Creat Clear Calc Est GFR (MDRD) Af Amer Est GFR (MDRD) Non-Af BUN/Creatinine Ratio Glucose Calcium Total Bilirubin AST ALT Alkaline Phosphatase Ammonia Total Protein Albumin Globulin Albumin/Globulin Ratio TSH POC Glucose 77 104 214 H 12/16/19 12/16/19 04:50 04:50 WBC 15.5 H RBC 4.26 L Hgb 12.9 L Hct 40.7 MCV 95.5 H MCH 30.3 MCHC 31.7 L RDW Std Deviation 47.2 H RDW Coeff of Preston 13.5 Plt Count 50 L* MPV 13.3 H Immature Gran % (Auto) 4.100 H Neut % (Auto) 66.1 Lymph % (Auto) 7.4 L P[place] % (Auto) 21.5 H Eos % (Auto) 0.6 Baso % (Auto) 0.3 Absolute Neuts (auto) 10.3 H Absolute Lymphs (auto) 1.15 Nucleated RBC % 0 Differential Comment SCANNED Diff Path Review May foll Fibrinogen Specimen Type Sample Site pH Bicarbonate Actual Total CO2 Base Excess O2 Saturation O2 % ABG pCO2 ABG pO2 [place] Test Respiration Rate O2 Delivery Device Tidal Volume POC PEEP Sodium 150 H Potassium 3.5 Chloride 112 H Carbon Dioxide 34.0 H Anion Gap 4 L BUN 35 H Creatinine 1.02 Estim Creat Clear Calc 73.82 Est GFR (MDRD) Af Amer 93 Est GFR (MDRD) Non-Af 77 BUN/Creatinine Ratio 34.3 H Glucose 136 H Calcium 8.1 L Total Bilirubin AST ALT Alkaline Phosphatase Ammonia Total Protein Albumin Globulin Albumin/Globulin Ratio TSH POC Glucose Clinical Impression(s) from Imaging Studies Chest X-Ray 12/07/19 08:08 IMPRESSION: Diffuse bilateral alveolar infiltrates more prominent in the left hemithorax. Differential diagnosis should include either pulmonary edema or diffuse bilateral pneumonia. Electronically Signed: Damion Choi, at 8:46 EDT , Service support , Brain CT 12/10/19 19:42 IMPRESSION: There is a new focal area of low-attenuation involving the superior edge of the left cerebellum. A focal infarct cannot be excluded. Electronically Signed: Fred Perdomo DO at 20:37 EDT Tel [phone], Service support , ADDENDUM: 12/10/192051 IMPRESSION: There is a new focal area of low-attenuation involving the superior edge of the left cerebellum. A focal infarct cannot be excluded. N.B. : The above information has been verbally conveyed by Fred Perdomo DO to Leila Paredes RN, on 12/10/2019 20:45:49 (ET). Electronically Signed: Fred Perdomo DO at 20:37 EDT Tel [phone], Service support , KUB X-Ray 12/11/19 15:35 IMPRESSION: OG/NG tube tip in the body of the stomach Electronically Signed: Chaitanya Fonseca MD at 17:18 EDT , Service support , KUB X-Ray 12/15/19 02:45 IMPRESSION: Normal x-ray examination of the abdomen and pelvis. Electronically Signed: Ever Guzman MD at 3:15 EST , Service support , Medical Necessity - Tobacco Use Smoking Status: Unknown if ever smoked Tobacco Use: Non-smoker Assessment/Plan All Active Problems (Last Reviewed 05/27/18 @ 10:[address] Hardeep Jackson MD) COVID-19 with multiple comorbidities (Acute) COVID-19 with pulmonary comorbidity (Acute) Acute respiratory failure with hypoxia (Acute) Gross hematuria (Acute) RYAN (acute kidney injury) (Acute) Hypertensive urgency (Acute) Encephalopathy (Acute) RECOMMENDATIONS: 1. Continue invasive mechanical ventilatory support and wean FiO2 to maintain oxygen saturations at or above 90%. 2. Minimize sedation. Goal to maintain a RASS of -1 to 1. 3. Continue attempts at gentle diuresis as tolerated by hemodynamics and renal function. 4. Start vancomycin and Zosyn given sputum culture results. 5. Continue tube feeds as tolerated. 6. Continue Keppra as ordered. 7. Continue appropriate GI prophylaxis. 8. Stop beta-del. 9. Continued goals of care discussion with the patient's family. IMPRESSIONS: 1. Acute hypoxemic respiratory failure secondary to COVID-19 pneumonia Continue current supportive measures with invasive mechanical ventilation and wean FiO2 to maintain oxygen saturations at or above 90%. The patient has already received convalescent plasma and has completed his course of remdesivir. He will be continued on Decadron to complete 10 days of treatment. Repeat sputum cultures obtained on December 14 were positive for gram-negative anna and staph aureus. Therefore, broad-spectrum antimicrobials were initiated this morning. Recommend optimizing sedation to maintain a RASS of -1 to 1. At this time, the patient's mentation and secretion production continues to be a barrier to attempts at extubation. Continue to diurese the patient as tolerated by hemodynamics and renal function. 2. Thrombocytopenia Likely related to underlying infectious etiologies. Continue to monitor for now. No indication for transfusion of blood products. 3. Hypernatremia/hyperchloremia Improving. Continue free water flushes for now. 4. Encephalopathy Likely metabolic in etiology along with a component of ICU delirium. However, the patient was previously diagnosed with new seizure activity and a stroke. For now, we will plan to minimize sedation as tolerated. 5. Acute kidney injury Improving. Clinical suspicion for ATN. For now, we will continue current supportive measures. Continue to monitor urine output. No indication for renal replacement therapy. 6. New onset seizures/left cerebellar infarct Plan to continue Keppra as ordered. Minimize sedation as tolerated. 7. Advanced age/diabetes mellitus/obesity/hypertension/hyperlipidemia Complicates care, management, recovery and prognosis. Continue home medications as indicated. TIME: 38 minutes of critical care time, independent of procedures, was spent addressing the patient's acute hypoxemic respiratory failure secondary to COVID- 19 pneumonia, thrombocytopenia, hypernatremia, encephalopathy, acute kidney injury, new onset seizure/CVA, review of all data and collaboration with the care team. ([id number]) [phone]: [id number] Critical care first hour
--- NOTE | 2019-12-16 07:35 | PCM.PN.HOSP ---
Patient Problems: Active and Suspected Problems (Last Reviewed 05/27/18 @ 10:[address] Hardeep Jackson MD) COVID-19 with multiple comorbidities (Acute) COVID-19 with pulmonary comorbidity (Acute) Acute respiratory failure with hypoxia (Acute) Gross hematuria (Acute) RYAN (acute kidney injury) (Acute) Hypertensive urgency (Acute) Encephalopathy (Acute) Subjective: Patient seen and examined. He remains intubated and sedated. Unable to do review of systems. He remains in positive balance by 11.4 L. Platelet counts is dropped to 50,000 and sodium is also high at 150. Vitals/I&O's: Vital Signs Temp Pulse Resp BP Pulse Ox 98.5 F 60 26 H 164/53 H 94 12/16/19 03:00 12/16/19 07:00 12/16/19 07:00 12/16/19 07:00 12/16/19 07:00 Oxygen Delivery Method Mechanical Ventilator Weight: 247 lb 12.8 oz Body Mass Index (BMI) 34.9 Finger Stick Blood Glucose 195 Intake and Output for Last 24 Hours 12/14/19 12/15/19 12/16/19 23:59 23:59 23:59 Intake Total 6186.92 / 6203.72 4544.41 / 4602.31 407.47 / 407.47 Output Total 3300 / 3300 6750 / 6750 850 / 850 Balance 2886.92 / 2903.72 -2205.59 / -2147.69 -442.53 / -442.53 General: - - intubated, sedated, HEENT: Atraumatic, PERRLA, EOMI, Normocephalic Oral: Dry Mucosa Neck: Supple, No JVD, Negative Carotid Bruits Lungs: Tachypneic, - - decreased breath sounds bibasally, has bilateral coarse crackles. Intubated. Cardiovascular: Regular rate, Regular Rhythm, Normal S1, Normal S2, No murmurs Abdomen: Bowel Sounds Present, Soft, Non Tender, Non-Distended, No Hepato-splenomegaly Extremities: No clubbing, No cyanosis, No edema, Capillary Refill Less than 3 Seconds Skin: No rashes, No breakdown Musculoskeletal: No Tenderness to Palpation of Joints or Extremities Lymphatic: No Cervical, Supraclavicular, or Inguinal Adenopathy Neurological: Neuro grossly intact, - - Intubated, sedated. Moving all her extremities spontaneously. Psych/Mental Status: Agitated Laboratory Results 12/15/19 04:40: Diff Path Review Reviewed 12/15/19 08:22: POC Glucose 70 12/15/19 12:20: POC Glucose 152 H 12/15/19 16:30: POC Glucose 105 12/15/19 19:56: POC Glucose 77 12/15/19 22:48: POC Glucose 104 12/16/19 03:02: POC Glucose 214 H 12/16/19 04:50: WBC 15.5 H, RBC 4.26 L, Hgb 12.9 L, Hct 40.7, MCV 95.5 H, MCH 30.3, MCHC 31.7 L, RDW Std Deviation 47.2 H, RDW Coeff of Preston 13.5, Plt Count 50 L*, MPV 13.3 H, Immature Gran % (Auto) 4.100 H, Neut % (Auto) 66.1, Lymph % (Auto) 7.4 L, Logan % (Auto) 21.5 H, Eos % (Auto) 0.6, Baso % (Auto) 0.3, Absolute Neuts (auto) 10.3 H, Absolute Lymphs (auto) 1.15, Nucleated RBC % 0, Differential Comment SCANNED, Diff Path Review May 12/16/19 04:50: Sodium 150 H, Potassium 3.5, Chloride 112 H, Carbon Dioxide 34.0 H, Anion Gap 4 L, BUN 35 H, Creatinine 1.02, Estim Creat Clear Calc 73.82, Est GFR (MDRD) Af Amer 93, Est GFR (MDRD) Non-Af 77, BUN/Creatinine Ratio 34.3 H, Glucose 136 H, Calcium 8.1 L Diagnostic Data Chest X-Ray 12/07/19 08:08 IMPRESSION: Diffuse bilateral alveolar infiltrates more prominent in the left hemithorax. Differential diagnosis should include either pulmonary edema or diffuse bilateral pneumonia. Electronically Signed: Damion Choi, at 8:46 EDT , Service support , Brain CT 12/10/19 19:42 IMPRESSION: There is a new focal area of low-attenuation involving the superior edge of the left cerebellum. A focal infarct cannot be excluded. Electronically Signed: Fred Perdomo DO at 20:37 EDT Tel [phone], Service support , ADDENDUM: 12/10/192051 IMPRESSION: There is a new focal area of low-attenuation involving the superior edge of the left cerebellum. A focal infarct cannot be excluded. N.B. : The above information has been verbally conveyed by Fred Perdomo DO to Leila Paredes RN, on 12/10/2019 20:45:49 (ET). Electronically Signed: Fred Perdomo DO at 20:37 EDT Tel [phone], Service support , KUB X-Ray 12/15/19 02:45 IMPRESSION: Normal x-ray examination of the abdomen and pelvis. Electronically Signed: Ever Guzman MD at 3:15 EST , Service support , Current Medications Atorvastatin Calcium (Atorvastatin Calcium 40 Mg Tablet) 40 mg PO QHS [facility] Last Admin: 12/15/19 20:11 Dose: 40 mg Documented by: Chlorhexidine Gluconate (Chlorhexidine 15 Ml) 15 ml PO BID [facility] Last Admin: 12/15/19 20:04 Dose: 15 ml Documented by: Dexamethasone Sodium Phosphate (Dexamethasone 10 Mg/Ml Vial) 6 mg IV DAILY [facility] Stop: 12/17/19 10:01 Last Admin: 12/15/19 08:48 Dose: 6 mg Documented by: Furosemide (Furosemide 40 Mg/4 Ml Vial) 40 mg IV BID@1000,1800 [facility] Last Admin: 12/15/19 19:00 Dose: 40 mg Documented by: Fentanyl Citrate 1,000 mcg/ (Sodium Chloride) 100 mls @ 2.5 mls/hr CONT INF .Q40H [facility]; Protocol Last Titration: 12/16/19 07:15 Dose: 150 mcg/hr, 15 mls/hr Documented by: Sodium Chloride () 250 mls @ 15 mls/hr IV .[id number] PRN PRN Reason: Saline Flush Last Admin: 12/15/19 21:52 Dose: 15 mls/hr Documented by: Sodium Chloride () 250 mls @ 15 mls/hr IV .[id number] PRN PRN Reason: Additional IVPB Infusion Last Infusion: 12/14/19 20:00 Dose: 0 mls/hr Documented by: Pantoprazole Sodium 40 mg/ (Sodium Chloride) 110 mls @ 330 mls/hr IV Q12 [facility] Last Infusion: 12/15/19 20:49 Dose: Infused Documented by: Enteral Nutritional Formula (Vital High Protein) 1,000 mls @ 65 mls/hr GT .[id number] [facility] Last Admin: 12/15/19 22:53 Dose: 65 mls/hr Documented by: Levetiracetam 500 mg/ Sodium (Chloride) 105 mls @ 400 mls/hr IV Q12 [facility] Last Infusion: 12/15/19 21:30 Dose: Infused Documented by: Dexmedetomidine HCl 1,000 mcg/ (Sodium Chloride) 250 mls @ 14.05 mls/hr CONT INF .[id number] [facility]; Protocol Last Titration: 12/16/19 07:00 Dose: 1.5 mcg/kg/hr, 42.2 mls/hr Documented by: Insulin Glargine (Insulin Glargine 100 Units/Ml Pen) 40 units SC BID [facility] Last Admin: 12/15/19 22:26 Dose: Not Given Documented by: Insulin Human Lispro (Insulin Lispro 100 Unit/Ml Insuln.Pen) 0 unit SC Q4H [facility]; Protocol Last Admin: 12/16/19 03:34 Dose: 4 units Documented by: Labetalol HCl (Labetalol (Prefilled) 20 Mg/4 Ml) 10 mg IV Q4H PRN PRN PRN Reason: SBP > 220 OR DBP > 120 Metoprolol Tartrate (Metoprolol Tartrate 50 Mg Tablet) 50 mg PO BID [facility] Last Admin: 12/15/19 20:11 Dose: 50 mg Documented by: Nystatin (Nystatin Powder 15gm Bottle) 1 applic TOPICAL TID [facility]; Protocol Last Admin: 12/16/19 03:36 Dose: 1 applicatio Documented by: Polyethylene Glycol (Polyethylene Glycol 3350 17 Gm Packet) 17 gm PO DAILY [facility] Last Admin: 12/15/19 12:21 Dose: 17 gm Documented by: Senna/Docusate Sodium (Senna/Docusate Sodium 1 Tablet) 1 tablet GT BID [facility] Last Admin: 12/15/19 20:11 Dose: 1 tablet Documented by: Sodium Chloride (0.9% Saline Lock 10 Ml Syringe) 10 - 40 ml IV UD PRN PRN Reason: SALINE FLUSH Last Admin: 12/15/19 10:27 Dose: 10 ml Documented by: STROKE Vital Signs/Narrative: Vital Signs Pulse Resp BP Pulse Ox 12/16/19 07:00 60 26 H 164/53 H 94 12/16/19 06:00 78 23 H 180/83 H 90 12/16/19 05:20 77 23 H 94 12/16/19 05:00 56 L 16 166/67 H 89 12/16/19 04:00 59 L 18 180/91 H 89 12/16/19 03:44 59 L Medical Necessity - Tobacco Use Smoking Status: Unknown if ever smoked Tobacco Use: Non-smoker Assessment/Plan All Active Problems (Last Reviewed 05/27/18 @ 10:[address] Hardeep Jackson MD) COVID-19 with multiple comorbidities (Acute) COVID-19 with pulmonary comorbidity (Acute) Acute respiratory failure with hypoxia (Acute) Gross hematuria (Acute) RYAN (acute kidney injury) (Acute) Hypertensive urgency (Acute) Encephalopathy (Acute) # Acute hypoxic respiratory failure due to COVID-19 pneumonia. Remains intubated and sedated. Patient currently on Precedex. still having increased endotracheal secretions Breathing treatments with bronchodilators. Titrate oxygen to maintain saturation above 90%. Critical care on board. Has completed a course of remdesivir and on IV dexamethasone till 12/17/2019. ID on board. on precedex for sedation. Aim for RAAS sore of 0-1 #Acute COVID 19 pneumonia Critical care and ID on board. As under respiratory failure management. # Acute left cerebellar stroke CT of the brain done showed acute left cerebellar stroke. Neurology consulted. Not on aspirin on account of bleeding. On high intensity statin as well as metoprolol. To get MRI. # Seizure: On IV Keppra. EEG showed severe diffuse encephalopathy with no epileptiform changes, seizure patterns or lateralizing signs. Neurology consulted # Hypernatremia iis 150 today. on free water flushes and D5W #Hypokalemia: resolved # Hematuria Was having gross hematuria. Urology consulted. Not on aspirin or any anticoagulation and had no history of BPH. Await urology recommendations. # Acute Gastritis: stable. On PPI # Thromocytopenia down to 50 today. WIll continue monitoring. Not on lovenox #hypertension: on metoprolol #Type 2 diabetes mellitus: on lantus 60units bid. ISS. Accuchecks ACHS DVT prophylaxis: SCDs. GI prophylaxis: PPI Inpatient E&M: [id number] [facility] L3
[2019-12-16] MEDS: Chlorhexidine 15 ML PO (08:08)
[2019-12-16] MEDS: dexAMETHasone 10 MG/ML Vial 6 MG IV (08:09)
[2019-12-16] MEDS: Furosemide 40 MG/4 ML Vial IV (08:12)
[2019-12-16] MEDS: Polyethylene Glycol 3350 17 GM PACKET PO (08:16)
[2019-12-16] MEDS: Metoprolol Tartrate 50 MG Tablet PO (08:16)
[2019-12-16] MEDS: Senna/Docusate Sodium 1 Tablet GT (08:16)
[2019-12-16 08:26] LABS: Bedside Glucose 49 mg/dL (70-110)
[2019-12-16] MEDS: Dexmedetomidine 1,000 mcg in 0.9% NS 240 mL 42.2 MCG CONT INF ×2 (08:29→14:22)
[2019-12-16] MEDS: Senna/Docusate Sodium 1 Tablet PO (10:30)
[2019-12-16 11:45] LABS: Bedside Glucose 80 mg/dL (70-110)
[2019-12-16 12:14] LABS: Pathologist Review Reviewed
--- NOTE | 2019-12-16 13:33 | PHA.PHARE_ITS ---
Consult Pharmacy has been consulted to manage selected antiobiotic: Vancomycin Type of Consult: New start Labs: Sodium 150 mmol/L (136-145) H 12/16/19 04:50 Potassium 3.5 mmol/L (3.5-5.1) 12/16/19 04:50 Chloride 112 mmol/L (98-107) H 12/16/19 04:50 Carbon Dioxide 34.0 mmol/L (21.0-32.0) H 12/16/19 04:50 Anion Gap 4 (5-15) L 12/16/19 04:50 BUN 35 mg/dL (7-18) H 12/16/19 04:50 Creatinine 1.02 mg/dL (0.70-1.30) 12/16/19 04:50 Est GFR (MDRD) Af Amer 93 mL/min (>60) 12/16/19 04:50 Est GFR (MDRD) Non-Af 77 mL/min (>60) 12/16/19 04:50 BUN/Creatinine Ratio 34.3 RATIO (10-20) H 12/16/19 04:50 Glucose 136 mg/dL (74-106) H 12/16/19 04:50 Microbiology: Microbiology 12/15/19 12:45 Sputum, Induced/Lukens Gram Stain - Final 12/15/19 12:45 Sputum, Induced/Lukens Respiratory Culture - 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 12/07/19 07:55 Blood Culture (Wb) - Anticubital Left Blood Culture - Final No growth in 5 days. 12/07/19 20:45 Sputum, Tracheal Aspirate Gram Stain - Final 12/07/19 20:45 Sputum, Tracheal Aspirate Respiratory Culture - Final 12/07/19 09:20 Urine Catheter - Duarte Urine Culture - Final Culture exhibits no growth. 12/07/19 15:00 Urine Catheter - Duarte Legionella Antigen - Final 12/07/19 15:00 Urine Catheter - Duarte Streptococcus pneumoniae Antigen (M - Final 12/07/19 08:09 Mucosa - Nasopharyngeal - Final SARS-CoV-2 (COVID 19) Weight used for dosin.4 kg Estimated Creatinine Clearance: 88ML/MIN Goal Trough: 15-20 mcg/mL Pharmacy Plan for Drug Dosing: Give initial dose of 2000mg IV x1, then continue with 1750mg IV q12h. Will order a trough to be drawn before the 4th total dose. The patient's CrCl of 88ml/min was calculated using an adjusted body weight of 90.1kg. Pharmacy Service will continue to monitor and adjust dosing as required. Follow-Up Labs: Trough Vancomycin Labs to be done on [date and time ordered]: 12/16 23:30
--- NOTE | 2019-12-16 16:54 | PCM.PN.ID ---
Patient Problems: Active and Suspected Problems (Last Reviewed 05/27/18 @ 10:[address] Hardeep Jackson MD) COVID-19 with multiple comorbidities (Acute) COVID-19 with pulmonary comorbidity (Acute) Acute respiratory failure with hypoxia (Acute) Gross hematuria (Acute) RYAN (acute kidney injury) (Acute) Hypertensive urgency (Acute) Encephalopathy (Acute) Subjective: On vent, no fever, having secretions from ETT - Physical Exam Vitals/I&O's: Vital Signs Temp Pulse Resp BP Pulse Ox 98.3 F 75 15 178/72 H 94 12/16/19 12:00 12/16/19 16:21 12/16/19 16:21 12/16/19 14:00 12/16/19 16:21 Oxygen Delivery Method Mechanical Ventilator Weight: 112.4 kg Body Mass Index (BMI) 34.9 Finger Stick Blood Glucose 195 Intake and Output for Last 24 Hours 12/14/19 12/15/19 12/16/19 23:59 23:59 23:59 Intake Total 6186.92 / 6203.72 4544.41 / 4602.31 2593.85 / 2593.85 Output Total 3300 / 3300 6750 / 6750 1625 / 1625 Balance 2886.92 / 2903.72 -2205.59 / -2147.69 968.85 / 968.85 General: No apparent distress, Non-Cooperative Lungs: Diminished Cardiovascular: Regular rate, Regular Rhythm Abdomen: Soft, Non Tender, Non-Distended Skin: No rashes Microbiology Past 72 Hours 12/15/19 12:45 Sputum, Induced/Lukens Gram Stain - Final 12/15/19 12:45 Sputum, Induced/Lukens Respiratory Culture - 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 Staphylococcus aureus Laboratory Results 12/15/19 16:30: POC Glucose 105 12/15/19 19:56: POC Glucose 77 12/15/19 22:48: POC Glucose 104 12/16/19 03:02: POC Glucose 214 H 12/16/19 04:50: WBC 15.5 H, RBC 4.26 L, Hgb 12.9 L, Hct 40.7, MCV 95.5 H, MCH 30.3, MCHC 31.7 L, RDW Std Deviation 47.2 H, RDW Coeff of Preston 13.5, Plt Count 50 L*, MPV 13.3 H, Immature Gran % (Auto) 4.100 H, Neut % (Auto) 66.1, Lymph % (Auto) 7.4 L, Butler % (Auto) 21.5 H, Eos % (Auto) 0.6, Baso % (Auto) 0.3, Absolute Neuts (auto) 10.3 H, Absolute Lymphs (auto) 1.15, Nucleated RBC % 0, Differential Comment SCANNED, Diff Path Review Reviewed 12/16/19 04:50: Sodium 150 H, Potassium 3.5, Chloride 112 H, Carbon Dioxide 34.0 H, Anion Gap 4 L, BUN 35 H, Creatinine 1.02, Estim Creat Clear Calc 73.82, Est GFR (MDRD) Af Amer 93, Est GFR (MDRD) Non-Af 77, BUN/Creatinine Ratio 34.3 H, Glucose 136 H, Calcium 8.1 L 12/16/19 08:14: POC Glucose 49 L 12/16/19 11:40: POC Glucose 80 Current Medications Atorvastatin Calcium (Atorvastatin Calcium 40 Mg Tablet) 40 mg PO QHS [facility] Last Admin: 12/15/19 20:11 Dose: 40 mg Documented by: Chlorhexidine Gluconate (Chlorhexidine 15 Ml) 15 ml PO BID [facility] Last Admin: 12/16/19 08:08 Dose: 15 ml Documented by: Dexamethasone Sodium Phosphate (Dexamethasone 10 Mg/Ml Vial) 6 mg IV DAILY [facility] Stop: 12/17/19 10:01 Last Admin: 12/16/19 08:09 Dose: 6 mg Documented by: Furosemide (Furosemide 40 Mg/4 Ml Vial) 40 mg IV BID@1000,1800 [facility] Last Admin: 12/16/19 08:12 Dose: 40 mg Documented by: Fentanyl Citrate 1,000 mcg/ (Sodium Chloride) 100 mls @ 2.5 mls/hr CONT INF .Q40H [facility]; Protocol Last Admin: 12/16/19 16:00 Dose: 200 mcg/hr, 20 mls/hr Documented by: Sodium Chloride () 250 mls @ 15 mls/hr IV .[id number] PRN PRN Reason: Saline Flush Last Infusion: 12/16/19 07:36 Dose: 0 mls/hr Documented by: Sodium Chloride () 250 mls @ 15 mls/hr IV .[id number] PRN PRN Reason: Additional IVPB Infusion Last Infusion: 12/16/19 08:32 Dose: Infused Documented by: Pantoprazole Sodium 40 mg/ (Sodium Chloride) 110 mls @ 330 mls/hr IV Q12 [facility] Last Infusion: 12/16/19 08:49 Dose: Infused Documented by: Enteral Nutritional Formula (Vital High Protein) 1,000 mls @ 65 mls/hr GT .[id number] [facility] Last Admin: 12/15/19 22:53 Dose: 65 mls/hr Documented by: Levetiracetam 500 mg/ Sodium (Chloride) 105 mls @ 400 mls/hr IV Q12 [facility] [place] Last Infusion: 12/16/19 10:18 Dose: Infused Documented by: Dexmedetomidine HCl 1,000 mcg/ (Sodium Chloride) 250 mls @ 14.05 mls/hr CONT INF .[id number] [facility]; Protocol Last Titration: 12/16/19 16:00 Dose: 1.5 mcg/kg/hr, 42.2 mls/hr Documented by: Piperacillin Sod/Tazobactam (Sod 3.375 gm/ Sodium Chloride) 50 mls @ 12.5 mls/hr IV Q8 [facility] Last Admin: 12/16/19 13:58 Dose: 12.5 mls/hr Documented by: Vancomycin IV Pharmacy to Dose (1 ea/ Sodium Chloride) 500 mls @ 250 mls/hr IV X1 PRN; Protocol PRN Reason: Rx to Dose Vancomycin HCl 1,750 mg/ (Sodium Chloride) 535 mls @ 250 mls/hr IV Q12H [facility] Insulin Glargine (Insulin Glargine 100 Units/Ml Pen) 40 units SC BID [facility] Last Admin: 12/16/19 08:28 Dose: Not Given Documented by: Insulin Human Lispro (Insulin Lispro 100 Unit/Ml Insuln.Pen) 0 unit SC Q4H [facility]; Protocol Last Admin: 12/16/19 16:31 Dose: Not Given Documented by: Nystatin (Nystatin Powder 15gm Bottle) 1 applic TOPICAL TID [facility]; Protocol Last Admin: 12/16/19 13:58 Dose: 1 applicatio Documented by: Polyethylene Glycol (Polyethylene Glycol 3350 17 Gm Packet) 17 gm PO DAILY [facility] [place] Last Admin: 12/16/19 08:16 Dose: 17 gm Documented by: Senna/Docusate Sodium (Senna/Docusate Sodium 1 Tablet) 2 tablet GT BID [facility] Sodium Chloride (0.9% Saline Lock 10 Ml Syringe) 10 - 40 ml IV UD PRN PRN Reason: SALINE FLUSH Last Admin: 12/15/19 10:27 Dose: 10 ml Documented by: Medical Necessity - Tobacco Use Smoking Status: Unknown if ever smoked Tobacco Use: Non-smoker Route of nutrition/ use of supplements: [] Nutritional Intake: [] IV Site: [] Duarte Catheter: [] - Assessment/Plan Antibiotics: [] Assessment/Plan: [] Active and Suspected Problems (Last Reviewed 05/27/18 @ 10:[address] Hardeep Jackson MD) COVID-19 with multiple comorbidities (Acute) COVID-19 with pulmonary comorbidity (Acute) Acute respiratory failure with hypoxia (Acute) Hypertensive urgency (Acute) Encephalopathy (Acute) Covid with mech ventilation - on dex, given remdesivir. New stroke. Afebrile overnight. Plasma ordered 12/08. FiO2 now 55%. I ordered sputum cx yesterday due to ongoing secretions from ETT, cx now showing GNR and staph. Vanc/zosyn started today. Will follow
[2019-12-16 17:21] LABS: Bedside Glucose 104 mg/dL (70-110)
--- NOTE | 2019-12-16 17:50 | NURSING ---
Dr. Foley at bedside to discuss code status, pt made DNRCC by clint. Comfort meds ordered per Dr. Foley. Rebeka RING notified.
[2019-12-16] MEDS: Midazolam 2 MG/2 ML Syringe 1 MG IV ×6 (18:00→19:15)
[2019-12-16] MEDS: HYDROmorphone 1 MG/ML Syringe IV ×6 (18:00→19:15)
--- NOTE | 2019-12-16 18:15 | NURSING ---
Rebeka RT at bedside for terminal extubation, and sons at bedside. ET and OG removed without difficulty. Pt given comfort meds see MAR.
--- NOTE | 2019-12-16 18:15 | CCHN_ITS ---
Hospitalist Note Family at bedside and requesting REAL ESTATE DIRECTOR and terminal extubation. Meds placed for comfort to include dilaudid and Versed 1 mg each q 15 min for terminal agitation, pain or air hunger. Also atropine ordered for terminal secretions if needed. DNR paperwork was signed and order was place prior to terminal extubation at approximately 1813 on 12/16/2019.
--- NOTE | 2019-12-16 19:25 | NURSING ---
Absence of heart beat and respirations noted, verified by Karina MOLINA. Family at bedside informed pt had passed. Dr. Foley, , and Dr. Smith notified.
--- NOTE | 2019-12-16 20:20 | PCM.DEATH ---
Preliminary Cause of acute hypoxic respiratory failure due to COVID 19 infection Date of Admission: 12/07/19 Date of : 12/16/19 - Principle Diagnosis acute hypoxic respiratory failure COVID 19 pneumonia RYAN hypertensive urgency acute metabolic encephalopathy hematuria Problem List: Active and Suspected Problems (Last Reviewed 05/27/18 @ 10:[address] Hardeep Jackson MD) COVID-19 with multiple comorbidities (Acute) COVID-19 with pulmonary comorbidity (Acute) Acute respiratory failure with hypoxia (Acute) Gross hematuria (Acute) RYAN (acute kidney injury) (Acute) Hypertensive urgency (Acute) Encephalopathy (Acute) Hospital Course Patient is a 69-year-old male with a past medical history of hypertension and diabetes. He was admitted through the ED on 12/07/2019 after he was found by his unresponsive. He had been complaining of feeling sick with shortness of breath and cough the day before admission. On admission, he was noted to have elevated blood glucose in the 200s and was also significantly hypoxic. He had been exposed to coronavirus at some sabianist function a week prior to admission. In the ED, he was noted to be saturating in the 60s and was also lethargic. He was emergently intubated in the ED. Covid test done was positive. He was admitted and managed for acute hypoxic respiratory failure due to COVID-19 infection, probable congestive heart failure, thrombocytopenia with hematuria and RYAN. Was also found to have hypertensive urgency which improved subsequently. Culture, ID and urology were consulted. Patient received remdesivir and convalescent plasma. There was also concern for suspected acute GI bleed likely due to gastritis so he was put on IV pantoprazole 40 mg twice daily. Patient remained intubated and sedated throughout his stay. Stay was complicated by increasing secretions requiring high FiO2's. Patient was also difficult to sedate and even when maxed out on the sedatives, patient was still very aggressive. Stay was also complicated by hypernatremia, and he was started on IV 5% dextrose to help with hypernatremia. Stay was also complicated by concerns of a stroke and CT of the brain done showed a focal area of low attenuation involving the superior edge of the left cerebellum concerning for infarction. Was also started on IV Lasix on account of being fluid positive and was also started on IV Keppra on account of him having seizures. EEG done showed severe diffuse encephalopathy with no epileptiform changes and neurology was also consulted. Patient completed a course of remdesivir and IV dexamethasone. Patient's condition did not improve and subsequently started having decorticate posturing. CODE STATUS was initially discussed with family but they were reluctant to change CODE STATUS then. Upon development of decorticate posturing and further deterioration, family was again spoken to by medical team about patient's poor prognosis. Family therefore came in to see patient on 12/17/2019 and decided to withdraw all care. Patient was terminally extubated on 12/16/2019 and patient on 12/16/2019 with time of of 1924. Preliminary Cause of is acute hypoxic respiratory failure due to COVID-19 infection and congestive heart failure. Inpatient E&M: [id number] Disch Hosp
== END 2019-12-16 20:30 | DRG 207 ==
LOC: ED 11:27 → ICU 11:29
PROVIDERS: Hospitalist; Internal Medicine Critical Care Medicine; Internal Medicine Infectious Disease; Admitting Provider Internal Medicine; Emergency Provider Emergency Medicine; PCP Family Medicine; Visit Provider Student in an Organized Health Care Education/Training Program
DX: U07.1 COVID-19 (principal); J96.01 Acute respiratory failure with hypoxia; G93.41 Metabolic encephalopathy; J12.89 Other viral pneumonia; K29.01 Acute gastritis with bleeding; I63.9 Cerebral infarction, unspecified; N17.9 Acute kidney failure, unspecified; R04.2 Hemoptysis; E87.0 Hyperosmolality and hypernatremia; I16.0 Hypertensive urgency; R31.0 Gross hematuria; Z79.84 Long term (current) use of oral hypoglycemic drugs; Z79.899 Other long term (current) drug therapy; E66.9 Obesity, unspecified; Z68.35 Body mass index [BMI] 35.0-35.9, adult; D69.59 Other secondary thrombocytopenia; F17.210 Nicotine dependence, cigarettes, uncomplicated; E87.6 Hypokalemia; R56.9 Unspecified convulsions; E83.42 Hypomagnesemia; E87.8 Other disorders of electrolyte and fluid balance, not elsewhere classified; E86.0 Dehydration; E11.65 Type 2 diabetes mellitus with hyperglycemia; E78.5 Hyperlipidemia, unspecified; A49.01 Methicillin susceptible Staphylococcus aureus infection, unspecified site; Z66 Do not resuscitate; I50.9 Heart failure, unspecified; I11.0 Hypertensive heart disease with heart failure
CPT/HCPCS: 31500; 31720; 36569; 36600; 70450; 71045; 74018; 80048; 80053; 81001; 82140; 82550; 82570; 82728; 82803; 82962; 83605; 83615; 83735; 83880; 84145; 84300; 84443; 84484; 84540; 85014; 85018; 85025; 85027; 85379; 85384; 85610; 85730; 86140; 86850; 86900; 86901; 87040; 87070; 87077; 87086; 87186; 87205; 87426; 87449; 93005; 93306; 94002; 94003; 94660; 95819; 97110; 97162; 97166; 97802; 97803; 99251; 99285; J7030; J7040; J7050; Q9957; A4216; C8929; G0463; J0330; J0696; J1940; J3010